=== PATIENT | male | born 1990 | race Caucasian/White ===

== ENCOUNTER 2017-05-02 14:19 | Observation (INO) | payer OTHER ==
[2017-05-02 15:54] LABS: Appearance,Urine Clear (Clear); Bilirubin,Urine Negative (Negative); Blood,Urine Negative (Negative); Color,Urine Yellow; Glucose,Urine (UA) Negative (Negative); Ketones,Urine Negative (Negative); Leukocyte Esterase,Urine Trace (Negative); Mucus,Urine Rare /hpf; Nitrite,Urine Negative (Negative); Protein,Urine Negative (Negative); RBC,Urine 1 /hpf (0-5); Specific Gravity,Urine 1.014 (1.001-1.035); WBC,Urine 6 /hpf (0-5)
[2017-05-02 15:56] LABS: Anisocytosis Slight; Basophils # (A) 0.1 k/uL (0-0.2); Basophils % (A) 1 %; Eosinophils # (A) 0.7 k/uL (0-0.7); Eosinophils % (A) 6 %; HCT 43.8 % (39.0-53.0); HGB 13.6 gm/dL (13.0-17.5); Hypochromasia Slight; Lymphocytes # (A) 1.6 k/uL (1.0-4.8); Lymphocytes % (A) 13 %; MCH 20.7 pg (25.0-35.0); MCV 66.8 fL (80.0-100.0); Mean Platelet Volume 6.5; Microcytosis Marked; Monocytes # (A) 0.8 k/uL (0-1.0); Monocytes % (A) 6 %; Neutrophils # (A) 9.1 k/uL (1.3-7.7); Neutrophils % (A) 73 %; Platelet Count 458 k/uL (150-450); RBC 6.56 m/uL (4.30-5.90); RDW 16.1 % (11.5-15.5); WBC 12.4 k/uL (3.8-10.6)
[2017-05-02 16:03] LABS: ALT 24 U/L (21-72); AST 19 U/L (17-59); Albumin 3.6 g/dL (3.5-5.0); Alkaline Phosphatase 72 U/L (38-126); Anion Gap 12 mmol/L; Blood Urea Nitrogen 13 mg/dL (9-20); Calcium 9.7 mg/dL (8.4-10.2); Carbon Dioxide 29 mmol/L (22-30); Chloride 101 mmol/L (98-107); Glucose 84 mg/dL (74-99); Lipase 124 U/L (23-300); Potassium 4.4 mmol/L (3.5-5.1); Sodium 142 mmol/L (137-145); Total Bilirubin 0.4 mg/dL (0.2-1.3); Total Protein 7.4 g/dL (6.3-8.2)
[2017-05-02] MEDS ORDERED: RX INFO: IV CONTRAST WAS GIVEN 1 EACH MISC MISCELLANE PRN (16:15)
[2017-05-02] MEDS ORDERED: MORPHINE SULFATE/PF 10MG/10ML VL IV STA (16:15)
[2017-05-02] MEDS ORDERED: SODIUM CHLORIDE 0.9% 1,000 ML IV STA (16:15)
[2017-05-02] MEDS ORDERED: ONDANSETRON 4 MG/2 ML VIAL IVP STA (16:15)
--- NOTE | 2017-05-02 17:47 | CT ---
EXAMINATION TYPE: CT abdomen pelvis w con DATE OF EXAM: 05/02/2017 COMPARISON: NONE HISTORY: Stomach pain, vomiting CT DLP: 754.1 mGycm Automated exposure control for dose reduction was used. TECHNIQUE: Helical acquisition of images was performed from the lung bases through the pelvis. CONTRAST: Performed without Oral Contrast and with IV Contrast, patient injected with 100 mL of Isovue 300. FINDINGS: Lung bases are clear. There is no pleural effusion. Heart size is normal. Liver spleen pancreas appear normal. Gallbladder is contracted. There is no adrenal mass. Kidneys show normal size and contour. There is satisfactory contrast opacif ication. There is no hydronephrosis. Ureters are not dilated. Bladder distends smoothly. There is appears to be some fat stranding around the bowel in the pelvis above the urinary bladder th at is not definitely the sigmoid colon. This could be the cecum or even appendix. This area of inflam matory change measures 6 cm in diameter. Exam is limited by lack of oral contrast. Appendix is not se en. IMPRESSION: THERE IS AN INFLAMMATORY APPEARING AREA IN THE MID PELVIS THAT IS PROBABLY THE CECUM. THE POSSIBILITY OF APPENDICITIS OR CECAL INFLAMMATORY PROCESS SHOULD BE CONSIDERED. NO EVIDENCE OF RENAL STONE OR OBSTRUCTION.
--- NOTE | 2017-05-02 18:29 | XR ---
EXAMINATION TYPE: XR chest 2V DATE OF EXAM: 05/02/2017 COMPARISON: NONE HISTORY: Abdominal pain. Short of breath TECHNIQUE: Frontal and lateral views of the chest are obtained. FINDINGS: Heart and mediastinum are normal. Lungs are clear. Diaphragm is normal. Bony thorax appear s normal. IMPRESSION: Normal chest.
[2017-05-02] MEDS ORDERED: NALOXONE 0.4 MG/ML 1 ML VIAL IV PRN (19:47)
[2017-05-02] MEDS ORDERED: PIPERACILLIN-TAZOBACTAM 3.375 GM in DEXTROSE/WATER 1 50ML.BAG IVPB STA (19:47)
[2017-05-02] MEDS ORDERED: ONDANSETRON 4 MG/2 ML VIAL IVP PRN (19:47)
--- NOTE | 2017-05-02 19:47 | ED ---
Abdominal Pain HPI - General Chief Complaint: Abdominal Pain Stated Complaint: Stomach pain,vomiting Time Seen by Provider: 05/02/17 16:11 Source: patient Mode of arrival: ambulatory Limitations: no limitations - History of Present Illness Initial Comments: Patient complains of abdominal pain. He has pain in the right lower quadrant. Nothing makes it better or worse. It has gotten worse for couple days. He denies any chest or back pain. He has nausea but no vomiting. He has no lightheadedness or dizziness. He has no blood in the stool. He was not doing anything when this began. The pain does not radiate anywhere. The pain is sharp and throbbing. - Related Data Home Medications Medication Instructions Recorded Confirmed No Known Home Medications [No 05/02/17 05/02/17 Known Home Medications] Allergies Allergy/AdvReac Type Severity Reaction Status Date / Time No Known Allergies Allergy Verified 05/02/17 16:31 Review of Systems ROS Statement: Those systems with pertinent positive or pertinent negative responses have been documented in the HPI. ROS Other: All systems not noted in ROS Statement are negative. Past Medical History Past Medical History: No Reported History History of Any Multi-Drug Resistant Organisms: None Reported Past Surgical History: No Surgical Hx Reported Past Psychological History: No Psychological Hx Reported Smoking Status: Current every day smoker Past Alcohol Use History: Occasional Past Drug Use History: None Reported General Exam Limitations: no limitations General appearance: alert, in no apparent distress Head exam: Present: atraumatic, normocephalic, normal inspection Eye exam: Present: normal appearance, PERRL, EOMI. Absent: scleral icterus, conjunctival injection, periorbital swelling ENT exam: Present: normal exam, mucous membranes moist Neck exam: Present: normal inspection. Absent: tenderness, meningismus, lymphadenopathy Respiratory exam: Present: normal lung sounds bilaterally. Absent: respiratory distress, wheezes, rales, rhonchi, stridor Cardiovascular Exam: Present: regular rate, normal rhythm, normal heart sounds. Absent: systolic murmur, diastolic murmur, rubs, gallop, clicks GI/Abdominal exam: Present: soft, tenderness, normal bowel sounds. Absent: distended, guarding, rebound, rigid Extremities exam: Present: normal inspection, full ROM, normal capillary refill. Absent: tenderness, pedal edema, joint swelling, calf tenderness Back exam: Present: normal inspection Neurological exam: Present: alert, oriented X3, CN II-XII intact Psychiatric exam: Present: normal affect, normal mood Skin exam: Present: warm, dry, intact, normal color. Absent: rash Course Vital Signs 05/02/17 05/02/17 14:48 18:47 Temperature 98.2 F Pulse Rate 100 77 Respiratory 18 14 Rate Blood Pressure 129/64 127/66 O2 Sat by Pulse 100 98 Oximetry Medical Decision Making - Medical Decision Making Patient complains abdominal pain. He has no elevated white count. CAT scan is concerning for appendicitis. Patient will be admitted to surgery. I ordered a dose of IV antibiotics. - Lab Data Result diagrams: 05/02/17 15:33 05/02/17 15:33 Lab Results 05/02/17 05/02/17 05/02/17 Range/Units 15:33 15:33 15:33 WBC 12.4 H (3.8-10.6) k/uL RBC 6.56 H (4.30-5.90) m/uL Hgb 13.6 (13.0-17.5) gm/dL Hct 43.8 (39.0-53.0) % MCV 66.8 L (80.0-100.0) fL MCH 20.7 L (25.0-35.0) pg MCHC 31.0 (31.0-37.0) g/dL RDW 16.1 H (11.5-15.5) % Plt Count 458 H (150-450) k/uL Neutrophils % 73 % Lymphocytes % 13 % Monocytes % 6 % Eosinophils % 6 % Basophils % 1 % Neutrophils # 9.1 H (1.3-7.7) k/uL Lymphocytes # 1.6 (1.0-4.8) k/uL Monocytes # 0.8 (0-1.0) k/uL Eosinophils # 0.7 (0-0.7) k/uL Basophils # 0.1 (0-0.2) k/uL Hypochromasia Slight Anisocytosis Slight Microcytosis Marked Sodium 142 (137-145) mmol/L Potassium 4.4 (3.5-5.1) mmol/L Chloride 101 (98-107) mmol/L Carbon Dioxide 29 (22-30) mmol/L Anion Gap 12 mmol/L BUN 13 (9-20) mg/dL Creatinine 1.00 (0.66-1.25) mg/dL Est GFR (CKD-EPI)AfAm >90 (>60 ml/min/1.73 sqM) Est GFR (CKD-EPI)NonAf >90 (>60 ml/min/1.73 sqM) Glucose 84 (74-99) mg/dL Calcium 9.7 (8.4-10.2) mg/dL Total Bilirubin 0.4 (0.2-1.3) mg/dL AST 19 (17-59) U/L ALT 24 (21-72) U/L Alkaline Phosphatase 72 (38-126) U/L Total Protein 7.4 (6.3-8.2) g/dL Albumin 3.6 (3.5-5.0) g/dL Amylase (30-110) U/L Lipase 124 (23-300) U/L Urine Color Yellow Urine Appearance Clear (Clear) Urine pH 7.0 (5.0-8.0) Ur Specific Schurz 1.014 (1.001-1.035) Urine Protein Negative (Negative) Urine Glucose (UA) Negative (Negative) Urine Ketones Negative (Negative) Urine Blood Negative (Negative) Urine Nitrite Negative (Negative) Urine Bilirubin Negative (Negative) Urine Urobilinogen 2.0 (<2.0) mg/dL Ur Leukocyte Esterase Trace H (Negative) Urine RBC 1 (0-5) /hpf Urine WBC 6 H (0-5) /hpf Urine Mucus Rare H (None) /hpf 05/02/17 Range/Units 15:33 WBC (3.8-10.6) k/uL RBC (4.30-5.90) m/uL Hgb (13.0-17.5) gm/dL Hct (39.0-53.0) % MCV (80.0-100.0) fL MCH (25.0-35.0) pg MCHC (31.0-37.0) g/dL RDW (11.5-15.5) % Plt Count (150-450) k/uL Neutrophils % % Lymphocytes % % Monocytes % % Eosinophils % % Basophils % % Neutrophils # (1.3-7.7) k/uL Lymphocytes # (1.0-4.8) k/uL Monocytes # (0-1.0) k/uL Eosinophils # (0-0.7) k/uL Basophils # (0-0.2) k/uL Hypochromasia Anisocytosis Microcytosis Sodium (137-145) mmol/L Potassium (3.5-5.1) mmol/L Chloride (98-107) mmol/L Carbon Dioxide (22-30) mmol/L Anion Gap mmol/L BUN (9-20) mg/dL Creatinine (0.66-1.25) mg/dL Est GFR (CKD-EPI)AfAm (>60 ml/min/1.73 sqM) Est GFR (CKD-EPI)NonAf (>60 ml/min/1.73 sqM) Glucose (74-99) mg/dL Calcium (8.4-10.2) mg/dL Total Bilirubin (0.2-1.3) mg/dL AST (17-59) U/L ALT (21-72) U/L Alkaline Phosphatase (38-126) U/L Total Protein (6.3-8.2) g/dL Albumin (3.5-5.0) g/dL Amylase 85 (30-110) U/L Lipase (23-300) U/L Urine Color Urine Appearance (Clear) Urine pH (5.0-8.0) Ur Specific Schurz (1.001-1.035) Urine Protein (Negative) Urine Glucose (UA) (Negative) Urine Ketones (Negative) Urine Blood (Negative) Urine Nitrite (Negative) Urine Bilirubin (Negative) Urine Urobilinogen (<2.0) mg/dL Ur Leukocyte Esterase (Negative) Urine RBC (0-5) /hpf Urine WBC (0-5) /hpf Urine Mucus (None) /hpf Disposition Clinical Impression: Appendicitis Disposition: ADMITTED IP TO THIS [facility] Condition: Fair Referrals: None,Stated [Primary Care Provider] - 1-2 days
[2017-05-02] MEDS: MORPHINE SULFATE/PF 10MG/10ML VL IV PRN ×2 (20:46→23:54)
[2017-05-02] MEDS: FAMOTIDINE 20 MG TAB PO SCH (22:31)
[2017-05-03] MEDS: MORPHINE SULFATE/PF 10MG/10ML VL IV PRN ×5 (04:11→21:11)
[2017-05-03] MEDS: FAMOTIDINE 20 MG TAB PO SCH ×2 (07:44→20:18)
--- NOTE | 2017-05-03 09:42 | P.GSHP ---
History of Present Illness H&P Date: 05/03/17 Chief Complaint: Abdominal pain, vomiting The patient is a 26-year-old man who presented to the emergency room due to 2 days of worsening right-sided abdominal pain and vomiting. He gives a history however of right upper and right lower quadrant pain for approximately 5 months. This will occur sporadically. He also feels like he is "not digesting his food" and that it will stick "on the right side ". Frequently several hours after eating he will vomit. No blood in the vomitus. Possibly some trouble swallowing liquids and food. He thinks it sticks there and then he will throw up. No heartburn. He may been losing weight. He also has been having loose stools on and off for 5 months. He has occasionally noticed blood. He says he thought that this was from a hemorrhoid. He doesn't think there is any family history of ulcerative colitis or Crohn's disease. He will get intermittent chills and night sweats. No fevers. He's had no fever since admission. He feels better today. He is hungry - Review of Systems All systems: negative - Genitourinary (Female) Comment: He thinks he had blood with urination about 1 month ago. Past Medical History Past Medical History: No Reported History History of Any Multi-Drug Resistant Organisms: None Reported Past Surgical History: No Surgical Hx Reported Past Anesthesia/Blood Transfusion Reactions: No Reported Reaction Past Psychological History: No Psychological Hx Reported Smoking Status: Current every day smoker Past Alcohol Use History: Occasional Past Drug Use History: Marijuana Medications and Allergies Home Medications Medication Instructions Recorded Confirmed Type No Known Home Medications [No 05/02/17 05/02/17 History Known Home Medications] Allergies Allergy/AdvReac Type Severity Reaction Status Date / Time No Known Allergies Allergy Verified 05/02/17 16:31 Surgical - Exam Osteopathic Statement: *. No significant issues noted on an osteopathic structural exam other than those noted in the History and Physical/Consult. Vital Signs Temp Pulse Resp BP Pulse Ox 98.2 F 100 18 129/64 100 05/02/17 14:48 05/02/17 14:48 05/02/17 14:48 05/02/17 14:48 05/02/17 14:48 - General well developed, well nourished, no distress - Eyes normal ocular movement - ENT normal pinna, normal nares, normal mucosa - Neck trachea midline, no lymphadectomy - Respiratory normal expansion, normal respiratory effort, clear to auscultation absent: wheezing - Cardiovascular Rhythm: regular Abnormal Heart Sounds: no systolic murmur - Abdomen Abdomen: soft, tender (Mild right upper and right lower tenderness), guarding ( Mild voluntary guarding in the right lower quadrant), no rigid, no rebound, no distended Hernia: no umbilical - Psychiatric oriented to time, oriented to person, oriented to place, speech is normal, memory intact Results - Labs 05/02/17 15:33 05/02/17 15:33 Abnormal Lab Results - Last 24 Hours (Table) 05/02/17 05/02/17 Range/Units 15:33 15:33 WBC 12.4 H (3.8-10.6) k/uL RBC 6.56 H (4.30-5.90) m/uL MCV 66.8 L (80.0-100.0) fL MCH 20.7 L (25.0-35.0) pg RDW 16.1 H (11.5-15.5) % Plt Count 458 H (150-450) k/uL Neutrophils # 9.1 H (1.3-7.7) k/uL Ur Leukocyte Esterase Trace H (Negative) Urine WBC 6 H (0-5) /hpf Urine Mucus Rare H (None) /hpf Diabetes panel 05/02/17 Range/Units 15:33 Sodium 142 (137-145) mmol/L Potassium 4.4 (3.5-5.1) mmol/L Chloride 101 (98-107) mmol/L Carbon Dioxide 29 (22-30) mmol/L BUN 13 (9-20) mg/dL Creatinine 1.00 (0.66-1.25) mg/dL Glucose 84 (74-99) mg/dL Calcium 9.7 (8.4-10.2) mg/dL AST 19 (17-59) U/L ALT 24 (21-72) U/L Alkaline Phosphatase 72 (38-126) U/L Total Protein 7.4 (6.3-8.2) g/dL Albumin 3.6 (3.5-5.0) g/dL Calcium panel 05/02/17 Range/Units 15:33 Calcium 9.7 (8.4-10.2) mg/dL Albumin 3.6 (3.5-5.0) g/dL Pituitary panel 05/02/17 Range/Units 15:33 Sodium 142 (137-145) mmol/L Potassium 4.4 (3.5-5.1) mmol/L Chloride 101 (98-107) mmol/L Carbon Dioxide 29 (22-30) mmol/L BUN 13 (9-20) mg/dL Creatinine 1.00 (0.66-1.25) mg/dL Glucose 84 (74-99) mg/dL Calcium 9.7 (8.4-10.2) mg/dL Adrenal panel 05/02/17 Range/Units 15:33 Sodium 142 (137-145) mmol/L Potassium 4.4 (3.5-5.1) mmol/L Chloride 101 (98-107) mmol/L Carbon Dioxide 29 (22-30) mmol/L BUN 13 (9-20) mg/dL Creatinine 1.00 (0.66-1.25) mg/dL Glucose 84 (74-99) mg/dL Calcium 9.7 (8.4-10.2) mg/dL Total Bilirubin 0.4 (0.2-1.3) mg/dL AST 19 (17-59) U/L ALT 24 (21-72) U/L Alkaline Phosphatase 72 (38-126) U/L Total Protein 7.4 (6.3-8.2) g/dL Albumin 3.6 (3.5-5.0) g/dL - Imaging CT scan - abdomen: report reviewed, image reviewed Assessment and Plan (1) Abdominal pain Current Visit: Yes Status: Acute Code(s): R10.9 - UNSPECIFIED ABDOMINAL PAIN SNOMED Code(s): 01964844 (2) Nausea and vomiting Current Visit: Yes Status: Acute Code(s): R11.2 - NAUSEA WITH VOMITING, UNSPECIFIED SNOMED Code(s): 30694038 (3) Abnormal computed tomography angiography (CTA) of abdomen Current Visit: Yes Status: Acute Code(s): R93.5 - ABN FINDINGS ON DX IMAGING OF ABD REGIONS, INC RETROPERITON SNOMED Code(s): 962869965 (4) Diarrhea Current Visit: Yes Status: Acute Code(s): R19.7 - DIARRHEA, UNSPECIFIED SNOMED Code(s): 02824663 Plan: The computed tomography scan of the abdomen and pelvis show some inflammatory changes but nonvisualization of the appendix. He has been having symptoms for approximately 5 months so concern could also be for no onset of inflammatory bowel disease. Order some additional blood work and recheck him this afternoon. Further recommendations to follow.
[2017-05-03 10:33] LABS: Anisocytosis Slight; HCT 40.4 % (39.0-53.0); HGB 12.6 gm/dL (13.0-17.5); Hypochromasia Moderate; MCH 21.3 pg (25.0-35.0); MCHC 31.1 g/dL (31.0-37.0); MCV 68.5 fL (80.0-100.0); Mean Platelet Volume 6.1; Microcytosis Marked; Platelet Count 375 k/uL (150-450); RDW 16.1 % (11.5-15.5); WBC 9.9 k/uL (3.8-10.6)
[2017-05-03 12:03] LABS: Erythrocyte Sedimentation Rate 16 mm/hr (0-15)
--- NOTE | 2017-05-03 17:58 | P.PN ---
Progress Note - Text Progress Note Date: 05/03/17 The patient is feeling better. Tolerated clear liquid diet. Wants more to eat PE: VSSA Abdomen soft with no real tenderness Lab reviewed A: Abdominal pain, recurrent nausea and vomiting for 5 months, loose stools for 5 months. P: EGD in am. If this is normal, will discharge him and arrange further outpatient workup
[2017-05-04] MEDS: MORPHINE SULFATE/PF 10MG/10ML VL IV PRN (01:16)
[2017-05-04] MEDS ORDERED: PROPOFOL 10 MG/ML 20 ML VIAL IV ONE (08:28)
[2017-05-04] MEDS ORDERED: IV FLUID CONTINUATION 800 ML IV ONE ×2 (08:32)
--- NOTE | 2017-05-04 08:48 | P.PCN ---
Date of Procedure: 05/04/17 Preoperative Diagnosis: abdominal pain, nausea, vomiting Postoperative Diagnosis: same, gastric ulcers Procedure(s) Performed: EGD with biopsy Anesthesia: PEREZ Surgeon: Esther Jimenez Pathology: other (Antrum) Condition: stable Disposition: floor Indications for Procedure: Patient presented with 5 months of abdominal pain, nausea, vomiting. He was admitted because of some inflammation seen on CAT scan. His symptoms were not consistent with appendicitis. His white count was normal. He had no fevers. His pain was more right upper quadrant. Operative Findings: The patient is taken to the endoscopy suite were gastroscope is passed per mouth to the third and fourth portions of the duodenum. The pharynx is unremarkable. The esophagus is without evidence of esophagitis or mass lesion. The upper and lower esophageal sphincters are unremarkable. He has evidence of several subcentimeter ulcers in the antrum was some inflammatory changes. Multiple cold biopsies were obtained. The stomach, pylorus, duodenum or otherwise without evidence of polyp, mass lesion, other mucosal abnormality. Some cold biopsies were also obtained of the esophagus due to its of discomfort with swallowing. This is to rule out eosinophilic esophagitis. He tolerated the procedure without difficulty and is taken recovery room in satisfactory condition. We'll discharge him home on a proton pump inhibitor and follow up in the office in 2 weeks.
--- NOTE | 2017-05-04 08:49 | P.PN ---
Progress Note - Text Progress Note Date: 05/04/17 The patient was able to eat a regular diet last night without difficulty. His EGD showed several gastric ulcers. We'll start him on appropriate medical treatment and discharge him to follow up in the office.
--- NOTE | 2017-05-04 08:53 | P.DS ---
Providers Date of admission: 05/02/17 19:47 Expected date of discharge: 05/04/17 Attending physician: Linda Nicole Primary care physician: Stated None - Discharge Diagnosis(es) (1) Gastric ulcer Current Visit: Yes Status: Acute (2) Abdominal pain Current Visit: Yes Status: Acute (3) Nausea and vomiting Current Visit: Yes Status: Acute (4) Abnormal computed tomography angiography (CTA) of abdomen Current Visit: Yes Status: Acute (5) Diarrhea Current Visit: Yes Status: Acute Hospital Course: The patient presents emergency room with abdominal pain on the right side of his abdomen, nausea, vomiting. A CT showed some possible inflammation of the cecum so he is admitted to rule out appendicitis. He showed no signs of appendicitis with a normal white count and no fever. His pain was more in the upper abdomen and he gave symptoms of nausea and vomiting after eating. Also some diarrhea. I recommended a EGD which was done and showed multiple gastric ulcers. He is discharged home on twice a day proton pump inhibitor. We will check the results of H. pylori. Follow-up in the office in 2 weeks. If he continues to have pain and loose stools then arrange colonoscopy to rule out some inflammatory bowel disease. Patient Condition at Discharge: Fair Plan - Discharge Summary Discharge Rx Participant: Yes New Discharge Prescriptions: New Omeprazole 20 mg PO BID #120 cap Discharge Medication List Omeprazole 20 mg PO BID #120 cap 05/04/17 [Rx] Follow up Appointment(s)/Referral(s): Linda Nicole DO [Doctor of Osteopathic Medicine] - 2 Weeks Patient Instructions/Handouts: Peptic Ulcer (GEN) Discharge Disposition: HOME SELF-CARE
[2017-05-04 10:10] VITALS: BP 107/74; PULSE 67; RESP 18; TEMP 97.6
== END 2017-05-04 10:35 | disposition home or self-care (01) ==
LOC: EC 14:19 → 3SUR 19:47
PROVIDERS: ADMIT Surgery; ATTEND Surgery
DX: K25.9 Gastric ulcer, unspecified as acute or chronic, without hemorrhage or perforation (principal); K29.50 Unspecified chronic gastritis without bleeding; K20.8 Other esophagitis; R19.7 Diarrhea, unspecified; F17.200 Nicotine dependence, unspecified, uncomplicated
CPT/HCPCS: 99285 ×2; 96365 ×2; 96375 ×3; 96361 ×2; 96376 ×3; 96366; 36415; 88305; 80053; 85652; 82150; 83690; 85025; 85027; 86140; 81001; 71046; 74177; 43239; G0378 ×3; J2405; J2543; J2704; Q9967; J2270 ×3

== ENCOUNTER 2018-05-27 23:42 | Emergency (ER) | payer OTHER ==
[2018-05-27 23:48] VITALS: PULSE 74
[2018-05-28] MEDS ORDERED: ONDANSETRON 4 MG/2 ML VIAL IVP STA (00:08)
[2018-05-28] MEDS ORDERED: SODIUM CHLORIDE 0.9% 1,000 ML IV STA (00:08)
[2018-05-28] MEDS ORDERED: HYDROcodone/APAP 5-325MG 1 EACH TAB PO STA (00:08)
[2018-05-28 01:02] LABS: Anisocytosis Slight; Basophils % (A) 0 %; Eosinophils # (A) 0.2 k/uL (0-0.7); Eosinophils % (A) 1 %; HCT 41.4 % (39.0-53.0); Lymphocytes % (A) 15 %; MCH 21.3 pg (25.0-35.0); MCHC 31.3 g/dL (31.0-37.0); MCV 67.9 fL (80.0-100.0); Mean Platelet Volume 6.3; Microcytosis Marked; Monocytes # (A) 0.8 k/uL (0-1.0); Monocytes % (A) 6 %; Neutrophils # (A) 10.2 k/uL (1.3-7.7); Neutrophils % (A) 75 %; Platelet Count 357 k/uL (150-450); RDW 17.2 % (11.5-15.5); WBC 13.6 k/uL (3.8-10.6)
[2018-05-28 01:17] LABS: ALT 28 U/L (21-72); AST 19 U/L (17-59); Albumin 3.8 g/dL (3.5-5.0); Alkaline Phosphatase 68 U/L (38-126); Anion Gap 10 mmol/L; Blood Urea Nitrogen 12 mg/dL (9-20); C Reactive Protein 14.5 mg/L (<10.0); Calcium 9.6 mg/dL (8.4-10.2); Carbon Dioxide 26 mmol/L (22-30); Chloride 101 mmol/L (98-107); Glucose 83 mg/dL (74-99); Lipase 96 U/L (23-300); Potassium 3.8 mmol/L (3.5-5.1); Sodium 137 mmol/L (137-145); Total Bilirubin 0.4 mg/dL (0.2-1.3); Total Protein 7.2 g/dL (6.3-8.2)
[2018-05-28 01:50] LABS: Erythrocyte Sedimentation Rate 10 mm/hr (0-15)
--- NOTE | 2018-05-28 01:58 | CT ---
EXAM: CT Abdomen and Pelvis With Intravenous Contrast CLINICAL HISTORY: abdominal pain TECHNIQUE: Axial computed tomography images of the abdomen and pelvis with intravenous contrast. CTDI is 15.4 mGy and DLP is 726.7 mGy-cm. This CT exam was performed using one or more of the following dose reduction techniques: automated exposure control, adjustment of the mA and/or kV according to patient size, and/or use of iterative reconstruction technique. COMPARISON: No relevant prior studies available. FINDINGS: Lung bases: Unremarkable. No mass. No consolidation. ABDOMEN: Liver: Unremarkable. No mass. Gallbladder and bile ducts: Unremarkable. No calcified stones. No ductal dilation. Pancreas: Unremarkable. No mass. No ductal dilation. Spleen: Unremarkable. No splenomegaly. Adrenals: Unremarkable. No mass. Kidneys and ureters: Unremarkable. No solid mass. No hydronephrosis. Stomach and bowel: Abnormal appearance to the distal ileum and sigmoid colon with inflammatory changes in the mesentery and in the pericolonic fat. Loss of normal margins of the wall suggestive of inflammatory process thickening of the bowel wall. There appears to be matting of bowel. The anatomy is limited due to lack of oral contrast and inflammatory process. The findings are suggestive of a inflammatory process. Clinical correlation is required to Crohn's or other inflammatory bowel process.. The possibility of early obstructive pattern due to inflammatory changes of the distal ileum is not excluded PELVIS: Appendix: The appendix is not identified. Bladder: Unremarkable. No mass. Reproductive: Unremarkable as visualized. ABDOMEN and PELVIS: Intraperitoneal space: Unremarkable. No free air. No significant fluid collection. Bones/joints: No acute fracture. No dislocation. Soft tissues: Unremarkable. Vasculature: Unremarkable. No abdominal aortic aneurysm. Lymph nodes: Extensive mesenteric adenopathy with lymph nodes measuring up to 1.8 cm area of these appear to be enhancing lymph nodes. IMPRESSION: Inflammatory change of the pericolonic fat around the sigmoid colon in the mesentery around the jejunum with loss of the normal architecture of the bowel. The findings are nonspecific. Lack of oral contrast limits evaluation anatomy. The findings appear to represent an inflammatory process such as Crohn's disease. Clinical correlation is required. The appendix is not adequately identified. There is no free air. There is a mesenteric lymph nodes many of which appear to be enhancing measuring up to 1.8 cm in size
--- NOTE | 2018-05-28 02:20 | ED ---
Abdominal Pain HPI - General Chief Complaint: Abdominal Pain Stated Complaint: Abdominal Pain Time Seen by Provider: 05/27/18 23:56 Source: patient, family Mode of arrival: ambulatory Limitations: no limitations - History of Present Illness Initial Comments: The patient is a 27-year-old male who presents to the emergency department with complaint of abdominal pain. The patient does have a history of Crohn's. He states he was just diagnosed several months ago. He does take 10 mg of prednisone daily for his Crohn's. Admits that he is in the process of getting set up for infusions. His last scope was 2-3 months ago. His GI doctor is Dr. العراقي out of [facility]. Today the patient ate some ice cream. He states that one hour after eating he began having abdominal pain and had an episode of vomiting. States he attempted to lay down however his symptoms do not improve. He is admitting to diffuse abdominal cramping located in his left and right lower quadrants. He is denying any hematochezia or melanotic stools. He denies any changes in his urination to include dysuria, hematuria or difficulty voiding. He denies any fevers or chills, no nausea or vomiting. There are no other alleviating, presents stating or modifying factors - Related Data Previous Rx's Medication Instructions Recorded Omeprazole 20 mg PO BID #120 cap 05/04/17 Hydrocodone/Acetaminophen [Athol 1 tab PO Q6HR PRN #12 tab 05/28/18 5-325] Ondansetron Odt [Zofran Odt] 4 mg PO Q8HR PRN #10 tab 05/28/18 Allergies Allergy/AdvReac Type Severity Reaction Status Date / Time cyclobenzaprine AdvReac Unknown Verified 05/27/18 23:49 [From Flexeril] Review of Systems ROS Statement: Those systems with pertinent positive or pertinent negative responses have been documented in the HPI. ROS Other: All systems not noted in ROS Statement are negative. Past Medical History Past Medical History: No Reported History Additional Past Medical History / Comment(s): Crohns History of Any Multi-Drug Resistant Organisms: None Reported Past Surgical History: No Surgical Hx Reported Past Anesthesia/Blood Transfusion Reactions: No Reported Reaction Past Psychological History: No Psychological Hx Reported, Anxiety, Depression Smoking Status: Former smoker Past Alcohol Use History: Occasional Past Drug Use History: Marijuana General Exam Limitations: no limitations General appearance: alert, in no apparent distress Head exam: Present: atraumatic, normocephalic, normal inspection Eye exam: Present: normal appearance, PERRL, EOMI. Absent: scleral icterus, conjunctival injection, periorbital swelling ENT exam: Present: normal exam, mucous membranes moist Neck exam: Present: normal inspection. Absent: tenderness, meningismus, lymphadenopathy Respiratory exam: Present: normal lung sounds bilaterally. Absent: respiratory distress, wheezes, rales, rhonchi, stridor Cardiovascular Exam: Present: regular rate, normal rhythm, normal heart sounds. Absent: systolic murmur, diastolic murmur, rubs, gallop, clicks GI/Abdominal exam: Present: soft, tenderness (The patient has tenderness to palpation in his left and right lower quadrants. No peritoneal signs to include rebound, guarding or rigidity.), normal bowel sounds. Absent: distended, guarding, rebound, rigid Rectal exam: Present: deferred Extremities exam: Present: normal inspection, full ROM, normal capillary refill. Absent: tenderness, pedal edema, joint swelling, calf tenderness Back exam: Present: normal inspection Neurological exam: Present: alert, oriented X3, CN II-XII intact Psychiatric exam: Present: normal affect, normal mood Skin exam: Present: warm, dry, intact, normal color. Absent: rash Course Vital Signs 05/27/18 05/28/18 23:44 02:36 Temperature 98.1 F 97.8 F Pulse Rate 74 74 Respiratory 18 16 Rate Blood Pressure 129/78 125/81 O2 Sat by Pulse 95 97 Oximetry Medical Decision Making - Medical Decision Making The patient was placed into room 27. He is hooked up to continuous pulse ox and cardiac monitoring. We did discuss the diagnosis, differential and treatment options. I did recommend IV access for Zofran administration. The patient is requesting something for pain at this time. He is provided with a Athol 5/325mg. I did discuss the side effect profile of the medication before administering it to the patient. I also recommended laboratory studies and a CT of the patient's abdomen and pelvis. The patient did agree to this. Upon return of the results I did discuss them with the patient. He has a mild leukocytosis at this time. CT is also showing an area of inflammation. The patient states that he feels markely improved at this time. Serial abdominal exams were performed and demonstrated no peritoneal signs. I did recommend admission to the hospital for GI evaluation however the patient refused. He states he would like to follow up with his own GI doctor at this time. The patient will be discharged home. He is given a prescription for Zofran 4 mg ODT tablets. I will also give him a short supply of Athol. He does sign an opioid start talking form. He is to only take the medication for significant pain. He is to not work or drive. He must take a stool softener with the medication. The patient must call his GI physician in the morning. He is to continue taking his prednisone. If the patient has any new or worsening symptoms or is unable to get into his GI doctor, he must return to the emergency department. Patient did agree to this. He was given written and verbal discharge instructions and discharged home in stable condition - Differential Diagnosis Crohn's exacerbation, nausea and vomiting, gastroenteritis - Lab Data Result diagrams: 05/28/18 00:30 05/28/18 00:30 Lab Results 05/28/18 05/28/18 Range/Units 00:30 00:30 WBC 13.6 H (3.8-10.6) k/uL RBC 6.10 H (4.30-5.90) m/uL Hgb 13.0 (13.0-17.5) gm/dL Hct 41.4 (39.0-53.0) % MCV 67.9 L (80.0-100.0) fL MCH 21.3 L (25.0-35.0) pg MCHC 31.3 (31.0-37.0) g/dL RDW 17.2 H (11.5-15.5) % Plt Count 357 (150-450) k/uL Neutrophils % 75 % Lymphocytes % 15 % Monocytes % 6 % Eosinophils % 1 % Basophils % 0 % Neutrophils # 10.2 H (1.3-7.7) k/uL Lymphocytes # 2.0 (1.0-4.8) k/uL Monocytes # 0.8 (0-1.0) k/uL Eosinophils # 0.2 (0-0.7) k/uL Basophils # 0.0 (0-0.2) k/uL Anisocytosis Slight Microcytosis Marked ESR 10 (0-15) mm/hr Sodium 137 (137-145) mmol/L Potassium 3.8 (3.5-5.1) mmol/L Chloride 101 (98-107) mmol/L Carbon Dioxide 26 (22-30) mmol/L Anion Gap 10 mmol/L BUN 12 (9-20) mg/dL Creatinine 0.84 (0.66-1.25) mg/dL Est GFR (CKD-EPI)AfAm >90 (>60 ml/min/1.73 sqM) Est GFR (CKD-EPI)NonAf >90 (>60 ml/min/1.73 sqM) Glucose 83 (74-99) mg/dL Calcium 9.6 (8.4-10.2) mg/dL Total Bilirubin 0.4 (0.2-1.3) mg/dL AST 19 (17-59) U/L ALT 28 (21-72) U/L Alkaline Phosphatase 68 (38-126) U/L C-Reactive Protein 14.5 H (<10.0) mg/L Total Protein 7.2 (6.3-8.2) g/dL Albumin 3.8 (3.5-5.0) g/dL Lipase 96 (23-300) U/L - Radiology Data Radiology results: report reviewed Disposition Clinical Impression: Abdominal pain, Crohns disease Disposition: HOME SELF-CARE Condition: Stable Instructions (If sedation given, give patient instructions): Crohn Disease (ED), Abdominal Pain (ED) Additional Instructions: Please call your GI doctor in the morning. Take the Zofran as needed for nausea. Take your stool softener. [place] the Athol for any resistant pain. Do not work or drive taking the medications. Return to the emergency department for any new or worsening symptoms Prescriptions: Hydrocodone/Acetaminophen [Athol 5-325] 1 tab PO Q6HR PRN #12 tab PRN Reason: Pain Ondansetron Odt [Zofran Odt] 4 mg PO Q8HR PRN #10 tab PRN Reason: Nausea Is patient prescribed a controlled substance at d/c from ED?: Yes When asked, does pt state using other controlled substances?: No If prescribed controlled substance>3 days was MAPS reviewed?: Prescribed <3 Days If opioid is for acute pain is fill amount 7 days or less?: Yes If Rx opioid, was Start Talking consent form obtained?: Yes Referrals: Nonstaff,Physician [Primary Care Provider] - 1-2 days Time of Disposition: 02:19
[2018-05-28 02:36] VITALS: BP 125/81; RESP 16; TEMP 97.8
== END 2018-05-28 02:36 | disposition home or self-care (01) ==
LOC: EC 23:42
DX: K50.90 Crohn's disease, unspecified, without complications (principal); R11.10 Vomiting, unspecified; Z87.891 Personal history of nicotine dependence; Z88.8 Allergy status to other drugs, medicaments and biological substances
CPT/HCPCS: 36415; 80053; 85652; 83690; 85025; 86140; 74177; 99284; 96374; 96361 ×2; J2405; Q9967

== ENCOUNTER 2018-06-03 18:33 | Emergency (ER) | payer OTHER ==
[2018-06-03] MEDS ORDERED: SODIUM CHLORIDE 0.9% 1,000 ML IV STA (19:07)
[2018-06-03] MEDS ORDERED: ONDANSETRON 4 MG/2 ML VIAL IVP STA (19:07)
[2018-06-03] MEDS ORDERED: MORPHINE SULFATE 4 MG/ML SYRINGE IV STA (19:07)
--- NOTE | 2018-06-03 19:12 | ED ---
Abdominal Pain HPI - General Chief Complaint: Abdominal Pain Stated Complaint: abdominal pain Time Seen by Provider: 06/03/18 18:53 Source: patient Mode of arrival: ambulatory Limitations: no limitations - History of Present Illness Initial Comments: 27-year-old male patient with past medical history significant for Crohn's disease presents to the emergency department today for evaluation of lower abdominal pain. Patient states he is having crampy sharp pain to the right and left lower quadrants. Patient was just seen and evaluated here 4 days ago for similar symptoms. He was discharged with Zofran and Haiku however states the medication wasn't helping his pain taking it. Patient does take low-dose prednisone 10 mg per day to control symptoms and is waiting to start infusions for his Crohn's disease. Patient states that he is passing mucousy stool. States he has a small amount of blood with wiping. Patient states he has been nauseated but has not vomited. Denies any fever or chills. States her last colonoscopy was 2-3 months ago. Patient sees a GI specialist from [facility]. Patient denies any recent rash, shortness breath, chest pain, back pain, numbness, tingling, dizziness, weakness, hematuria, dysuria, urinary urgency, urinary frequency, headache, visual changes, or any other complaints. - Related Data Previous Rx's Medication Instructions Recorded Omeprazole 20 mg PO BID #120 cap 05/04/17 Hydrocodone/Acetaminophen [Haiku 1 tab PO Q6HR PRN #12 tab 05/28/18 5-325] Ondansetron Odt [Zofran Odt] 4 mg PO Q8HR PRN #10 tab 05/28/18 Docusate [Colace] 100 mg PO BID #30 capsule 06/03/18 Allergies Allergy/AdvReac Type Severity Reaction Status Date / Time cyclobenzaprine AdvReac Unknown Verified 06/03/18 19:05 [From Flexeril] Review of Systems ROS Statement: Those systems with pertinent positive or pertinent negative responses have been documented in the HPI. ROS Other: All systems not noted in ROS Statement are negative. Past Medical History Past Medical History: No Reported History Additional Past Medical History / Comment(s): Crohns History of Any Multi-Drug Resistant Organisms: None Reported Past Surgical History: No Surgical Hx Reported Past Anesthesia/Blood Transfusion Reactions: No Reported Reaction Past Psychological History: No Psychological Hx Reported, Anxiety, Depression Smoking Status: Former smoker Past Alcohol Use History: Occasional Past Drug Use History: Marijuana General Exam Limitations: no limitations General appearance: alert, in no apparent distress, other (Physical well- developed, well-nourished adult male patient in no acute distress. Vital signs upon presentation are temperature 98.7F, pulse 95, respirations 18, blood pressure 117/78, pulse ox 99% on room air.) Eye exam: Present: normal appearance, PERRL, EOMI. Absent: scleral icterus, conjunctival injection, periorbital swelling ENT exam: Present: normal exam, normal oropharynx, mucous membranes moist Respiratory exam: Present: normal lung sounds bilaterally. Absent: respiratory distress, wheezes, rales, rhonchi, stridor Cardiovascular Exam: Present: regular rate, normal rhythm, normal heart sounds. Absent: systolic murmur, diastolic murmur, rubs, gallop, clicks GI/Abdominal exam: Present: soft, tenderness (Lower abdominal tenderness), normal bowel sounds. Absent: distended, guarding, rebound, rigid Back exam: Present: normal inspection Neurological exam: Present: alert, oriented X3, CN II-XII intact Psychiatric exam: Present: normal affect, normal mood Skin exam: Present: warm, dry, intact, normal color. Absent: rash Course Vital Signs 06/03/18 06/03/18 18:46 22:08 Temperature 98.7 F 98.1 F Pulse Rate 95 62 Respiratory 18 20 Rate Blood Pressure 117/78 111/67 O2 Sat by Pulse 99 100 Oximetry Medical Decision Making - Medical Decision Making 27-year-old male patient presents to the emergency department today for evaluation of lower abdominal pain and mucousy bowel movements. Patient does have history of Crohn's colitis and believes he is having a flare. Patient does admit to stopping his steroid due to side effects. Physical examination did reveal some mild lower right and left quadrant pain. Patient did have computed tomography scan of the abdomen and pelvis 6 days ago which showed inflammation in the sigmoid colon consistent with Crohn's. KUB x-ray of the abdomen was obtained and showed no evidence for acute intra-abdominal abnormalities. Labs reviewed and are unremarkable. Patient was given medication here in the emergency department, upon reevaluation he does report improve symptoms. We will discharge home at this time to follow-up with his physician as he has planned on May 1. He was given dose of steroids here in the emergency department. He does have Haiku at home for pain control. Return parameters were discussed in detail. He verbalizes understanding and agrees this plan. - Lab Data Result diagrams: 06/03/18 19:39 06/03/18 19:39 Lab Results 06/03/18 06/03/18 06/03/18 Range/Units 19:39 19:39 21:27 WBC 10.6 (3.8-10.6) k/uL RBC 6.50 H (4.30-5.90) m/uL Hgb 13.8 (13.0-17.5) gm/dL Hct 44.2 (39.0-53.0) % MCV 68.1 L (80.0-100.0) fL MCH 21.2 L (25.0-35.0) pg MCHC 31.1 (31.0-37.0) g/dL RDW 16.2 H (11.5-15.5) % Plt Count 350 (150-450) k/uL Neutrophils % 78 % Lymphocytes % 13 % Monocytes % 5 % Eosinophils % 2 % Basophils % 1 % Neutrophils # 8.3 H (1.3-7.7) k/uL Lymphocytes # 1.4 (1.0-4.8) k/uL Monocytes # 0.5 (0-1.0) k/uL Eosinophils # 0.2 (0-0.7) k/uL Basophils # 0.1 (0-0.2) k/uL Anisocytosis Slight Microcytosis Marked Sodium 138 (137-145) mmol/L Potassium 3.9 (3.5-5.1) mmol/L Chloride 101 (98-107) mmol/L Carbon Dioxide 28 (22-30) mmol/L Anion Gap 9 mmol/L BUN 12 (9-20) mg/dL Creatinine 1.10 (0.66-1.25) mg/dL Est GFR (CKD-EPI)AfAm >90 (>60 ml/min/1.73 sqM) Est GFR (CKD-EPI)NonAf >90 (>60 ml/min/1.73 sqM) Glucose 82 (74-99) mg/dL Calcium 9.7 (8.4-10.2) mg/dL Total Bilirubin 0.6 (0.2-1.3) mg/dL AST 18 (17-59) U/L ALT 22 (21-72) U/L Alkaline Phosphatase 75 (38-126) U/L Total Protein 7.7 (6.3-8.2) g/dL Albumin 4.1 (3.5-5.0) g/dL Amylase 79 (30-110) U/L Lipase 96 (23-300) U/L Urine Color Yellow Urine Appearance Clear (Clear) Urine pH 6.5 (5.0-8.0) Ur Specific [place] 1.015 (1.001-1.035) Urine Protein Negative (Negative) Urine Glucose (UA) Negative (Negative) Urine Ketones Negative (Negative) Urine Blood Negative (Negative) Urine Nitrite Negative (Negative) Urine Bilirubin Negative (Negative) Urine Urobilinogen <2.0 (<2.0) mg/dL Ur Leukocyte Esterase Negative (Negative) - Radiology Data Radiology results: report reviewed, image reviewed KUB x-ray was obtained. Report was reviewed in its entirety. Impression by Dr. Denise shows overall nonobstructive bowel gas pattern remains present Disposition Clinical Impression: Abdominal pain, Exacerbation of Crohn's disease Disposition: HOME SELF-CARE Condition: Good Instructions (If sedation given, give patient instructions): Crohn Disease (ED), Abdominal Pain (ED) Additional Instructions: Increase fluids. Follow up with your primary care physician for recheck as soon as possible. Return to the emergency department for any new, worsening, or concerning symptoms. Prescriptions: Docusate [Colace] 100 mg PO BID #30 capsule Is patient prescribed a controlled substance at d/c from ED?: No Referrals: Mehran Fair MD [Primary Care Provider] - 1-2 days Time of Disposition: 21:35
[2018-06-03 19:50] LABS: Anisocytosis Slight; Basophils # (A) 0.1 k/uL (0-0.2); Basophils % (A) 1 %; Eosinophils # (A) 0.2 k/uL (0-0.7); Eosinophils % (A) 2 %; HCT 44.2 % (39.0-53.0); HGB 13.8 gm/dL (13.0-17.5); Lymphocytes # (A) 1.4 k/uL (1.0-4.8); Lymphocytes % (A) 13 %; MCH 21.2 pg (25.0-35.0); MCHC 31.1 g/dL (31.0-37.0); MCV 68.1 fL (80.0-100.0); Mean Platelet Volume 5.8; Microcytosis Marked; Monocytes # (A) 0.5 k/uL (0-1.0); Monocytes % (A) 5 %; Neutrophils # (A) 8.3 k/uL (1.3-7.7); Neutrophils % (A) 78 %; Platelet Count 350 k/uL (150-450); RDW 16.2 % (11.5-15.5); WBC 10.6 k/uL (3.8-10.6)
[2018-06-03 19:56] LABS: ALT 22 U/L (21-72); AST 18 U/L (17-59); Albumin 4.1 g/dL (3.5-5.0); Alkaline Phosphatase 75 U/L (38-126); Amylase 79 U/L (30-110); Anion Gap 9 mmol/L; Blood Urea Nitrogen 12 mg/dL (9-20); Calcium 9.7 mg/dL (8.4-10.2); Carbon Dioxide 28 mmol/L (22-30); Chloride 101 mmol/L (98-107); Glucose 82 mg/dL (74-99); Lipase 96 U/L (23-300); Potassium 3.9 mmol/L (3.5-5.1); Sodium 138 mmol/L (137-145); Total Bilirubin 0.6 mg/dL (0.2-1.3); Total Protein 7.7 g/dL (6.3-8.2)
--- NOTE | 2018-06-03 21:02 | XR ---
EXAMINATION TYPE: XR KUB DATE OF EXAM: 06/03/2018 7:58 PM CLINICAL HISTORY: Abdominal pain for a few days. History of Crohn's disease. TECHNIQUE: Two Upright KUB images of the abdomen are obtained. COMPARISON: CT abdomen and pelvis from 6 days ago. FINDINGS: Scattered gas is seen in non-distended small bowel loops. Gas and fecal material is seen in non-distended colon. There is no visceromegaly, pneumoperitoneum, or abnormal calcification apprecia shukri. The lung bases are clear and the osseous structures are intact. IMPRESSION: Overall nonobstructive bowel gas pattern remains present.
[2018-06-03 21:33] LABS: Appearance,Urine Clear (Clear); Bilirubin,Urine Negative (Negative); Blood,Urine Negative (Negative); Color,Urine Yellow; Glucose,Urine (UA) Negative (Negative); Ketones,Urine Negative (Negative); Leukocyte Esterase,Urine Negative (Negative); Nitrite,Urine Negative (Negative); PH, Urine 6.5 (5.0-8.0); Protein,Urine Negative (Negative); Specific Gravity,Urine 1.015 (1.001-1.035); Urobilinogen,Urine <2.0 mg/dL (<2.0)
[2018-06-03] MEDS ORDERED: MORPHINE SULFATE 4 MG/ML SYRINGE IVP STA (21:33)
[2018-06-03] MEDS ORDERED: LORazepam 2 MG/ML INJ IV STA (21:33)
[2018-06-03] MEDS ORDERED: DEXAMETHASONE SOD PHOSPHATE 10 MG/ML 1 ML VIAL IV STA (21:33)
[2018-06-03 22:09] VITALS: BP 111/67; PULSE 62; RESP 20; TEMP 98.1
== END 2018-06-03 22:09 | disposition home or self-care (01) ==
LOC: EC 18:33
DX: K50.90 Crohn's disease, unspecified, without complications (principal); Z87.891 Personal history of nicotine dependence; Z88.8 Allergy status to other drugs, medicaments and biological substances
CPT/HCPCS: 36415; 80053; 82150; 83690; 85025; 81003; 74018; 99284; 96374; 96375 ×3; 96376; 96361; J2060; J2270; J1100; J2405

== ENCOUNTER 2018-07-23 22:05 | Inpatient (IN) | payer OTHER ==
[2018-07-23] MEDS ORDERED: MORPHINE SULFATE 2 MG/ML SYRINGE IVP STA (23:18)
[2018-07-23] MEDS ORDERED: SODIUM CHLORIDE 0.9% 1,000 ML IV STA (23:18)
[2018-07-23] MEDS ORDERED: ONDANSETRON 4 MG/2 ML VIAL IVP STA (23:19)
[2018-07-23 23:33] LABS: Basophils % (A) 0 %; Eosinophils # (A) 0.5 k/uL (0-0.7); Eosinophils % (A) 4 %; HCT 41.2 % (39.0-53.0); HGB 12.6 gm/dL (13.0-17.5); Lymphocytes # (A) 2.8 k/uL (1.0-4.8); Lymphocytes % (A) 24 %; MCH 21.1 pg (25.0-35.0); MCHC 30.6 g/dL (31.0-37.0); MCV 68.9 fL (80.0-100.0); Mean Platelet Volume 7.3; Microcytosis Marked; Monocytes # (A) 0.7 k/uL (0-1.0); Monocytes % (A) 6 %; Neutrophils # (A) 7.4 k/uL (1.3-7.7); Neutrophils % (A) 63 %; Platelet Count 320 k/uL (150-450); RBC 5.99 m/uL (4.30-5.90); RDW 15.9 % (11.5-15.5); WBC 11.7 k/uL (3.8-10.6)
[2018-07-23 23:42] LABS: ALT 9 U/L (21-72); AST 18 U/L (17-59); African American GFR (CKD) >90 (>60 ml/min/1.73 sqM); Albumin 3.6 g/dL (3.5-5.0); Alkaline Phosphatase 71 U/L (38-126); Anion Gap 9 mmol/L; Blood Urea Nitrogen 12 mg/dL (9-20); Carbon Dioxide 23 mmol/L (22-30); Chloride 107 mmol/L (98-107); Glucose 104 mg/dL (74-99); Lipase 199 U/L (23-300); Sodium 139 mmol/L (137-145); Total Bilirubin 0.5 mg/dL (0.2-1.3)
--- NOTE | 2018-07-24 00:19 | CT ---
EXAM: CT Abdomen and Pelvis With Intravenous Contrast CLINICAL HISTORY: ITS.REASON CT Reason: abdominal pain TECHNIQUE: Axial computed tomography images of the abdomen and pelvis with intravenous contrast. This CT exam was performed using one or more of the following dose reduction techniques: automated exposure control, adjustment of the mA and/or kV according to patient size, and/or use of iterative reconstruction technique. COMPARISON: No relevant prior studies available. FINDINGS: An inflammatory process is present in the lower abdomen. There is small and probably large bowel wall thickening. At least one abscess collection appears to be present, measuring approximately 4 cm. Additional collections may also be present but are difficult to differentiate from bowel. Evaluation limited without oral contrast. No ascites. No obstruction. IMPRESSION: Findings of Crohn's disease in the lower abdomen with at least one suspected 4 cm abscess.
--- NOTE | 2018-07-24 00:54 | ED ---
General Adult HPI - General Source: patient, RN notes reviewed, old records reviewed Mode of arrival: ambulatory Limitations: no limitations <Fredis Brown - Last Filed: 07/24/18 04:04> <Jesús Calloway - Last Filed: 07/24/18 12:37> - General Chief complaint: Abdominal Pain Stated complaint: Crohn's Flare Up Time Seen by Provider: 07/23/18 22:25 - History of Present Illness Initial comments: 28-year-old male patient past medical history of Crohn's disease presents to ED after 4 days of generalized abdominal pain. Patient course that he has been receiving infliximab influsions and did have one today. Patient reports he has had nausea without emesis as well as diarrhea which has at times been bloody. Patient denies any other complaints at this time. Denies any chest pain shortness of breath or any other complaints at this time. Systemic: Pt denies fatigue, fever/chills, rash. Pt denies weakness, night sweats, weight loss. Neuro: Pt denies headache, visual disturbances, syncope or pre-syncope. HEENT: Pt denies ocular discharge or irritation, otalgia, rhinorrhea, pharyngitis or notable lymphadenopathy. Cardiopulmonary: Pt denies chest pain, SOB, heart palpitations, dyspnea on exertion. : Pt denies dysuria, burning w/ urination, frequency/urgency. Denies new onset urinary or bowel incontinence. MSK: Pt denies myalgia, loss of strength or function in extremities. Neuro: Pt denies new onset weakness, paresthesias. (Fredis Brown) - Related Data Home Medications Medication Instructions Recorded Confirmed No Known Home Medications 07/23/18 07/23/18 Allergies Allergy/AdvReac Type Severity Reaction Status Date / Time cyclobenzaprine AdvReac Unknown Verified 07/23/18 22:22 [From Flexeril] Review of Systems ROS Other: All systems not noted in ROS Statement are negative. <Fredis Brown - Last Filed: 07/24/18 04:04> ROS Other: All systems not noted in ROS Statement are negative. <Jesús Calloway - Last Filed: 07/24/18 12:37> ROS Statement: Those systems with pertinent positive or pertinent negative responses have been documented in the HPI. Past Medical History Past Medical History: No Reported History Additional Past Medical History / Comment(s): Crohns History of Any Multi-Drug Resistant Organisms: None Reported Past Surgical History: No Surgical Hx Reported Past Anesthesia/Blood Transfusion Reactions: No Reported Reaction Past Psychological History: No Psychological Hx Reported, Anxiety, Depression Smoking Status: Former smoker Past Alcohol Use History: Occasional Past Drug Use History: Marijuana <Fredis Brown - Last Filed: 07/24/18 04:04> - Past Family History Father Family Medical History: No Reported History Additional Family Medical History / Comment(s): Father is healthy Mother Family Medical History: No Reported History Additional Family Medical History / Comment(s): Mother is healthy. <Jesús Calloway - Last Filed: 07/24/18 12:37> General Exam Limitations: no limitations <Fredis Brown - Last Filed: 07/24/18 04:04> - General Exam Comments Initial Comments: Constitutional: NAD, AOX3, Pt has pleasant affect. HEENT: NC/AT, trachea midline, neck supple, no lymphadenopathy. Posterior pharynx non erythematous, without exudates. External ears appear normal, without discharge. Mucous membranes moist. Eyes PERRLA, EOM intact. There is no scleral icterus. No pallor noted. Cardiopulmonary: RRR, no murmurs, rubs or gallops, no JVD noted. Lungs CTAB in anterior and posterior tan. No peripheral edema. Abdominal exam: Abdomen soft and non-distended. Abdomen mildly tender to palpation in all 4 quadrants. No focal area of abdominal tenderness. No guarding or rigidity no ecchymoses. [place] sign negative.. Bowel sounds active in LLQ. No hepatosplenomegaly. No ecchymosis Neuro: CN II-XII grossly intact. No nuchal rigidity. No raccon eyes, no jeffries sign, no hemotympanum. No cervical spinal tenderness. MSK: No posterior calf tenderness bilaterally, homans sign negative bilaterally. Posterior tibialis and radial pulse +2 bilaterally. Sensation intact in upper and lower extremities. Full active ROM in upper and lower extremities, 5/5 stregnth. (Fredis Brown) Course Vital Signs 07/23/18 07/24/18 07/24/18 22:20 02:23 06:48 Temperature 98.3 F 97.2 F L Pulse Rate 66 71 68 Respiratory 16 18 16 Rate Blood Pressure 115/74 110/62 137/87 O2 Sat by Pulse 99 96 97 Oximetry Medical Decision Making - Lab Data Result diagrams: 07/23/18 22:26 07/23/18 22:26 <Fredis Brown - Last Filed: 07/24/18 04:04> - Lab Data Result diagrams: 07/23/18 22:26 07/23/18 22:26 <Jesús Calloway - Last Filed: 07/24/18 12:37> - Medical Decision Making 28-year-old male patient past medical history of Crohn's disease presents to ED after 4 days of generalized abdominal pain. Patient course that he has been receiving infliximab influsions and did have one today. Patient reports he has had nausea without emesis as well as diarrhea which has at times been bloody. Patient denies any other complaints at this time. Denies any chest pain shortn ess of breath or any other complaints at this time. Pt VSS, afebrile. Physical exam displayed: Abdomen soft and non-distended. Abdomen mildly tender to palpation in all 4 quadrants. No focal area of abdominal tenderness. No guarding or rigidity no ecchymoses. [place] sign negative. Pt declined rectal exam. Investigations revealed mild leukocytosis of 11.7. Mild anemia of 12.6. CMP non-impressive. Lactic acid 1.1. CT and pelvis with contrast displayed findings of Crohn disease in the lower abdomen with at least one suspected 4 cm abscess. Blood cultures were obtained this time. Patient started on IV antibiotics, will be admitted to surgery. Case discussed and patient seen with Dr. Pike. (Fredis Brown) I saw this patient in conjunction with the physician assistant store manager. I performed independent history and physical exam. Agree with case management. (Jesús Calloway) - Lab Data Lab Results 07/23/18 07/23/18 07/23/18 Range/Units 22:26 22:26 22:26 WBC 11.7 H (3.8-10.6) k/uL RBC 5.99 H (4.30-5.90) m/uL Hgb 12.6 L (13.0-17.5) gm/dL Hct 41.2 (39.0-53.0) % MCV 68.9 L (80.0-100.0) fL MCH 21.1 L (25.0-35.0) pg MCHC 30.6 L (31.0-37.0) g/dL RDW 15.9 H (11.5-15.5) % Plt Count 320 (150-450) k/uL Neutrophils % 63 % Lymphocytes % 24 % Monocytes % 6 % Eosinophils % 4 % Basophils % 0 % Neutrophils # 7.4 (1.3-7.7) k/uL Lymphocytes # 2.8 (1.0-4.8) k/uL Monocytes # 0.7 (0-1.0) k/uL Eosinophils # 0.5 (0-0.7) k/uL Basophils # 0.0 (0-0.2) k/uL Microcytosis Marked Sodium 139 (137-145) mmol/L Potassium 4.0 (3.5-5.1) mmol/L Chloride 107 (98-107) mmol/L Carbon Dioxide 23 (22-30) mmol/L Anion Gap 9 mmol/L BUN 12 (9-20) mg/dL Creatinine 0.94 (0.66-1.25) mg/dL Est GFR (CKD-EPI)AfAm >90 (>60 ml/min/1.73 sqM) Est GFR (CKD-EPI)NonAf >90 (>60 ml/min/1.73 sqM) Glucose 104 H (74-99) mg/dL Plasma Lactic Acid Nic 1.1 (0.7-2.0) mmol/L Calcium 9.0 (8.4-10.2) mg/dL Total Bilirubin 0.5 (0.2-1.3) mg/dL AST 18 (17-59) U/L ALT 9 L (21-72) U/L Alkaline Phosphatase 71 (38-126) U/L Total Protein 7.0 (6.3-8.2) g/dL Albumin 3.6 (3.5-5.0) g/dL Lipase 199 (23-300) U/L Disposition Is patient prescribed a controlled substance at d/c from ED?: No <Fredis Brown - Last Filed: 07/24/18 04:04> <Jesús Calloway - Last Filed: 07/24/18 12:37> Clinical Impression: Intra-abdominal abscess Disposition: ADMITTED IP TO THIS HOSP Condition: Stable
[2018-07-24] MEDS ORDERED: PIPERACILLIN-TAZOBACTAM 3.375 GM in SODIUM CHLORIDE 0.9% 100 ML IVPB SCH (01:00)
[2018-07-24] MEDS ORDERED: IBUPROFEN 400 MG TAB PO PRN (01:42)
[2018-07-24] MEDS ORDERED: NALOXONE 0.4 MG/ML 1 ML VIAL IV PRN (01:42)
[2018-07-24] MEDS ORDERED: ACETAMINOPHEN TAB 325 MG TAB PO PRN (01:42)
[2018-07-24] MEDS ORDERED: ONDANSETRON 4 MG/2 ML VIAL IVP PRN (01:42)
[2018-07-24] MEDS: MORPHINE SULFATE 4 MG/ML SYRINGE IV PRN ×4 (02:30→20:53)
[2018-07-24] MEDS: SODIUM CHLORIDE 0.9% 1,000 ML IV SCH ×3 (02:33→17:23)
[2018-07-24] MEDS: LEVOFLOXACIN 750MG-D5W PMX 750 MG in DEXTROSE/WATER 1 150ML.BAG IVPB SCH (02:33)
[2018-07-24] MEDS: metroNIDAZOLE-NS PMX 500 MG in SALINE 1 100ML.BAG IVPB SCH ×4 (05:01→20:54)
[2018-07-24 07:55] LABS: Appearance,Urine Clear (Clear); Bilirubin,Urine Negative (Negative); Blood,Urine Negative (Negative); Color,Urine Light Yellow; Glucose,Urine (UA) Negative (Negative); Ketones,Urine Negative (Negative); Leukocyte Esterase,Urine Negative (Negative); Nitrite,Urine Negative (Negative); Protein,Urine Negative (Negative); Specific Gravity,Urine 1.036 (1.001-1.035); Urobilinogen,Urine <2.0 mg/dL (<2.0)
--- NOTE | 2018-07-24 10:14 | P.CONS ---
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 Ra enrique maintained on Inflectra (received 3rd dose yesterday) with completed tapering dose of steroids prior to admission. He is looking to switch GI doctor stay more locval and has a new patient appointment with Dr. Pérez August 06. Admitted with acute abdominal pain with mild blood tinged bowel movements mostly on wiping. CT abdomen and pelvis reported findings of Crohn's disease in the lower abdomen with at least one suspected 4 cm abscess without obstruction. General surgery following. White count 11.7. Hemoglobin 12.6. MCV 68. Platelet 320. Afebrile. Denies fever chills weight loss hematemesis or melena. Pain SN are mostly around the infraumbilical region sharp sometimes crampy. EGD colonoscopy performed 11/05/[address] Lopez at [facility] identified small hiatal hernia gastritis poor colonic prep cecal irregularity and nonbleeding internal hemorrhoids. Duodenal biopsies prominent nodular peptic duodenitis. Mild chronic antral gastritis without H. pylori. Cecal biopsy stromal edema otherwise no significant pathology. Terminal ileum biopsies not obtained secondary to poor prep. Serology reviewed from [facility] November 2017; P-ANCA positive 1:20 titer suggestive of IBD. Saccharomyces cerevisiae IgA elevated 81.1, IgG 42.8. Review of Systems Constitutional: Denies fever, chills, sweats, weight gain, or loss. HEENT: Negative for migraines, blurred vision or loss, earaches, drainage, tinn itus, oral mucosal lesions, dysphagia, or odynophagia. Cardiac: Negative for chest pain, arrhythmias, or palpitation. Respiratory: Negative for shortness of breath, hemoptysis, cough, or sputum production. Gastrointestinal: See HPI for pertinent findings. Genitourinary: Negative for hematuria, urgency, frequency, polyuria, dysuria, or penile discharge. Musculoskeletal: Negative for muscle aches, swelling, arthritis, and arthralgias. Neurologic: Negative for stroke or TIA. Endocrine: Negative for thyroid problems. Skin: Negative for rash or itching. Psychiatric: Negative history for depression and anxiety Past Medical History Past Medical History: No Reported History Additional Past Medical History / Comment(s): Crohns History of Any Multi-Drug Resistant Organisms: None Reported Past Surgical History: No Surgical Hx Reported Past Anesthesia/Blood Transfusion Reactions: No Reported Reaction Past Psychological History: No Psychological Hx Reported, Anxiety, Depression Smoking Status: Former smoker Past Alcohol Use History: Occasional Past Drug Use History: Marijuana Medications and Allergies Home Medications Medication Instructions Recorded Confirmed Type No Known Home Medications 07/23/18 07/23/18 History Allergies Allergy/AdvReac Type Severity Reaction Status Date / Time cyclobenzaprine AdvReac Unknown Verified 07/23/18 22:22 [From Flexeril] Physical Exam Vitals: Vital Signs Temp Pulse Pulse Resp BP BP Pulse Ox 07/24/18 08:28 98.2 F 47 L 12 100/61 99 07/24/18 06:48 97.2 F L 68 16 137/87 97 07/24/18 02:23 71 18 110/62 96 07/23/18 22:20 98.3 F 66 16 115/74 99 Intake and Output 07/23/18 07/24/18 07/24/18 22:59 06:59 14:59 Output Total 700 Balance -700 Output: Urine 700 Other: Weight 82.554 kg General appearance: The patient is alert, oriented, in no acute distress. HET: Head is normocephalic and atraumatic. Pupils are equal and reactive. Oropharynx is clear without lesions. Neck: Supple without lymphadenopathy. Trachea midline. Heart: S1 S2. Regular rate and rhythm. Lungs: No crackles or wheezes are heard. Abdomen: Soft, nontender, nondistended with bowel sounds. No peritoneal signs. No palpable organomegaly or masses. Extremities: Normal skin color and turgor. No cyanosis, rash, ulceration, clubbing, or edema. Radial and pedal pulses are 2/4 bilaterally. Neurological: No focal deficits. Strength and sensation are grossly intact. Results CBC & Chem 7: 07/23/18 22:26 07/23/18 22:26 Labs: Abnormal Lab Results - Last 24 Hours (Table) 07/23/18 07/23/18 07/24/18 Range/Units 22:26 22:26 07:00 WBC 11.7 H (3.8-10.6) k/uL RBC 5.99 H (4.30-5.90) m/uL Hgb 12.6 L (13.0-17.5) gm/dL MCV 68.9 L (80.0-100.0) fL MCH 21.1 L (25.0-35.0) pg MCHC 30.6 L (31.0-37.0) g/dL RDW 15.9 H (11.5-15.5) % Glucose 104 H (74-99) mg/dL ALT 9 L (21-72) U/L Ur Specific [place] 1.036 H (1.001-1.035) CT scan - abdomen: report reviewed (Dr. Pérez) Assessment and Plan (1) Intra-abdominal abscess Narrative/Plan: 28-year-old male with a reported history of Crohn's disease maintained on Inflectra with recent completion of prednisone taper admitted with acute abdominal pain CT imaging reported intra-abdominal abscess. Current Visit: Yes Status: Acute Code(s): K65.1 - PERITONEAL ABSCESS SNOMED Code(s): 45201983 (2) Abdominal pain Current Visit: No Status: Acute Code(s): R10.9 - UNSPECIFIED ABDOMINAL PAIN SNOMED Code(s): 68056085 (3) History of inflammatory bowel disease Current Visit: Yes Status: Acute Code(s): Z87.19 - PERSONAL HISTORY OF OTHER DISEASES OF THE DIGESTIVE SYSTEM SNOMED Code(s): 646933496 Plan: 1. Nothing by mouth. General surgery consult. IV antibiotics. CBC BMP daily. 2. CRP sed rate now and daily. IV solumedrol 20 mg every 8 hours. Gi records requested from Dr. Albrecht's office to be placed onc [place] for review. Thank you for this kind referral and the opportunity to participate in the care of your patient. This consultation was discussed with Dr. Pérez. The impression and plan of care have been directed as dictated.
[2018-07-24] MEDS: methylPREDNISolone SOD SUCCI 40 MG/ML 1 ML VIAL IV SCH (16:26)
--- NOTE | 2018-07-24 17:50 | P.GSHP ---
History of Present Illness H&P Date: 07/24/18 Chief Complaint: Abdominal pain This is a 28-year-old male who was admitted through the emergency room with complaints of abdominal pain. Patient's history of Crohn's disease. Apparently he is seen Dr. Kwan Longo in the past. Patient was found to have a small abscess on CAT scan. The patient states his pain is improved this morning. Past Medical History Past Medical History: No Reported History Additional Past Medical History / Comment(s): Crohns, gastric ulcer, chronic low back pain/bilateral hip pain. History of Any Multi-Drug Resistant Organisms: None Reported Past Surgical History: No Surgical Hx Reported Additional Past Surgical History / Comment(s): EGD, colonoscopy Past Anesthesia/Blood Transfusion Reactions: No Reported Reaction, Motion Sickness Smoking Status: Former smoker - Past Family History Father Family Medical History: No Reported History Additional Family Medical History / Comment(s): Father is healthy Mother Family Medical History: No Reported History Additional Family Medical History / Comment(s): Mother is healthy. Medications and Allergies Home Medications Medication Instructions Recorded Confirmed Type No Known Home Medications 07/23/18 07/23/18 History Allergies Allergy/AdvReac Type Severity Reaction Status Date / Time cyclobenzaprine AdvReac Unknown Verified 07/23/18 22:22 [From Flexeril] Surgical - Exam Vital Signs Temp Pulse Resp BP Pulse Ox 98.3 F 66 16 115/74 99 07/23/18 22:20 07/23/18 22:20 07/23/18 22:20 07/23/18 22:20 07/23/18 22:20 - General well developed, no distress - Eyes PERRL - ENT normal pinna - Neck no masses - Respiratory normal expansion - Cardiovascular Rhythm: regular - Abdomen Mild tenderness, there is no rebound or guarding Abdomen: soft, non tender, no guarding, no rigid, no rebound Results - Labs 07/23/18 22:26 07/23/18 22:26 Abnormal Lab Results - Last 24 Hours (Table) 07/23/18 07/23/18 07/24/18 Range/Units 22:26 22:26 07:00 WBC 11.7 H (3.8-10.6) k/uL RBC 5.99 H (4.30-5.90) m/uL Hgb 12.6 L (13.0-17.5) gm/dL MCV 68.9 L (80.0-100.0) fL MCH 21.1 L (25.0-35.0) pg MCHC 30.6 L (31.0-37.0) g/dL RDW 15.9 H (11.5-15.5) % Glucose 104 H (74-99) mg/dL ALT 9 L (21-72) U/L C-Reactive Protein (<10.0) mg/L Ur Specific [place] 1.036 H (1.001-1.035) 07/24/18 Range/Units 09:48 WBC (3.8-10.6) k/uL RBC (4.30-5.90) m/uL Hgb (13.0-17.5) gm/dL MCV (80.0-100.0) fL MCH (25.0-35.0) pg MCHC (31.0-37.0) g/dL RDW (11.5-15.5) % Glucose (74-99) mg/dL ALT (21-72) U/L C-Reactive Protein 16.5 H (<10.0) mg/L Ur Specific [place] (1.001-1.035) Diabetes panel 07/23/18 Range/Units 22:26 Sodium 139 (137-145) mmol/L Potassium 4.0 (3.5-5.1) mmol/L Chloride 107 (98-107) mmol/L Carbon Dioxide 23 (22-30) mmol/L BUN 12 (9-20) mg/dL Creatinine 0.94 (0.66-1.25) mg/dL Glucose 104 H (74-99) mg/dL Calcium 9.0 (8.4-10.2) mg/dL AST 18 (17-59) U/L ALT 9 L (21-72) U/L Alkaline Phosphatase 71 (38-126) U/L Total Protein 7.0 (6.3-8.2) g/dL Albumin 3.6 (3.5-5.0) g/dL Calcium panel 07/23/18 Range/Units 22:26 Calcium 9.0 (8.4-10.2) mg/dL Albumin 3.6 (3.5-5.0) g/dL Pituitary panel 07/23/18 Range/Units 22:26 Sodium 139 (137-145) mmol/L Potassium 4.0 (3.5-5.1) mmol/L Chloride 107 (98-107) mmol/L Carbon Dioxide 23 (22-30) mmol/L BUN 12 (9-20) mg/dL Creatinine 0.94 (0.66-1.25) mg/dL Glucose 104 H (74-99) mg/dL Calcium 9.0 (8.4-10.2) mg/dL Adrenal panel 07/23/18 Range/Units 22:26 Sodium 139 (137-145) mmol/L Potassium 4.0 (3.5-5.1) mmol/L Chloride 107 (98-107) mmol/L Carbon Dioxide 23 (22-30) mmol/L BUN 12 (9-20) mg/dL Creatinine 0.94 (0.66-1.25) mg/dL Glucose 104 H (74-99) mg/dL Calcium 9.0 (8.4-10.2) mg/dL Total Bilirubin 0.5 (0.2-1.3) mg/dL AST 18 (17-59) U/L ALT 9 L (21-72) U/L Alkaline Phosphatase 71 (38-126) U/L Total Protein 7.0 (6.3-8.2) g/dL Albumin 3.6 (3.5-5.0) g/dL - Imaging CT scan - abdomen: report reviewed (Evidence of Crohn's disease in the lower abdomen with a possible 4 cm abscess there appears to be small bowel and colonic involvement of Crohn's) Assessment and Plan Assessment: Abdominal pain Exacerbation of Crohn's disease Possible intra-abdominal abscess Patient will remain on IV antibiotic. We will consult the GI service.
[2018-07-24] MEDS ORDERED: ALPRAZolam 0.25 MG TAB PO PRN (18:09)
[2018-07-24] MEDS ORDERED: TEMAZEPAM 15 MG CAP PO PRN (18:09)
[2018-07-24] MEDS: PANTOPRAZOLE 40 MG/10 ML VIAL IVP SCH (18:18)
--- NOTE | 2018-07-24 19:43 | CONS ---
CONSULTATION DATE OF SERVICE: 07/24/2018. REASON FOR CONSULT: Advice regarding Crohn's disease and other medical issues requested by Dr. Farnsworth. HISTORY OF PRESENT ILLNESS: This 28-year-old gentleman with a past medical history of Crohn's disease, gastric ulcer, chronic low back pain, DJD, anxiety, depression, not being followed by any primary physician, is seeing a clinical admissions manager in [place]. Was receiving biologicals. The patient was complaining of 4 days of generalized abdominal pain, mainly on the right side and lower part of the abdomen. Patient came to [facility] and abdominal and pelvis CAT scan was done which showed Crohn's disease in the lower abdomen at least one suspected 4 cm abscess also. Surgery and gastroenterology following the patient closely. There is no history of fever, rigors. No history of headache, loss of consciousness, seizures. No chest pain, palpitations, hematochezia or melena at this time. Surgery is planning IV antibiotics and GI evaluation also. The patient is receiving Inflectra. IV steroids has been initiated. PAST MEDICAL HISTORY: Past medical history of Crohn's disease. History of gastric ulcer. Chronic low back pain. Hip pain. MEDICATIONS: Prior to admission include none except the biologicals. ALLERGIES: FLEXERIL. FAMILY HISTORY: No history of heart disease or strokes in the family. 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 Previous history of smoking. Occasional alcohol, THC. REVIEW OF SYSTEMS: ENT: No diminished vision. No diminished hearing. Cardiovascular: No angina or palpitations. Respirations: No cough or hemoptysis. GI as mentioned earlier. no dysuria. Nervous system: No numbness or weakness. Allergy/Immunology: No asthma or hayfever. Musculoskeletal as mentioned earlier. Hematology/Oncology: No history of anemia. ENDOCRINE: No history of diabetes or hypothyroidism. CONSTITUTIONAL: As mentioned earlier. DERMATOLOGY: Negative. RHEUMATOLOGY: Negative. PSYCHIATRIC: As mentioned earlier. PHYSICAL EXAMINATION: Alert and oriented times three. Pulse is 47, blood pressure 100/60, respiration 12, temperature 98.2, pulse ox 98% on room air. HEENT: Conjunctivae normal. Oral mucosa moist. NECK is no jugular venous distention. No carotid bruit. No lymph node enlargement. CARDIOVASCULAR: S1-S2 muffled. No S3, no S4. RESPIRATORY: Breath sounds diminished in the bases. No rhonchi. No crackles. ABDOMEN: Soft. Mild diffuse discomfort on palpation. No guarding. No rigidity. No mass palpable. No ascites. Bowel sounds diminished. No rebound tenderness and rigidity. LEGS: No edema. No swelling. NERVOUS SYSTEM: Higher as mentioned earlier. Moves all 4 limbs. No focal motor or sensory deficits. LYMPHATICS: No lymph nodes palpable in the neck, axillae or groin. SKIN: No ulcer, rashes or bleeding. JOINTS: No active deforming arthropathy. LABORATORY DATA: WBC 11.2, hemoglobin 12.6 and MCV 68.9. ASSESSMENT: 1. Crohn's disease, acute exacerbation, possibly with intraabdominal abscess. 2. History of degenerative joint disease. 3. History of gastric ulcer. 4. History of anxiety, depression. 5. History of smoking. 6. History of THC. RECOMMENDATIONS AND DISCUSSION: This 28-year-old gentleman who presented with multiple complex medical issues, we will monitor the patient closely, continue the current medications, management and symptomatic treatment. The patient is being evaluated by Gastroenterology and as well as surgery. Infectious disease evaluation has been sought. We will closely monitor. DVT prophylaxis. Proton pump inhibitors. We will closely follow with Gastroenterology and Surgery. Further recommendations to follow. Repeat labs also recommended. Thank you Dr. Farnsworth for letting us participate in the care of this patient. MMODL / IJN: [id number] /
[2018-07-24] MEDS: HEPARIN SODIUM,PORCINE 5,000 UNIT/ML 1 ML VIAL SQ SCH (20:53)
[2018-07-25] MEDS: SODIUM CHLORIDE 0.9% 1,000 ML IV SCH ×4 (00:31→21:38)
[2018-07-25] MEDS: methylPREDNISolone SOD SUCCI 40 MG/ML 1 ML VIAL IV SCH ×3 (00:53→17:17)
[2018-07-25] MEDS: LEVOFLOXACIN 750MG-D5W PMX 750 MG in DEXTROSE/WATER 1 150ML.BAG IVPB SCH (00:55)
[2018-07-25] MEDS: metroNIDAZOLE-NS PMX 500 MG in SALINE 1 100ML.BAG IVPB SCH ×4 (04:25→21:38)
[2018-07-25 07:41] LABS: Basophils % (A) 0 %; Eosinophils % (A) 0 %; HCT 42.8 % (39.0-53.0); Hypochromasia Slight; Lymphocytes # (A) 0.9 k/uL (1.0-4.8); Lymphocytes % (A) 9 %; MCH 20.8 pg (25.0-35.0); MCHC 30.4 g/dL (31.0-37.0); MCV 68.3 fL (80.0-100.0); Mean Platelet Volume 6.8; Microcytosis Marked; Monocytes # (A) 0.3 k/uL (0-1.0); Monocytes % (A) 3 %; Neutrophils # (A) 8.7 k/uL (1.3-7.7); Neutrophils % (A) 87 %; Platelet Count 334 k/uL (150-450); RBC 6.27 m/uL (4.30-5.90); RDW 15.2 % (11.5-15.5)
[2018-07-25] MEDS: MORPHINE SULFATE 4 MG/ML SYRINGE IV PRN ×3 (07:48→21:37)
[2018-07-25] MEDS: HEPARIN SODIUM,PORCINE 5,000 UNIT/ML 1 ML VIAL SQ SCH ×2 (07:49→21:37)
[2018-07-25] MEDS: PANTOPRAZOLE 40 MG/10 ML VIAL IVP SCH (07:49)
[2018-07-25 08:00] LABS: African American GFR (CKD) >90 (>60 ml/min/1.73 sqM); Anion Gap 7 mmol/L; Blood Urea Nitrogen 12 mg/dL (9-20); Calcium 9.5 mg/dL (8.4-10.2); Carbon Dioxide 24 mmol/L (22-30); Chloride 106 mmol/L (98-107); Glucose 104 mg/dL (74-99); Sodium 137 mmol/L (137-145)
--- NOTE | 2018-07-25 13:41 | PN ---
PROGRESS NOTE DATE OF SERVICE: 07/25/2018 This 28-year-old gentleman admitted with abdominal pain as well as Crohn disease, acute exacerbation, is on IV steroids also. The patient probably also had an abscess and abscess possibly secondary to Crohn disease. Surgery and Gastroenterology are following the patient closely. The patient is feeling much better. No chest pain. No palpitations. No fever. PHYSICAL EXAMINATION: On exam, alert and oriented x3. Pulse 76, blood pressure 95/50, respiration 17, temperature 98 degrees, pulse ox 99% on room air. HEENT: Conjunctivae normal. NECK: No jugular venous distention. CARDIOVASCULAR: S1, S2 muffled. RESPIRATORY: Breath sounds diminished at the bases. No rhonchi, no crackles. ABDOMEN: Soft, minimal diffuse discomfort. No guarding. No rigidity. No mass palpable. No rebound tenderness. No ascites. Bowel sounds present. LEGS: No edema, no swelling. NERVOUS SYSTEM: No focal deficits. LABS: WBC 10, hemoglobin 13. Sodium 137. C-reactive protein 16.5. ESR is only 6. ASSESSMENT: 1. Crohn disease acute exacerbation with possibly intraabdominal abscess interloop abscess, improving. 2. History of degenerative joint disease. 3. History of gastric ulcer. 4. History of anxiety, depression. 5. History of smoking. 6. History of THC. RECOMMENDATIONS AND DISCUSSION: Recommend to continue current medications. Continue symptomatic treatment. Continue steroids. Continue with infectious disease evaluation. Discussed with Gastroenterology. Recommend conservative line of management at this time. Prognosis guarded, but the patient will require close careful monitoring at this time, which I discussed at length with the patient. Patient understands and agrees. Further recommendations to follow. MMODL / IJN: [id number] / MTDD
--- NOTE | 2018-07-25 15:42 | P.PN ---
Subjective Progress Note Date: 07/25/18 Principal diagnosis: Abdominal pain, abdominal abscess history of Crohn's Feels well. Afebrile. White count 10. Hemoglobin 13. CRP 16.5. Objective - Vital Signs Vital signs: Vital Signs Temp 97.7 F 07/25/18 13:59 Pulse 71 07/25/18 13:59 Resp 14 07/25/18 13:59 BP 129/81 07/25/18 13:59 Pulse Ox 99 07/25/18 13:59 Intake & Output 07/24/18 07/25/18 07/25/18 18:59 06:59 18:59 Intake Total 1650 Output Total 700 Balance -700 1650 Intake: Intake, IV Titration 1630 Amount Levofloxacin 750Mg-D5w 250 Pmx 750 mg In Dextrose/ Water 1 150ml.bag @ 100 mls/hr IVPB Q24H [facility] Rx#: [id number] Sodium Chloride 0.9% 1, 1280 000 ml @ 140 mls/hr IV . Q7H9M [facility] Rx#:[id number] metroNIDAZOLE-NS PMX 500 100 mg In Saline 1 100ml.bag @ 100 mls/hr IVPB Q6H [facility] Rx#:[id number] Oral 20 Output: Urine 700 Other: Voiding Method Toilet # Voids 2 2 1 - Exam General appearance: The patient is alert, oriented, in no acute distress. HET: Head is normocephalic and atraumatic. Pupils are equal and reactive. Johnnie pharynx is clear without lesions. Neck: Supple without lymphadenopathy. Trachea midline. Heart: S1 S2. Regular rate and rhythm. Lungs: No crackles or wheezes are heard. Abdomen: Soft, mild infraumbilical tenderness, nondistended with bowel sounds. No peritoneal signs. No palpable organomegaly or masses. Extremities: Normal skin color and turgor. No cyanosis, rash, ulceration, clubbing, or edema. Radial and pedal pulses are 2/4 bilaterally. Neurological: No focal deficits. Strength and sensation are grossly intact. - Labs CBC & Chem 7: 07/25/18 07:16 07/25/18 07:16 Labs: Abnormal Lab Results - Last 24 Hours (Table) 07/25/18 07/25/18 Range/Units 07:16 07:16 RBC 6.27 H (4.30-5.90) m/uL MCV 68.3 L (80.0-100.0) fL MCH 20.8 L (25.0-35.0) pg MCHC 30.4 L (31.0-37.0) g/dL Neutrophils # 8.7 H (1.3-7.7) k/uL Lymphocytes # 0.9 L (1.0-4.8) k/uL Glucose 104 H (74-99) mg/dL Microbiology - Last 24 Hours (Table) 07/24/18 02:00 Blood Culture - Preliminary Blood No Growth after 24 hours Assessment and Plan (1) Intra-abdominal abscess Narrative/Plan: 28-year-old male with a reported history of Crohn's disease maintained on Inflectra with recent completion of prednisone taper admitted with acute abdominal pain CT imaging reported intra-abdominal abscess. Current Visit: Yes Status: Acute Code(s): K65.1 - PERITONEAL ABSCESS SNOMED Code(s): 89505370 (2) Abdominal pain Current Visit: No Status: Acute Code(s): R10.9 - UNSPECIFIED ABDOMINAL PAIN SNOMED Code(s): 82314765 (3) History of inflammatory bowel disease Current Visit: Yes Status: Acute Code(s): Z87.19 - PERSONAL HISTORY OF OTHER DISEASES OF THE DIGESTIVE SYSTEM SNOMED Code(s): 991134662 Plan: 1. Case was discussed with general surgeon Dr. Farnsworth no plans for surgical drainage of abscesses at this time. Continue with IV antibiotics. ID consult. Continue with IV Solu-Medrol 20 mg every 8 hours. Diet as tolerated. Daily monitoring of CBC electrolytes and CRP. Outside GI records requested. Overall patient is doing well abdomen is benign tolerating diet. 2. We'll continue to follow with you. Patient will follow with Dr. Pérez August 06 for reevaluation. Assessment and plan a care discussed with Dr. Pérez
[2018-07-25] MEDS: PIPERACILLIN-TAZOBACTAM 3.375 GM in SODIUM CHLORIDE 0.9% 100 ML IVPB SCH (17:17)
--- NOTE | 2018-07-25 17:17 | P.PN ---
Progress Note - Text Progress Note Date: 07/25/18 The patient feels well. He denies a significant abdominal pain. On exam is lesser stable. His abdomen soft. Resolving enteritis. Patient also could be discharged home tomorrow.
[2018-07-26] MEDS: methylPREDNISolone SOD SUCCI 40 MG/ML 1 ML VIAL IV SCH ×3 (00:24→17:55)
[2018-07-26] MEDS: PIPERACILLIN-TAZOBACTAM 3.375 GM in SODIUM CHLORIDE 0.9% 100 ML IVPB SCH ×3 (00:24→17:55)
--- NOTE | 2018-07-26 00:50 | P.CONS ---
History of Present Illness - Reason for Consult Consult date: 07/25/18 - Chief Complaint Abdominal pain - History of Present Illness 28-year-old male who has a history of Crohn's disease of the last couple of years is receiving his care outside of [facility]. He had been started on a biological agent and after his third injection developed increasing amounts of abdominal pain diarrhea somewhat bloody at times because he felt so poorly with fever and presented to the emergency center. Computed tomography scan was performed that showed evidence of an intra-abdominal abscess and he's been seen by gastroenterology as well as surgery. He is not thought to be a surgical candidate and infectious disease consultation was requested. Measurements of the for secondary abscess deep in the pelvis the patient fortunately is feeling somewhat better today and that he is now on antibiotic therapy and has been started on steroids for the flare of his Crohn's disease also. The patient is requesting advice with his dietary intake. His fever and chills and improved today abdominal pain persists but is improved also. Review of Systems 28-year-old male HEENT:Denies headache or acute visual change. Denies sinus or mouth discomforts. Denies neck stiffness or pain. Denies significant oral cavity pain. Denies difficulty on swallowing. Lungs: Denies significant shortness of breath, cough, sputum production, or hemoptysis. Cardiovascular: Denies significant shortness of breath, chest pain, chest wall pain, orthopnea, dyspnea on exertion, syncope Gastrointestinal: Poor appetite some nausea and no emesis or loose stools some bloody stools at time, no hematemesis has ongoing abdominal pain Musculoskeletal: denies significant myalgias or arthralgias. No new joint swelling. Denies new back pain. Skin: Denies new rash or lesions. No new ulcers or wounds are related.. Neuro: Denies headache or visual change. Denies any new onset weakness or difficulty with ambulation. Denies falls or seizures. Psychiatric:Denies anxiety or depression. Endocrine: Denies significant fatigue, denies significant weight loss or weight gain. Past Medical History Past Medical History: No Reported History Additional Past Medical History / Comment(s): Crohns History of Any Multi-Drug Resistant Organisms: None Reported Past Surgical History: No Surgical Hx Reported Additional Past Surgical History / Comment(s): EGD, colonoscopy Past Anesthesia/Blood Transfusion Reactions: No Reported Reaction Past Psychological History: No Psychological Hx Reported, Anxiety, Depression Additional Psychological History / Comment(s): Lives with his significant other. Has moved from [place] where he was receiving his prior Crohn's disease care. No experience. No travel history. No animal exposures. No current tobacco, alcohol or recreational drug use Smoking Status: Former smoker Past Alcohol Use History: Occasional Past Drug Use History: Marijuana - Past Family History Father Family Medical History: No Reported History Additional Family Medical History / Comment(s): Father is healthy Mother Family Medical History: No Reported History Additional Family Medical History / Comment(s): Mother is healthy. Medications and Allergies Home Medications and Allergies Comment(s): Current Medications Acetaminophen (Tylenol Tab) 650 mg PO Q6HR PRN PRN Reason: Mild Pain or Fever > 100.5 Alprazolam (Xanax) 0.25 mg PO TID PRN PRN Reason: Anxiety Last Admin: 07/24/18 21:37 Dose: 0.25 mg Documented by: Heparin Sodium (Porcine) (Heparin) 5,000 unit SQ Q12HR [facility] Last Admin: 07/25/18 21:37 Dose: 5,000 unit Documented by: Metronidazole 500 mg/ IV (Solution) 100 mls @ 100 mls/hr IVPB Q6H [facility] Last Admin: 07/25/18 21:38 Dose: 100 mls/hr Documented by: Sodium Chloride (Saline 0.9%) 1,000 mls @ 140 mls/hr IV .Q7H9M [facility] Last Admin: 07/25/18 21:38 Dose: 140 mls/hr Documented by: Piperacillin Sod/Tazobactam (Sod 3.375 gm/ Sodium Chloride) 100 mls @ 25 mls/hr IVPB Q8HR [facility] Last Admin: 07/26/18 00:24 Dose: 25 mls/hr Documented by: Ibuprofen (Motrin) 400 mg PO Q6HR PRN PRN Reason: Mild Pain or Fever > 100.5 Methylprednisolone Sodium Succinate (Solu-Medrol) 20 mg IV Q8HR [facility] Last Admin: 07/26/18 00:24 Dose: 20 mg Documented by: Morphine Sulfate (Morphine Sulfate (Inj)) 4 mg IV Q6HR PRN PRN Reason: Severe Pain Last Admin: 07/25/18 21:37 Dose: 4 mg Documented by: Naloxone HCl (Narcan) 0.2 mg IV Q2M PRN PRN Reason: Opioid Reversal Ondansetron HCl (Zofran) 4 mg IVP Q8HR PRN PRN Reason: Nausea And Vomiting Pantoprazole Sodium (Protonix) 40 mg IVP DAILY [facility] Last Admin: 07/25/18 07:49 Dose: 40 mg Documented by: Temazepam (Restoril) 15 mg PO HS PRN PRN Reason: Insomnia Last Admin: 07/25/18 21:37 Dose: 15 mg Documented by: Home Medications Medication Instructions Recorded Confirmed Type No Known Home Medications 07/23/18 07/23/18 History Allergies Allergy/AdvReac Type Severity Reaction Status Date / Time cyclobenzaprine AdvReac Unknown Verified 07/23/18 22:22 [From Flexeril] Physical Exam Vitals: Vital Signs Temp Pulse Resp BP Pulse Ox 07/25/18 19:36 98.6 F 57 L 15 131/58 99 07/25/18 13:59 97.7 F 71 14 129/81 99 07/25/18 07:00 97.8 F 79 14 108/66 100 07/25/18 01:15 98.0 F 76 17 95/50 99 Intake and Output 07/25/18 07/25/18 07/26/18 14:59 22:59 06:59 Intake Total 930 Balance 930 Intake: Intake, IV Titration 140 Amount Sodium Chloride 0.9% 1, 140 000 ml @ 140 mls/hr IV . Q7H9M [facility] Rx#:[id number] Oral 790 Other: Voiding Method Toilet # Voids 1 28-year-old male in no acute distress but complains of abdominal pain HEENT: Anicteric conjunctiva are pink and moist nasal mucosa grossly intact without significant lesions, there is no thrush. Neck: The neck is supple without significant lymphadenopathy or thyromegaly. Lungs: Good bilateral air entry without significant crackles or wheezing. There is no significant bronchial sounds. There is no egophony or dullness. Heart: Regular rate and rhythm with an audible S1-S2, no S3 no S4. There is no significant murmur click or rub, PMI was nondisplaced. Abdomen: Mildly distended, tenderness especially in the mid deep lower quadrants, abdomen is not rigid, no hepatosplenomegaly or palpable mass Extremities: The upper extremities have excellent pulses they are symmetric, no significant petechiae or telangiectasia. No splinter hemorrhages were noted. The lower extremities are free from significant edema. The peripheral pulses were 2+ and symmetric. Skin: Multiple tattoos none of them are new Neuro: Awake alert oriented to person place and time. There are no acute new gross focal sensory motor deficits. Results CBC & Chem 7: 07/25/18 07:16 07/25/18 07:16 Labs: Abnormal Lab Results - Last 24 Hours (Table) 07/25/18 07/25/18 Range/Units 07:16 07:16 RBC 6.27 H (4.30-5.90) m/uL MCV 68.3 L (80.0-100.0) fL MCH 20.8 L (25.0-35.0) pg MCHC 30.4 L (31.0-37.0) g/dL Neutrophils # 8.7 H (1.3-7.7) k/uL Lymphocytes # 0.9 L (1.0-4.8) k/uL Glucose 104 H (74-99) mg/dL Microbiology - Last 24 Hours (Table) 07/24/18 02:00 Blood Culture - Preliminary Blood No Growth after 24 hours Laboratory Results WBC 10.0 k/uL (3.8-10.6) 07/25/18 07:16 RBC 6.27 m/uL (4.30-5.90) H 07/25/18 07:16 Hgb 13.0 gm/dL (13.0-17.5) 07/25/18 07:16 Hct 42.8 % (39.0-53.0) 07/25/18 07:16 MCV 68.3 fL (80.0-100.0) L 07/25/18 07:16 MCH 20.8 pg (25.0-35.0) L 07/25/18 07:16 MCHC 30.4 g/dL (31.0-37.0) L 07/25/18 07:16 RDW 15.2 % (11.5-15.5) 07/25/18 07:16 Plt Count 334 k/uL (150-450) 07/25/18 07:16 Neutrophils % 87 % 07/25/18 07:16 Lymphocytes % 9 % 07/25/18 07:16 Monocytes % 3 % 07/25/18 07:16 Eosinophils % 0 % 07/25/18 07:16 Basophils % 0 % 07/25/18 07:16 Neutrophils # 8.7 k/uL (1.3-7.7) H 07/25/18 07:16 Lymphocytes # 0.9 k/uL (1.0-4.8) L 07/25/18 07:16 Monocytes # 0.3 k/uL (0-1.0) 07/25/18 07:16 Eosinophils # 0.0 k/uL (0-0.7) 07/25/18 07:16 Basophils # 0.0 k/uL (0-0.2) 07/25/18 07:16 Hypochromasia Slight 07/25/18 07:16 Microcytosis Marked 07/25/18 07:16 ESR 6 mm/hr (0-15) 07/24/18 09:48 Sodium 137 mmol/L (137-145) 07/25/18 07:16 Potassium 5.0 mmol/L (3.5-5.1) 07/25/18 07:16 Chloride 106 mmol/L (98-107) 07/25/18 07:16 Carbon Dioxide 24 mmol/L (22-30) 07/25/18 07:16 Anion Gap 7 mmol/L 07/25/18 07:16 BUN 12 mg/dL (9-20) 07/25/18 07:16 Creatinine 0.97 mg/dL (0.66-1.25) 07/25/18 07:16 Est GFR (CKD-EPI)AfAm >90 (>60 ml/min/1.73 sqM) 07/25/18 07:16 Est GFR (CKD-EPI)NonAf >90 (>60 ml/min/1.73 sqM) 07/25/18 07:16 Glucose 104 mg/dL (74-99) H 07/25/18 07:16 Plasma Lactic Acid Nic 1.1 mmol/L (0.7-2.0) 07/23/18 22:26 Calcium 9.5 mg/dL (8.4-10.2) 07/25/18 07:16 Total Bilirubin 0.5 mg/dL (0.2-1.3) 07/23/18 22:26 AST 18 U/L (17-59) 07/23/18 22:26 ALT 9 U/L (21-72) L 07/23/18 22:26 Alkaline Phosphatase 71 U/L (38-126) 07/23/18 22:26 C-Reactive Protein 16.5 mg/L (<10.0) H 07/24/18 09:48 Total Protein 7.0 g/dL (6.3-8.2) 07/23/18 22:26 Albumin 3.6 g/dL (3.5-5.0) 07/23/18 22:26 Lipase 199 U/L (23-300) 07/23/18 22:26 Urine Color Light Yellow 07/24/18 07:00 Urine Appearance Clear (Clear) 07/24/18 07:00 Urine pH 7.0 (5.0-8.0) 07/24/18 07:00 Ur Specific Crary 1.036 (1.001-1.035) H 07/24/18 07:00 Urine Protein Negative (Negative) 07/24/18 07:00 Urine Glucose (UA) Negative (Negative) 07/24/18 07:00 Urine Ketones Negative (Negative) 07/24/18 07:00 Urine Blood Negative (Negative) 07/24/18 07:00 Urine Nitrite Negative (Negative) 07/24/18 07:00 Urine Bilirubin Negative (Negative) 07/24/18 07:00 Urine Urobilinogen <2.0 mg/dL (<2.0) 07/24/18 07:00 Ur Leukocyte Esterase Negative (Negative) 07/24/18 07:00 Microbiology 07/24/18 02:00 Blood Blood Culture - Preliminary No Growth after [address] scan - abdomen: image reviewed (4 cm abscess deep and pelvis) Assessment and Plan (1) Crohn's disease Current Visit: Yes Status: Acute Code(s): K50.90 - CROHN'S DISEASE, UNSPECIFIED, WITHOUT COMPLICATIONS SNOMED Code(s): 42817650 (2) Intra-abdominal abscess Narrative/Plan: 28-year-old male who has a history of Crohn's disease who was received his third dose of biological agent is on developed rapidly increasing abdominal pain in counseling sought care. Vitamin evidence by computed tomography scan of the 4 cm abscess deep in his pelvis. He's been seen by gastroenterology and general surgery and is not thought to be a surgical candidate at this time. Intravenous antibiotic therapy has been initiated and we'll work with the discharge team for the site of the midline catheter and then likely Invanz in the outpatient sett ing on a daily basis for a couple of weeks until he has settling of the significant abscess. Likely have a follow-up computed tomography scan to ensure the abscess is resolved for antibiotic therapy is discontinued. Follow-up endoscopy will be determined by the gastroenterology team. His fevers improving leukocytosis is improving and is in need of a dietary consult to help with an appropriate arnc-[id number]-cboyhloksb diet that works well with his Crohn's disease. Current Visit: Yes Status: Acute Code(s): K65.1 - PERITONEAL ABSCESS SNOMED Code(s): 40464615 (3) Abdominal pain Current Visit: No Status: Acute Code(s): R10.9 - UNSPECIFIED ABDOMINAL PAIN SNOMED Code(s): 11989503
[2018-07-26] MEDS: metroNIDAZOLE-NS PMX 500 MG in SALINE 1 100ML.BAG IVPB SCH ×3 (04:41→17:54)
[2018-07-26] MEDS: SODIUM CHLORIDE 0.9% 1,000 ML IV SCH (04:42)
[2018-07-26 07:46] LABS: Basophils % (A) 0 %; Eosinophils % (A) 0 %; HCT 41.3 % (39.0-53.0); HGB 12.6 gm/dL (13.0-17.5); Hypochromasia Slight; Lymphocytes # (A) 1.1 k/uL (1.0-4.8); Lymphocytes % (A) 7 %; MCH 20.6 pg (25.0-35.0); MCHC 30.6 g/dL (31.0-37.0); MCV 67.5 fL (80.0-100.0); Mean Platelet Volume 6.9; Microcytosis Marked; Monocytes # (A) 0.4 k/uL (0-1.0); Monocytes % (A) 3 %; Neutrophils # (A) 14.1 k/uL (1.3-7.7); Neutrophils % (A) 90 %; Platelet Count 318 k/uL (150-450); RBC 6.11 m/uL (4.30-5.90); RDW 15.1 % (11.5-15.5); WBC 15.7 k/uL (3.8-10.6)
[2018-07-26] MEDS: PANTOPRAZOLE 40 MG/10 ML VIAL IVP SCH (08:05)
[2018-07-26] MEDS: HEPARIN SODIUM,PORCINE 5,000 UNIT/ML 1 ML VIAL SQ SCH (08:05)
[2018-07-26] MEDS: MORPHINE SULFATE 4 MG/ML SYRINGE IV PRN (09:58)
[2018-07-26 11:37] VITALS: BMI 25.4
--- NOTE | 2018-07-26 12:38 | P.PN ---
Progress Note - Text Progress Note Date: 07/26/18 The patient feels well. He has almost no pain. He is tolerating regular diet. On exam his vital signs are stable. His abdomen soft. Resolving Crohn's exacerbation. Patient will be discharged home today. He'll follow-up with Dr. Beltrán for IV antibiotics. He will see the gastroenterology service for follow-up.
--- NOTE | 2018-07-26 12:40 | P.DS ---
Providers Date of admission: 07/24/18 04:02 Expected date of discharge: 07/26/18 Attending physician: José Antonio Farnsworth Consults: 07/24/18 01:42 Consult Physician Stat Consulting Provider: Kenn Pérez Consult Reason/Comments: chrons disease, intra abdominal abscess Do you want consulting provider notified?: Yes 07/24/18 13:13 Consult Physician Routine Consulting Provider: Agustín Gomes Consult Reason/Comments: Medical management Do you want consulting provider notified?: Yes 07/24/18 16:49 Consult Physician Routine Consulting Provider: Willaim Beltrán Consult Reason/Comments: intra abdominal abcess Do you want consulting provider notified?: Yes Primary care physician: Stated None Hospital Course: This a 28-year-old male with history of Crohn's disease. Patient admitted hospital for treatment of exacerbation of Crohn's with possible abscess. Patient did well. Please see hospital chart for details. Patient Condition at Discharge: Stable Plan - Discharge Summary Discharge Rx Participant: Yes New Discharge Prescriptions: New Ertapenem [INVanz] 1 gm IVPB Q24H #14 bag Ibuprofen [Motrin] 200 mg PO Q6HR PRN tab PRN Reason: Mild Pain Or Fever > 100.5 Pantoprazole Sodium [Protonix] 40 mg PO DAILY #30 tablet. Acetaminophen Tab [Tylenol] 650 mg PO Q6HR PRN tab PRN Reason: Mild Pain Or Fever > 100.5 ALPRAZolam [Xanax] 0.25 mg PO TID PRN #10 tab PRN Reason: Anxiety Discharge Medication List ALPRAZolam [Xanax] 0.25 mg PO TID PRN #10 tab 07/26/18 [Rx] Acetaminophen Tab [Tylenol] 650 mg PO Q6HR PRN tab 07/26/18 [Rx] Ertapenem [INVanz] 1 gm IVPB Q24H #14 bag 07/26/18 [Rx] Ibuprofen [Motrin] 200 mg PO Q6HR PRN tab 07/26/18 [Rx] Pantoprazole Sodium [Protonix] 40 mg PO DAILY #30 tablet. 07/26/18 [Rx] Follow up Appointment(s)/Referral(s): William Reyez MD [STAFF PHYSICIAN] - 1 Week [facility],Infusion [NON-STAFF] - José Antonio Farnsworth MD [STAFF PHYSICIAN] - 1 Week Ambulatory/Diagnostic Orders: Complete Blood Count w/diff [LAB.AMB] Location: None Selected Activity/Diet/Wound Care/Special Instructions: 1. Diet soft low residue 2. Activity limited until follow up appointment 3. Follow up with gi, surgery, and ID as advised 4. Steriods per GI 5. Patient to have Outpatient IV antibiotics at [facility] (Dr. Beltrán' office). First appointment: (awaiting to hear from [facility]) Discharge Disposition: HOME SELF-CARE
[2018-07-26] MEDS ORDERED: ERTAPENEM 1 GM in SODIUM CHLORIDE 0.9% 50 ML IVPB STA (13:49)
--- NOTE | 2018-07-26 14:29 | PN ---
PROGRESS NOTE DATE OF SERVICE: 07/26/2018 This 28-year-old gentleman admitted with Crohn's disease and abscess is being closely monitored. Dr. Farnsworth saw the patient and Infectious Disease also saw the patient. The patient is on IV antibiotics, Invanz and a Midline was inserted. No chest pain. No palpitations. No fever. Surgery is planning discharge. PHYSICAL EXAMINATION: On exam, alert and oriented x3. Pulse 63, blood pressure 134/79, respiration 18, temperature 98.4, pulse ox 98% on room air. HEENT: Conjunctivae normal. NECK: No jugular venous distention. CARDIOVASCULAR: S1, S2, muffled. RESPIRATORY: Breath sounds diminished at the bases. Scattered rhonchi and crackles. ABDOMEN: Soft, nontender. No mass palpable. LEGS: No edema. No swelling. NERVOUS SYSTEM: No focal deficits. LABS: WBC 15.7, hemoglobin 12.6. ASSESSMENT: 1. Crohn's disease acute exacerbation with possible intraabdominal abscess with interloop abscess, improving. 2. History of degenerative joint disease. 3. History of gastric ulcer. 4. History of anxiety, depression. 5. History of smoking. 6. History of THC. RECOMMENDATIONS AND DISCUSSION: Recommend to continue the current medications, continue the symptomatic treatment. Continue with IV steroids, IV antibiotics and follow closely with Dr. Reyez as primary physician and follow with S\surgery and Infectious Disease. MMODL / IJN: [id number] /
[2018-07-26 14:46] VITALS: BP 145/82; PULSE 78; RESP 15; TEMP 98.8
[2018-07-26] MEDS ORDERED: metroNIDAZOLE 500 MG TAB PO SCH (21:00)
--- NOTE | 2018-07-26 22:53 | P.PN ---
Subjective Progress Note Date: 07/26/18 28-year-old male who has a history of Crohn's disease of the last couple of years is receiving his care outside of [facility]. He had been started on a biological agent and after his third injection developed increasing amounts of abdominal pain diarrhea somewhat bloody at times because he felt so poorly with fever and presented to the emergency center. Computed tomography scan was performed that showed evidence of an intra-abdominal abscess and he's been seen by gastroenterology as well as surgery. He is not thought to be a surgical candidate and infectious disease consultation was requested. Measurements of the for secondary abscess deep in the pelvis the patient fortunately is feeling somewhat better today and that he is now on antibiotic therapy and has been started on steroids for the flare of his Crohn's disease also. The patient is requesting advice with his dietary intake. His fever and chills and improved today abdominal pain persists but is improved also. 07/26/2018 the patient is feeling better. Patient's pain is cooperative improved. No fever. Tolerating antibiotic therapy well. Has been seen by surgery and plans for is discharged to home arrangements for outpatient IVABX therapy needed. Objective - Vital Signs Vital signs: Vital Signs Temp 98.8 F 07/26/18 14:45 Pulse 78 07/26/18 14:45 Resp 15 07/26/18 14:45 BP 145/82 07/26/18 14:45 Pulse Ox 97 07/26/18 14:45 Intake & Output 07/26/18 07/26/18 07/27/18 06:59 18:59 06:59 Intake Total 1900 480 Balance 1900 480 Weight 82.554 kg Intake: Intake, IV Titration 820 Amount Piperacillin-Tazobactam 3 100 .375 gm In Sodium Chloride 0.9% 100 ml @ 25 mls/hr IVPB Q8HR CONNIE Rx# :[id number] Sodium Chloride 0.9% 1, 620 000 ml @ 140 mls/hr IV . Q7H9M CONNIE Rx#:[id number] metroNIDAZOLE-NS PMX 500 100 mg In Saline 1 100ml.bag @ 100 mls/hr IVPB Q6H CONNIE Rx#:[id number] Oral 1080 480 Other: Voiding Method Toilet # Voids 3 - Exam 28-year-old male in no acute distress but complains of abdominal pain HEENT: Anicteric conjunctiva are pink and moist nasal mucosa grossly intact without significant lesions, there is no thrush. Neck: The neck is supple without significant lymphadenopathy or thyromegaly. Lungs: Good bilateral air entry without significant crackles or wheezing. There is no significant bronchial sounds. There is no egophony or dullness. Heart: Regular rate and rhythm with an audible S1-S2, no S3 no S4. There is no significant murmur click or rub, PMI was nondisplaced. Abdomen: Mildly distended, tenderness especially in the mid deep lower q uadrants, abdomen is not rigid, no hepatosplenomegaly or palpable mass Extremities: The upper extremities have excellent pulses they are symmetric, no significant petechiae or telangiectasia. No splinter hemorrhages were noted. The lower extremities are free from significant edema. The peripheral pulses were 2+ and symmetric. Skin: Multiple tattoos none of them are new Neuro: Awake alert oriented to person place and time. There are no acute new gross focal sensory motor deficits. - Labs CBC & Chem 7: 07/26/18 06:46 07/25/18 07:16 Labs: Abnormal Lab Results - Last 24 Hours (Table) 07/26/18 Range/Units 06:46 WBC 15.7 H (3.8-10.6) k/uL RBC 6.11 H (4.30-5.90) m/uL Hgb 12.6 L (13.0-17.5) gm/dL MCV 67.5 L (80.0-100.0) fL MCH 20.6 L (25.0-35.0) pg MCHC 30.6 L (31.0-37.0) g/dL Neutrophils # 14.1 H (1.3-7.7) k/uL Microbiology - Last 24 Hours (Table) 07/24/18 02:00 Blood Culture - Preliminary Blood No Growth after 48 hours Laboratory Results WBC 15.7 k/uL (3.8-10.6) H 07/26/18 06:46 RBC 6.11 m/uL (4.30-5.90) H 07/26/18 06:46 Hgb 12.6 gm/dL (13.0-17.5) L 07/26/18 06:46 Hct 41.3 % (39.0-53.0) 07/26/18 06:46 MCV 67.5 fL (80.0-100.0) L 07/26/18 06:46 MCH 20.6 pg (25.0-35.0) L 07/26/18 06:46 MCHC 30.6 g/dL (31.0-37.0) L 07/26/18 06:46 RDW 15.1 % (11.5-15.5) 07/26/18 06:46 Plt Count 318 k/uL (150-450) 07/26/18 06:46 Neutrophils % 90 % 07/26/18 06:46 Lymphocytes % 7 % 07/26/18 06:46 Monocytes % 3 % 07/26/18 06:46 Eosinophils % 0 % 07/26/18 06:46 Basophils % 0 % 07/26/18 06:46 Neutrophils # 14.1 k/uL (1.3-7.7) H 07/26/18 06:46 Lymphocytes # 1.1 k/uL (1.0-4.8) 07/26/18 06:46 Monocytes # 0.4 k/uL (0-1.0) 07/26/18 06:46 Eosinophils # 0.0 k/uL (0-0.7) 07/26/18 06:46 Basophils # 0.0 k/uL (0-0.2) 07/26/18 06:46 Hypochromasia Slight 07/26/18 06:46 Microcytosis Marked 07/26/18 06:46 ESR 6 mm/hr (0-15) 07/24/18 09:48 Sodium 137 mmol/L (137-145) 07/25/18 07:16 Potassium 5.0 mmol/L (3.5-5.1) 07/25/18 07:16 Chloride 106 mmol/L (98-107) 07/25/18 07:16 Carbon Dioxide 24 mmol/L (22-30) 07/25/18 07:16 Anion Gap 7 mmol/L 07/25/18 07:16 BUN 12 mg/dL (9-20) 07/25/18 07:16 Creatinine 0.97 mg/dL (0.66-1.25) 07/25/18 07:16 Est GFR (CKD-EPI)AfAm >90 (>60 ml/min/1.73 sqM) 07/25/18 07:16 Est GFR (CKD-EPI)NonAf >90 (>60 ml/min/1.73 sqM) 07/25/18 07:16 Glucose 104 mg/dL (74-99) H 07/25/18 07:16 Plasma Lactic Acid Nic 1.1 mmol/L (0.7-2.0) 07/23/18 22:26 Calcium 9.5 mg/dL (8.4-10.2) 07/25/18 07:16 Total Bilirubin 0.5 mg/dL (0.2-1.3) 07/23/18 22:26 AST 18 U/L (17-59) 07/23/18 22:26 ALT 9 U/L (21-72) L 07/23/18 22:26 Alkaline Phosphatase 71 U/L (38-126) 07/23/18 22:26 C-Reactive Protein 16.5 mg/L (<10.0) H 07/24/18 09:48 Total Protein 7.0 g/dL (6.3-8.2) 07/23/18 22:26 Albumin 3.6 g/dL (3.5-5.0) 07/23/18 22:26 Lipase 199 U/L (23-300) 07/23/18 22:26 Urine Color Light Yellow 07/24/18 07:00 Urine Appearance Clear (Clear) 07/24/18 07:00 Urine pH 7.0 (5.0-8.0) 07/24/18 07:00 Ur Specific [place] 1.036 (1.001-1.035) H 07/24/18 07:00 Urine Protein Negative (Negative) 07/24/18 07:00 Urine Glucose (UA) Negative (Negative) 07/24/18 07:00 Urine Ketones Negative (Negative) 07/24/18 07:00 Urine Blood Negative (Negative) 07/24/18 07:00 Urine Nitrite Negative (Negative) 07/24/18 07:00 Urine Bilirubin Negative (Negative) 07/24/18 07:00 Urine Urobilinogen <2.0 mg/dL (<2.0) 07/24/18 07:00 Ur Leukocyte Esterase Negative (Negative) 07/24/18 07:00 Microbiology 07/24/18 02:00 Blood Blood Culture - Preliminary No Growth after 48 hours Assessment and Plan (1) Crohn's disease Status: Acute Code(s): K50.90 - CROHN'S DISEASE, UNSPECIFIED, WITHOUT COMPLICATIONS SNOMED Code(s): 36306078 (2) Intra-abdominal abscess Narrative/Plan: 28-year-old male who has a history of Crohn's disease who was received his third dose of biological agent is on developed rapidly increasing abdominal pain in co unseling sought care. Vitamin evidence by computed tomography scan of the 4 cm abscess deep in his pelvis. He's been seen by gastroenterology and general surgery and is not thought to be a surgical candidate at this time. Intravenous antibiotic therapy has been initiated and we'll work with the discharge team for the site of the midline catheter and then likely Invanz in the outpatient setting on a daily basis for a couple of weeks until he has settling of the significant abscess. Likely have a follow-up computed tomography scan to ensure the abscess is resolved for antibiotic therapy is discontinued. Follow-up endoscopy will be determined by the gastroenterology team. His fevers improving leukocytosis is improving and is in need of a dietary consult to help with an appropriate [id number] diet that works well with his Crohn's disease. 07/26/2018 patient has improved and is being ready for discharge to home, IV access, first dose Invanz and orders for Invanz at office placed. Pain control per primary follow in office in 2 weeks Status: Acute Code(s): K65.1 - PERITONEAL ABSCESS SNOMED Code(s): 17662970 (3) Abdominal pain Status: Acute Code(s): R10.9 - UNSPECIFIED ABDOMINAL PAIN SNOMED Code(s): 28629759
[2018-07-27] MEDS ORDERED: PANTOPRAZOLE 40 MG TABLET PO SCH (07:30)
== END 2018-07-26 18:15 | disposition home or self-care (01) | DRG 385 ==
LOC: EC 22:05 → 4SSUR 07-24 04:02
PROVIDERS: ADMIT Surgery; ATTEND Surgery
DX: K50.914 Crohn's disease, unspecified, with abscess (principal); K65.1 Peritoneal abscess; D64.9 Anemia, unspecified; F32.9 Major depressive disorder, single episode, unspecified; F41.9 Anxiety disorder, unspecified; G89.29 Other chronic pain; K29.70 Gastritis, unspecified, without bleeding; K29.80 Duodenitis without bleeding; M19.90 Unspecified osteoarthritis, unspecified site; Z79.52 Long term (current) use of systemic steroids; Z87.11 Personal history of peptic ulcer disease; Z87.891 Personal history of nicotine dependence
CPT/HCPCS: 36410; 36415; 74177; 76937; 80048; 80053; 81003; 83605; 83690; 85025; 85652; 86140; 87040; 96361; 96365; 96366; 96367; 96375; 96376; 99285

== ENCOUNTER → 2018-08-13 | Outpatient (CLI) | payer OTHER ==
[2018-08-13 13:15] LABS: Anisocytosis Slight; Basophils # (A) 0.1 k/uL (0-0.2); Basophils % (A) 0 %; Eosinophils # (A) 0.2 k/uL (0-0.7); Eosinophils % (A) 2 %; HCT 45.6 % (39.0-53.0); HGB 13.5 gm/dL (13.0-17.5); Hypochromasia Marked; Lymphocytes # (A) 1.6 k/uL (1.0-4.8); Lymphocytes % (A) 12 %; MCH 20.9 pg (25.0-35.0); MCHC 29.5 g/dL (31.0-37.0); MCV 70.7 fL (80.0-100.0); Mean Platelet Volume 7.1; Microcytosis Moderate; Monocytes # (A) 0.4 k/uL (0-1.0); Monocytes % (A) 3 %; Neutrophils # (A) 10.4 k/uL (1.3-7.7); Neutrophils % (A) 81 %; Platelet Count 288 k/uL (150-450); RBC 6.46 m/uL (4.30-5.90); RDW 16.6 % (11.5-15.5); WBC 12.7 k/uL (3.8-10.6)
[2018-08-13 20:04] LABS: African American GFR (CKD) 117.4 (60.0-200.0); Anion Gap 9.8 mmol/L (4.00-12.00); Carbon Dioxide 26.2 mmol/L (21.6-31.8); Potassium 3.9 mmol/L (3.5-5.5)
== END | disposition home or self-care (01) ==
LOC: LABWHC1 12:07
PROVIDERS: ATTEND Hospitalist
DX: K50.90 Crohn's disease, unspecified, without complications (principal)
CPT/HCPCS: 36415; 80048; 85025

== ENCOUNTER 2018-08-29 17:58 | Inpatient (IN) | payer OTHER ==
[2018-08-29] MEDS ORDERED: MORPHINE SULFATE 4 MG/ML SYRINGE IVP STA (18:25)
[2018-08-29] MEDS ORDERED: ONDANSETRON 4 MG/2 ML VIAL IVP STA (18:25)
--- NOTE | 2018-08-29 18:35 | ED ---
Abdominal Pain HPI - General Chief Complaint: Abdominal Pain Stated Complaint: abd pain Time Seen by Provider: 08/29/18 18:08 Source: patient Mode of arrival: ambulatory Limitations: no limitations - History of Present Illness Initial Comments: 28-year-old male patient with past medical history significant for Crohn's disease with recent admission from 07/24/18-07/26/18 for abdominal pain with possible intra-abdominal abscess. Patient reports that he was on IV antibiotics for approximately 2 weeks. States these were discontinued 2 weeks ago. Patient states over the last 4 days he has had increasing abdominal pain to the lower abdomen. Patient states the pain is intermittent and sharp in nature. Patient denies any known exacerbating or relieving factors. States it is not affected by eating or drinking. He denies any fever or chills. Denies any nausea or vomiting. Denies any diarrhea, hematochezia, or melena. Patient denies any recent rash, shortness breath, chest pain, back pain, numbness, tingling, dizziness, weakness, hematuria, dysuria, urinary urgency, urinary frequency, headache, visual changes, or any other complaints. - Related Data Previous Rx's Medication Instructions Recorded ALPRAZolam [Xanax] 0.25 mg PO TID PRN #10 tab 07/26/18 Acetaminophen Tab [Tylenol] 650 mg PO Q6HR PRN tab 07/26/18 Ibuprofen [Motrin] 200 mg PO Q6HR PRN tab 07/26/18 Pantoprazole Sodium [Protonix] 40 mg PO DAILY #30 tablet. 07/26/18 Allergies Allergy/AdvReac Type Severity Reaction Status Date / Time cyclobenzaprine AdvReac Unknown Verified 08/29/18 21:14 [From Flexeril] Review of Systems ROS Statement: Those systems with pertinent positive or pertinent negative responses have been documented in the HPI. ROS Other: All systems not noted in ROS Statement are negative. Past Medical History Past Medical History: No Reported History Additional Past Medical History / Comment(s): Crohns History of Any Multi-Drug Resistant Organisms: None Reported Past Surgical History: No Surgical Hx Reported Additional Past Surgical History / Comment(s): EGD, colonoscopy Past Anesthesia/Blood Transfusion Reactions: No Reported Reaction Past Psychological History: No Psychological Hx Reported, Anxiety, Depression Smoking Status: Current every day smoker Past Alcohol Use History: Occasional Past Drug Use History: Marijuana - Past Family History Father Family Medical History: No Reported History Additional Family Medical History / Comment(s): Father is healthy Mother Family Medical History: No Reported History Additional Family Medical History / Comment(s): Mother is healthy. General Exam Limitations: no limitations General appearance: alert, in no apparent distress, other (Physical well- developed, well-nourished adult male patient in no acute distress. Patient is resting comfortably in bed eating a sticker spar. Vital signs upon presentation are temperature 97.5F, pulse 80, respirations 16, blood pressure 115/75, pulse ox 97% on room air.) Eye exam: Present: normal appearance, PERRL, EOMI. Absent: scleral icterus, conjunctival injection, periorbital swelling ENT exam: Present: normal exam, normal oropharynx, mucous membranes moist Respiratory exam: Present: normal lung sounds bilaterally. Absent: respiratory distress, wheezes, rales, rhonchi, stridor Cardiovascular Exam: Present: regular rate, normal rhythm, normal heart sounds. Absent: systolic murmur, diastolic murmur, rubs, gallop, clicks GI/Abdominal exam: Present: soft, tenderness (Periumbilical tenderness), normal bowel sounds. Absent: distended, guarding, rebound, rigid Neurological exam: Present: alert, oriented X3, CN II-XII intact Psychiatric exam: Present: normal affect, normal mood Skin exam: Present: warm, dry, intact, normal color. Absent: rash Course Vital Signs 08/29/18 08/29/18 08/29/18 18:04 19:20 20:53 Temperature 97.5 F L 98 F 97.8 F Pulse Rate 80 74 76 Respiratory 16 16 16 Rate Blood Pressure 115/75 124/76 146/78 O2 Sat by Pulse 97 96 Oximetry Medical Decision Making - Medical Decision Making 28-year-old male patient presented to the emergency department today for evaluation of increased abdominal pain over the last 4 days. Patient does have history of Crohn's and was recently treated for an intra-abdominal abscess with IV antibiotics. Physical examination did reveal generalized abdominal tenderness but especially over the right side of the abdomen and periumbilically. Labs reviewed and did revealed elevated white blood cell count of 14.3. CT abdomen and pelvis was obtained and showed increased inflammation on the paracolic gutter as well as a possible abscess not significantly changed from previous CT. I did discuss findings and results with the patient. We'll admit to the hospital for further evaluation. We'll start Rocephin and Flagyl. We'll consult surgery and GI. - Lab Data Result diagrams: 08/29/18 18:35 08/29/18 18:35 Lab Results 08/29/18 08/29/18 08/29/18 Range/Units 18:35 18:35 18:35 WBC 14.3 H (3.8-10.6) k/uL RBC 6.05 H (4.30-5.90) m/uL Hgb 12.8 L (13.0-17.5) gm/dL Hct 42.6 (39.0-53.0) % MCV 70.5 L (80.0-100.0) fL MCH 21.2 L (25.0-35.0) pg MCHC 30.1 L (31.0-37.0) g/dL RDW 17.7 H (11.5-15.5) % Plt Count 284 (150-450) k/uL Neutrophils % 75 % Lymphocytes % 14 % Monocytes % 6 % Eosinophils % 3 % Basophils % 0 % Neutrophils # 10.8 H (1.3-7.7) k/uL Lymphocytes # 2.0 (1.0-4.8) k/uL Monocytes # 0.8 (0-1.0) k/uL Eosinophils # 0.4 (0-0.7) k/uL Basophils # 0.1 (0-0.2) k/uL Hypochromasia Slight Anisocytosis Slight Microcytosis Marked Sodium 139 (137-145) mmol/L Potassium 3.7 (3.5-5.1) mmol/L Chloride 104 (98-107) mmol/L Carbon Dioxide 27 (22-30) mmol/L Anion Gap 8 mmol/L BUN 11 (9-20) mg/dL Creatinine 0.86 (0.66-1.25) mg/dL Est GFR (CKD-EPI)AfAm >90 (>60 ml/min/1.73 sqM) Est GFR (CKD-EPI)NonAf >90 (>60 ml/min/1.73 sqM) Glucose 114 H (74-99) mg/dL Plasma Lactic Acid Nic (0.7-2.0) mmol/L Calcium 9.0 (8.4-10.2) mg/dL Total Bilirubin 0.4 (0.2-1.3) mg/dL AST 20 (17-59) U/L ALT 28 (21-72) U/L Alkaline Phosphatase 64 (38-126) U/L Total Protein 6.7 (6.3-8.2) g/dL Albumin 3.7 (3.5-5.0) g/dL Amylase 86 (30-110) U/L Lipase 105 (23-300) U/L Urine Color Yellow Urine Appearance Clear (Clear) Urine pH 6.0 (5.0-8.0) Ur Specific [place] 1.016 (1.001-1.035) Urine Protein Negative (Negative) Urine Glucose (UA) Negative (Negative) Urine Ketones Negative (Negative) Urine Blood Negative (Negative) Urine Nitrite Negative (Negative) Urine Bilirubin Negative (Negative) Urine Urobilinogen <2.0 (<2.0) mg/dL Ur Leukocyte Esterase Negative (Negative) 08/29/18 Range/Units 18:35 WBC (3.8-10.6) k/uL RBC (4.30-5.90) m/uL Hgb (13.0-17.5) gm/dL Hct (39.0-53.0) % MCV (80.0-100.0) fL MCH (25.0-35.0) pg MCHC (31.0-37.0) g/dL RDW (11.5-15.5) % Plt Count (150-450) k/uL Neutrophils % % Lymphocytes % % Monocytes % % Eosinophils % % Basophils % % Neutrophils # (1.3-7.7) k/uL Lymphocytes # (1.0-4.8) k/uL Monocytes # (0-1.0) k/uL Eosinophils # (0-0.7) k/uL Basophils # (0-0.2) k/uL Hypochromasia Anisocytosis Microcytosis Sodium (137-145) mmol/L Potassium (3.5-5.1) mmol/L Chloride (98-107) mmol/L Carbon Dioxide (22-30) mmol/L Anion Gap mmol/L BUN (9-20) mg/dL Creatinine (0.66-1.25) mg/dL Est GFR (CKD-EPI)AfAm (>60 ml/min/1.73 sqM) Est GFR (CKD-EPI)NonAf (>60 ml/min/1.73 sqM) Glucose (74-99) mg/dL Plasma Lactic Acid Nic 1.4 (0.7-2.0) mmol/L Calcium (8.4-10.2) mg/dL Total Bilirubin (0.2-1.3) mg/dL AST (17-59) U/L ALT (21-72) U/L Alkaline Phosphatase (38-126) U/L Total Protein (6.3-8.2) g/dL Albumin (3.5-5.0) g/dL Amylase (30-110) U/L Lipase (23-300) U/L Urine Color Urine Appearance (Clear) Urine pH (5.0-8.0) Ur Specific [place] (1.001-1.035) Urine Protein (Negative) Urine Glucose (UA) (Negative) Urine Ketones (Negative) Urine Blood (Negative) Urine Nitrite (Negative) Urine Bilirubin (Negative) Urine Urobilinogen (<2.0) mg/dL Ur Leukocyte Esterase (Negative) - Radiology Data Radiology results: report reviewed, image reviewed CT abdomen and pelvis with contrast was obtained. Report was reviewed in its entirety. Impression by Dr. Blank shows complex area in the upper pelvis on the right side of midline could be an abscess and not significantly different than recent computed tomography scan of 07/23/2018. This could be confirmed with computed tomography scan with oral contrast and delayed imaging. There is new mild inflammatory changes in the right paracolic gutter without stranding on the loops of distal ileum bowel loops in the right lateral abdomen compared to old exam. Disposition Clinical Impression: Exacerbation of Crohn's disease, Intra-abdominal abscess Disposition: ADMITTED IP TO THIS [facility] Condition: Serious Decision to Admit Reason: Admit from EC Decision Date: 08/29/18 Decision Time: 20:37
[2018-08-29 18:55] LABS: Appearance,Urine Clear (Clear); Bilirubin,Urine Negative (Negative); Blood,Urine Negative (Negative); Color,Urine Yellow; Glucose,Urine (UA) Negative (Negative); Ketones,Urine Negative (Negative); Leukocyte Esterase,Urine Negative (Negative); Nitrite,Urine Negative (Negative); Protein,Urine Negative (Negative); Specific Gravity,Urine 1.016 (1.001-1.035); Urobilinogen,Urine <2.0 mg/dL (<2.0)
[2018-08-29 18:56] LABS: Anisocytosis Slight; Basophils # (A) 0.1 k/uL (0-0.2); Basophils % (A) 0 %; Eosinophils # (A) 0.4 k/uL (0-0.7); Eosinophils % (A) 3 %; HCT 42.6 % (39.0-53.0); HGB 12.8 gm/dL (13.0-17.5); Hypochromasia Slight; Lymphocytes % (A) 14 %; MCH 21.2 pg (25.0-35.0); MCHC 30.1 g/dL (31.0-37.0); MCV 70.5 fL (80.0-100.0); Mean Platelet Volume 6.5; Microcytosis Marked; Monocytes # (A) 0.8 k/uL (0-1.0); Monocytes % (A) 6 %; Neutrophils # (A) 10.8 k/uL (1.3-7.7); Neutrophils % (A) 75 %; Platelet Count 284 k/uL (150-450); RBC 6.05 m/uL (4.30-5.90); RDW 17.7 % (11.5-15.5); WBC 14.3 k/uL (3.8-10.6)
[2018-08-29 19:04] LABS: ALT 28 U/L (21-72); AST 20 U/L (17-59); African American GFR (CKD) >90 (>60 ml/min/1.73 sqM); Albumin 3.7 g/dL (3.5-5.0); Alkaline Phosphatase 64 U/L (38-126); Amylase 86 U/L (30-110); Anion Gap 8 mmol/L; Blood Urea Nitrogen 11 mg/dL (9-20); Carbon Dioxide 27 mmol/L (22-30); Chloride 104 mmol/L (98-107); Glucose 114 mg/dL (74-99); Potassium 3.7 mmol/L (3.5-5.1); Sodium 139 mmol/L (137-145); Total Bilirubin 0.4 mg/dL (0.2-1.3); Total Protein 6.7 g/dL (6.3-8.2)
--- NOTE | 2018-08-29 19:26 | CT ---
EXAMINATION TYPE: CT abdomen pelvis w con DATE OF EXAM: 08/29/2018 COMPARISON: 07/23/2018 HISTORY: Abdominal pain. History of Crohn's. CT DLP: 872.4 mGycm Automated exposure control for dose reduction was used. TECHNIQUE: Helical acquisition of images was performed from the lung bases through the pelvis. CONTRAST: Performed without Oral Contrast and with IV Contrast, patient injected with 100ml mL of Isovue 300. FINDINGS: Lung bases are clear. There is no pleural effusion. Heart size is normal. There is no pericardial eff usion. Liver appears normal. Gallbladder appears normal. Bile ducts are not dilated. Stomach appears normal. Spleen appears normal. There is no evidence of pancreatic mass. There is no adrenal mass. Kidneys show satisfactory contrast opacification. There is no hydronephrosi s. There is no retroperitoneal adenopathy. There is no inguinal hernia. There is no free fluid in the pelvis. There is a collection of fecal material in the upper pelvis on the right side that appears to be monik te from the cecum and could be an abscess. This measures 4 cm with some surrounding mild fat strandin g. There is no evidence of a bowel obstruction. There is mild fat stranding and wall thickening of lo ops of distal ileum in the right mid abdomen that is consistent with inflammatory bowel disease. The lumbar spine is intact. Bony pelvis is intact.. There is mild subcutaneous edema over the lower l umbar spine. IMPRESSION: COMPLEX AREA IN THE UPPER PELVIS ON THE RIGHT SIDE OF MIDLINE COULD BE AN ABSCESS AND NOT SIGNIFICANT LY DIFFERENT THAN RECENT CT SCAN OF 07/23/2018. THIS COULD BE CONFIRMED WITH CT SCAN WITH ORAL CONTRAS T AND DELAYED IMAGING. There is new mild inflammatory changes in the right paracolic gutter with fat stranding around loops of distal ileum bowel loops in the right lateral abdomen compared to old exam.
[2018-08-29] MEDS ORDERED: ONDANSETRON 4 MG/2 ML VIAL IVP PRN (20:35)
[2018-08-29] MEDS ORDERED: NALOXONE 0.4 MG/ML 1 ML VIAL IV PRN (20:35)
[2018-08-29] MEDS ORDERED: metroNIDAZOLE-NS PMX 500 MG in SALINE 1 100ML.BAG IVPB STA (22:13)
[2018-08-29] MEDS: MORPHINE SULFATE 4 MG/ML SYRINGE IV PRN (23:33)
[2018-08-29] MEDS: SODIUM CHLORIDE 0.9% 1,000 ML IV SCH (23:33)
[2018-08-30] MEDS: metroNIDAZOLE-NS PMX 500 MG in SALINE 1 100ML.BAG IVPB SCH ×2 (04:45→13:24)
[2018-08-30] MEDS: MORPHINE SULFATE 4 MG/ML SYRINGE IV PRN ×2 (04:46→09:29)
[2018-08-30 07:55] LABS: Anisocytosis Slight; Basophils # (A) 0.1 k/uL (0-0.2); Basophils % (A) 0 %; Eosinophils # (A) 0.4 k/uL (0-0.7); Eosinophils % (A) 2 %; HCT 44.1 % (39.0-53.0); HGB 13.2 gm/dL (13.0-17.5); Hypochromasia Moderate; Lymphocytes # (A) 1.8 k/uL (1.0-4.8); Lymphocytes % (A) 11 %; MCH 21.2 pg (25.0-35.0); MCV 70.6 fL (80.0-100.0); Mean Platelet Volume 6.6; Microcytosis Marked; Monocytes % (A) 6 %; Neutrophils # (A) 12.5 k/uL (1.3-7.7); Neutrophils % (A) 79 %; Platelet Count 272 k/uL (150-450); RBC 6.24 m/uL (4.30-5.90); RDW 17.3 % (11.5-15.5); WBC 15.9 k/uL (3.8-10.6)
[2018-08-30 08:08] VITALS: BP 128/86; PULSE 65; RESP 14; TEMP 98.4
[2018-08-30] MEDS ORDERED: ACETAMINOPHEN TAB 325 MG TAB PO PRN (11:45)
[2018-08-30] MEDS ORDERED: ALPRAZolam 0.25 MG TAB PO PRN (11:45)
[2018-08-30] MEDS: SODIUM CHLORIDE 0.9% 1,000 ML IV SCH (13:27)
--- NOTE | 2018-08-30 21:09 | HP ---
HISTORY AND PHYSICAL CHIEF COMPLAINT: Abdominal pain. HISTORY OF PRESENT ILLNESS: This is another admission, apparently, for this 28-year-old male. He has a history of Crohn's disease. Apparently he was in this hospital about a month ago under someone else's care. He was told that he had an abscess in the abdomen. He is not compliant. He was on IV antibiotics and did not follow up with his treatment. He is back in for abdominal pain. He denies chills, fever, vomiting, diarrhea, melena, etc. Past medical history, family history, personal and social histories are difficult to elicit. Apparently, he has been on steroids and antibiotics. He is ALLERGIC TO FLEXERIL. He has had no surgery. He smokes a pack of cigarettes a day. PHYSICAL EXAMINATION: Blood pressure is 142/88 with a pulse of 79, respirations of 33 and he is afebrile. In general, he appeared to be well developed, well nourished, and somewhat uncomfortable. Skin color was normal. Skin is warm, dry. Lymph nodes not enlarged. Head, ears, eyes, nose, mouth, and throat were normal. Neck veins not distended. Thyroid enlarged. Chest is clear. Cardiac exam demonstrates normal sinus rhythm and no murmurs. No murmurs or extra sounds. The abdomen is slightly distended and firm and presents a doughy consistency throughout. There is no definite visceromegaly or masses. He has generalized mild tenderness. Bowel sounds are heard. Extremities normal. Neurologically is intact. IMPRESSION: 1. Crohn's disease. 2. Intraabdominal abscess ? PLAN: 1. Bed rest. 2. IV fluids. 3. Refer to Gastroenterology, Infectious Disease and General Surgery. MMODL / IJN: [id number] /
--- NOTE | 2018-08-31 00:06 | DS ---
DISCHARGE SUMMARY DAY OF ADMISSION: August 29, 2018. CHIEF COMPLAINT: Abdominal pain, Crohn's disease and intraabdominal abscess. HISTORY OF PRESENT ILLNESS AND PHYSICAL EXAM: Details of this man's history and physical can be found in the initial workup. LABORATORY STUDIES: While he was in the hospital, he had laboratory studies, details of which can be found in the laboratory section of his chart. COURSE IN HOSPITAL: After admission, he was placed on bedrest and started on intravenous fluids and started on analgesics and was referred to surgery, gastroenterology and Infectious Disease. Later in the day, he signed out AGAINST MEDICAL ADVICE. FINAL DIAGNOSES: 1. Crohn's disease. 2. Intraabdominal abscess. OPERATION: None. CONSULTATIONS: Gastroenterology, Infectious Disease and General surgery. He is improved. MMLITTLEL / JUDIEN: [id number] /
[2018-08-31] MEDS ORDERED: PANTOPRAZOLE 40 MG TABLET PO SCH (07:30)
== END 2018-08-30 13:48 | disposition left against medical advice (07) | DRG 387 ==
LOC: EC 17:58 → 4SSUR 21:47
PROVIDERS: ADMIT Family Medicine; ATTEND Family Medicine
DX: K50.914 Crohn's disease, unspecified, with abscess (principal); F17.210 Nicotine dependence, cigarettes, uncomplicated; Z79.899 Other long term (current) drug therapy; Z88.8 Allergy status to other drugs, medicaments and biological substances; Z91.19 Patient's noncompliance with other medical treatment and regimen
CPT/HCPCS: 36415; 74177; 80053; 81003; 82150; 83605; 83690; 85025; 87040; 96365; 96375; 96376; 99285

== ENCOUNTER 2018-08-30 14:33 | Inpatient (IN) | payer OTHER ==
[2018-08-30] MEDS ORDERED: SODIUM CHLORIDE 0.9% 1,000 ML IV STA (15:03)
[2018-08-30 15:45] LABS: Anisocytosis Slight; Basophils % (A) 0 %; Eosinophils # (A) 0.3 k/uL (0-0.7); Eosinophils % (A) 2 %; HCT 45.1 % (39.0-53.0); HGB 13.8 gm/dL (13.0-17.5); Hypochromasia Slight; Lymphocytes # (A) 1.4 k/uL (1.0-4.8); Lymphocytes % (A) 9 %; MCH 21.3 pg (25.0-35.0); MCHC 30.5 g/dL (31.0-37.0); MCV 69.9 fL (80.0-100.0); Mean Platelet Volume 6.6; Microcytosis Marked; Monocytes # (A) 0.9 k/uL (0-1.0); Monocytes % (A) 6 %; Neutrophils % (A) 80 %; Platelet Count 260 k/uL (150-450); RBC 6.45 m/uL (4.30-5.90); RDW 17.5 % (11.5-15.5)
[2018-08-30 15:46] LABS: ALT 22 U/L (21-72); AST 17 U/L (17-59); African American GFR (CKD) >90 (>60 ml/min/1.73 sqM); Albumin 3.9 g/dL (3.5-5.0); Alkaline Phosphatase 76 U/L (38-126); Amylase 85 U/L (30-110); Anion Gap 7 mmol/L; Blood Urea Nitrogen 9 mg/dL (9-20); Calcium 9.3 mg/dL (8.4-10.2); Carbon Dioxide 26 mmol/L (22-30); Chloride 105 mmol/L (98-107); Glucose 83 mg/dL (74-99); Sodium 138 mmol/L (137-145); Total Bilirubin 0.7 mg/dL (0.2-1.3); Total Protein 7.1 g/dL (6.3-8.2)
[2018-08-30 15:49] LABS: Appearance,Urine Clear (Clear); Bilirubin,Urine Negative (Negative); Blood,Urine Negative (Negative); Color,Urine Yellow; Glucose,Urine (UA) Negative (Negative); Ketones,Urine Negative (Negative); Leukocyte Esterase,Urine Negative (Negative); Nitrite,Urine Negative (Negative); PH, Urine 7.5 (5.0-8.0); Protein,Urine Negative (Negative); Specific Gravity,Urine 1.016 (1.001-1.035); Urobilinogen,Urine <2.0 mg/dL (<2.0)
[2018-08-30] MEDS ORDERED: MORPHINE SULFATE 4 MG/ML SYRINGE IVP STA (16:07)
--- NOTE | 2018-08-30 16:18 | ED ---
General Adult HPI - General Source: patient, RN notes reviewed Mode of arrival: ambulatory Limitations: no limitations <Junior Goldstein - Last Filed: 08/30/18 16:19> <Kobe Arredondo - Last Filed: 08/30/18 16:59> - General Chief complaint: Abdominal Pain Stated complaint: Left 4th floor AMA/Return Visit/Crohns Time Seen by Provider: 08/30/18 15:02 - History of Present Illness Initial comments: 28-year-old male presents to the emergency department for a chief complaint of abdominal pain. Patient was admitted yesterday and left the floor AGAINST MEDICAL ADVICE today due to an apparent emergency at home. Patient states she has Crohn's and started to have some right lower quadrant pain about 3 days ago. States that about a month ago he had an abscess intra-abdominally and was treated with IV antibiotics for 2 weeks. States that his symptoms improved. However he missed a doctor's appointment and then a few days ago started to experience pain again. Denies fevers or chills. Denies nausea vomiting. Jose Cruz segovia has no other complaints at this time including shortness of breath, chest pain, nausea or vomiting, headache, or visual changes. (Junior Goldstein) - Related Data Previous Rx's Medication Instructions Recorded ALPRAZolam [Xanax] 0.25 mg PO TID PRN #10 tab 07/26/18 Acetaminophen Tab [Tylenol] 650 mg PO Q6HR PRN tab 07/26/18 Ibuprofen [Motrin] 200 mg PO Q6HR PRN tab 07/26/18 Pantoprazole Sodium [Protonix] 40 mg PO DAILY #30 tablet. 07/26/18 Allergies Allergy/AdvReac Type Severity Reaction Status Date / Time cyclobenzaprine AdvReac Unknown Verified 08/30/18 14:56 [From Flexeril] Review of Systems ROS Other: All systems not noted in ROS Statement are negative. <Junior Goldstein - Last Filed: 08/30/18 16:19> ROS Other: All systems not noted in ROS Statement are negative. <Kobe Arredondo - Last Filed: 08/30/18 16:59> ROS Statement: Those systems with pertinent positive or pertinent negative responses have been documented in the HPI. Past Medical History Past Medical History: No Reported History Additional Past Medical History / Comment(s): Crohns History of Any Multi-Drug Resistant Organisms: None Reported Past Surgical History: No Surgical Hx Reported Additional Past Surgical History / Comment(s): EGD, colonoscopy Past Anesthesia/Blood Transfusion Reactions: No Reported Reaction Past Psychological History: Anxiety, Depression Smoking Status: Current every day smoker Past Alcohol Use History: None Reported Past Drug Use History: Marijuana - Past Family History Father Family Medical History: No Reported History Additional Family Medical History / Comment(s): Father is healthy Mother Family Medical History: No Reported History Additional Family Medical History / Comment(s): Mother is healthy. <Junior Goldstein - Last Filed: 08/30/18 16:19> General Exam Limitations: no limitations General appearance: alert, in no apparent distress Head exam: Present: atraumatic, normocephalic, normal inspection Eye exam: Present: normal appearance, PERRL, EOMI. Absent: scleral icterus, conjunctival injection, periorbital swelling ENT exam: Present: normal exam, mucous membranes moist Neck exam: Present: normal inspection, full ROM. Absent: tenderness, meningismus, lymphadenopathy Respiratory exam: Present: normal lung sounds bilaterally. Absent: respiratory distress, wheezes, rales, rhonchi, stridor Cardiovascular Exam: Present: regular rate, normal rhythm, normal heart sounds. Absent: systolic murmur, diastolic murmur, rubs, gallop, clicks GI/Abdominal exam: Present: soft, tenderness (Tenderness noted to the right lower quadrant, no other abdominal tenderness), normal bowel sounds. Absent: distended, guarding, rebound, rigid Neurological exam: Present: alert, oriented X3, CN II-XII intact Psychiatric exam: Present: normal affect, normal mood <Junior Goldstein - Last Filed: 08/30/18 16:19> Course <Kobe Arredondo - Last Filed: 08/30/18 16:59> Vital Signs 08/30/18 14:57 Temperature 98.1 F Pulse Rate 79 Respiratory 18 Rate Blood Pressure 119/76 O2 Sat by Pulse 93 L Oximetry - Reevaluation(s) Reevaluation #1: 08/30/18 16:59 Page supervision: I personally did evaluate this case patient did leave AMA this morning and now is back he's last abdominal pain. He had been admitted for exacerbation of Crohn's disease. Case will be stopped discussed with Dr. Clemente (Kobe Arredondo) Medical Decision Making - Lab Data Result diagrams: 08/30/18 15:20 08/30/18 15:20 <Junior Goldstein - Last Filed: 08/30/18 16:19> - Lab Data Result diagrams: 08/30/18 15:20 08/30/18 15:20 <Kobe Arredondo - Last Filed: 08/30/18 16:59> - Medical Decision Making 28-year-old male with a past medical history of Crohn's disease presents for abdominal pain. Patient was admitted yesterday for intra-abdominal abscess the left AMA. His pain has been ongoing for about 3 days. Patient did have an intra-abdominal abscess about a month ago and was treated with IV antibiotics. On exam patient does have right lower quadrant tenderness. Vitals are stable. CBC does show occlusive tases of 15.0. CMP unremarkable. Urine is negative. CT obtained yesterday with contrast shows a complex area and the upper pelvis on the right side of midline that could be an abscess and is not significantly different than recent computed tomography scan of 07/23/2018. There are also Mild inflammatory changes in the right paracolic gutter with fat stranding around loops of distal ileum bowel loops in the right lateral abdomen compared to old exam. This is consistent with clinical presentation of right lower quadrant pain and leukocytosis. Patient was started on Rocephin and Flagyl yesterday and these were continued today. Dr. Fink was his surgeon previously so will be consulted. (Junior Goldstein) - Lab Data Lab Results 08/30/18 08/30/18 08/30/18 Range/Units 15:20 15:20 15:20 WBC 15.0 H (3.8-10.6) k/uL RBC 6.45 H (4.30-5.90) m/uL Hgb 13.8 (13.0-17.5) gm/dL Hct 45.1 (39.0-53.0) % MCV 69.9 L (80.0-100.0) fL MCH 21.3 L (25.0-35.0) pg MCHC 30.5 L (31.0-37.0) g/dL RDW 17.5 H (11.5-15.5) % Plt Count 260 (150-450) k/uL Neutrophils % 80 % Lymphocytes % 9 % Monocytes % 6 % Eosinophils % 2 % Basophils % 0 % Neutrophils # 12.0 H (1.3-7.7) k/uL Lymphocytes # 1.4 (1.0-4.8) k/uL Monocytes # 0.9 (0-1.0) k/uL Eosinophils # 0.3 (0-0.7) k/uL Basophils # 0.0 (0-0.2) k/uL Hypochromasia Slight Anisocytosis Slight Microcytosis Marked Sodium 138 (137-145) mmol/L Potassium 4.0 (3.5-5.1) mmol/L Chloride 105 (98-107) mmol/L Carbon Dioxide 26 (22-30) mmol/L Anion Gap 7 mmol/L BUN 9 (9-20) mg/dL Creatinine 0.84 (0.66-1.25) mg/dL Est GFR (CKD-EPI)AfAm >90 (>60 ml/min/1.73 sqM) Est GFR (CKD-EPI)NonAf >90 (>60 ml/min/1.73 sqM) Glucose 83 (74-99) mg/dL Plasma Lactic Acid Nic 0.9 (0.7-2.0) mmol/L Calcium 9.3 (8.4-10.2) mg/dL Total Bilirubin 0.7 (0.2-1.3) mg/dL AST 17 (17-59) U/L ALT 22 (21-72) U/L Alkaline Phosphatase 76 (38-126) U/L Total Protein 7.1 (6.3-8.2) g/dL Albumin 3.9 (3.5-5.0) g/dL Amylase 85 (30-110) U/L Lipase 39 (23-300) U/L Urine Color Urine Appearance (Clear) Urine pH (5.0-8.0) Ur Specific [place] (1.001-1.035) Urine Protein (Negative) Urine Glucose (UA) (Negative) Urine Ketones (Negative) Urine Blood (Negative) Urine Nitrite (Negative) Urine Bilirubin (Negative) Urine Urobilinogen (<2.0) mg/dL Ur Leukocyte Esterase (Negative) 08/30/18 Range/Units 15:28 WBC (3.8-10.6) k/uL RBC (4.30-5.90) m/uL Hgb (13.0-17.5) gm/dL Hct (39.0-53.0) % MCV (80.0-100.0) fL MCH (25.0-35.0) pg MCHC (31.0-37.0) g/dL RDW (11.5-15.5) % Plt Count (150-450) k/uL Neutrophils % % Lymphocytes % % Monocytes % % Eosinophils % % Basophils % % Neutrophils # (1.3-7.7) k/uL Lymphocytes # (1.0-4.8) k/uL Monocytes # (0-1.0) k/uL Eosinophils # (0-0.7) k/uL Basophils # (0-0.2) k/uL Hypochromasia Anisocytosis Microcytosis Sodium (137-145) mmol/L Potassium (3.5-5.1) mmol/L Chloride (98-107) mmol/L Carbon Dioxide (22-30) mmol/L Anion Gap mmol/L BUN (9-20) mg/dL Creatinine (0.66-1.25) mg/dL Est GFR (CKD-EPI)AfAm (>60 ml/min/1.73 sqM) Est GFR (CKD-EPI)NonAf (>60 ml/min/1.73 sqM) Glucose (74-99) mg/dL Plasma Lactic Acid Nic (0.7-2.0) mmol/L Calcium (8.4-10.2) mg/dL Total Bilirubin (0.2-1.3) mg/dL AST (17-59) U/L ALT (21-72) U/L Alkaline Phosphatase (38-126) U/L Total Protein (6.3-8.2) g/dL Albumin (3.5-5.0) g/dL Amylase (30-110) U/L Lipase (23-300) U/L Urine Color Yellow Urine Appearance Clear (Clear) Urine pH 7.5 (5.0-8.0) Ur Specific [place] 1.016 (1.001-1.035) Urine Protein Negative (Negative) Urine Glucose (UA) Negative (Negative) Urine Ketones Negative (Negative) Urine Blood Negative (Negative) Urine Nitrite Negative (Negative) Urine Bilirubin Negative (Negative) Urine Urobilinogen <2.0 (<2.0) mg/dL Ur Leukocyte Esterase Negative (Negative) Disposition Is patient prescribed a controlled substance at d/c from ED?: No Time of Disposition: 16:20 <Junior Goldstein - Last Filed: 08/30/18 16:19> <Kobe Arredondo - Last Filed: 08/30/18 16:59> Clinical Impression: Crohn disease, Intra-abdominal abscess Disposition: ADMITTED IP TO THIS HOSP Referrals: Mehran Fair MD [Primary Care Provider] - 1-2 days
[2018-08-30] MEDS ORDERED: MORPHINE SULFATE 4 MG/ML SYRINGE IV PRN (17:02)
[2018-08-30] MEDS ORDERED: NALOXONE 0.4 MG/ML 1 ML VIAL IV PRN (17:02)
[2018-08-30] MEDS: SODIUM CHLORIDE 0.9% 1,000 ML IV SCH (17:56)
[2018-08-30] MEDS: metroNIDAZOLE-NS PMX 500 MG in SALINE 1 100ML.BAG IVPB SCH ×2 (17:57→21:23)
[2018-08-30 18:25] LABS: Cocaine Screen,Urine Detected (NotDetected); Opiate Screen,Urine Detected (NotDetected); Phencyclidine Screen,Urine Not Detected (NotDetected); Urn Cannabinoid Scrn Detected (NotDetected)
[2018-08-30 18:26] LABS: Amphetamine Screen,Urine Not Detected (NotDetected); Barbiturate Screen,Urine Not Detected (NotDetected); Benzodiazepines Screen,Urine Not Detected (NotDetected); Methadone Screen, Urine Not Detected (NotDetected); Oxycodone Screen, Urine Not Detected (NotDetected); Tricyclic Antidepressant,Urine Not Detected (NotDetected)
[2018-08-30 19:16] VITALS: BMI 25.9
[2018-08-30] MEDS ORDERED: ACETAMINOPHEN TAB 325 MG TAB PO PRN (19:45)
[2018-08-30] MEDS ORDERED: ONDANSETRON 4 MG/2 ML VIAL IVP PRN (19:46)
[2018-08-30] MEDS ORDERED: HYDROcodone/APAP 5-325MG 1 EACH TAB PO PRN (19:46)
--- NOTE | 2018-08-30 21:39 | HP ---
HISTORY AND PHYSICAL CHIEF COMPLAINT: Abdominal pain. HISTORY OF PRESENT ILLNESS: This gentleman was in the hospital and signed out earlier today. He came back in the emergency room with increased abdominal pain and vomiting. He has Crohn's disease and possible intraabdominal abscess. REVIEW OF SYSTEMS: Past medical history, family history and social histories are all the same and unchanged. PHYSICAL EXAM: Temperature is 98.1, blood pressure 119/76, pulse 79, respirations are 18. GENERAL: He appeared to be well developed, well nourished, and uncomfortable. Head, ears, eyes, nose, mouth, and throat were normal. Chest is clear. Cardiac exam is normal. The abdomen is slightly distended and he has generalized tenderness and firmness. Bowel sounds are heard. Extremities normal. Neurological is intact. IMPRESSION: 1. Crohn's disease. 2. Possible intraabdominal abscess. PLAN: 1. Bed rest. 2. IV fluids. 3. Surgery consult. DEANGELO / CHERI: [id number] /
--- NOTE | 2018-08-30 22:25 | P.CONS ---
History of Present Illness - Reason for Consult Consult date: 08/30/18 Crohn's disease Requesting physician: Mark Clemente - Chief Complaint Abdominal pain - History of Present Illness 28-year-old male with a medical history significant for Crohn's disease diagnosed in 01/2018 as well as previous treatment of intra-abdominal abscess wh o presented to the hospital with complaints of abdominal pain. The patient had been evaluated and found to have an intra-abdominal abscess for which she was treated with IV antibiotics. He has been off treatment for approximately 2 weeks. He presented back to the hospital reporting abdominal pain in the lower abdomen which was increasing in severity. CT scan was performed with findings of a complex abscess. Laboratory evaluation on presentation was significant for a WBC 15.9, hemoglobin 13.2, platelet count 272,000, total bilirubin 0.4, alkaline phosphatase 66, AST 20 and ALT 28. The patient had previously been following up with a acid treater in [place] and had received 3 infusions of inflectra, however is not on any current treatment for his Crohn's disease. Aside from abscess no prior history of fistula arising or stricturing Crohn's disease. He is denying any nausea or vomiting at this time. No fevers reported currently. Review of Systems REVIEW OF SYSTEMS: CONSTITUTIONAL: Denies any fevers, chills, weight change or fatigue. CARDIOVASCULAR: Denies any chest pain, palpitations high or low blood pressures RESPIRATORY: Denies any shortness of breath, hemoptysis or cough. GENITOURINARY: No dysuria or hematuria. MUSCULOSKELETAL: No weakness reported. SKIN: Denies any new rashes or lesions, jaundice or pallor. PSYCHIATRIC: Denies any depression or anxiety. NEUROLOGY: Denies headache, denies any new focal deficits. EARS/NOSE/THROAT: No recent hearing change, congestion, nasal discharge or sore throat. EYES: No pain in eyes, discharge or change in vision. GASTROINTESTINAL: As per HPI. Past Medical History Past Medical History: No Reported History Additional Past Medical History / Comment(s): Crohns History of Any Multi-Drug Resistant Organisms: None Reported Past Surgical History: No Surgical Hx Reported Additional Past Surgical History / Comment(s): EGD, colonoscopy Past Anesthesia/Blood Transfusion Reactions: No Reported Reaction Past Psychological History: Anxiety, Depression Additional Psychological History / Comment(s): Lives with his significant other. Has moved from [place] where he was receiving his prior Crohn's disease care. No experience. No travel history. No animal exposures. No current tobacco, alcohol or recreational drug use Smoking Status: Current every day smoker Past Alcohol Use History: None Reported Additional Past Alcohol Use History / Comment(s): Pt started smoking in 2008 and quit in 2019. Past Drug Use History: Marijuana Additional Drug Use History / Comment(s): Pt smokes 2 joints a day. - Past Family History Father Family Medical History: No Reported History Additional Family Medical History / Comment(s): Father is healthy Mother Family Medical History: No Reported History Additional Family Medical History / Comment(s): Mother is healthy. Medications and Allergies Home Medications Medication Instructions Recorded Confirmed Type ALPRAZolam [Xanax] 0.25 mg PO TID PRN #10 tab 07/26/18 08/30/18 Rx Acetaminophen Tab [Tylenol] 650 mg PO Q6HR PRN tab 07/26/18 08/30/18 Rx Ibuprofen [Motrin] 200 mg PO Q6HR PRN tab 07/26/18 08/30/18 Rx Pantoprazole Sodium [Protonix] 40 mg PO DAILY #30 tablet. 07/26/18 08/30/18 Rx Allergies Allergy/AdvReac Type Severity Reaction Status Date / Time cyclobenzaprine AdvReac Unknown Verified 08/30/18 14:56 [From Flexeril] Physical Exam Vitals: Vital Signs Temp Pulse Resp BP Pulse Ox 08/30/18 17:59 64 18 128/86 100 08/30/18 14:57 98.1 F 79 18 119/76 93 L Intake and Output 08/30/18 08/30/18 08/30/18 06:59 14:59 22:59 Other: Weight 84.368 kg On physical examination, patient appears comfortable in no apparent distress. HEAD: Normocephalic, atraumatic. EYES: No scleral icterus. No conjunctival injection. MOUTH: No lesions, tongue midline. NECK: Trachea midline, no gross abnormalities. CHEST: Clear to auscultation with no wheezing or rhonchi appreciated. HEART: Regular rate and rhythm. ABDOMEN: Soft, due to palpation. Bowel sounds are positive. No organomegaly. No guarding or rigidity. EXTREMITIES: No pedal edema. SKIN: No rashes, no jaundice. NEUROLOGIC: Alert and oriented x3. No focal deficits. Results CBC & Chem 7: 08/30/18 15:20 08/30/18 15:20 Labs: Abnormal Lab Results - Last 24 Hours (Table) 08/30/18 08/30/18 Range/Units 15:20 15:28 WBC 15.0 H (3.8-10.6) k/uL RBC 6.45 H (4.30-5.90) m/uL MCV 69.9 L (80.0-100.0) fL MCH 21.3 L (25.0-35.0) pg MCHC 30.5 L (31.0-37.0) g/dL RDW 17.5 H (11.5-15.5) % Neutrophils # 12.0 H (1.3-7.7) k/uL Urine Opiates Screen Detected H (NotDetected) Urine Cocaine Screen Detected H (NotDetected) U Marijuana (THC) Screen Detected H (NotDetected) CT scan - abdomen: report reviewed (Computed tomography scan with findings of a complex cyst in the right pelvic area.) Assessment and Plan (1) Intra-abdominal abscess Narrative/Plan: Intra-abdominal abscess for which she previously was treated with IV antibiotics, finding is stable in size on CT imaging when compared to previous study. Current Visit: Yes Status: Acute Code(s): K65.1 - PERITONEAL ABSCESS SNOMED Code(s): 59247511 (2) Crohn's disease Narrative/Plan: 28-year-old male diagnosed with Crohn's disease and [place] in 01/2018 for which she received biologic therapy with biopsies and lower Remicade for 3 doses, but is currently not on active treatment. No prior history of fistula arising or stricturing disease, patient however was found to have intra-abdominal abscess in July for which she received treatment with IV antibiotics. Computed tomography scan showed persistence of abscess on current admission. Current Visit: Yes Status: Acute Code(s): K50.90 - CROHN'S DISEASE, UNSPECIFIED, WITHOUT COMPLICATIONS SNOMED Code(s): 29762443 Plan: Supportive care Continue broad-spectrum antibiotic therapy, infectious disease service is following Patient will need to be restarted on biologic therapy, however in the setting of infection biologic/immunosuppression should be held Surgical service consult. Continue to monitor CBC, CMP CT imaging and labs reviewed Thank you for allowing us to participate in the care of this patient we will continue to follow
[2018-08-30] MEDS: PIPERACILLIN-TAZOBACTAM 3.375 GM in SODIUM CHLORIDE 0.9% 100 ML IVPB SCH (23:40)
--- NOTE | 2018-08-31 00:12 | P.CONS ---
History of Present Illness - Reason for Consult Consult date: 08/30/18 Abdominal abscess Requesting physician: Mark Clemente - Chief Complaint Abdominal pain x few days - History of Present Illness Patient is a 28-year-old -[place] male with past medical history significant for Crohn's disease recent admission to this facility in July 2018 with the patient was diagnosed with abdominal abscess that has been treated with 2 week course of IV Invanz in the outpatient setting by Dr. Beltrán, patient's A1c was getting the bed he was feeling better however over the last few days the patient having a more abdominal pain. Pain is mostly in the mid right abdominal area, patient describing to be sharp with intensity of almost 10 out of 10 but family present to the Hospital patient did have associated nausea but no vomiting denies having any diarrhea or hematochezia. Did have some chills and denies high-grade fever with these symptoms the patient was evaluated in the ER yesterday she did have CT of abdominal pelvis with evidence of 4 cm abscess in the right side of the pelvis patient was admitted to hospital and was treated with IV Rocephin and Flagyl subsequently the patient left AMA after fevers presenting back to the ER with same symptoms of abdominal pain patient was evaluated by the ER physician he did have elevated white count of 15,000. Dressing was positive for opiates and THC he was restarted on Rocephin and Flagyl , infectious disease was consulted for further recommendation regarding antibiotic therapy Review of Systems Positive points has been mentioned in HPI rest of the systems are negative Past Medical History Past Medical History: No Reported History Additional Past Medical History / Comment(s): Crohns History of Any Multi-Drug Resistant Organisms: None Reported Past Surgical History: No Surgical Hx Reported Additional Past Surgical History / Comment(s): EGD, colonoscopy Past Anesthesia/Blood Transfusion Reactions: No Reported Reaction Past Psychological History: Anxiety, Depression Additional Psychological History / Comment(s): Lives with his significant other. Has moved from [place] where he was receiving his prior Crohn's disease care. No experience. No travel history. No animal exposures. No current tobacco, alcohol or recreational drug use Smoking Status: Current every day smoker Past Alcohol Use History: None Reported Additional Past Alcohol Use History / Comment(s): Pt started smoking in 2008 and quit in 2019. Past Drug Use History: Marijuana Additional Drug Use History / Comment(s): Pt smokes 2 joints a day. - Past Family History Father Family Medical History: No Reported History Additional Family Medical History / Comment(s): Father is healthy Mother Family Medical History: No Reported History Additional Family Medical History / Comment(s): Mother is healthy. Medications and Allergies Home Medications Medication Instructions Recorded Confirmed Type ALPRAZolam [Xanax] 0.25 mg PO TID PRN #10 tab 07/26/18 08/30/18 Rx Acetaminophen Tab [Tylenol] 650 mg PO Q6HR PRN tab 07/26/18 08/30/18 Rx Ibuprofen [Motrin] 200 mg PO Q6HR PRN tab 07/26/18 08/30/18 Rx Pantoprazole Sodium [Protonix] 40 mg PO DAILY #30 tablet. 07/26/18 08/30/18 Rx Allergies Allergy/AdvReac Type Severity Reaction Status Date / Time cyclobenzaprine AdvReac Unknown Verified 08/30/18 14:56 [From Flexeril] Physical Exam Vitals: Vital Signs Temp Pulse Resp BP Pulse Ox 08/30/18 17:59 64 18 128/86 100 08/30/18 14:57 98.1 F 79 18 119/76 93 L Intake and Output 08/30/18 08/30/18 08/30/18 06:59 14:59 22:59 Other: Weight 84.368 kg GENERAL DESCRIPTION: Middle-aged male lying in bed, no distress. No tachypnea or accessory muscle of respiration use. HEENT: Shows Pallor , no scleral icterus. Oral mucous membrane is dry. No pharyngeal erythema or thrush NECK: Trachea central, no thyromegaly. LUNGS: Unlabored breathing. Clear to auscultation anteriorly. No wheeze or crackle. HEART: S1, S2, regular rate and rhythm. No loud murmur ABDOMEN: Soft, mild right-sided tenderness , no guarding or rigidity, no organomegaly EXTREMITIES: No edema of feet. SKIN: No rash, no masses palpable. NEUROLOGICAL: The patient is awake, alert, oriented x3, mood and affect normal. Results CBC & Chem 7: 08/30/18 15:20 08/30/18 15:20 Labs: Abnormal Lab Results - Last 24 Hours (Table) 08/30/18 08/30/18 Range/Units 15:20 15:28 WBC 15.0 H (3.8-10.6) k/uL RBC 6.45 H (4.30-5.90) m/uL MCV 69.9 L (80.0-100.0) fL MCH 21.3 L (25.0-35.0) pg MCHC 30.5 L (31.0-37.0) g/dL RDW 17.5 H (11.5-15.5) % Neutrophils # 12.0 H (1.3-7.7) k/uL Urine Opiates Screen Detected H (NotDetected) Urine Cocaine Screen Detected H (NotDetected) U Marijuana (THC) Screen Detected H (NotDetected) Assessment and Plan Assessment: 1-patient with right lower abdominal abscess from this patient who did have a history of Crohn's disease and was also recently treated with a two-week course of IV Invanz now with recurrence and worsening of abdominal pain after completion of his antibiotic therapy, will need to cover for resistant gram- negative both aerobes and anaerobes Plan: 1-patient will need either CT-guided or surgical drainage of this fluid collection with the fluid should be sent for Gram stain and culture 2-discontinue the Rocephin and Flagyl 3-start the patient on Zosyn 3.375 mg every 8 hours we will follow on clinical condition and culture to further adjust medication if needed Thank you for this consultation will follow this patient along with you Time with Patient: Greater than 30
[2018-08-31] MEDS: SODIUM CHLORIDE 0.9% 1,000 ML IV SCH ×2 (00:39→10:02)
[2018-08-31] MEDS ORDERED: PANTOPRAZOLE 40 MG TABLET PO SCH (07:30)
[2018-08-31] MEDS: PIPERACILLIN-TAZOBACTAM 3.375 GM in SODIUM CHLORIDE 0.9% 100 ML IVPB SCH (07:33)
[2018-08-31] MEDS ORDERED: MORPHINE SULFATE 4 MG/ML SYRINGE IV PRN (09:45)
[2018-08-31 13:28] VITALS: BP 126/77; PULSE 57; RESP 16; TEMP 98
--- NOTE | 2018-08-31 13:55 | PN ---
PROGRESS NOTE CHIEF COMPLAINT: Crohn's disease and intraabdominal abscess with pain. HISTORY OF PRESENT ILLNESS: This gentleman continues to complain of excessive pain. He is not febrile. He is not vomiting. PHYSICAL EXAMINATION: Abdomen is slightly distended and he has generalized mild tenderness. There are no definite masses. Bowel sounds are heard. IMPRESSION: Crohn's disease with abscess. PLAN: 1. Continue with intravenous fluids. 2. Increase his analgesia program because of his complaints. 3. Consult Interventional Radiology. MMODL / IJN: [id number] /
== END 2018-08-31 14:56 | disposition left against medical advice (07) | DRG 387 ==
LOC: EC 14:33 → 4MS4W 16:58
PROVIDERS: ADMIT Family Medicine; ATTEND Family Medicine
DX: K50.914 Crohn's disease, unspecified, with abscess (principal); Z79.899 Other long term (current) drug therapy; F32.9 Major depressive disorder, single episode, unspecified; F41.9 Anxiety disorder, unspecified; Z88.8 Allergy status to other drugs, medicaments and biological substances; Z79.2 Long term (current) use of antibiotics; F17.210 Nicotine dependence, cigarettes, uncomplicated
CPT/HCPCS: 36415; 80053; 80306; 81003; 82150; 83605; 83690; 85025; 96361; 96365; 96367; 96375; 99285

== ENCOUNTER 2018-09-02 01:18 | Inpatient (IN) | payer OTHER ==
[2018-09-02 02:19] LABS: Anisocytosis Slight; Basophils % (A) 0 %; Eosinophils # (A) 0.4 k/uL (0-0.7); Eosinophils % (A) 3 %; HCT 42.3 % (39.0-53.0); HGB 13.3 gm/dL (13.0-17.5); Hypochromasia Slight; Lymphocytes % (A) 16 %; MCH 21.6 pg (25.0-35.0); MCHC 31.5 g/dL (31.0-37.0); MCV 68.6 fL (80.0-100.0); Mean Platelet Volume 6.9; Microcytosis Marked; Monocytes # (A) 0.9 k/uL (0-1.0); Monocytes % (A) 7 %; Neutrophils # (A) 8.9 k/uL (1.3-7.7); Neutrophils % (A) 71 %; Platelet Count 311 k/uL (150-450); RBC 6.17 m/uL (4.30-5.90); RDW 17.7 % (11.5-15.5); WBC 12.6 k/uL (3.8-10.6)
[2018-09-02] MEDS ORDERED: MORPHINE SULFATE 4 MG/ML SYRINGE IV STA (02:23)
[2018-09-02 02:33] LABS: ALT 18 U/L (21-72); AST 18 U/L (17-59); African American GFR (CKD) >90 (>60 ml/min/1.73 sqM); Albumin 3.8 g/dL (3.5-5.0); Alkaline Phosphatase 64 U/L (38-126); Anion Gap 9 mmol/L; Blood Urea Nitrogen 16 mg/dL (9-20); Calcium 9.5 mg/dL (8.4-10.2); Carbon Dioxide 25 mmol/L (22-30); Chloride 103 mmol/L (98-107); Glucose 93 mg/dL (74-99); Non-African American GFR(CKD) >90 (>60 ml/min/1.73 sqM); Sodium 137 mmol/L (137-145); Total Bilirubin 0.5 mg/dL (0.2-1.3)
[2018-09-02] MEDS ORDERED: ONDANSETRON 4 MG/2 ML VIAL IVP STA (02:33)
[2018-09-02] MEDS: PIPERACILLIN-TAZOBACTAM 3.375 GM in SODIUM CHLORIDE 0.9% 100 ML IVPB SCH ×3 (02:35→18:36)
[2018-09-02] MEDS ORDERED: NALOXONE 0.4 MG/ML 1 ML VIAL IV PRN (02:54)
[2018-09-02] MEDS ORDERED: ONDANSETRON 4 MG/2 ML VIAL IVP PRN (02:54)
--- NOTE | 2018-09-02 02:54 | ED ---
General Adult HPI - General Chief complaint: Abdominal Pain Stated complaint: Abscess Time Seen by Provider: 09/02/18 01:41 Source: patient, RN notes reviewed, old records reviewed Mode of arrival: ambulatory Limitations: no limitations - History of Present Illness Initial comments: 28-year-old male patient past history significant for Crohn's disease and intra- abdominal abscess presents to ED for admission. Patient was admitted to hospital for IV antibiotics for intra-abdominal abscess, left AGAINST MEDICAL ADVICE due to family emergency. This was on Sunday. Patient has returned today, states that same symptoms as prior. Patient right lower quadrant. States that symptoms have not changed worsen anyway. Denies any other complaints. Systemic: Pt denies fatigue, fever/chills, rash. Pt denies weakness, night sweats, weight loss. Neuro: Pt denies headache, visual disturbances, syncope or pre-syncope. HEENT: Pt denies ocular discharge or irritation, otalgia, rhinorrhea, pharyngitis or notable lymphadenopathy. Cardiopulmonary: Pt denies chest pain, SOB, heart palpitations, dyspnea on exertion. Abdominal/GI: Pt denies n/v/d. : Pt denies dysuria, burning w/ urination, frequency/urgency. Denies new onset urinary or bowel incontinence. MSK: Pt denies myalgia, loss of strength or function in extremities. Neuro: Pt denies new onset weakness, paresthesias. - Related Data Previous Rx's Medication Instructions Recorded ALPRAZolam [Xanax] 0.25 mg PO TID PRN #10 tab 07/26/18 Acetaminophen Tab [Tylenol] 650 mg PO Q6HR PRN tab 07/26/18 Ibuprofen [Motrin] 200 mg PO Q6HR PRN tab 07/26/18 Pantoprazole Sodium [Protonix] 40 mg PO DAILY #30 tablet. 07/26/18 Allergies Allergy/AdvReac Type Severity Reaction Status Date / Time cyclobenzaprine AdvReac Unknown Verified 09/02/18 01:32 [From Flexeril] Review of Systems ROS Statement: Those systems with pertinent positive or pertinent negative responses have been documented in the HPI. ROS Other: All systems not noted in ROS Statement are negative. Past Medical History Past Medical History: No Reported History Additional Past Medical History / Comment(s): Crohns, abccess on intestine 08/2018 History of Any Multi-Drug Resistant Organisms: None Reported Past Surgical History: No Surgical Hx Reported Additional Past Surgical History / Comment(s): EGD, colonoscopy, Past Anesthesia/Blood Transfusion Reactions: No Reported Reaction Past Psychological History: Anxiety, Depression Smoking Status: Current every day smoker Past Alcohol Use History: None Reported Past Drug Use History: Marijuana - Past Family History Father Family Medical History: No Reported History Additional Family Medical History / Comment(s): Father is healthy Mother Family Medical History: No Reported History Additional Family Medical History / Comment(s): Mother is healthy. General Exam - General Exam Comments Initial Comments: Constitutional: NAD, AOX3, Pt has pleasant affect. HEENT: NC/AT, trachea midline, neck supple, no lymphadenopathy. Posterior pharynx non erythematous, without exudates. External ears appear normal, without discharge. Mucous membranes moist. Eyes PERRLA, EOM intact. There is no scleral icterus. No pallor noted. Cardiopulmonary: RRR, no murmurs, rubs or gallops, no JVD noted. Lungs CTAB in anterior and posterior tan. No peripheral edema. Abdominal exam: Abdomen soft and non-distended. Abdomen mild tenderness to palpation in right lower quadrant. No guarding or rigidity.. Bowel sounds active in LLQ. No hepatosplenomegaly. No ecchymosis Neuro: CN II-XII grossly intact. No nuchal rigidity. No raccon eyes, no jeffries sign, no hemotympanum. No cervical spinal tenderness. MSK: No posterior calf tenderness bilaterally, homans sign negative bilaterally. Posterior tibialis and radial pulse +2 bilaterally. Sensation intact in upper and lower extremities. Full active ROM in upper and lower extremities, 5/5 str egnth. Limitations: no limitations Course Vital Signs 09/02/18 01:29 Temperature 98.8 F Pulse Rate 70 Respiratory 18 Rate Blood Pressure 117/73 O2 Sat by Pulse 97 Oximetry Medical Decision Making - Medical Decision Making 28-year-old male patient past history significant for Crohn's disease and intra- abdominal abscess presents to ED for admission. Patient was admitted to hospital for IV antibiotics for intra-abdominal abscess, left AGAINST MEDICAL ADVICE due to family emergency. This was on Sunday. Patient has returned today, states that same symptoms as prior. Patient right lower quadrant. States that symptoms have not changed worsen anyway. Denies any other complaints. Patient vital signs stable, afebrile. Physical exam displayed right lower quadrant mildly tender to palpation. Laboratory investigations revealed mild cytosis. Lactic acid within normal limits. Blood culture pending. Patient was started on Zosyn. Will be admitted for further evaluation. Case discussed with Dr. Fox. - Lab Data Result diagrams: 09/02/18 02:10 09/02/18 02:10 Lab Results 09/02/18 09/02/18 09/02/18 Range/Units 02:10 02:10 02:10 WBC 12.6 H (3.8-10.6) k/uL RBC 6.17 H (4.30-5.90) m/uL Hgb 13.3 (13.0-17.5) gm/dL Hct 42.3 (39.0-53.0) % MCV 68.6 L (80.0-100.0) fL MCH 21.6 L (25.0-35.0) pg MCHC 31.5 (31.0-37.0) g/dL RDW 17.7 H (11.5-15.5) % Plt Count 311 (150-450) k/uL Neutrophils % 71 % Lymphocytes % 16 % Monocytes % 7 % Eosinophils % 3 % Basophils % 0 % Neutrophils # 8.9 H (1.3-7.7) k/uL Lymphocytes # 2.0 (1.0-4.8) k/uL Monocytes # 0.9 (0-1.0) k/uL Eosinophils # 0.4 (0-0.7) k/uL Basophils # 0.0 (0-0.2) k/uL Hypochromasia Slight Anisocytosis Slight Microcytosis Marked Sodium 137 (137-145) mmol/L Potassium 4.0 (3.5-5.1) mmol/L Chloride 103 (98-107) mmol/L Carbon Dioxide 25 (22-30) mmol/L Anion Gap 9 mmol/L BUN 16 (9-20) mg/dL Creatinine 0.96 (0.66-1.25) mg/dL Est GFR (CKD-EPI)AfAm >90 (>60 ml/min/1.73 sqM) Est GFR (CKD-EPI)NonAf >90 (>60 ml/min/1.73 sqM) Glucose 93 (74-99) mg/dL Plasma Lactic Acid Nic 0.8 (0.7-2.0) mmol/L Calcium 9.5 (8.4-10.2) mg/dL Total Bilirubin 0.5 (0.2-1.3) mg/dL AST 18 (17-59) U/L ALT 18 L (21-72) U/L Alkaline Phosphatase 64 (38-126) U/L Total Protein 7.0 (6.3-8.2) g/dL Albumin 3.8 (3.5-5.0) g/dL Disposition Clinical Impression: Intra-abdominal abscess Disposition: ADMITTED IP TO THIS HOSP Condition: Serious Is patient prescribed a controlled substance at d/c from ED?: No Referrals: Mehran Fair MD [Primary Care Provider] - 1-2 days
[2018-09-02] MEDS: SODIUM CHLORIDE 0.9% 1,000 ML IV SCH ×3 (04:06→22:28)
[2018-09-02] MEDS: MORPHINE SULFATE 4 MG/ML SYRINGE IV PRN ×3 (07:35→22:26)
--- NOTE | 2018-09-02 20:09 | HP ---
HISTORY AND PHYSICAL CHIEF COMPLAINT: Abdominal pain. HISTORY OF PRESENT ILLNESS: This 28-year-old signed out twice in the last several days for abdominal pain. He has Crohn's disease and a possible intraabdominal abscess. Every time he is admitted and studies and treatment are ordered, he signs out. REVIEW OF SYSTEMS: Review of systems is unchanged except for his complaints of vague abdominal pain. He has not had a fever. Past medical history, family history, and personal and social histories are all unchanged. PHYSICAL EXAMINATION: Blood pressure is 138/90 with a pulse of 83, respirations of 35, and he is afebrile. In general he appeared to be slender and somewhat uncomfortable. Skin was warm and dry. Lymph nodes were not enlarged. Head, ears, eyes, nose, mouth and throat were normal. Neck veins were not distended. Thyroid was not enlarged. Chest was clear. Cardiac exam was normal. Abdomen was soft, nontender. There were no definite masses. IMPRESSION: 1. Crohn's disease. 2. Possible intraabdominal abscess. PLAN: 1. Bed rest. 2. IV fluids. 3. To be re-evaluated by Gastroenterology and General Surgery. MMODL / IJN: [id number] /
[2018-09-03] MEDS: PIPERACILLIN-TAZOBACTAM 3.375 GM in SODIUM CHLORIDE 0.9% 100 ML IVPB SCH ×3 (02:10→18:47)
[2018-09-03] MEDS: MORPHINE SULFATE 4 MG/ML SYRINGE IV PRN ×3 (05:14→18:46)
--- NOTE | 2018-09-03 08:46 | P.CONS ---
History of Present Illness - Reason for Consult Consult date: 09/03/18 History of Crohn's Requesting physician: Mark Clemente - Chief Complaint Abdominal pain - History of Present Illness 28-year-old male with a history of Crohn's disease diagnosed January 2018 previously maintained on Inflectra as well as recent hospitalization July 2018 secondary to abdominal pain and intra-abdominal abscess treated with IV antibiotics/INVANZ 2 weeks presented to the hospital with complaints of abdominal pain. Patient left AGAINST MEDICAL ADVICE secondary to personal issue readmitted with abdominal pain. CT abdomen and pelvis 08/29/2018 reported findings of a complex intra-abdominal abscess in the upper pelvis on the right side of midline not significantly different than recent CT 07/23/2018 with small bowel wall thickening. Denies hematemesis hematochezia or melena. No diarrhea or constipation. Pain is centered to the right lower quadrant. White count 12.6 previously 15.9. Hemoglobin 13.3. Platelets 311. Afebrile. Review of Systems Constitutional: Denies fever, chills, sweats, weight gain, or loss. HEENT: Negative for migraines, blurred vision or loss, earaches, drainage, tinnitus, oral mucosal lesions, dysphagia, or odynophagia. Cardiac: Negative for chest pain, arrhythmias, or palpitation. Respiratory: Negative for shortness of breath, hemoptysis, cough, or sputum production. Gastrointestinal: See HPI for pertinent findings. Genitourinary: Negative for hematuria, urgency, frequency, polyuria, dysuria, or penile discharge. Musculoskeletal: Negative for muscle aches, swelling, arthritis, and arthralgias. Neurologic: Negative for stroke or TIA. Endocrine: Negative for thyroid problems. Skin: Negative for rash or itching. Psychiatric: Negative history for depression and anxiety Past Medical History Past Medical History: No Reported History Additional Past Medical History / Comment(s): Crohns, abscess on intestine diagnosed 08/2018 History of Any Multi-Drug Resistant Organisms: None Reported Past Surgical History: No Surgical Hx Reported Additional Past Surgical History / Comment(s): EGD, colonoscopy Past Anesthesia/Blood Transfusion Reactions: No Reported Reaction Past Psychological History: Anxiety, Depression Additional Psychological History / Comment(s): Lives with his significant other. Has moved from [place] where he was receiving his prior Crohn's disease care. No experience. No travel history. No animal exposures. Currently smokes a pack of cigarettes a week, No alcohol Smoking Status: Current every day smoker Past Alcohol Use History: None Reported Additional Past Alcohol Use History / Comment(s): Pt started smoking in 2008 and quit in 2019, then recently started smoking again Past Drug Use History: Marijuana Additional Drug Use History / Comment(s): Pt smokes 2 joints a day. - Past Family History Father Family Medical History: No Reported History Additional Family Medical History / Comment(s): Father is healthy Mother Family Medical History: No Reported History Additional Family Medical History / Comment(s): Mother is healthy. Medications and Allergies Home Medications Medication Instructions Recorded Confirmed Type Multivitamins, Thera [Multivitamin 1 tab PO DAILY 09/02/18 09/02/18 History (formulary)] Allergies Allergy/AdvReac Type Severity Reaction Status Date / Time cyclobenzaprine AdvReac Unknown Verified 09/02/18 07:14 [From Flexeril] Physical Exam Vitals: Vital Signs Temp Pulse Pulse Resp BP BP Pulse Ox 09/03/18 05:00 98.2 F 68 16 110/67 97 09/02/18 20:44 98.3 F 63 16 136/77 99 09/02/18 16:00 69 16 09/02/18 13:16 98.3 F 82 16 126/78 99 Intake and Output 09/02/18 09/03/18 09/03/18 22:59 06:59 14:59 Intake Total 420 580 Balance 420 580 Intake: Intake, IV Titration 420 580 Amount Piperacillin-Tazobactam 3 100 .375 gm In Sodium Chloride 0.9% 100 ml @ 200 mls/hr IVPB Q8H CONNIE Rx#:[id number] Sodium Chloride 0.9% 1, 420 480 000 ml @ 120 mls/hr IV . Q8H20M CONNIE Rx#:[id number] Other: Voiding Method Toilet General appearance: The patient is alert, oriented, in no acute distress. HET: Head is normocephalic and atraumatic. Pupils are equal and reactive. Oropharynx is clear without lesions. Neck: Supple without lymphadenopathy. Trachea midline. Heart: S1 S2. Regular rate and rhythm. Lungs: No crackles or wheezes are heard. Abdomen: Soft, nontender, nondistended with bowel sounds. No peritoneal signs. No palpable organomegaly or masses. Extremities: Normal skin color and turgor. No cyanosis, rash, ulceration, clubbing, or edema. Radial and pedal pulses are 2/4 bilaterally. Neurological: No focal deficits. Strength and sensation are grossly intact. Results CBC & Chem 7: 09/03/18 08:05 09/03/18 08:25 Labs: Microbiology - Last 24 Hours (Table) 09/02/18 02:40 Blood Culture - Preliminary Blood No Growth after [address] scan - abdomen: report reviewed (08/29/[address] Morgan) Assessment and Plan (1) Abdominal pain Narrative/Plan: 28-year-old male diagnosed with Crohn's disease January 2018 presently not on active treatment however previously maintained on biologic therapy Inflectra with recent hospitalization July 2018 for abdominal pain secondary to intra- abdominal abscess treated with IV antibiotics nonsurgical presents with acute abdominal pain exacerbation of crohns disease. CT abdomen and pelvis 08/29/2018 consistent with complex intra-abdominal abscess not previously change from CT imaging July 2018 with small bowel wall thickening. Current Visit: No Status: Acute Code(s): R10.9 - UNSPECIFIED ABDOMINAL PAIN SNOMED Code(s): 46464739 (2) Intra-abdominal abscess Current Visit: Yes Status: Acute Code(s): K65.1 - PERITONEAL ABSCESS SNOMED Code(s): 07373579 (3) Crohn's disease Current Visit: No Status: Acute Code(s): K50.90 - CROHN'S DISEASE, UNSPECIFIED, WITHOUT COMPLICATIONS SNOMED Code(s): 79950956 Plan: 1. General surgical consult. Interventional radiology consult evaluate for possible percutaneous drainage and send cultures. ESR CRP now and every 48 hours. Nothing by mouth except medications until seen by general surgery. IV broad spectrum antibiotics. Solumedrol 20 mg every 8 hours. 2. Patient will need to be restarted on biologic therapy however in the setting of infection biologic immunosuppression should be held. 3. Infectious disease consult. Thank you for this kind referral and the opportunity to participate in the care of your patient. This consultation was discussed with Dr. Morgan. The impression and plan of care have been directed as dictated.
[2018-09-03 09:05] LABS: ALT 18 U/L (21-72); AST 18 U/L (17-59); African American GFR (CKD) >90 (>60 ml/min/1.73 sqM); Albumin 3.7 g/dL (3.5-5.0); Alkaline Phosphatase 72 U/L (38-126); Anion Gap 7 mmol/L; Blood Urea Nitrogen 11 mg/dL (9-20); Calcium 9.5 mg/dL (8.4-10.2); Carbon Dioxide 28 mmol/L (22-30); Chloride 103 mmol/L (98-107); Glucose 68 mg/dL (74-99); Non-African American GFR(CKD) 83 (>60 ml/min/1.73 sqM); Potassium 4.5 mmol/L (3.5-5.1); Sodium 138 mmol/L (137-145); Total Protein 7.1 g/dL (6.3-8.2)
[2018-09-03 09:14] LABS: Anisocytosis Slight; Basophils # (A) 0.1 k/uL (0-0.2); Basophils % (A) 1 %; Eosinophils # (A) 0.4 k/uL (0-0.7); Eosinophils % (A) 5 %; HCT 44.7 % (39.0-53.0); HGB 13.4 gm/dL (13.0-17.5); Hypochromasia Slight; Lymphocytes # (A) 1.7 k/uL (1.0-4.8); Lymphocytes % (A) 22 %; MCH 20.7 pg (25.0-35.0); MCV 68.8 fL (80.0-100.0); Mean Platelet Volume 6.2; Microcytosis Marked; Monocytes # (A) 0.5 k/uL (0-1.0); Monocytes % (A) 7 %; Neutrophils # (A) 4.6 k/uL (1.3-7.7); Neutrophils % (A) 61 %; Platelet Count 302 k/uL (150-450); RDW 16.5 % (11.5-15.5); WBC 7.6 k/uL (3.8-10.6)
[2018-09-03] MEDS: methylPREDNISolone SOD SUCCI 40 MG/ML 1 ML VIAL IV SCH ×2 (13:40→18:00)
[2018-09-03] MEDS: SODIUM CHLORIDE 0.9% 1,000 ML IV SCH ×3 (13:40→21:05)
--- NOTE | 2018-09-03 14:58 | P.GSCN ---
History of Present Illness Consult date: 09/03/18 Reason for Consult: Intra-abdominal abscess Requesting physician: Mark Clemente History of present illness: CHIEF COMPLAINT: Intra-abdominal abscess HISTORY OF PRESENT ILLNESS: 28-year-old male who was recently hospitalized at the end of July 2018 secondary to Crohn's disease and intra-abdominal abscess. Patient was discharged home on IV antibiotics. Patient states he completed his course of IV antibiotics and was doing well but reports increased pain over the past week. The patient originally presented back to the emergency room on 08/29/2017. He left AGAINST MEDICAL ADVICE the following day after getting a equal opportunity counselor would not let the patient leave the hospital with his IV to meet someone outside and refused to have her escort the patient downstairs. He reported back to the emergency room a few hours later with complaints of abdominal pain. Toxicology screen was performed at that time which was positive for opioids, cocaine, and marijuana. Patient once again left AGAINST MEDICAL ADVICE on 08/31/2018. He presented back to the emergency room for the third time within a 1 week period for complaints of abdominal pain. Patient examined at the bedside with Dr. Carrera. Patient appears comfortable. Denies nausea or vomiting. Tolerating diet. He states he would like to receive medical treatment and will not leave AMA this time. He reports feeling depressed regarding his overall health conditions. PAST MEDICAL HISTORY: See list. PAST SURGICAL HISTORY: See list. MEDICATIONS: See list. ALLERGIES: See list. SOCIAL HISTORY: Recent toxicology screen positive for cocaine and marijuana. REVIEW OF SYSTEMS: CONSTITUTIONAL: Denies fever or chills. HEENT: Denies blurred vision, vision changes, or eye pain. Denies hemoptysis ENDOCRINE: Denies heat or cold intolerance. CARDIOVASCULAR: Denies chest pain or pressure. RESPIRATORY: No shortness of breath. GASTROINTESTINAL: See HPI for pertinent findings. NEURO: Denies history of seizures. PSYCH: Reports depression and feeling overwhelmed with health conditions. HEMATOLOGIC: Denies bleeding disorders. LYMPHATIC: The patient denies any lumps and bumps around the neck. GENITOURINARY: Denies any blood in urine or increased urinary frequency. MUSCULOSKELETAL: Denies myalgias. Denies joint swelling. Denies decreased range of motion beyond patients baseline. SKIN: Denies pruitis. Denies rash. PHYSICAL EXAM: VITAL SIGNS: Currently stable. GENERAL: Well-developed in no acute distress. HEENT: No sclera icterus. Extraocular movements grossly intact. Moist buccal mucosa. Head is atraumatic, normocephalic. Hears conversational speech. No nasal drainage. NECK: Supple without lymphadenopathy. CHEST: Non-labored respirations and equal bilateral excursions. CARDIOVASCULAR: Regular rate with regular rhythm. Palpable 2+ radial pulses. ABDOMEN: Soft. Nondistended. Tenderness upon palpation of right lower quadrant. Positive bowel sounds. MUSCULOSKELETAL: No clubbing, cyanosis or edema. NEUROLOGIC: No focal or lateralizing signs. Cranial nerves II through XII grossly intact. PSYCH: Appropriate affect. Alert and oriented to person, place and time. SKIN: Well perfused. Good skin turgor. LABORATORY DATA: Laboratory data upon admission reveals white count 12.6. Hemoglobin 13.3. Potassium 4.0. Lactic acid 0.8. AST 18. ALT 18. C-reactive protein 19.3. ESR 8. IMAGING: Computed tomography scan abdomen and pelvis performed on 08/29/2018 reveals complex area in the upper pelvis on the right side of midline could be an abscess and not significantly different than recent CAT scan of 07/23/2018. There is no inflammatory changes in the right pericolic gutter with patch draining around loops of distal ileum bowel loops in the right lateral abdomen compared to exam. ASSESSMENT: 1. Abdominal pain 2. Acute exacerbation of Crohn's disease 3. Medical noncompliance PLAN: 1. Interventional radiology was consulted for possible drainage. IR RN contacted provider and states Dr. Candelaria did not feel there was an abscess to be drained according to his review of the films. 2. No surgical intervention recommended at this time 3. Diet per GI services 4. Further management of Crohns disease per GI. 5. Management of depression per medical team. May benefit from psychiatric consultation. Nurse practitioner note has been reviewed by physician. Signing provider agrees with the documented findings, assessment, and plan of care. Past Medical History Past Medical History: No Reported History Additional Past Medical History / Comment(s): Crohns, abscess on intestine diagnosed 08/2018 History of Any Multi-Drug Resistant Organisms: None Reported Past Surgical History: No Surgical Hx Reported Additional Past Surgical History / Comment(s): EGD, colonoscopy Past Anesthesia/Blood Transfusion Reactions: No Reported Reaction Past Psychological History: Anxiety, Depression Additional Psychological History / Comment(s): Lives with his significant other. Has moved from [place] where he was receiving his prior Crohn's disease care. No experience. No travel history. No animal exposures. Currently smokes a pack of cigarettes a week, No alcohol Smoking Status: Current every day smoker Past Alcohol Use History: None Reported Additional Past Alcohol Use History / Comment(s): Pt started smoking in 2008 and quit in 2019, then recently started smoking again Past Drug Use History: Marijuana Additional Drug Use History / Comment(s): Pt smokes 2 joints a day. - Past Family History Father Family Medical History: No Reported History Additional Family Medical History / Comment(s): Father is healthy Mother Family Medical History: No Reported History Additional Family Medical History / Comment(s): Mother is healthy. Medications and Allergies Home Medications Medication Instructions Recorded Confirmed Type Multivitamins, Thera [Multivitamin 1 tab PO DAILY 09/02/18 09/02/18 History (formulary)] Allergies Allergy/AdvReac Type Severity Reaction Status Date / Time cyclobenzaprine AdvReac Unknown Verified 09/02/18 07:14 [From Flexeril] Surgical - Exam Vital Signs Temp Pulse Resp BP Pulse Ox 98.8 F 70 18 117/73 97 09/02/18 01:29 09/02/18 01:29 09/02/18 01:29 09/02/18 01:29 09/02/18 01:29 Results - Labs 09/03/18 08:05 09/03/18 08:25 Abnormal Lab Results - Last 24 Hours (Table) 09/03/18 09/03/18 09/03/18 Range/Units 08:05 08:25 09:50 RBC 6.50 H (4.30-5.90) m/uL MCV 68.8 L (80.0-100.0) fL MCH 20.7 L (25.0-35.0) pg MCHC 30.0 L (31.0-37.0) g/dL RDW 16.5 H (11.5-15.5) % Glucose 68 L (74-99) mg/dL ALT 18 L (21-72) U/L C-Reactive Protein 19.3 H (<10.0) mg/L Microbiology - Last 24 Hours (Table) 09/02/18 02:40 Blood Culture - Preliminary Blood No Growth after 24 hours Diabetes panel 09/03/18 Range/Units 08:25 Sodium 138 (137-145) mmol/L Potassium 4.5 (3.5-5.1) mmol/L Chloride 103 (98-107) mmol/L Carbon Dioxide 28 (22-30) mmol/L BUN 11 (9-20) mg/dL Creatinine 1.18 (0.66-1.25) mg/dL Glucose 68 L (74-99) mg/dL Calcium 9.5 (8.4-10.2) mg/dL AST 18 (17-59) U/L ALT 18 L (21-72) U/L Alkaline Phosphatase 72 (38-126) U/L Total Protein 7.1 (6.3-8.2) g/dL Albumin 3.7 (3.5-5.0) g/dL Calcium panel 09/03/18 Range/Units 08:25 Calcium 9.5 (8.4-10.2) mg/dL Albumin 3.7 (3.5-5.0) g/dL Pituitary panel 09/03/18 Range/Units 08:25 Sodium 138 (137-145) mmol/L Potassium 4.5 (3.5-5.1) mmol/L Chloride 103 (98-107) mmol/L Carbon Dioxide 28 (22-30) mmol/L BUN 11 (9-20) mg/dL Creatinine 1.18 (0.66-1.25) mg/dL Glucose 68 L (74-99) mg/dL Calcium 9.5 (8.4-10.2) mg/dL Adrenal panel 09/03/18 Range/Units 08:25 Sodium 138 (137-145) mmol/L Potassium 4.5 (3.5-5.1) mmol/L Chloride 103 (98-107) mmol/L Carbon Dioxide 28 (22-30) mmol/L BUN 11 (9-20) mg/dL Creatinine 1.18 (0.66-1.25) mg/dL Glucose 68 L (74-99) mg/dL Calcium 9.5 (8.4-10.2) mg/dL Total Bilirubin 1.0 (0.2-1.3) mg/dL AST 18 (17-59) U/L ALT 18 L (21-72) U/L Alkaline Phosphatase 72 (38-126) U/L Total Protein 7.1 (6.3-8.2) g/dL Albumin 3.7 (3.5-5.0) g/dL Assessment and Plan (1) Abdominal pain Current Visit: No Status: Acute Code(s): R10.9 - UNSPECIFIED ABDOMINAL PAIN SNOMED Code(s): 95990024 (2) Crohn's disease Current Visit: No Status: Acute Code(s): K50.90 - CROHN'S DISEASE, UNSPECIFIED, WITHOUT COMPLICATIONS SNOMED Code(s): 92853937
--- NOTE | 2018-09-03 22:29 | PN ---
PROGRESS NOTE CHIEF COMPLAINT: Crohn's disease and intraabdominal abscess. HISTORY OF PRESENT ILLNESS: This gentleman is still having quite a bit of discomfort, or so he claims. He has been referred to Surgery, Gastroenterology and Interventional Radiology. PHYSICAL EXAMINATION: He is afebrile. Chest is clear. Cardiac exam is normal. Abdomen is soft, nontender. IMPRESSION: 1. Crohn's disease. 2. Intraabdominal abscess. PLAN: Refer to Interventional Radiology. MMODL / IJN: [id number] /
[2018-09-04] MEDS: methylPREDNISolone SOD SUCCI 40 MG/ML 1 ML VIAL IV SCH ×2 (00:14→09:47)
[2018-09-04] MEDS: PIPERACILLIN-TAZOBACTAM 3.375 GM in SODIUM CHLORIDE 0.9% 100 ML IVPB SCH ×2 (02:47→09:46)
[2018-09-04] MEDS: SODIUM CHLORIDE 0.9% 1,000 ML IV SCH ×2 (05:53→14:04)
[2018-09-04] MEDS: MORPHINE SULFATE 4 MG/ML SYRINGE IV PRN ×2 (06:03→13:20)
[2018-09-04] MEDS ORDERED: PANTOPRAZOLE 40 MG/10 ML VIAL IVP SCH (09:00)
--- NOTE | 2018-09-04 11:16 | P.PN ---
Subjective Progress Note Date: 09/04/18 CHIEF COMPLAINT: Intra-abdominal abscess HISTORY OF PRESENT ILLNESS: Patient examined at the bedside. He denies abdominal pain. Tolerating diet. Denies nausea or vomiting. He is hoping to be discharged home today. PHYSICAL EXAM: VITAL SIGNS: Currently stable. GENERAL: Well-developed in no acute distress. HEENT: No sclera icterus. Extraocular movements grossly intact. Moist buccal mucosa. Head is atraumatic, normocephalic. Hears conversational speech. No nasal drainage. NECK: Supple without lymphadenopathy. CHEST: Non-labored respirations and equal bilateral excursions. CARDIOVASCULAR: Regular rate with regular rhythm. Palpable 2+ radial pulses. ABDOMEN: Soft. Nondistended. Nontender. Positive bowel sounds. MUSCULOSKELETAL: No clubbing, cyanosis or edema. NEUROLOGIC: No focal or lateralizing signs. Cranial nerves II through XII grossly intact. PSYCH: Appropriate affect. Alert and oriented to person, place and time. SKIN: Well perfused. Good skin turgor. ASSESSMENT: 1. Abdominal pain 2. Acute exacerbation of Crohn's disease 3. Medical noncompliance PLAN: Continue current diet. No surgical intervention recommended. Management of Crohns per GI service. Discharge planning per internal medicine. Stable from surgical standpoint. We will sign off. please reconsult if needed Nurse practitioner note has been reviewed by physician. Signing provider agrees with the documented findings, assessment, and plan of care. Objective - Vital Signs Vital signs: Vital Signs Temp 98 F 09/04/18 05:00 Pulse 84 09/04/18 05:00 Resp 18 09/04/18 05:00 BP 114/68 09/04/18 05:00 Pulse Ox 97 09/04/18 05:00 Intake & Output 09/03/18 09/04/18 09/04/18 18:59 06:59 18:59 Intake Total 175 Output Total 1 Balance 174 Intake: Intake, IV Titration 175 Amount Piperacillin-Tazobactam 3 175 .375 gm In Sodium Chloride 0.9% 100 ml @ 25 mls/hr IVPB [facility] Rx#: [id number] Output: Urine 1 Other: Voiding Method Toilet # Voids 1 1 - Labs CBC & Chem 7: 09/03/18 08:05 09/03/18 08:25 Labs: Microbiology - Last 24 Hours (Table) 09/02/18 02:40 Blood Culture - Preliminary Blood No Growth after 48 hours Assessment and Plan (1) Abdominal pain Current Visit: No Status: Acute Code(s): R10.9 - UNSPECIFIED ABDOMINAL PAIN SNOMED Code(s): 86523195 (2) Crohn's disease Current Visit: No Status: Acute Code(s): K50.90 - CROHN'S DISEASE, UNSPECIFIED, WITHOUT COMPLICATIONS SNOMED Code(s): 04763172
--- NOTE | 2018-09-04 11:37 | P.PN ---
Subjective Progress Note Date: 09/04/18 Principal diagnosis: Abdominal pain exacerbation of Crohn's disease Feels well. Minimal abdominal pain. Tolerating diet. Passing flatus. CRP 19.3. ESR 8. Objective - Vital Signs Vital signs: Vital Signs Temp 98 F 09/04/18 05:00 Pulse 84 09/04/18 05:00 Resp 18 09/04/18 05:00 BP 114/68 09/04/18 05:00 Pulse Ox 97 09/04/18 05:00 Intake & Output 09/03/18 09/04/18 09/04/18 18:59 06:59 18:59 Intake Total 175 Output Total 1 Balance 174 Intake: Intake, IV Titration 175 Amount Piperacillin-Tazobactam 3 175 .375 gm In Sodium Chloride 0.9% 100 ml @ 25 mls/hr IVPB Q8H [facility] Rx#: [id number] Output: Urine 1 Other: Voiding Method Toilet # Voids 1 1 - Exam General appearance: The patient is alert, oriented, in no acute distress. HET: Head is normocephalic and atraumatic. Pupils are equal and reactive. Oropharynx is clear without lesions. Neck: Supple without lymphadenopathy. Trachea midline. Heart: S1 S2. Regular rate and rhythm. Lungs: No crackles or wheezes are heard. Abdomen: Soft, mild tenderness to the right mid quadrant/right lower quadrant, nondistended with bowel sounds. No peritoneal signs. No palpable organomegaly or masses. Extremities: Normal skin color and turgor. No cyanosis, rash, ulceration, clubbing, or edema. Radial and pedal pulses are 2/4 bilaterally. Neurological: No focal deficits. Strength and sensation are grossly intact. - Labs CBC & Chem 7: 09/03/18 08:05 09/03/18 08:25 Labs: Microbiology - Last 24 Hours (Table) 09/02/18 02:40 Blood Culture - Preliminary Blood No Growth after 48 hours Assessment and Plan (1) Abdominal pain Narrative/Plan: 28-year-old male diagnosed with Crohn's disease January 2018 presently not on active treatment however previously maintained on biologic therapy Inflectra with recent hospitalization July 2018 for abdominal pain secondary to intra- abdominal abscess treated with IV antibiotics nonsurgical presents with acute abdominal pain exacerbation of crohns disease with persistent intra-abdominal fluid abscess. CT abdomen and pelvis 08/29/2018 consistent with complex intra- abdominal abscess not previously change from CT imaging July 2018 with small bowel wall thickening. Current Visit: No Status: Acute Code(s): R10.9 - UNSPECIFIED ABDOMINAL PAIN SNOMED Code(s): 24626015 (2) Intra-abdominal abscess Current Visit: Yes Status: Acute Code(s): K65.1 - PERITONEAL ABSCESS SNOMED Code(s): 85693674 (3) Crohn's disease Current Visit: No Status: Acute Code(s): K50.90 - CROHN'S DISEASE, UNSP ECIFIED, WITHOUT COMPLICATIONS SNOMED Code(s): 19315673 Plan: 1. General surgical consult recommendations appreciated. Percutaneous drainage of this abscess was not amenable per IR evaluation. ESR CRP reviewed. Nothing by mouth except medications until seen by general surgery. IV broad spectrum antibiotics. Solumedrol 20 mg every 8 hours will be discontinued we'll start prednisone 40 mg tomorrow. 2. Patient will need to be restarted on biologic therapy however in the setting of infection biologic immunosuppression should be held. 3. Infectious disease consulted and recommended prior to discharge for antibiotic guidance. 4. Agreeable for discharge after seen by ID. Prednisone 40 mg daily with 5 mg taper every 7 days provided. Return to office in 3-[address] Lopez for reevaluation. Assessment and plan a care discussed with Dr. Morgan
[2018-09-04 12:53] VITALS: BP 123/80; PULSE 72; RESP 16; TEMP 97.8
--- NOTE | 2018-09-04 17:25 | P.CONS ---
History of Present Illness - Reason for Consult Consult date: 09/04/18 - Chief Complaint abdominal pain - History of Present Illness 28-year-old male who has a history of Crohn's disease of the last couple of years [facility] He had been started on a biological agent and after his third injection developed increasing amounts of abdominal pain diarrhea somewhat bloody at times because he felt so poorly with fever and presented to the emergency center. Computed tomography scan was performed that showed evidence of an intra-abdominal abscess and he's been seen by gastroenterology as well as surgery.The patient was seen in hospital and treated with a course of intravenous antibiotic therapy for an intra-abdominal abscess that could not be drained percutaneously or surgically. The patient completed his course of IV antibiotic therapy here and there was no stiff he can follow-up that occurred in the outpatient setting. He relates that his abdominal pain then increased he presented to the emergency center. He was brought in the hospital but then left AMA. He then presented back again to the hospital and left AMA again. He is now admitted and relates that with current interventions is feeling somewhat better, the nurses relate that he's been receiving some morphine for his pain control also. Consult placed for the beth ent to be discharged home on antibiotic therapy. This time he feels considerably better. No fevers chills or rigors or sweats. Abdominal pain is improved. He is eating and drinking well no nausea or emesis. Stools are without evidence of any significant blood. Review of Systems 28-year-old male HEENT:Denies headache or acute visual change. Denies sinus or mouth di scomforts. Denies neck stiffness or pain. Denies significant oral cavity pain. Denies difficulty on swallowing. Lungs: Denies significant shortness of breath, cough, sputum production, or hemoptysis. Cardiovascular: Denies significant shortness of breath, chest pain, chest wall pain, orthopnea, dyspnea on exertion, syncope Gastrointestinal: Poor appetite some nausea and no emesis or loose stools some bloody stools at time, no hematemesis has ongoing abdominal pain Musculoskeletal: denies significant myalgias or arthralgias. No new joint swelling. Denies new back pain. Skin: Denies new rash or lesions. No new ulcers or wounds are related.. Neuro: Denies headache or visual change. Denies any new onset weakness or difficulty with ambulation. Denies falls or seizures. Psychiatric:Denies anxiety or depression. Endocrine: Denies significant fatigue, denies significant weight loss or weight gain. Past Medical History Past Medical History: No Reported History Additional Past Medical History / Comment(s): Crohns, abscess on intestine diagnosed 08/2018 History of Any Multi-Drug Resistant Organisms: None Reported Past Surgical History: No Surgical Hx Reported Additional Past Surgical History / Comment(s): EGD, colonoscopy Past Anesthesia/Blood Transfusion Reactions: No Reported Reaction Past Psychological History: Anxiety, Depression Additional Psychological History / Comment(s): Lives with his significant other. Has moved from [place] where he was receiving his prior Crohn's disease care. No experience. No travel history. No animal exposures. Currently smokes a pack of cigarettes a week,. relates to some minimal alcohol use. At presentation there was evidence of opiates cocaine and marijuana in his system. Smoking Status: Current every day smoker Past Alcohol Use History: None Reported Additional Past Alcohol Use History / Comment(s): Pt started smoking in 2008 and quit in 2018, then recently started smoking again Past Drug Use History: Marijuana Additional Drug Use History / Comment(s): Pt smokes 2 joints a day. - Past Family History Father Family Medical History: No Reported History Additional Family Medical History / Comment(s): Father is healthy Mother Family Medical History: No Reported History Additional Family Medical History / Comment(s): Mother is healthy. Medications and Allergies Home Medications and Allergies Comment(s): Current Medications Piperacillin Sod/Tazobactam (Sod 3.375 gm/ Sodium Chloride) 100 mls @ 25 mls/hr IVPB Q8H [facility] Last Admin: 09/04/18 09:46 Dose: 25 mls/hr Documented by: Sodium Chloride (Saline 0.9%) 1,000 mls @ 120 mls/hr IV .Q8H20M [facility] Last Admin: 09/04/18 14:04 Dose: 120 mls/hr Documented by: Methylprednisolone Sodium Succinate (Solu-Medrol) 20 mg IV Q8HR [facility] Last Admin: 09/04/18 09:47 Dose: 20 mg Documented by: Morphine Sulfate (Morphine Sulfate (Inj)) 4 mg IV Q6HR PRN PRN Reason: Severe Pain Last Admin: 09/04/18 13:20 Dose: 4 mg Documented by: Naloxone HCl (Narcan) 0.2 mg IV Q2M PRN PRN Reason: Opioid Reversal Ondansetron HCl (Zofran) 4 mg IVP Q8HR PRN PRN Reason: Nausea And Vomiting Pantoprazole Sodium (Protonix) 40 mg PO AC-BRKFST [facility] Home Medications Medication Instructions Recorded Confirmed Type Cefuroxime Axetil [Ceftin] 500 mg PO BID #28 tab 09/04/18 Rx metroNIDAZOLE [Flagyl] 500 mg PO TID #42 tab 09/04/18 Rx predniSONE 0 mg PO DIRECTED #123 tab 09/04/18 Rx Allergies Allergy/AdvReac Type Severity Reaction Status Date / Time cyclobenzaprine AdvReac Unknown Verified 09/02/18 07:14 [From Flexeril] Physical Exam Vitals: Vital Signs Temp Pulse Resp BP Pulse Ox 09/04/18 12:52 97.8 F 72 16 123/80 95 09/04/18 05:00 98 F 84 18 114/68 97 09/03/18 21:00 98.1 F 73 18 127/71 96 Intake and Output 09/04/18 09/04/18 09/04/18 06:59 14:59 22:59 Intake Total 75 200 Output Total 1 Balance 74 200 Intake: Intake, IV Titration 75 200 Amount Piperacillin-Tazobactam 3 75 200 .375 gm In Sodium Chloride 0.9% 100 ml @ 25 mls/hr IVPB Q8H [facility] Rx#: [id number] Output: Urine 1 Other: Voiding Method Toilet 28-year-old male in no acute distress but complains of abdominal pain HEENT: Anicteric conjunctiva are pink and moist nasal mucosa grossly intact without significant lesions, there is no thrush. Neck: The neck is supple without significant lymphadenopathy or thyromegaly. Lungs: Good bilateral air entry without significant crackles or wheezing. There is no significant bronchial sounds. There is no egophony or dullness. Heart: Regular rate and rhythm with an audible S1-S2, no S3 no S4. There is no significant murmur click or rub, PMI was nondisplaced. Abdomen: non distended, there is no significant abdominal tenderness at this time, abdomen is not rigid, no hepatosplenomegaly or palpable mass Extremities: The upper extremities have excellent pulses they are symmetric, no significant petechiae or telangiectasia. No splinter hemorrhages were noted. The lower extremities are free from significant edema. The peripheral pulses were 2+ and symmetric. Skin: Multiple tattoos none of them are new Neuro: Awake alert oriented to person place and time. There are no acute new gross focal sensory motor deficits. Results CBC & Chem 7: 09/03/18 08:05 09/03/18 08:25 Labs: Microbiology - Last 24 Hours (Table) 09/02/18 02:40 Blood Culture - Preliminary Blood No Growth after 48 hours Laboratory Results WBC 7.6 k/uL (3.8-10.6) 09/03/18 08:05 RBC 6.50 m/uL (4.30-5.90) H 09/03/18 08:05 Hgb 13.4 gm/dL (13.0-17.5) 09/03/18 08:05 Hct 44.7 % (39.0-53.0) 09/03/18 08:05 MCV 68.8 fL (80.0-100.0) L 09/03/18 08:05 MCH 20.7 pg (25.0-35.0) L 09/03/18 08:05 MCHC 30.0 g/dL (31.0-37.0) L 09/03/18 08:05 RDW 16.5 % (11.5-15.5) H 09/03/18 08:05 Plt Count 302 k/uL (150-450) 09/03/18 08:05 Neutrophils % 61 % 09/03/18 08:05 Lymphocytes % 22 % 09/03/18 08:05 Monocytes % 7 % 09/03/18 08:05 Eosinophils % 5 % 09/03/18 08:05 Basophils % 1 % 09/03/18 08:05 Neutrophils # 4.6 k/uL (1.3-7.7) 09/03/18 08:05 Lymphocytes # 1.7 k/uL (1.0-4.8) 09/03/18 08:05 Monocytes # 0.5 k/uL (0-1.0) 09/03/18 08:05 Eosinophils # 0.4 k/uL (0-0.7) 09/03/18 08:05 Basophils # 0.1 k/uL (0-0.2) 09/03/18 08:05 Hypochromasia Slight 09/03/18 08:05 Anisocytosis Slight 09/03/18 08:05 Microcytosis Marked 09/03/18 08:05 ESR 8 mm/hr (0-15) 09/03/18 09:50 Sodium 138 mmol/L (137-145) 09/03/18 08:25 Potassium 4.5 mmol/L (3.5-5.1) 09/03/18 08:25 Chloride 103 mmol/L (98-107) 09/03/18 08:25 Carbon Dioxide 28 mmol/L (22-30) 09/03/18 08:25 Anion Gap 7 mmol/L 09/03/18 08:25 BUN 11 mg/dL (9-20) 09/03/18 08:25 Creatinine 1.18 mg/dL (0.66-1.25) 09/03/18 08:25 Est GFR (CKD-EPI)AfAm >90 (>60 ml/min/1.73 sqM) 09/03/18 08:25 Est GFR (CKD-EPI)NonAf 83 (>60 ml/min/1.73 sqM) 09/03/18 08:25 Glucose 68 mg/dL (74-99) L 09/03/18 08:25 Plasma Lactic Acid Nic 0.8 mmol/L (0.7-2.0) 09/02/18 02:10 Calcium 9.5 mg/dL (8.4-10.2) 09/03/18 08:25 Total Bilirubin 1.0 mg/dL (0.2-1.3) 09/03/18 08:25 AST 18 U/L (17-59) 09/03/18 08:25 ALT 18 U/L (21-72) L 09/03/18 08:25 Alkaline Phosphatase 72 U/L (38-126) 09/03/18 08:25 C-Reactive Protein 19.3 mg/L (<10.0) H 09/03/18 09:50 Total Protein 7.1 g/dL (6.3-8.2) 09/03/18 08:25 Albumin 3.7 g/dL (3.5-5.0) 09/03/18 08:25 Microbiology 09/02/18 02:40 Blood Blood Culture - Preliminary No Growth after [address] scan - abdomen: image reviewed (Little change of the area of phlegmon format ion deep in the pelvis) Assessment and Plan (1) Intra-abdominal abscess Narrative/Plan: 28-year-old male presents to Hospital and multiple events with great psychosocial difficulties is not been admitted for a few days and has allowed treatment with fluids, antibiotic therapy, and steroid therapy. With this he is considerably improved and has done well with narcotic pain medication with morphine. Consult has been requested regarding antibiotics for discharge today. The patient been treated with an outpatient course of into his antibiotic therapy and is not allowed complete resolution of his current abnormality. Isn't seen by gastroenterology and general surgery. There are no plans for any urgent surgical interventions or endoscopic interventions. Interventional radiology has been consulted and they do not believe the site is amenable or drainable at this time. Fortunately patient is doing considerably better. His leukocytosis is improving is likely multifactorial including the improvements with antibiotic therapy. He is also received steroid therapy which may be helping underlying Crohn's disease. He has been released to home in antibiotic therapy was requested. Given all the recent difficulties cefuroxime and Flagyl have been sent to his pharmacy in hopes that he will obtain these and take the full course. 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 Steroid therapy as directed as per gastroenterology. He may follow-up in the office if directed by gastroenterology. Current Visit: Yes Status: Acute Code(s): K65.1 - PERITONEAL ABSCESS SNOMED Code(s): 64307446 (2) Crohn's disease Current Visit: No Status: Acute Code(s): K50.90 - CROHN'S DISEASE, UNSPECIFIED, WITHOUT COMPLICATIONS SNOMED Code(s): 24207444 (3) Abdominal pain Current Visit: No Status: Acute Code(s): R10.9 - UNSPECIFIED ABDOMINAL PAIN SNOMED Code(s): 72843221 (4) Leukocytosis Current Visit: Yes Status: Acute Code(s): D72.829 - ELEVATED WHITE BLOOD CELL COUNT, UNSPECIFIED SNOMED Code(s): 022274330
--- NOTE | 2018-09-04 18:30 | DS ---
DISCHARGE SUMMARY CHIEF COMPLAINT: Abdominal pain. HISTORY OF PRESENT ILLNESS AND PHYSICAL EXAMINATION: Details of this man's history and physical can be found in the initial workup. LABORATORY STUDIES: While he was in the hospital he had laboratory studies, details of which can be found in the laboratory section of his chart. COURSE IN THE HOSPITAL: After admission he was placed on bedrest, started on intravenous fluids, and he was seen by Surgery and Interventional Radiology. It had been reported that he had an intraabdominal abscess, but it was Radiology's feeling that this was not the case. Therefore they elected to not do anything further. It was felt that the patient could be discharged. He will go home on his usual activity, diet and medication. He will come into the office in several days. FINAL DIAGNOSES: 1. Possible intraabdominal abscess. 2. Crohn's disease. OPERATIONS: None. CONSULTATIONS: 1. Gastroenterology. 2. Surgery. 3. Interventional Radiology. He is improved. MMODL / IJN: [id number] /
[2018-09-05] MEDS ORDERED: PANTOPRAZOLE 40 MG TABLET PO SCH (07:30)
== END 2018-09-04 17:25 | disposition home or self-care (01) | DRG 385 ==
LOC: EC 01:18 → 4MS4W 03:59 → 3NMEDONC 12:54
PROVIDERS: ADMIT Family Medicine; ATTEND Family Medicine
DX: K50.114 Crohn's disease of large intestine with abscess (principal); K65.1 Peritoneal abscess; Z91.19 Patient's noncompliance with other medical treatment and regimen; F17.200 Nicotine dependence, unspecified, uncomplicated; Z88.8 Allergy status to other drugs, medicaments and biological substances; Z79.2 Long term (current) use of antibiotics
CPT/HCPCS: 36415; 80053; 83605; 85025; 85652; 86140; 87040; 96365; 96366; 96375; 96376; 99285

== ENCOUNTER → 2018-10-05 | Outpatient (CLI) | payer OTHER ==
[2018-10-05 14:22] LABS: African American GFR (CKD) >90 (>60 ml/min/1.73 sqM); Anion Gap 6 mmol/L; Blood Urea Nitrogen 18 mg/dL (9-20); C Reactive Protein <5.0 mg/L (<10.0); Calcium 9.2 mg/dL (8.4-10.2); Carbon Dioxide 30 mmol/L (22-30); Chloride 103 mmol/L (98-107); Glucose 115 mg/dL (74-99); Potassium 4.4 mmol/L (3.5-5.1); Sodium 139 mmol/L (137-145)
[2018-10-05 14:23] LABS: Anisocytosis Slight; Basophils % (A) 0 %; Eosinophils # (A) 0.1 k/uL (0-0.7); Eosinophils % (A) 1 %; HCT 45.2 % (39.0-53.0); HGB 13.9 gm/dL (13.0-17.5); Hypochromasia Moderate; Lymphocytes # (A) 1.3 k/uL (1.0-4.8); Lymphocytes % (A) 9 %; MCH 21.7 pg (25.0-35.0); MCHC 30.7 g/dL (31.0-37.0); MCV 70.8 fL (80.0-100.0); Mean Platelet Volume 6.6; Microcytosis Marked; Monocytes # (A) 0.7 k/uL (0-1.0); Monocytes % (A) 5 %; Neutrophils # (A) 11.8 k/uL (1.3-7.7); Neutrophils % (A) 84 %; Platelet Count 261 k/uL (150-450); RBC 6.38 m/uL (4.30-5.90); RDW 17.9 % (11.5-15.5); WBC 14.1 k/uL (3.8-10.6)
[2018-10-05 15:00] LABS: Erythrocyte Sedimentation Rate 2 mm/hr (0-15)
--- NOTE | 2018-10-06 01:20 | CT ---
INDICATION: Crohn's disease TECHNIQUE: CT acquisition is performed through the abdomen and pelvis following the administration of 100 mL Isovue-300. Early and delayed postcontrast images are obtained. Sagittal and coronal reformatted images are provided. DOSE INFORMATION: DLP 800 mGy-cm. This CT exam was performed using one or more of the following dose reduction techniques: automated exposure control, adjustment of the mA and/or kV according to patient size, and/or use of iterative reconstruction technique. COMPARISON: CT abdomen and pelvis with contrast, 10/05/18 FINDINGS: There are inflammatory changes of the terminal ileum with wall thickening and perienteric fat stranding consistent with terminal ileitis. Thickened, tethered small bowel loops in the right lower quadrant are compatible with fibrostenosing Crohn's disease. There is a 3 cm stool- containing collection in the right lower quadrant intimate with the terminal ileum (series 8, image 36) which has decreased in size from prior exam and may represent a developing sinus tract or fistula. There is no evidence of bowel perforation. There is dilatation of upstream ileum measuring up to 3.7 cm with small bowel feces sign, compatible with degree of small bowel obstruction. Remainder of the bowel appears within normal limits. The appendix is not identified. The liver, gallbladder, spleen, pancreas, adrenal glands, and kidneys are unremarkable. Aorta and IVC are normal. There is no adenopathy. Urinary bladder and prostate are normal. There are no acute osseous findings. IMPRESSION: 1. Redemonstrated fibrostenosing Crohn's disease in the right lower quadrant involving the distal ileum, with probably a component of acute terminal ileitis. A stool-filled collection intimate with the terminal ileum, as seen on prior exam, is most suggestive of a developing sinus tract or fistula. This has decreased in size in the interval. There is no evidence of bowel perforation. 2. Dilated loops of small bowel upstream from the terminal ileum suggests early or partial small bowel obstruction.
== END | disposition home or self-care (01) ==
LOC: RADCTMAIN 11:50
PROVIDERS: ATTEND Nurse Practitioner
DX: K50.00 Crohn's disease of small intestine without complications (principal); K59.8 Other specified functional intestinal disorders
CPT/HCPCS: 80048; 85652; 85025; 86140; 74177; 36415; Q9967

== ENCOUNTER 2018-10-06 00:36 | Inpatient (IN) | payer OTHER ==
[2018-10-06] MEDS ORDERED: SODIUM CHLORIDE 0.9% 1,000 ML IV STA (00:59)
[2018-10-06] MEDS ORDERED: MORPHINE SULFATE 4 MG/ML SYRINGE IV STA (00:59)
[2018-10-06 01:30] LABS: Anisocytosis Slight; Basophils # (A) 0.1 k/uL (0-0.2); Basophils % (A) 0 %; Eosinophils # (A) 0.2 k/uL (0-0.7); Eosinophils % (A) 1 %; HCT 42.4 % (39.0-53.0); HGB 13.2 gm/dL (13.0-17.5); Lymphocytes # (A) 2.4 k/uL (1.0-4.8); Lymphocytes % (A) 14 %; MCH 21.3 pg (25.0-35.0); MCHC 31.2 g/dL (31.0-37.0); MCV 68.4 fL (80.0-100.0); Mean Platelet Volume 6.4; Microcytosis Marked; Monocytes # (A) 1.3 k/uL (0-1.0); Monocytes % (A) 7 %; Neutrophils # (A) 13.4 k/uL (1.3-7.7); Neutrophils % (A) 76 %; Platelet Count 247 k/uL (150-450); RDW 17.7 % (11.5-15.5); WBC 17.6 k/uL (3.8-10.6)
[2018-10-06 01:36] LABS: ALT 28 U/L (21-72); AST 21 U/L (17-59); African American GFR (CKD) >90 (>60 ml/min/1.73 sqM); Albumin 3.6 g/dL (3.5-5.0); Alkaline Phosphatase 56 U/L (38-126); Anion Gap 6 mmol/L; Blood Urea Nitrogen 15 mg/dL (9-20); Carbon Dioxide 26 mmol/L (22-30); Chloride 103 mmol/L (98-107); Glucose 85 mg/dL (74-99); Potassium 3.5 mmol/L (3.5-5.1); Sodium 135 mmol/L (137-145); Total Bilirubin 0.5 mg/dL (0.2-1.3); Total Protein 6.7 g/dL (6.3-8.2)
[2018-10-06] MEDS ORDERED: NALOXONE 0.4 MG/ML 1 ML VIAL IV PRN (02:05)
--- NOTE | 2018-10-06 02:05 | ED ---
General Adult HPI - General Source: patient, family, RN notes reviewed, old records reviewed Mode of arrival: wheelchair Limitations: no limitations <Fredis Brown - Last Filed: 10/06/18 02:10> <Kate Duong - Last Filed: 10/07/18 21:20> - General Chief complaint: Abdominal Pain Stated complaint: Abd Pain Time Seen by Provider: 10/06/18 00:52 - History of Present Illness Initial comments: 28-year-old male patient with past medical history of Crohn's disease, intra- abdominal abscess presents ED chief complaint of abdominal pain the last 2 days, this pain is in his suprapubic, right lower quadrant region. Patient also reports that he is having decreased stools, still passing flatus. Patient reports nausea without emesis. She has following up with Dr. Morgan gastroenterologists. Patient has been taking moxifloxacin and Flagyl for the intra-abdominal abscess. Patient did have a CT of abdomen and pelvis conducted today by gastroenterology. Patient denies a chest pain shortness of breath. Patient denies any other complaints at this time. Systemic: Pt denies fatigue, fever/chills, rash. Pt denies weakness, night sweats, weight loss. Neuro: Pt denies headache, visual disturbances, syncope or pre-syncope. HEENT: Pt denies ocular discharge or irritation, otalgia, rhinorrhea, pharyngitis or notable lymphadenopathy. Cardiopulmonary: Pt denies chest pain, SOB, heart palpitations, dyspnea on exertion. Abdominal/GI: Pt denies emesis, diarrhea. : Pt denies dysuria, burning w/ urination, frequency/urgency. Denies new onset urinary or bowel incontinence. MSK: Pt denies myalgia, loss of strength or function in extremities. Neuro: Pt denies new onset weakness, paresthesias. (Fredis Brown) - Related Data Home Medications Medication Instructions Recorded Confirmed predniSONE See Taper PO DIRECTED 10/06/18 10/06/18 Allergies Allergy/AdvReac Type Severity Reaction Status Date / Time cyclobenzaprine AdvReac Unknown Verified 10/06/18 07:53 [From Flexeril] Review of Systems ROS Other: All systems not noted in ROS Statement are negative. <Fredis Brown - Last Filed: 10/06/18 02:10> ROS Other: All systems not noted in ROS Statement are negative. <Kate Duong - Last Filed: 10/07/18 21:20> ROS Statement: Those systems with pertinent positive or pertinent negative responses have been documented in the HPI. Past Medical History Past Medical History: No Reported History Additional Past Medical History / Comment(s): Crohns, abscess on intestine diagnosed 08/2018 History of Any Multi-Drug Resistant Organisms: None Reported Past Surgical History: No Surgical Hx Reported Additional Past Surgical History / Comment(s): EGD, colonoscopy Past Anesthesia/Blood Transfusion Reactions: No Reported Reaction Past Psychological History: Anxiety, Depression Smoking Status: Current every day smoker Past Alcohol Use History: None Reported Past Drug Use History: Marijuana - Past Family History Father Family Medical History: No Reported History Additional Family Medical History / Comment(s): Father is healthy Mother Family Medical History: No Reported History Additional Family Medical History / Comment(s): Mother is healthy. <Fredis Brown - Last Filed: 10/06/18 02:10> General Exam Limitations: no limitations <Fredis Brown - Last Filed: 10/06/18 02:10> - General Exam Comments Initial Comments: Constitutional: NAD, AOX3, Pt has pleasant affect. HEENT: NC/AT, trachea midline, neck supple, no lymphadenopathy. Posterior pharynx non erythematous, without exudates. External ears appear normal, without discharge. Mucous membranes moist. Eyes PERRLA, EOM intact. There is no scleral icterus. No pallor noted. Cardiopulmonary: RRR, no murmurs, rubs or gallops, no JVD noted. Lungs CTAB in anterior and posterior tan. No peripheral edema. Abdominal exam: Abdomen soft and mildly distended. Abdomen nontender to palpation in all quadrants. Bowel sounds active in LLQ. No hepatosplenomegaly. No ecchymosis Neuro: CN II-XII grossly intact. No nuchal rigidity. No raccon eyes, no jeffries sign, no hemotympanum. No cervical spinal tenderness. MSK: No posterior calf tenderness bilaterally, homans sign negative bilaterally. Posterior tibialis and radial pulse +2 bilaterally. Sensation intact in upper and lower extremities. Full active ROM in upper and lower extremities, 5/5 stregnth. (Fredis Brown) Course Vital Signs 10/06/18 10/06/18 00:41 02:51 Temperature 97.9 F 97.7 F Pulse Rate 71 66 Respiratory 20 18 Rate Blood Pressure 141/84 117/57 O2 Sat by Pulse 98 98 Oximetry Medical Decision Making - Lab Data Result diagrams: 10/06/18 01:15 10/06/18 01:15 <Fredis Brown - Last Filed: 10/06/18 02:10> - Lab Data Result diagrams: 10/07/18 09:45 10/07/18 09:45 <Kate Duong - Last Filed: 10/07/18 21:20> - Medical Decision Making 28-year-old male patient with past medical history of Crohn's disease, intra- abdominal abscess presents ED chief complaint of abdominal pain the last 2 days, this pain is in his suprapubic, right lower quadrant region. Patient also reports that he is having decreased stools, still passing flatus. Patient reports nausea without emesis. She has following up with Dr. Morgan gastroenterologists. Patient has been taking moxifloxacin and Flagyl for the intra-abdominal abscess. Patient did have a CT of abdomen and pelvis conducted today by gastroenterology. Patient denies a chest pain shortness of breath. Patient denies any other complaints at this time. Pt VSS, afebrile. Physical exam displayeD: Abdomen soft and mildly distended. Abdomen nontender to palpation in all quadrants. Laboratory investigations a leukocytosis of 17.6. CMP non-impressive. Outpatient CT abdomen and pelvis from 1 PM today it displayed redemonstrated fibrosed denies an Crohn's disease in the right lower quadrant involving the distal ileum. Probable acute terminal ileitis. Stool collection suggestive of developing sinus tract or fistula, has decreased in size. No bowel perforation. Dilated loops of small bowel suggestive of early or partial obstruction. Patient will be admitted, will be continued on fluoroquinolone and Flagyl therapy. No active vomiting, no NG tube will be placed. Case discussed and pt seen by Dr. Duong. (Fredis Brown) The patient was seen and evaluated, history was obtained from the patient. I evaluated the patient's labs and imaging agree with plan for admission to the hospital for IV fluid resuscitation, nothing by mouth status, supportive care fo r early small bowel traction and evaluation by GI. (Kate Duong) - Lab Data Lab Results 10/06/18 10/06/18 10/06/18 Range/Units 01:15 01:15 01:15 WBC 17.6 H (3.8-10.6) k/uL RBC 6.20 H (4.30-5.90) m/uL Hgb 13.2 (13.0-17.5) gm/dL Hct 42.4 (39.0-53.0) % MCV 68.4 L (80.0-100.0) fL MCH 21.3 L (25.0-35.0) pg MCHC 31.2 (31.0-37.0) g/dL RDW 17.7 H (11.5-15.5) % Plt Count 247 (150-450) k/uL Neutrophils % 76 % Lymphocytes % 14 % Monocytes % 7 % Eosinophils % 1 % Basophils % 0 % Neutrophils # 13.4 H (1.3-7.7) k/uL Lymphocytes # 2.4 (1.0-4.8) k/uL Monocytes # 1.3 H (0-1.0) k/uL Eosinophils # 0.2 (0-0.7) k/uL Basophils # 0.1 (0-0.2) k/uL Anisocytosis Slight Microcytosis Marked Sodium 135 L (137-145) mmol/L Potassium 3.5 (3.5-5.1) mmol/L Chloride 103 (98-107) mmol/L Carbon Dioxide 26 (22-30) mmol/L Anion Gap 6 mmol/L BUN 15 (9-20) mg/dL Creatinine 0.90 (0.66-1.25) mg/dL Est GFR (CKD-EPI)AfAm >90 (>60 ml/min/1.73 sqM) Est GFR (CKD-EPI)NonAf >90 (>60 ml/min/1.73 sqM) Glucose 85 (74-99) mg/dL Plasma Lactic Acid Nic 0.9 (0.7-2.0) mmol/L Calcium 9.0 (8.4-10.2) mg/dL Total Bilirubin 0.5 (0.2-1.3) mg/dL AST 21 (17-59) U/L ALT 28 (21-72) U/L Alkaline Phosphatase 56 (38-126) U/L Total Protein 6.7 (6.3-8.2) g/dL Albumin 3.6 (3.5-5.0) g/dL Lipase 45 (23-300) U/L Disposition Is patient prescribed a controlled substance at d/c from ED?: No <Fredis Brown - Last Filed: 10/06/18 02:10> <Kate Duong - Last Filed: 10/07/18 21:20> Clinical Impression: Abdominal pain, Small bowel obstruction Disposition: ADMITTED IP TO THIS HOSP Condition: Serious
[2018-10-06] MEDS ORDERED: LEVOFLOXACIN 750MG-D5W PMX 750 MG in DEXTROSE/WATER 1 150ML.BAG IVPB STA (02:09)
[2018-10-06] MEDS ORDERED: metroNIDAZOLE-NS PMX 500 MG in SALINE 1 100ML.BAG IVPB STA (02:09)
[2018-10-06] MEDS: SODIUM CHLORIDE 0.9% 1,000 ML IV SCH ×4 (02:46→23:55)
[2018-10-06 03:22] VITALS: BMI 28.1
--- NOTE | 2018-10-06 06:58 | P.HPIM ---
<Wily Herrera M - Last Filed: 10/06/18 06:47> History of Present Illness H&P Date: 10/06/18 Chief Complaint: abd pain 28 year old male with history of crohns disease patient presented with 2 day history of worsening abd pain, lower abd and right lower quadrant rated as 6 out of 10 in severity sharp pain sometimes colicky comes and goes gets better with stretching of his belly. No other aggravating factors. Patient is known to have Crohn's disease for the past 9 months. He was admitted couple months ago diagnosed with an abscess and has been on antibiotics since then he reports being compliant with antibiotics and he's been on tapering dose of steroid. Patient denies any associated vomiting fevers or chills denies any chest pain or trouble breathing. Patient reports some nausea, and reports diarrhea over the past few days last bowel movement was yesterday patient still passing gases. He feels slightly bloated denies any GI bleeding labs showed leukocytosis, and spherocytosis without anemia Patient had a CAT scan for follow-up yesterday which has redemonstrated fibro-stenosing Crohn's disease in the right lower quadrant involving the distal ileum with component of acute terminal ileitis and suggestion of developing sinus tract or fistula, all in all reports suggested that's decreasing in size and no evidence of perforation There were dilated loops of bowel suggestive of partial small bowel obstruction Review of Systems Pertinent positives as noted in HPI. All other systems were reviewed and are negative Past Medical History Past Medical History: No Reported History Additional Past Medical History / Comment(s): Crohns, abscess on intestine diagnosed 08/2018 History of Any Multi-Drug Resistant Organisms: None Reported Past Surgical History: No Surgical Hx Reported Additional Past Surgical History / Comment(s): EGD, colonoscopy Past Anesthesia/Blood Transfusion Reactions: No Reported Reaction Past Psychological History: Anxiety, Depression Additional Psychological History / Comment(s): Lives with his significant other. Has moved from [place] where he was receiving his prior Crohn's disease care. No experience. No travel history. No animal exposures. Currently smokes a pack of cigarettes a week,. relates to some minimal alcohol use. At presentation there was evidence of opiates cocaine and marijuana in his system. Smoking Status: Current every day smoker Past Alcohol Use History: None Reported Additional Past Alcohol Use History / Comment(s): Pt started smoking in 2009 and quit in 2019, then recently started smoking again Past Drug Use History: Marijuana Additional Drug Use History / Comment(s): Pt smokes 2 joints a day. - Past Family History Father Family Medical History: No Reported History Additional Family Medical History / Comment(s): Father is healthy Mother Family Medical History: No Reported History Additional Family Medical History / Comment(s): Mother is healthy. Medications and Allergies Home Medications Medication Instructions Recorded Confirmed Type predniSONE See Taper PO DIRECTED 10/06/18 10/06/18 History Allergies Allergy/AdvReac Type Severity Reaction Status Date / Time cyclobenzaprine AdvReac Unknown Verified 10/06/18 07:53 [From Flexeril] Physical Exam Vitals: Vital Signs Temp Pulse Pulse Resp BP BP Pulse Ox 10/06/18 03:03 98.1 F 68 18 124/76 97 10/06/18 02:51 97.7 F 66 18 117/57 98 10/06/18 00:41 97.9 F 71 20 141/84 98 Intake and Output 10/05/18 10/05/18 10/06/18 14:59 22:59 06:59 Other: # Voids 1 Weight 91.626 kg Constitutional: No acute distress, conversant, pleasant Eyes: Anicteric sclerae, moist conjunctiva, no lid-lag Pupils equal round reactive to light ENMT: NC/AT Oropharynx clear, no erythema, or exudates Neck: Supple, FROM, no masses, or JVD No carotid bruits No thyromegaly Lungs: Clear to auscultation Clear to percussion Normal respiratory effort, no accessory muscle use Cardiovascular: Heart regular in rate and rhythm, No murmurs, gallops, or rubs No peripheral edema Abdominal: mildly distended over the lower parts of the abdomen, tenderness to palpation over the right lower quadrant and suprapubic region with rebound tenderness and voluntary guarding no rigidity Abdomen moving with respiration Normoactive bowel sounds No hepatomegaly, No splenomegaly No palpable mass No abdominal wall hernia noted Skin: Normal temperature, tone, texture, turgor No induration No subcutaneous nodules No rash, lesions No ulcers Extremities: No digital cyanosis No clubbing Pedal pulses intact and symmetrical Radial pulses intact and symmetrical No calf tenderness Psychiatric: Alert and oriented to person, place and time Appropriate affect fair judgment Neuro Muscles Strength 5/5 in all 4 extremities Sensation to light touch grossly present throughout Cranial nerves II-XII grossly intact No focal sensory deficits Lymphatics: no palpable cervical or supraclavicular , or inguinal lymph nodes Results CBC & Chem 7: 10/06/18 01:15 10/06/18 01:15 Labs: Abnormal Lab Results - Last 24 Hours (Table) 10/06/18 10/06/18 Range/Units 01:15 01:15 WBC 17.6 H (3.8-10.6) k/uL RBC 6.20 H (4.30-5.90) m/uL MCV 68.4 L (80.0-100.0) fL MCH 21.3 L (25.0-35.0) pg RDW 17.7 H (11.5-15.5) % Neutrophils # 13.4 H (1.3-7.7) k/uL Monocytes # 1.3 H (0-1.0) k/uL Sodium 135 L (137-145) mmol/L Thrombosis Risk Factor Assmnt - Choose All That Apply Any of the Below Risk Factors Present?: No Other Risk Factors: No Other congenital or acquired thrombophilia - If yes, enter type in comment: No Thrombosis Risk Factor Assessment Level: Very Low Risk Assessment and Plan Assessment: 28-year-old male with history of Crohn's disease admitted as an inpatient with anticipated length of stay more than 2 midnight for acute terminal ileitis from Crohn's disease with worsening abdominal pain and abdominal distention, to rule out small bowel obstruction patient has been on 2 antibiotics and tapering doses of steroids from home reports to be compliant with medications abs showed leukocytosis, and spherocytosis without anemia Patient had a CAT scan for follow-up yesterday which has redemonstrated fibro- stenosing Crohn's disease in the right lower quadrant involving the distal ileum with component of acute terminal ileitis and suggestion of developing sinus tract or fistula, all in all reports suggested that's decreasing in size and no evidence of perforation There were dilated loops of bowel suggestive of partial small bowel obstruction Plan: Crohn's disease with acute terminal ileitis rule out abscess formation rule out small bowel obstruction leukocytosis IV fluid hydration Pain control Continue with IV antibiotics Continue with prednisone 20 which she is currently taking GI consult microcytosis without anemia Continue to monitor hemoglobin Consider outpatient workup RDW is elevated this could be an underlying iron deficiency DVT prophylaxis heparin subcu 3 times a day Preformed a thorough record review from recent hospitalization where he was diagnosed with abdominal abscess related to Crohn's disease CODE STATUS:full code Discussed with: Patient, ER, RN Anticipated length of stay more than [address]: home A total of 60 minutes was spent on the care of this complex patient more than 50% of the time was spent in counseling and care coordination. <Chavez Shaffer R - Last Filed: 10/06/18 08:16> Physical Exam Vitals: Vital Signs Temp Pulse Pulse Resp BP BP Pulse Ox 10/06/18 06:41 97.7 F 62 18 119/73 98 10/06/18 03:03 98.1 F 68 18 124/76 97 10/06/18 02:51 97.7 F 66 18 117/57 98 10/06/18 00:41 97.9 F 71 20 141/84 98 Intake and Output 10/05/18 10/06/18 10/06/18 22:59 06:59 14:59 Other: # Voids 1 Weight 91.626 kg Results CBC & Chem 7: 10/06/18 01:15 10/06/18 01:15 Labs: Abnormal Lab Results - Last 24 Hours (Table) 10/06/18 10/06/18 Range/Units 01:15 01:15 WBC 17.6 H (3.8-10.6) k/uL RBC 6.20 H (4.30-5.90) m/uL MCV 68.4 L (80.0-100.0) fL MCH 21.3 L (25.0-35.0) pg RDW 17.7 H (11.5-15.5) % Neutrophils # 13.4 H (1.3-7.7) k/uL Monocytes # 1.3 H (0-1.0) k/uL Sodium 135 L (137-145) mmol/L Assessment and Plan Plan: No significant changes since admission note. We will consult general surgery patient has seen Dr. Carrera previously
[2018-10-06] MEDS: HEPARIN SODIUM,PORCINE 5,000 UNIT/ML 1 ML VIAL SQ SCH ×3 (08:00→23:55)
[2018-10-06] MEDS: MORPHINE SULFATE 4 MG/ML SYRINGE IV PRN ×3 (08:00→20:58)
[2018-10-06] MEDS ORDERED: predniSONE 20 MG TAB PO SCH (09:00)
[2018-10-06] MEDS: methylPREDNISolone SOD SUCCI 40 MG/ML 1 ML VIAL IV SCH ×3 (09:38→23:54)
--- NOTE | 2018-10-06 10:44 | P.GSCN ---
History of Present Illness Consult date: 10/06/18 Reason for Consult: Crohn's disease History of present illness: This patient is familiar to our service. The 2 prior times I went to see this patient during previous hospitalizations he had left AGAINST MEDICAL ADVICE however. He comes in the hospital yesterday with complaints of abdominal pain began 2 days ago. Last bowel movement 1-2 days ago. Pain mid to lower abdomen. Had outpatient labs and CAT scan performed. Is nauseated. No vomiting. Feels bloated. History of Crohn's that has been managed at [facility]. 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 He has seen Dr. Bennett. White blood cell count elevated at 17. CAT scan reviewed. CAT scan shows degree of small bowel obstruction with terminal ileitis and possible developing small bowel fistula. Overall findings similar to previous studies however. Apparently he was taking prednisone at home on a tapering dose. Review of Systems The patient denies any acute changes in vision or hearing, no dysphagia or odynophagia, no chest pain or shortness of breath, no dysuria or hematuria, no headache, no runny nose, no rectal bleeding or melena, no unexplained weight loss Past Medical History Past Medical History: No Reported History Additional Past Medical History / Comment(s): Crohns, abscess on intestine diagnosed 08/2018 History of Any Multi-Drug Resistant Organisms: None Reported Past Surgical History: No Surgical Hx Reported Additional Past Surgical History / Comment(s): EGD, colonoscopy Past Anesthesia/Blood Transfusion Reactions: No Reported Reaction Past Psychological History: Anxiety, Depression Additional Psychological History / Comment(s): Lives with his significant other. Has moved from [place] where he was receiving his prior Crohn's disease care. No experience. No travel history. No animal exposures. Currently smokes a pack of cigarettes a week,. relates to some minimal alcohol use. At presentation there was evidence of opiates cocaine and marijuana in his system. Smoking Status: Current every day smoker Past Alcohol Use History: None Reported Additional Past Alcohol Use History / Comment(s): Pt started smoking in 2008 and quit in 2018, then recently started smoking again Past Drug Use History: Marijuana Additional Drug Use History / Comment(s): Pt smokes 2 joints a day. - Past Family History Father Family Medical History: No Reported History Additional Family Medical History / Comment(s): Father is healthy Mother Family Medical History: No Reported History Additional Family Medical History / Comment(s): Mother is healthy. Medications and Allergies Home Medications Medication Instructions Recorded Confirmed Type predniSONE See Taper PO DIRECTED 10/06/18 10/06/18 History Allergies Allergy/AdvReac Type Severity Reaction Status Date / Time cyclobenzaprine AdvReac Unknown Verified 10/06/18 07:53 [From Flexeril] Surgical - Exam Vital Signs Temp Pulse Resp BP Pulse Ox 97.9 F 71 20 141/84 98 10/06/18 00:41 10/06/18 00:41 10/06/18 00:41 10/06/18 00:41 10/06/18 00:41 Physical exam: General: Well-developed, well-nourished HEENT: Normocephalic, sclerae nonicteric Abdomen: Mildly distended, mild mid to lower abdominal tenderness, no rebound or guarding Extremities: No edema Neuro: Alert and oriented Results - Labs 10/06/18 01:15 10/06/18 01:15 Abnormal Lab Results - Last 24 Hours (Table) 10/06/18 10/06/18 Range/Units 01:15 01:15 WBC 17.6 H (3.8-10.6) k/uL RBC 6.20 H (4.30-5.90) m/uL MCV 68.4 L (80.0-100.0) fL MCH 21.3 L (25.0-35.0) pg RDW 17.7 H (11.5-15.5) % Neutrophils # 13.4 H (1.3-7.7) k/uL Monocytes # 1.3 H (0-1.0) k/uL Sodium 135 L (137-145) mmol/L Diabetes panel 10/06/18 Range/Units 01:15 Sodium 135 L (137-145) mmol/L Potassium 3.5 (3.5-5.1) mmol/L Chloride 103 (98-107) mmol/L Carbon Dioxide 26 (22-30) mmol/L BUN 15 (9-20) mg/dL Creatinine 0.90 (0.66-1.25) mg/dL Glucose 85 (74-99) mg/dL Calcium 9.0 (8.4-10.2) mg/dL AST 21 (17-59) U/L ALT 28 (21-72) U/L Alkaline Phosphatase 56 (38-126) U/L Total Protein 6.7 (6.3-8.2) g/dL Albumin 3.6 (3.5-5.0) g/dL Calcium panel 10/06/18 Range/Units 01:15 Calcium 9.0 (8.4-10.2) mg/dL Albumin 3.6 (3.5-5.0) g/dL Pituitary panel 10/06/18 Range/Units 01:15 Sodium 135 L (137-145) mmol/L Potassium 3.5 (3.5-5.1) mmol/L Chloride 103 (98-107) mmol/L Carbon Dioxide 26 (22-30) mmol/L BUN 15 (9-20) mg/dL Creatinine 0.90 (0.66-1.25) mg/dL Glucose 85 (74-99) mg/dL Calcium 9.0 (8.4-10.2) mg/dL Adrenal panel 10/06/18 Range/Units 01:15 Sodium 135 L (137-145) mmol/L Potassium 3.5 (3.5-5.1) mmol/L Chloride 103 (98-107) mmol/L Carbon Dioxide 26 (22-30) mmol/L BUN 15 (9-20) mg/dL Creatinine 0.90 (0.66-1.25) mg/dL Glucose 85 (74-99) mg/dL Calcium 9.0 (8.4-10.2) mg/dL Total Bilirubin 0.5 (0.2-1.3) mg/dL AST 21 (17-59) U/L ALT 28 (21-72) U/L Alkaline Phosphatase 56 (38-126) U/L Total Protein 6.7 (6.3-8.2) g/dL Albumin 3.6 (3.5-5.0) g/dL Assessment and Plan (1) Abdominal pain Narrative/Plan: Keep nothing by mouth for now. Continue crones directed medical therapy. Await GI evaluation. We'll follow. No surgical intervention planned at this time. Current Visit: Yes Status: Acute Code(s): R10.9 - UNSPECIFIED ABDOMINAL PAIN SNOMED Code(s): 49120981
--- NOTE | 2018-10-06 12:35 | CONS ---
CONSULTATION REQUESTING PHYSICIAN: Dr. Pascal. REASON FOR CONSULTATION: Abdominal pain. He has history of Crohn's disease. HISTORY OF PRESENT ILLNESS: The patient is a 28-year-old male was diagnosed with Crohn's disease 9 months ago and was diagnosed with Crohn's ileitis 9 months ago by GI in [place]. The patient was started on Inflectra in July of this year. He received induction dose (3 doses) in the month of July/August. According to the patient, he was doing well, but he was admitted to the hospital in mid September complaining of severe right lower quadrant abdominal pain and was subsequently diagnosed with active Crohn's ileitis with abscess formation in the right pelvic area measuring 4 cm in size. He was seen by surgery and the abscess was not amenable for CT-guided drainage. He was treated with broad- spectrum antibiotics and he was discharged home on Flagyl and Levaquin about 2 weeks ago. He was seen by our PA initial in the office 2 days ago and he was complaining of persistent right lower quadrant abdominal pain and hence a repeat CT scan of the abdomen was performed on outpatient basis yesterday. The CT scan once again revealed terminal ileitis with possible early small bowel obstruction and some improvement in the size of the pelvic abscess. However, he continued to have worsening lower abdominal discomfort associated with nausea and abdominal bloating and hence came to the emergency room last night and subsequently admitted to the hospital for further evaluation. This morning, he still has some pain in the right lower quadrant area. He reports no emesis. He did not have any bowel movements for the last 2 days, but prior to that, he was having 1 or 2 loose bowel movements daily. He denies any blood or mucus in the stool. No recent weight loss. No fever, chills, or night sweats. PAST MEDICAL HISTORY: Crohn disease diagnosed 9 months ago complicated with an abscess that was diagnosed in August of 2018. PAST SURGICAL HISTORY: EGD and colonoscopy 9 months ago in [place]. MEDICATIONS: At home include prednisone 10 mg daily. SOCIAL HISTORY: Chronic smoker. FAMILY HISTORY: Father and mother both healthy. REVIEW OF SYSTEMS: CARDIOPULMONARY: No chest pain, shortness of breath. GENITOURINARY: No dysuria or hematuria. MUSCULOSKELETAL: Unremarkable. SKIN: Unremarkable. ENDOCRINE: Unremarkable. PSYCHIATRIC: Unremarkable. NEUROLOGY: Unremarkable. ENT/VISION: Unremarkable. CONSTITUTIONAL: No recent weight loss. No fever, chills, night sweats. PHYSICAL EXAMINATION: He appears comfortable. No apparent distress. Vital signs are stable. Blood pressure is 117/57, pulse is 66, temperature 97.7. HEENT: Examination unremarkable. Conjunctivae pink. Sclerae anicteric. Oral cavity no lesions. NECK: No JVD or lymph node enlargement. CHEST: Clear to auscultation. HEART: Regular rate and rhythm. ABDOMEN: Soft. Tenderness in the right lower quadrant area. Mild tenderness in the suprapubic and left lower quadrant area. No rigidity. No rebound. Bowel sounds are positive. EXTREMITIES: No pedal edema. SKIN: No rashes. NEURO: He is alert and oriented x3. No focal deficits. LABS: At the time of admission to the hospital: WBC 17.6, hemoglobin 13.2, platelets are normal. Basic metabolic panel is within normal limits. CT of the abdomen and pelvis done yesterday morning showed inflammatory changes of the terminal ileum with wall thickening and harleen fat stranding consistent with terminal ileitis. Also the thickened T 3rd small bowel loops in the right lower quadrant area compatible with fibrous stenosing Crohn disease is a 3 cm abscess in the right lower quadrant area, which is decreased in size from the previous scan done 3 weeks ago. Also dilation of the distal ileum suggestive of early small-bowel obstruction. IMPRESSION: Crohn's ileitis complicated with pelvic abscess measuring 3 cm in size which is slightly improved from the prior CT scan 3 weeks ago. The patient was last hospitalized September 20 for the same reason, was treated with IV antibiotics and discharged home on Levaquin and Flagyl as well as tapering doses of prednisone. For the last 2 days started having more discomfort in the lower abdominal area and re-admitted to the hospital with early partial small bowel obstruction and pelvic abscess. The patient was started on Inflectra in July of this year and finished induction dose (3 doses) towards the end of August, but currently has been on hold because of ongoing pelvic abscess. RECOMMENDATIONS: I had a discussion with the patient regarding management of Crohn's disease in this clinical setting of active Crohn's ileitis complicated with pelvic abscess. At this time we will continue with broad-spectrum antibiotics with IV Flagyl and Levaquin. We will start him on IV Solu-Medrol 20 mg q.8 hours. We will review the CT scan findings with the radiologist, but it appears that the abscess is gradually improving in size at the present time. We will discuss with Surgery regarding continued conservative approach rather than surgical intervention at the present time, but if he continues with conservative approach, he needs to be started back on Inflectra following discharge from the hospital. The plan was extensively discussed with the patient. He is agreeable to it. I will follow him closely. Thank you for this consultation. DEANGELO / CHERI: [id number] /
[2018-10-06] MEDS: metroNIDAZOLE-NS PMX 500 MG in SALINE 1 100ML.BAG IVPB SCH ×2 (14:18→19:44)
[2018-10-06 19:56] LABS: Appearance,Urine Clear (Clear); Bilirubin,Urine Negative (Negative); Blood,Urine Negative (Negative); Color,Urine Light Yellow; Glucose,Urine (UA) Negative (Negative); Ketones,Urine 1+ (Negative); Leukocyte Esterase,Urine Negative (Negative); Nitrite,Urine Negative (Negative); PH, Urine 7.5 (5.0-8.0); Protein,Urine Negative (Negative); Specific Gravity,Urine 1.011 (1.001-1.035); Urobilinogen,Urine <2.0 mg/dL (<2.0)
[2018-10-07] MEDS: LEVOFLOXACIN 750MG-D5W PMX 750 MG in DEXTROSE/WATER 1 150ML.BAG IVPB SCH (02:00)
[2018-10-07] MEDS: MORPHINE SULFATE 4 MG/ML SYRINGE IV PRN ×4 (03:25→22:05)
[2018-10-07] MEDS: metroNIDAZOLE-NS PMX 500 MG in SALINE 1 100ML.BAG IVPB SCH ×3 (03:27→19:40)
[2018-10-07] MEDS: methylPREDNISolone SOD SUCCI 40 MG/ML 1 ML VIAL IV SCH ×2 (09:18→16:09)
[2018-10-07] MEDS: HEPARIN SODIUM,PORCINE 5,000 UNIT/ML 1 ML VIAL SQ SCH ×2 (09:19→16:08)
--- NOTE | 2018-10-07 09:27 | XR ---
EXAMINATION TYPE: XR abdomen 2V DATE OF EXAM: 10/07/2018 6:54 AM CLINICAL HISTORY: Abdominal pain, positive bowel obstruction. TECHNIQUE: Single upright image of the abdomen is obtained. COMPARISON: X-ray dated 06/03/[address] dated 08/29/2018. FINDINGS: Oral contrast extends into the colon. No dilated large bowel. Mildly dilated solitary loop of small bowel in the left mid abdomen measures approximately 3.5 cm in caliber. No pneumoperitoneum. Lung bases are well aerated. Osseous structures appear intact. IMPRESSION: Oral contrast extends into the nondilated colon complete small bowel obstruction. Solitar y prominent loops of small bowel in the left mid abdomen likely represents focal mild ileus. No pneum operitoneum.
[2018-10-07 10:16] LABS: African American GFR (CKD) >90 (>60 ml/min/1.73 sqM); Anion Gap 8 mmol/L; Blood Urea Nitrogen 14 mg/dL (9-20); C Reactive Protein 21.3 mg/L (<10.0); Calcium 9.5 mg/dL (8.4-10.2); Carbon Dioxide 25 mmol/L (22-30); Chloride 104 mmol/L (98-107); Glucose 98 mg/dL (74-99); Potassium 4.4 mmol/L (3.5-5.1); Sodium 137 mmol/L (137-145)
[2018-10-07 10:18] LABS: Anisocytosis Slight; Basophils % (A) 0 %; Eosinophils % (A) 0 %; HCT 44.6 % (39.0-53.0); Hypochromasia Slight; Lymphocytes # (A) 1.3 k/uL (1.0-4.8); Lymphocytes % (A) 7 %; MCH 21.8 pg (25.0-35.0); MCHC 31.5 g/dL (31.0-37.0); MCV 69.1 fL (80.0-100.0); Mean Platelet Volume 6.4; Microcytosis Marked; Monocytes # (A) 0.7 k/uL (0-1.0); Monocytes % (A) 4 %; Neutrophils % (A) 88 %; Platelet Count 258 k/uL (150-450); RBC 6.45 m/uL (4.30-5.90); RDW 17.5 % (11.5-15.5); WBC 19.2 k/uL (3.8-10.6)
--- NOTE | 2018-10-07 12:06 | P.PN ---
Subjective Progress Note Date: 10/07/18 Principal diagnosis: Abdominal pain Patient says he feels somewhat better today. He is passing flatus. No bowel movement. No nausea or vomiting. Less bloated. Would like to try liquids. Flat plate showed passage of contrast into colon. Objective - Vital Signs Vital signs: Vital Signs Temp 98.2 F 10/07/18 07:00 Pulse 79 10/07/18 07:00 Resp 16 10/07/18 07:00 BP 130/80 10/07/18 07:00 Pulse Ox 98 10/07/18 07:00 Intake & Output 10/06/18 10/07/18 10/07/18 18:59 06:59 18:59 Intake Total 710 Balance 710 Intake: Intake, IV Titration 700 Amount Sodium Chloride 0.9% 1, 600 000 ml @ 120 mls/hr IV . Q8H20M CONNIE Rx#:[id number] metroNIDAZOLE-NS PMX 500 100 mg In Saline 1 100ml.bag @ 100 mls/hr IVPB Q8H CONNIE Rx#:[id number] Oral 10 Other: Voiding Method Toilet Toilet # Voids 2 - Exam Abdomen: Soft, minimal distention, mild diffuse tenderness increased left lower quadrant - Labs CBC & Chem 7: 10/07/18 09:45 10/07/18 09:45 Labs: Abnormal Lab Results - Last 24 Hours (Table) 10/06/18 10/07/18 10/07/18 Range/Units 17:40 09:45 09:45 WBC 19.2 H (3.8-10.6) k/uL RBC 6.45 H (4.30-5.90) m/uL MCV 69.1 L (80.0-100.0) fL MCH 21.8 L (25.0-35.0) pg RDW 17.5 H (11.5-15.5) % Neutrophils # 17.0 H (1.3-7.7) k/uL C-Reactive Protein 21.3 H (<10.0) mg/L Urine Ketones 1+ H (Negative) Assessment and Plan (1) Abdominal pain Narrative/Plan: Will start sips of clear liquids at this time. Repeat labs tomorrow. Ambulate. Continue crones directed medications. Current Visit: Yes Status: Acute Code(s): R10.9 - UNSPECIFIED ABDOMINAL PAIN SNOMED Code(s): 88330333
--- NOTE | 2018-10-07 12:38 | CONS ---
CONSULTATION Patient is a 28-year-old pleasant white male admitted to the hospital with lower abdominal pain for the last 3-4 days duration. He has history of Crohn's disease diagnosed early part of this year on Inflectra on outpatient basis. Last dose was in August. Recent hospitalization 3 weeks ago with exacerbation of Crohn's and pelvic abscess measuring 4 cm in size, treated with antibiotics for 2 weeks and discharged home. Now readmitted to the hospital 3 weeks later with recurrent symptoms and repeat CT scan showed a 3 cm fluid collection in the right pelvic area through to the terminal ileum with evidence of terminal ileal thickening, all consistent with exacerbation of Crohn's ileitis with pelvic abscess. He was started on IV steroids and on antibiotics and this morning he is feeling much better. Still continues to have some abdominal pain. No nausea, vomiting. No bowel movements. Abdominal x-rays today showed mildly dilated small bowel loop in the left mid abdomen, but the contrast has passed into the colon. PHYSICAL EXAMINATION: Appears comfortable no apparent distress. VITAL SIGNS: Stable. Blood pressure 118/71, pulse is 70, temperature 97.8. HEENT: Examination unremarkable. Conjunctivae pink, sclerae anicteric. Oral cavity no lesions. NECK: No JVD or lymph node enlargement. CHEST: Clear to auscultation. HEART: Regular rate and rhythm. ABDOMEN: Soft. Mild tenderness in the right lower quadrant area. EXTREMITIES: No pedal edema. SKIN: No rashes. NEUROLOGIC: Alert and oriented x3. No focal deficits. LABS: WBC 19.2, hemoglobin 14, platelets are normal. Basic metabolic panel is within normal limits. CRP is 21.3. IMPRESSION: Exacerbation of Crohn's ileitis complicated with a small pelvic abscess and on the recent imaging studies 2 days ago the pelvic abscess appears to have slightly decreased in size. CT abdomen also showed evidence of partial small bowel obstruction, but abdominal x-ray from today showed passage of the contrast into the colon. He does have worsening leukocytosis which could be explained on the basis of the IV steroid therapy. Overall, the clinical picture seems to be gradually improving. RECOMMENDATIONS: 1. Continue IV steroids. 2. Continue with broad-spectrum antibiotics. 3. Clear liquid diet if it okay with surgery. 4. Repeat labs in the morning and will follow him closely during his hospital stay. Thank you for this consultation. MMODL / IJN: [id number] /
--- NOTE | 2018-10-07 16:32 | P.PN ---
Subjective Progress Note Date: 10/07/18 Patient seen and examined follow-up reports that his abdominal pain is much less severe and almost totally resolved, doing well on ice chips and clear liquids reports passing gas but no bowel movement. Continue conservative management at this time, no acute events overnight, x-rays indicating passage of contrast into the colon, the patient continued on systemic steroids and empiric IV antibiotics with Levaquin and Flagyl. Patient is afebrile but white count is up to 19.2 from 17.6. Objective - Vital Signs Vital signs: Vital Signs Temp 98 F 10/07/18 14:07 Pulse 64 10/07/18 14:07 Resp 16 10/07/18 14:07 BP 82/55 10/07/18 14:07 Pulse Ox 93 L 10/07/18 14:07 Intake & Output 10/06/18 10/07/18 10/07/18 18:59 06:59 18:59 Intake Total 710 Balance 710 Intake: Intake, IV Titration 700 Amount Sodium Chloride 0.9% 1, 600 000 ml @ 120 mls/hr IV . Q8H20M CONNIE Rx#:[id number] metroNIDAZOLE-NS PMX 500 100 mg In Saline 1 100ml.bag @ 100 mls/hr IVPB Q8H CONNIE Rx#:[id number] Oral 10 Other: Voiding Method Toilet Toilet # Voids 2 2 - Exam Constitutional: No acute distress, conversant, pleasant Eyes: Anicteric sclerae, moist conjunctiva, no lid-lag, PERRLA ENMT: NC/AT,Oropharynx clear, no erythema, exudates Neck:Supple, FROM, no masses, or JVD, No carotid bruits; No thyromegaly Lungs: Clear to auscultation, Clear to percussion, Normal respiratory effort, no accessory muscle use Cardiovascular: Heart regular in rate and rhythm, No murmurs, gallops, or rubs no peripheral edema Abdominal: Soft tender to deep palpation left lower quadrant, non distended, no guarding, no rebound or rigidity, Normoactive bowel sounds No hepatomegaly, nonacute abdomen Skin: Normal temperature, tone, texture, turgor, No induration No subcutaneous nodules, No rash, lesions, No ulcers Extremities:No digital cyanosis No clubbing, Pedal pulses intact and symmetrical Radial pulses intact and symmetrical Normal gait and station, No calf tenderness Psychiatric: Alert and oriented to person, place and time, Appropriate affect Intact judgement Neuro: Muscles Strength 5/5 in all 4 extremities, Sensation to light touch grossly present throughout, Cranial nerves II-XII grossly intact. No focal sensory deficits - Labs CBC & Chem 7: 10/07/18 09:45 10/07/18 09:45 Labs: Abnormal Lab Results - Last 24 Hours (Table) 10/06/18 10/07/18 10/07/18 Range/Units 17:40 09:45 09:45 WBC 19.2 H (3.8-10.6) k/uL RBC 6.45 H (4.30-5.90) m/uL MCV 69.1 L (80.0-100.0) fL MCH 21.8 L (25.0-35.0) pg RDW 17.5 H (11.5-15.5) % Neutrophils # 17.0 H (1.3-7.7) k/uL C-Reactive Protein 21.3 H (<10.0) mg/L Urine Ketones 1+ H (Negative) Assessment and Plan (1) Exacerbation of Crohn's disease with abscess Narrative/Plan: * Continue with treatment protocol with systemic steroids (Solu-Medrol )and current antibiotic regimen Levaquin and Flagyl * Appreciate recommendations from GI and general surgery * Apparently more likely ileus rather than true SBO Current Visit: Yes Status: Acute Code(s): K50.914 - CROHN'S DISEASE, UNSPECIFIED, WITH ABSCESS SNOMED Code(s): 30894604 (2) Leukocytosis Narrative/Plan: * Likely secondary to steroids superimposed on underlying infection * Patient continues to be afebrile continue to monitor Current Visit: Yes Status: Acute Code(s): D72.829 - ELEVATED WHITE BLOOD CELL COUNT, UNSPECIFIED SNOMED Code(s): 249506237 (3) Abdominal pain Narrative/Plan: * Secondary to Crohn's flare as above * Continue current management protocol Current Visit: Yes Status: Acute Code(s): R10.9 - UNSPECIFIED ABDOMINAL PAIN SNOMED Code(s): 75978500 Plan: Appreciate consultants recommendations Patient currently on clear liquid diet continue current management
[2018-10-07] MEDS: SODIUM CHLORIDE 0.9% 1,000 ML IV SCH ×2 (19:45→22:05)
[2018-10-08] MEDS: LEVOFLOXACIN 750MG-D5W PMX 750 MG in DEXTROSE/WATER 1 150ML.BAG IVPB SCH (01:08)
[2018-10-08] MEDS: HEPARIN SODIUM,PORCINE 5,000 UNIT/ML 1 ML VIAL SQ SCH ×4 (01:08→23:18)
[2018-10-08] MEDS: methylPREDNISolone SOD SUCCI 40 MG/ML 1 ML VIAL IV SCH ×3 (01:08→17:26)
[2018-10-08] MEDS: metroNIDAZOLE-NS PMX 500 MG in SALINE 1 100ML.BAG IVPB SCH ×3 (02:44→17:25)
[2018-10-08] MEDS: SODIUM CHLORIDE 0.9% 1,000 ML IV SCH ×3 (05:42→23:20)
[2018-10-08] MEDS: MORPHINE SULFATE 4 MG/ML SYRINGE IV PRN ×4 (06:21→23:17)
[2018-10-08 06:30] LABS: Anisocytosis Slight; Basophils % (A) 0 %; Eosinophils # (A) 0.1 k/uL (0-0.7); Eosinophils % (A) 0 %; HCT 45.7 % (39.0-53.0); HGB 13.9 gm/dL (13.0-17.5); Hypochromasia Slight; Lymphocytes # (A) 0.9 k/uL (1.0-4.8); Lymphocytes % (A) 5 %; MCH 21.1 pg (25.0-35.0); MCHC 30.3 g/dL (31.0-37.0); MCV 69.5 fL (80.0-100.0); Mean Platelet Volume 6.5; Microcytosis Marked; Monocytes # (A) 0.6 k/uL (0-1.0); Monocytes % (A) 3 %; Neutrophils # (A) 16.2 k/uL (1.3-7.7); Neutrophils % (A) 91 %; Platelet Count 275 k/uL (150-450); RBC 6.58 m/uL (4.30-5.90); RDW 17.9 % (11.5-15.5); WBC 17.8 k/uL (3.8-10.6)
[2018-10-08 06:41] LABS: African American GFR (CKD) >90 (>60 ml/min/1.73 sqM); Anion Gap 9 mmol/L; Blood Urea Nitrogen 16 mg/dL (9-20); Calcium 9.6 mg/dL (8.4-10.2); Carbon Dioxide 24 mmol/L (22-30); Chloride 103 mmol/L (98-107); Glucose 102 mg/dL (74-99); Potassium 4.5 mmol/L (3.5-5.1); Sodium 136 mmol/L (137-145)
--- NOTE | 2018-10-08 12:45 | P.PN ---
<Traci Delong - Last Filed: 10/08/18 12:32> Subjective Progress Note Date: 10/08/18 CHIEF COMPLAINT: Crohn's disease HISTORY OF PRESENT ILLNESS: Patient seen and examined at the bedside this morning. He denies abdominal pain. Denies nausea or vomiting. Reports passing flatus. Denies BM. Patient states he has not been eating clear liquid diet because he does not like it. He has been eating outside food. He reports eating a peach last night. WBC 17.8, down from 19.2. He remains on IV steroids. PHYSICAL EXAM: VITAL SIGNS: Reviewed. GENERAL: Well-developed in no acute distress. HEENT: No sclera icterus. Extraocular movements grossly intact. Moist buccal mucosa. Head is atraumatic, normocephalic. Hears conversational speech. No nasal drainage. NECK: Supple without lymphadenopathy. CHEST: Non-labored respirations and equal bilateral excursions. CARDIOVASCULAR: Regular rate with regular rhythm. Palpable 2+ radial pulses. ABDOMEN: Soft. Nondistended. Nontender. Positive bowel sounds. MUSCULOSKELETAL: No clubbing, cyanosis or edema. NEUROLOGIC: No focal or lateralizing signs. Cranial nerves II through XII grossly intact. PSYCH: Appropriate affect. Alert and oriented to person, place and time. SKIN: Well perfused. Good skin turgor. ASSESSMENT: 1. Abdominal pain 2. Acute exacerbation of Crohn's disease. CT reveals Crohns ileitis with pelvic abscess. CT reveals evidence of partial SBO, however abdominal xray reveals passage of contrast into colon 3. Leukocytosis, receiving IV steroids, improving 4. History of medical noncompliance with previous leaving AMA x 2 PLAN: 1. Patient does not like clear liquid tray from hospital. He has been eating food brought in from outside. He is agreeable to trying full liquid diet from hospital 2. Continue IV antibiotics 3. Continue to monitor WBC 4. IV steroids per GI service Nurse practitioner note has been reviewed by physician. Signing provider agrees with the documented findings, assessment, and plan of care. Objective - Vital Signs Vital signs: Vital Signs Temp 97.8 F 10/08/18 07:00 Pulse 58 L 10/08/18 07:00 Resp 16 10/08/18 08:00 BP 128/71 10/08/18 07:00 Pulse Ox 98 10/08/18 07:00 Intake & Output 10/07/18 10/08/18 10/08/18 18:59 06:59 18:59 Other: Voiding Method Toilet Toilet # Voids 2 - Labs CBC & Chem 7: 10/08/18 06:10 10/08/18 06:10 Labs: Abnormal Lab Results - Last 24 Hours (Table) 10/08/18 10/08/18 Range/Units 06:10 06:10 WBC 17.8 H (3.8-10.6) k/uL RBC 6.58 H (4.30-5.90) m/uL MCV 69.5 L (80.0-100.0) fL MCH 21.1 L (25.0-35.0) pg MCHC 30.3 L (31.0-37.0) g/dL RDW 17.9 H (11.5-15.5) % Neutrophils # 16.2 H (1.3-7.7) k/uL Lymphocytes # 0.9 L (1.0-4.8) k/uL Sodium 136 L (137-145) mmol/L Glucose 102 H (74-99) mg/dL <Jessa Carrera N - Last Filed: 10/08/18 14:38> Subjective Patient seen and evaluated. He is tolerating a liquid diet. His abdominal pain is moderately improved. Patient described area of disease at the ileocecal valve. Images also reviewed. Recommend control of Crohn's disease per GI. Patient described evolution of Crohn's disease may require surgery in the future however as he is clinically responding, continue to monitor. Objective - Vital Signs Vital signs: Vital Signs Temp 97.8 F 10/08/18 07:00 Pulse 58 L 10/08/18 07:00 Resp 16 10/08/18 08:00 BP 128/71 10/08/18 07:00 Pulse Ox 98 10/08/18 07:00 Intake & Output 10/07/18 10/08/18 10/08/18 18:59 06:59 18:59 Other: Voiding Method Toilet Toilet # Voids 2 - Labs CBC & Chem 7: 10/08/18 06:10 10/08/18 06:10 Labs: Abnormal Lab Results - Last 24 Hours (Table) 10/08/18 10/08/18 Range/Units 06:10 06:10 WBC 17.8 H (3.8-10.6) k/uL RBC 6.58 H (4.30-5.90) m/uL MCV 69.5 L (80.0-100.0) fL MCH 21.1 L (25.0-35.0) pg MCHC 30.3 L (31.0-37.0) g/dL RDW 17.9 H (11.5-15.5) % Neutrophils # 16.2 H (1.3-7.7) k/uL Lymphocytes # 0.9 L (1.0-4.8) k/uL Sodium 136 L (137-145) mmol/L Glucose 102 H (74-99) mg/dL
--- NOTE | 2018-10-08 12:59 | P.PN ---
Subjective Progress Note Date: 10/08/18 Patient seen and examined follow-up reports that his abdominal pain is much less severe and almost totally resolved, doing well on ice chips and clear liquids reports passing gas but no bowel movement. Continue conservative management at this time, no acute events overnight, x-rays indicating passage of contrast into the colon, the patient continued on systemic steroids and empiric IV antibiotics with Levaquin and Flagyl. Patient is afebrile but white count is down to 17.6 Objective - Vital Signs Vital signs: Vital Signs Temp 97.8 F 10/08/18 07:00 Pulse 58 L 10/08/18 07:00 Resp 16 10/08/18 08:00 BP 128/71 10/08/18 07:00 Pulse Ox 98 10/08/18 07:00 Intake & Output 10/07/18 10/08/18 10/08/18 18:59 06:59 18:59 Other: Voiding Method Toilet Toilet # Voids 2 - Exam Constitutional: No acute distress, conversant, pleasant Eyes: Anicteric sclerae, moist conjunctiva, no lid-lag, PERRLA ENMT: NC/AT,Oropharynx clear, no erythema, exudates Neck:Supple, FROM, no masses, or JVD, No carotid bruits; No thyromegaly Lungs: Clear to auscultation, Clear to percussion, Normal respiratory effort, no accessory muscle use Cardiovascular: Heart regular in rate and rhythm, No murmurs, gallops, or rubs no peripheral edema Abdominal: Soft tender to deep palpation left lower quadrant, non distended, no guarding, no rebound or rigidity, Normoactive bowel sounds No hepatomegaly, nonacute abdomen Skin: Normal temperature, tone, texture, turgor, No induration No subcutaneous nodules, No rash, lesions, No ulcers Extremities:No digital cyanosis No clubbing, Pedal pulses intact and symmetrical Radial pulses intact and symmetrical Normal gait and station, No calf tenderness Psychiatric: Alert and oriented to person, place and time, Appropriate affect Intact judgement Neuro: Muscles Strength 5/5 in all 4 extremities, Sensation to light touch gr ossly present throughout, Cranial nerves II-XII grossly intact. No focal sensory deficits - Labs CBC & Chem 7: 10/08/18 06:10 10/08/18 06:10 Labs: Abnormal Lab Results - Last 24 Hours (Table) 10/08/18 10/08/18 Range/Units 06:10 06:10 WBC 17.8 H (3.8-10.6) k/uL RBC 6.58 H (4.30-5.90) m/uL MCV 69.5 L (80.0-100.0) fL MCH 21.1 L (25.0-35.0) pg MCHC 30.3 L (31.0-37.0) g/dL RDW 17.9 H (11.5-15.5) % Neutrophils # 16.2 H (1.3-7.7) k/uL Lymphocytes # 0.9 L (1.0-4.8) k/uL Sodium 136 L (137-145) mmol/L Glucose 102 H (74-99) mg/dL Assessment and Plan (1) Exacerbation of Crohn's disease with abscess Narrative/Plan: * Continue with treatment protocol with systemic steroids (Solu-Medrol )and current antibiotic regimen Levaquin and Flagyl * Appreciate recommendations from GI and general surgery * Apparently more likely ileus rather than true SBO Current Visit: Yes Status: Acute Code(s): K50.914 - CROHN'S DISEASE, UNSPECIFIED, WITH ABSCESS SNOMED Code(s): 41629402 (2) Leukocytosis Narrative/Plan: * Likely secondary to steroids superimposed on underlying infection * Patient continues to be afebrile continue to monitor Current Visit: Yes Status: Acute Code(s): D72.829 - ELEVATED WHITE BLOOD CELL COUNT, UNSPECIFIED SNOMED Code(s): 809793418 (3) Abdominal pain Narrative/Plan: * Secondary to Crohn's flare as above * Continue current management protocol Current Visit: Yes Status: Acute Code(s): R10.9 - UNSPECIFIED ABDOMINAL PAIN SNOMED Code(s): 48290861 Plan: Appreciate consultants recommendations Patient currently on clear liquid diet continue current management
--- NOTE | 2018-10-08 21:06 | PN ---
PROGRESS NOTE DATE OF SERVICE: 10/08/2018 The patient is a 28-year-old male admitted to the hospital with exacerbation of Crohn's disease with the pelvic abscess. He had been started on IV steroids and broad-spectrum antibiotics. The symptoms are gradually improving. Overall, he feels much better. Abdominal pain has resolved. He had one bowel movement today. On a soft diet, tolerating well. No nausea, vomiting. PHYSICAL EXAMINATION: Appears comfortable. No apparent distress. VITAL SIGNS: Stable. Blood pressure is 112/69, pulse is 54, temperature 97.8. HEENT examination unremarkable. Sclerae anicteric. Oral cavity no lesions. NECK: No jugular venous distention or lymph node enlargement. CHEST: Clear to auscultation. HEART: Regular rate and rhythm. ABDOMEN: Soft. Bowel sounds are positive. No organomegaly. EXTREMITIES: No pedal edema. SKIN: No rashes. NEUROLOGIC: Alert and oriented x3. No focal deficits. LABS: From today, WBC 17.8, hemoglobin 13.9, platelets are normal. Basic metabolic panel is within normal limits. CRP is 21.3. IMPRESSION: Exacerbation of Crohn's ileitis complicated with a pelvic abscess that appears to be gradually improving. Repeat CT scan during this hospitalization showed some decrease in size of the pelvic abscess noted from prior hospitalization 3 weeks ago. He is presently on broad-spectrum antibiotics and doing well, IV steroids for the last 2 days with Solu-Medrol 20 q.8 hours. RECOMMENDATION: 1. Agree to advance diet as tolerated. 2. We will discontinue IV Solu-Medrol and start him on oral prednisone 40 mg daily tomorrow with outpatient taper by 5 mg every week. 3. We will discuss with the patient regarding starting him back on on an outpatient basis. 4. The patient is doing well. He can be discharged home tomorrow with outpatient followup in a week. Thank you for this consultation. MMODL / IJN: [id number] /
[2018-10-09] MEDS: LEVOFLOXACIN 750MG-D5W PMX 750 MG in DEXTROSE/WATER 1 150ML.BAG IVPB SCH (01:33)
[2018-10-09] MEDS: SODIUM CHLORIDE 0.9% 1,000 ML IV SCH (01:35)
[2018-10-09] MEDS: metroNIDAZOLE-NS PMX 500 MG in SALINE 1 100ML.BAG IVPB SCH ×2 (04:24→10:24)
[2018-10-09 08:17] VITALS: BP 128/83; PULSE 59; RESP 16; TEMP 98.2
[2018-10-09] MEDS: HEPARIN SODIUM,PORCINE 5,000 UNIT/ML 1 ML VIAL SQ SCH (08:41)
[2018-10-09] MEDS: MORPHINE SULFATE 4 MG/ML SYRINGE IV PRN (08:41)
[2018-10-09] MEDS ORDERED: predniSONE 20 MG TAB PO SCH (09:00)
--- NOTE | 2018-10-09 10:18 | P.DS ---
Providers Date of admission: 10/06/18 02:19 Expected date of discharge: 10/09/18 Attending physician: Wily Herrera MD Consults: 10/06/18 02:05 Consult Physician Stat Consulting Provider: Griselda Morgan Consult Reason/Comments: small bowel obstruction, chrons disease - devleoping fistula Do you want consulting provider notified?: Yes, Notify in am 10/06/18 09:49 Consult Physician Routine Consulting Provider: Jessa Crarera Consult Reason/Comments: SBO, history of crohns. Patient seen Dr Carrera previously. Do you want consulting provider notified?: Yes Primary care physician: Stated None Hospital Course: Discharge Diagnosis: Acute Crohn's flair with terminal ileitis, known abscess that is improving Hyponatremia Tobacco abuse Hospital Course: Patient is a 28-year-old -Cyp[place] male past medical history of Crohn's disease diagnosed in August 2018, tobacco abuse, and marijuana use who reported to the emergency department with right lower quadrant pain. Earlier that day he underwent an outpatient CT as a follow-up from GI. 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 In the ER he underwent an extensive exam. His white blood cell count was elevated at 17.6. His initial vital signs were within normal limits. He is admitted for acute Crohn's. He was started on Levaquin, Flagyl, and Solu- Medrol. GI and general surgery were consulted. He was continued on current treatment regimen. His diet was slowly advanced. He was having solid bowel movements. Pain was controlled. He was determined stable for discharge. He like to establish with a [facility] physician in the area as well as Dr. Morgan. Prior to this he had been seeking GI care in [place] with Dr. Eitan Loza. A complete a seven-day course of Levaquin and Flagyl. He'll continue his full liquid diet 1-2 days and then advance to bland diet. He is given a prescription for 24 tablets of Rolla to help with the acute pain. We discussed that I would not recommend using pain medications on a long-term basis but these could be used during acute flares. He would like to establish with Dr. Cuevas for his PCP. Patient seen and examined at bedside. Pain is improved, Had formed BM with mucus yesterday no blood, no nausea, no vomiting. Wants a PCP in town with [place]. Vital signs reviewed and stable. General: non toxic, no distress, appears at stated age Derm: warm, dry Head: atraumatic, normocephalic, symmetric Eyes: EOMI, no lid lag, anicteric sclera Mouth: no lip lesion, mucus membranes moist Cardiovascular: S1S2 reg, no murmur, positive posterior tibial pulse bilateral, Lungs: CTA bilateral, no rhonchi, no rales , no accessory muscle use Abdominal: soft, nontender to palpation, no guarding, no appreciable organomegaly Ext: no gross muscle atrophy, no edema, no contractures Neuro: CN II-XI grossly intact, no focal neuro deficits Psych: Alert, oriented, appropriate affect A total of 35 minutes of time were spent preparing this complex discharge summary . Pertinent Studies: Abdominal x-ray-oral contrast extends into the nondilated colon, solitary prominent loops of small bowel in the left mid abdomen likely represent mild focal ileus. Patient Condition at Discharge: Stable Plan - Discharge Summary Discharge Rx Participant: Yes New Discharge Prescriptions: New metroNIDAZOLE [Flagyl] 500 mg PO TID #21 tab Levofloxacin [Levaquin] 500 mg PO DAILY #7 tab HYDROcodone/APAP 7.5-325MG [Rolla 7.5-325] 1 tab PO Q6HR PRN 7 Days #24 tab PRN Reason: Pain predniSONE 0 mg PO DIRECTED #40 tab Discontinued predniSONE See Taper PO DIRECTED Discharge Medication List HYDROcodone/APAP 7.5-325MG [Rolla 7.5-325] 1 tab PO Q6HR PRN 7 Days #24 tab 10/09/18 [Rx] Levofloxacin [Levaquin] 500 mg PO DAILY #7 tab 10/09/18 [Rx] metroNIDAZOLE [Flagyl] 500 mg PO TID #21 tab 10/09/18 [Rx] predniSONE 0 mg PO DIRECTED #40 tab 10/09/18 [Rx] Follow up Appointment(s)/Referral(s): Dagmar Cuevas MD [STAFF PHYSICIAN] - 1 Week Jessa Carrera MD [STAFF PHYSICIAN] - 1 Week Griselda Morgan MD [STAFF PHYSICIAN] - 1 Week None,Stated [Primary Care Provider] - 1-2 days Patient Instructions/Handouts: Crohn Disease (DC), Diverticulitis Diet (DC), Full Liquid Diet (DC) Activity/Diet/Wound Care/Special Instructions: Full liquid diet for another 1-3 days, then advance to bland diet Activity as tolerated
--- NOTE | 2018-10-09 12:22 | P.PN ---
Subjective Progress Note Date: 10/09/18 CHIEF COMPLAINT: Crohn's disease HISTORY OF PRESENT ILLNESS: Patient seen and examined at the bedside this morning. He denies abdominal pain. Denies nausea or vomiting. Reports passing flatus and having a BM. Patient tolerating diet. He is anxious to be discharged home today. PHYSICAL EXAM: VITAL SIGNS: Reviewed. GENERAL: Well-developed in no acute distress. HEENT: No sclera icterus. Extraocular movements grossly intact. Moist buccal mucosa. Head is atraumatic, normocephalic. Hears conversational speech. No nasal drainage. NECK: Supple without lymphadenopathy. CHEST: Non-labored respirations and equal bilateral excursions. CARDIOVASCULAR: Regular rate with regular rhythm. Palpable 2+ radial pulses. ABDOMEN: Soft. Nondistended. Nontender. Positive bowel sounds. MUSCULOSKELETAL: No clubbing, cyanosis or edema. NEUROLOGIC: No focal or lateralizing signs. Cranial nerves II through XII grossly intact. PSYCH: Appropriate affect. Alert and oriented to person, place and time. SKIN: Well perfused. Good skin turgor. ASSESSMENT: 1. Abdominal pain 2. Acute exacerbation of Crohn's disease. CT reveals Crohns ileitis with pelvic abscess. CT reveals evidence of partial SBO, however abdominal xray reveals passage of contrast into colon 3. Leukocytosis, receiving IV steroids, improving 4. History of medical noncompliance with previous leaving AMA x 2 PLAN: 1. Recommend continuing full liquid diet upon discharge for a few days then may gradually advance diet as tolerated 2. GI following. Steroids have been transitioned to oral 3. Stable for discharge from a surgical standpoint. Patient has been discharged per internal medicine at the time of my examination. He is to continue prednisone and antibiotics at discharge Nurse practitioner note has been reviewed by physician. Signing provider agrees with the documented findings, assessment, and plan of care. Objective - Vital Signs Vital signs: Vital Signs Temp 98.2 F 10/09/18 07:00 Pulse 59 L 10/09/18 07:00 Resp 16 10/09/18 07:00 BP 128/83 10/09/18 07:00 Pulse Ox 100 10/09/18 07:00 Intake & Output 10/08/18 10/09/18 10/09/18 18:59 06:59 18:59 Other: Voiding Method Toilet Toilet Toilet # Voids 2 3 - Labs CBC & Chem 7: 10/08/18 06:10 10/08/18 06:10 Assessment and Plan (1) Abdominal pain Current Visit: Yes Status: Acute Code(s): R10.9 - UNSPECIFIED ABDOMINAL PAIN SNOMED Code(s): 52717658 (2) Exacerbation of Crohn's disease with abscess Current Visit: Yes Status: Acute Code(s): K50.914 - CROHN'S DISEASE, UNSPECIFIED, WITH ABSCESS SNOMED Code(s): 30757565 (3) Leukocytosis Current Visit: Yes Status: Acute Code(s): D72.829 - ELEVATED WHITE BLOOD CELL COUNT, UNSPECIFIED SNOMED Code(s): 361120137 (4) Crohn's disease Current Visit: No Status: Acute Code(s): K50.90 - CROHN'S DISEASE, UNSPECIFIED, WITHOUT COMPLICATIONS SNOMED Code(s): 94749206 (5) Intra-abdominal abscess Current Visit: No Status: Acute Code(s): K65.1 - PERITONEAL ABSCESS SNOMED Code(s): 04747622
== END 2018-10-09 12:50 | disposition home or self-care (01) | DRG 385 ==
LOC: EC 00:36 → 4SSUR 02:19
PROVIDERS: ADMIT Internal Medicine; ATTEND Internal Medicine
DX: K50.012 Crohn's disease of small intestine with intestinal obstruction (principal); K65.1 Peritoneal abscess; K56.690 Other partial intestinal obstruction; E87.1 Hypo-osmolality and hyponatremia; K50.014 Crohn's disease of small intestine with abscess; K50.013 Crohn's disease of small intestine with fistula; D72.829 Elevated white blood cell count, unspecified; T38.0X5A Adverse effect of glucocorticoids and synthetic analogues, initial encounter; F17.210 Nicotine dependence, cigarettes, uncomplicated; Z79.52 Long term (current) use of systemic steroids; Z86.59 Personal history of other mental and behavioral disorders; Z88.8 Allergy status to other drugs, medicaments and biological substances; Z91.19 Patient's noncompliance with other medical treatment and regimen
CPT/HCPCS: 36415; 74019; 80048; 80053; 81003; 83605; 83690; 85025; 86140; 96361; 96365; 96375; 99285

== ENCOUNTER 2018-11-09 10:54 | Observation (INO) | payer OTHER ==
[2018-11-09] MEDS ORDERED: ONDANSETRON 4 MG/2 ML VIAL IVP STA (11:20)
[2018-11-09] MEDS ORDERED: SODIUM CHLORIDE 0.9% 1,000 ML IV STA (11:20)
[2018-11-09] MEDS ORDERED: MORPHINE SULFATE 4 MG/ML SYRINGE IV STA (11:20)
[2018-11-09 11:49] LABS: Appearance,Urine Clear (Clear); Bilirubin,Urine Negative (Negative); Blood,Urine Negative (Negative); Color,Urine Yellow; Glucose,Urine (UA) Negative (Negative); Ketones,Urine Negative (Negative); Leukocyte Esterase,Urine Negative (Negative); Nitrite,Urine Negative (Negative); Protein,Urine Negative (Negative); Specific Gravity,Urine 1.014 (1.001-1.035); Urobilinogen,Urine <2.0 mg/dL (<2.0)
--- NOTE | 2018-11-09 11:53 | ED ---
Abdominal Pain HPI - General Source: patient Mode of arrival: wheelchair Limitations: no limitations <Dagmar Campos - Last Filed: 11/09/18 14:54> <Frances Zeng - Last Filed: 11/12/18 22:51> - General Chief Complaint: Abdominal Pain Stated Complaint: Crohn's flare up Time Seen by Provider: 11/09/18 11:03 - History of Present Illness Initial Comments: Patient is a 28-year-old male with past medical history of Crohn's disease, intra-abdominal abscess, presenting to the emergency Department complains of lower abdominal pain that started last night. Patient is seeing Dr. Morgan for GI. Patient states his pain started shortly after he was eating chili for dinner. Patient states pain has been mostly lower abdominal, right sided, currently 6/10 on a pain scale. Admits to diarrhea intermittently for the past few weeks. No recent antibiotic use. Patient admits to intermittent nausea. No vomiting, fever, chills. Patient denies chest pain, sinus breath. Patient has no other complaints at this time. Upon arrival to ER, vital signs are stable. (Dagmar Campos) - Related Data Home Medications Medication Instructions Recorded Confirmed predniSONE 10 mg PO HS 11/09/18 11/09/18 Previous Rx's Medication Instructions Recorded predniSONE See Taper PO DIRECTED #30 tab 11/10/18 traMADol HCl [Ultram] 50 mg PO Q4HR PRN #18 tab 11/10/18 Allergies Allergy/AdvReac Type Severity Reaction Status Date / Time cyclobenzaprine AdvReac Unknown Verified 11/09/18 14:02 [From Flexeril] Review of Systems ROS Other: All systems not noted in ROS Statement are negative. <Dagmar Campos - Last Filed: 11/09/18 14:54> ROS Other: All systems not noted in ROS Statement are negative. <Frances Zeng - Last Filed: 11/12/18 22:51> ROS Statement: Those systems with pertinent positive or pertinent negative responses have been documented in the HPI. Past Medical History Past Medical History: No Reported History Additional Past Medical History / Comment(s): Crohns, abscess on intestine diagnosed 08/2018 History of Any Multi-Drug Resistant Organisms: None Reported Past Surgical History: No Surgical Hx Reported Additional Past Surgical History / Comment(s): EGD, colonoscopy Past Anesthesia/Blood Transfusion Reactions: No Reported Reaction Past Psychological History: Anxiety, Depression Smoking Status: Current every day smoker Past Alcohol Use History: None Reported Past Drug Use History: Marijuana - Past Family History Father Family Medical History: No Reported History Additional Family Medical History / Comment(s): Father is healthy Mother Family Medical History: No Reported History Additional Family Medical History / Comment(s): Mother is healthy. <Dagmar Campos - Last Filed: 11/09/18 14:54> General Exam Limitations: no limitations <Dagmar Campos - Last Filed: 11/09/18 14:54> - General Exam Comments Initial Comments: GENERAL: Well-appearing, well-nourished and in no acute distress, although appears uncomfortable. HEAD: Atraumatic, normocephalic. EYES: Pupils equal round and reactive to light, extraocular movements intact, sclera anicteric, conjunctiva are normal. ENT: TMs normal, nares patent, oropharynx clear without exudates. Moist mucous membranes. NECK: Normal range of motion, supple without lymphadenopathy or JVD. LUNGS: Breath sounds clear to auscultation bilaterally and equal. No wheezes rales or rhonchi. HEART: Regular rate and rhythm without murmurs, rubs or gallops. ABDOMEN: Tender to palpation of the suprapubic area as well as right lower quadrant. Patient is mildly distended, hard in the lower abdominal region. Normoactive bowel sounds. No guarding, no rebound. No masses appreciated. : Deferred EXTREMITIES: Normal range of motion, no pitting or edema. No clubbing or cyanosis. NEUROLOGICAL: Cranial nerves II through XII grossly intact. Normal speech, normal gait. PSYCH: Normal mood, normal affect. SKIN: Warm, Dry, normal turgor, no rashes or lesions noted. (Dagmar Campos) Course Vital Signs 11/09/18 11/09/18 11/09/18 10:56 14:27 15:06 Temperature 98.2 F Pulse Rate 65 66 66 Respiratory 18 17 17 Rate Blood Pressure 114/73 119/83 119/83 O2 Sat by Pulse 100 100 100 Oximetry Medical Decision Making - Lab Data Result diagrams: 11/09/18 11:20 11/09/18 11:20 <Dagmar Campos - Last Filed: 11/09/18 14:54> - Lab Data Result diagrams: 11/10/18 06:16 11/10/18 11:27 <Frances Zeng - Last Filed: 11/12/18 22:51> - Medical Decision Making Patient is a 28-year-old male presenting with lower abdominal pain times one day. Patient has history of Crohn's and intra-abdominal abscess. Patient currently sees Dr. Morgan for GI. Patient is currently taking steroids. No anti biotic at this time. Patient has been having diarrhea intermittently for weeks now. Patient denies any fever, chills, chest pain, shortness of breath, vomiting. Intermittent nausea. Upon arrival to ER, vital signs stable. On exam patient has tenderness of suprapubic area and right lower quadrant. Patient is mildly distended. CBC shows white count 17.4, neutrophils 15.1, coags are normal. CMP and UA are normal. Lactic acid is 1.3. Patient is refusing a computed tomography scan at this time. He states he does not want the additional radiation. Patient did agree to a KUB which shows no acute abnormalities. Patient is not comfortable going home stating he thinks the pain will return. Case was discussed with Dr. Zeng. Patient will be admitted for antibiotics, fluids, and pain control. Was accepted by Dr. Longo. she does agree with this plan. (Dagmar Campos) I was available for consultation in the emergency department. The history and physical exam were done by the midlevel provider. I was consulted for this patients care. I reviewed the case with the midlevel provider and based on their presentation of the patient, I agree with the assessment, medical decision making and plan of care as documented. I agreed to hospital admission. I called and discussed the case with Dr. Longo who accepted admission. Chart was dictated using Outline dictation software. Attempts were made to correct any dictation errors however some typographical errors may persist. (Frances Zeng) - Lab Data Lab Results 11/09/18 11/09/18 11/09/18 Range/Units 11:20 11:20 11:20 WBC 17.4 H (3.8-10.6) k/uL RBC 6.58 H (4.30-5.90) m/uL Hgb 14.7 (13.0-17.5) gm/dL Hct 47.0 (39.0-53.0) % MCV 71.4 L (80.0-100.0) fL MCH 22.4 L (25.0-35.0) pg MCHC 31.3 (31.0-37.0) g/dL RDW 15.6 H (11.5-15.5) % Plt Count 233 (150-450) k/uL Neutrophils % 87 % Lymphocytes % 6 % Monocytes % 4 % Eosinophils % 1 % Basophils % 0 % Neutrophils # 15.1 H (1.3-7.7) k/uL Lymphocytes # 1.1 (1.0-4.8) k/uL Monocytes # 0.7 (0-1.0) k/uL Eosinophils # 0.2 (0-0.7) k/uL Basophils # 0.1 (0-0.2) k/uL Hypochromasia Slight Microcytosis Moderate PT (9.0-12.0) sec INR (<1.2) APTT (22.0-30.0) sec Sodium 137 (137-145) mmol/L Potassium 4.7 (3.5-5.1) mmol/L Chloride 103 (98-107) mmol/L Carbon Dioxide 25 (22-30) mmol/L Anion Gap 9 mmol/L BUN 13 (9-20) mg/dL Creatinine 0.95 (0.66-1.25) mg/dL Est GFR (CKD-EPI)AfAm >90 (>60 ml/min/1.73 sqM) Est GFR (CKD-EPI)NonAf >90 (>60 ml/min/1.73 sqM) Glucose 91 (74-99) mg/dL Plasma Lactic Acid Nic 1.3 (0.7-2.0) mmol/L Calcium 9.4 (8.4-10.2) mg/dL Total Bilirubin 0.8 (0.2-1.3) mg/dL AST 29 (17-59) U/L ALT 43 (21-72) U/L Alkaline Phosphatase 52 (38-126) U/L C-Reactive Protein (<10.0) mg/L Total Protein 7.4 (6.3-8.2) g/dL Albumin 3.9 (3.5-5.0) g/dL Amylase 83 (30-110) U/L Lipase 39 (23-300) U/L Urine Color Urine Appearance (Clear) Urine pH (5.0-8.0) Ur Specific [place] (1.001-1.035) Urine Protein (Negative) Urine Glucose (UA) (Negative) Urine Ketones (Negative) Urine Blood (Negative) Urine Nitrite (Negative) Urine Bilirubin (Negative) Urine Urobilinogen (<2.0) mg/dL Ur Leukocyte Esterase (Negative) 11/09/18 11/09/18 11/09/18 Range/Units 11:20 11:20 11:20 WBC (3.8-10.6) k/uL RBC (4.30-5.90) m/uL Hgb (13.0-17.5) gm/dL Hct (39.0-53.0) % MCV (80.0-100.0) fL MCH (25.0-35.0) pg MCHC (31.0-37.0) g/dL RDW (11.5-15.5) % Plt Count (150-450) k/uL Neutrophils % % Lymphocytes % % Monocytes % % Eosinophils % % Basophils % % Neutrophils # (1.3-7.7) k/uL Lymphocytes # (1.0-4.8) k/uL Monocytes # (0-1.0) k/uL Eosinophils # (0-0.7) k/uL Basophils # (0-0.2) k/uL Hypochromasia Microcytosis PT 10.2 (9.0-12.0) sec INR 0.9 (<1.2) APTT 28.4 (22.0-30.0) sec Sodium (137-145) mmol/L Potassium (3.5-5.1) mmol/L Chloride (98-107) mmol/L Carbon Dioxide (22-30) mmol/L Anion Gap mmol/L BUN (9-20) mg/dL Creatinine (0.66-1.25) mg/dL Est GFR (CKD-EPI)AfAm (>60 ml/min/1.73 sqM) Est GFR (CKD-EPI)NonAf (>60 ml/min/1.73 sqM) Glucose (74-99) mg/dL Plasma Lactic Acid Nic (0.7-2.0) mmol/L Calcium (8.4-10.2) mg/dL Total Bilirubin (0.2-1.3) mg/dL AST (17-59) U/L ALT (21-72) U/L Alkaline Phosphatase (38-126) U/L C-Reactive Protein 13.7 H (<10.0) mg/L Total Protein (6.3-8.2) g/dL Albumin (3.5-5.0) g/dL Amylase (30-110) U/L Lipase (23-300) U/L Urine Color Yellow Urine Appearance Clear (Clear) Urine pH 8.0 (5.0-8.0) Ur Specific [place] 1.014 (1.001-1.035) Urine Protein Negative (Negative) Urine Glucose (UA) Negative (Negative) Urine Ketones Negative (Negative) Urine Blood Negative (Negative) Urine Nitrite Negative (Negative) Urine Bilirubin Negative (Negative) Urine Urobilinogen <2.0 (<2.0) mg/dL Ur Leukocyte Esterase Negative (Negative) Disposition Is patient prescribed a controlled substance at d/c from ED?: No Decision Date: 11/09/18 Decision Time: 14:51 <Dagmar Campos - Last Filed: 11/09/18 14:54> <Frances Zeng - Last Filed: 11/12/18 22:51> Clinical Impression: Exacerbation of Crohn's disease, Leukocytosis, Abdominal pain Disposition: ADMITTED IP TO THIS [facility] Condition: Stable
[2018-11-09 11:55] LABS: INR 0.9 (<1.2); Partial Thromboplastin Time 28.4 sec (22.0-30.0); Prothrombin Time 10.2 sec (9.0-12.0)
[2018-11-09 11:56] LABS: Basophils # (A) 0.1 k/uL (0-0.2); Basophils % (A) 0 %; Eosinophils # (A) 0.2 k/uL (0-0.7); Eosinophils % (A) 1 %; HGB 14.7 gm/dL (13.0-17.5); Hypochromasia Slight; Lymphocytes # (A) 1.1 k/uL (1.0-4.8); Lymphocytes % (A) 6 %; MCH 22.4 pg (25.0-35.0); MCHC 31.3 g/dL (31.0-37.0); MCV 71.4 fL (80.0-100.0); Microcytosis Moderate; Monocytes # (A) 0.7 k/uL (0-1.0); Monocytes % (A) 4 %; Neutrophils # (A) 15.1 k/uL (1.3-7.7); Neutrophils % (A) 87 %; Platelet Count 233 k/uL (150-450); RBC 6.58 m/uL (4.30-5.90); RDW 15.6 % (11.5-15.5); WBC 17.4 k/uL (3.8-10.6)
[2018-11-09 12:02] LABS: ALT 43 U/L (21-72); AST 29 U/L (17-59); African American GFR (CKD) >90 (>60 ml/min/1.73 sqM); Albumin 3.9 g/dL (3.5-5.0); Alkaline Phosphatase 52 U/L (38-126); Amylase 83 U/L (30-110); Anion Gap 9 mmol/L; Blood Urea Nitrogen 13 mg/dL (9-20); Calcium 9.4 mg/dL (8.4-10.2); Carbon Dioxide 25 mmol/L (22-30); Chloride 103 mmol/L (98-107); Glucose 91 mg/dL (74-99); Potassium 4.7 mmol/L (3.5-5.1); Sodium 137 mmol/L (137-145); Total Bilirubin 0.8 mg/dL (0.2-1.3); Total Protein 7.4 g/dL (6.3-8.2)
--- NOTE | 2018-11-09 13:08 | XR ---
EXAMINATION TYPE: XR KUB , 2 VIEWS DATE OF EXAM ORDERED: 11/09/2018 HISTORY: pain, hx Crohn's. COMPARISON: Previous study dated 06/03/2018. FINDINGS: The lung bases are clear. Within the abdomen, the abdominal gas pattern is normal. There is no evidence of obstruction or free air. No unusual calcifications are seen. IMPRESSION: NO ACUTE INTRA-ABDOMINAL ABNORMALITY.
[2018-11-09] MEDS ORDERED: ACETAMINOPHEN TAB 325 MG TAB PO PRN (14:47)
[2018-11-09] MEDS ORDERED: ONDANSETRON 4 MG/2 ML VIAL IVP PRN (14:47)
[2018-11-09] MEDS ORDERED: NALOXONE 0.4 MG/ML 1 ML VIAL IV PRN (14:47)
[2018-11-09] MEDS ORDERED: traMADol 50 MG TAB PO PRN (14:47)
[2018-11-09] MEDS ORDERED: metroNIDAZOLE-NS PMX 500 MG in SALINE 1 100ML.BAG IVPB STA (14:52)
[2018-11-09] MEDS ORDERED: LEVOFLOXACIN 750MG-D5W PMX 750 MG in DEXTROSE/WATER 1 150ML.BAG IVPB STA (14:54)
[2018-11-09] MEDS: SODIUM CHLORIDE 0.9% 1,000 ML IV SCH (14:59)
[2018-11-09] MEDS: MORPHINE SULFATE 4 MG/ML SYRINGE IV PRN ×3 (16:17→23:06)
--- NOTE | 2018-11-09 18:09 | P.HPIM ---
History of Present Illness H&P Date: 11/09/18 Chief Complaint: Abdominal pain 28-year-old male with PMH of Crohn's disease presents the ED for abdominal pain. Patient reports abdominal pain that started after eating a bowl of chili last night. His pain is characterized as sharp and stabbing and crampy in nature. Pain is 5 out of 10 in severity. Pain is located in the bilateral lower quadrants. Pain does not have any radiating features. There are no alleviating or aggravating factors. Patient denies any headache, lower extremity edema, fever or chills, cough, chest pain, shortness of breath, palpitations, changes in urination or bowel habits. No changes in appetite or weight. He does report some nausea but denies any vomiting. Patient was admitted and discharged on 10/09/2018 for Crohn's flare. Earlier that week on 10/06/2018, he underwent computed tomography scan which showed fibrous stenosing Crohn's disease in the right lower quadrant involving the distal ileum with probably a component of acute terminal ileitis, stool-filled collection intimate with the terminal ileum most suggestive of developing sinus tract or fistula. He did have a CT of the abdomen and pelvis in August 2018 that showed a possible abscess. Interventional radiology was consulted at that time and stated that patient likely did not have an intra-abdominal abscess. He was discharged to complete a seven-day course of Flagyl and levofloxacin at that time. In the ED, vital signs are stable. CBC showed leukocytosis of 17.4. CBC showed microcytosis with MCV 71.4. Coagulation panel was negative. CMP was negative. CRP was elevated at 13.7. Urinalysis was negative. Patient is admitted for Crohn's flare and for gastroenterology evaluation. Review of Systems Pertinent positives and negatives as discussed in HPI, a complete review of systems was performed and all other systems are negative. Past Medical History Past Medical History: No Reported History Additional Past Medical History / Comment(s): Crohns, abscess on intestine diagnosed 08/2018 History of Any Multi-Drug Resistant Organisms: None Reported Past Surgical History: No Surgical Hx Reported Additional Past Surgical History / Comment(s): EGD, colonoscopy Past Anesthesia/Blood Transfusion Reactions: No Reported Reaction Past Psychological History: Anxiety, Depression Additional Psychological History / Comment(s): Lives with his significant other. Has moved from [place] where he was receiving his prior Crohn's disease care Smoking Status: Former smoker Past Alcohol Use History: None Reported Additional Past Alcohol Use History / Comment(s): Pt started smoking in 2008 and quit in 2019, pt denies any smoking currently. Past Drug Use History: Marijuana Additional Drug Use History / Comment(s): Pt smokes 2 joints a day. - Past Family History Father Family Medical History: No Reported History Additional Family Medical History / Comment(s): Father is healthy Mother Family Medical History: No Reported History Additional Family Medical History / Comment(s): Mother is healthy. Medications and Allergies Home Medications Medication Instructions Recorded Confirmed Type predniSONE 10 mg PO HS 11/09/18 11/09/18 History Allergies Allergy/AdvReac Type Severity Reaction Status Date / Time cyclobenzaprine AdvReac Unknown Verified 11/09/18 14:02 [From Flexeril] Physical Exam Vitals: Vital Signs Temp Pulse Pulse Resp BP BP Pulse Ox 11/09/18 16:00 16 11/09/18 15:53 98.1 F 57 L 16 118/77 96 11/09/18 15:35 67 16 119/83 98 11/09/18 15:06 66 17 119/83 100 11/09/18 14:27 66 17 119/83 100 11/09/18 10:56 98.2 F 65 18 114/73 100 Intake and Output 11/09/18 11/09/18 11/09/18 06:59 14:59 22:59 Other: Voiding Method Toilet Weight 92.986 kg General: [non toxic], [no distress], [appears at stated age] Derm: [warm], [dry] Head: [atraumatic], [normocephalic], [symmetric] Eyes: [EOMI], [no lid lag], [anicteric sclera] Mouth: [no lip lesion], [mucus membranes moist] Cardiovascular: [S1S2 reg], [no murmur], [positive posterior tibial pulse bilateral], Lungs: [CTA bilateral], [no rhonchi, no rales] , [no accessory muscle use] Abdominal: [soft], [ nontender to palpation], [no guarding], [no appreciable organomegaly] Ext: [no gross muscle atrophy], [no edema], [no contractures] Neuro: [ CN II-XI grossly intact], [no focal neuro deficits] Psych: [Alert], [oriented], [appropriate affect] Results CBC & Chem 7: 11/09/18 11:20 11/09/18 11:20 Labs: Abnormal Lab Results - Last 24 Hours (Table) 11/09/18 11/09/18 Range/Units 11:20 11:20 WBC 17.4 H (3.8-10.6) k/uL RBC 6.58 H (4.30-5.90) m/uL MCV 71.4 L (80.0-100.0) fL MCH 22.4 L (25.0-35.0) pg RDW 15.6 H (11.5-15.5) % Neutrophils # 15.1 H (1.3-7.7) k/uL C-Reactive Protein 13.7 H (<10.0) mg/L Thrombosis Risk Factor Assmnt - Choose All That Apply Any of the Below Risk Factors Present?: Yes Each Factor Represents 1 point: Obesity (BMI >25) Other congenital or acquired thrombophilia - If yes, enter type in comment: No Thrombosis Risk Factor Assessment Total Risk Factor Score: 1 Thrombosis Risk Factor Assessment Level: Low Risk Assessment and Plan Assessment: Assessment and Plan Abdominal pain likely Crohn's flare Leukocytosis likely due to chronic steroid use Microcytosis without anemia KUB unremarkable. Patient refusing CT at this time. Plans: Start levofloxacin and Flagyl IV. Pain control with morphine as needed. Zofran as needed for nausea or vomiting. Continue normal saline at 60 mL per hour. Clear liquid diet and advance. Start Solu-Medrol 20 mg IV 3 times a day. Will follow GI recommendations. Leukocytosis of 17.4. Likely related to chronic steroid use. Patient afebrile. Plans: Continue to monitor. Repeat CBC in the morning. Microcytosis with MCV 71.4. Possible thalassemia? Plans: Continue to monitor. Repeat CBC in the morning. DVT prophylaxis: [SCD] Discussed with: [Patient] Anticipated discharge: [1-2 days] Anticipated discharge place: [Home] A total of [30] minutes was spent on the care of this complex patient more than 50% of the time was spent in counseling and care coordination. Patient names his mercedescindy Patrice decision-maker indicates that he can't make decisions for himself. Patient reiterates wanting to remain full code at this time.
[2018-11-09] MEDS: methylPREDNISolone SOD SUCCI 40 MG/ML 1 ML VIAL IV SCH (20:22)
[2018-11-09] MEDS: metroNIDAZOLE-NS PMX 500 MG in SALINE 1 100ML.BAG IVPB SCH (22:59)
[2018-11-09 23:09] VITALS: RESP 18
[2018-11-10] MEDS: SODIUM CHLORIDE 0.9% 1,000 ML IV SCH (05:43)
[2018-11-10] MEDS: MORPHINE SULFATE 4 MG/ML SYRINGE IV PRN ×2 (05:44→11:07)
[2018-11-10 06:59] LABS: ALT 34 U/L (21-72); AST 23 U/L (17-59); African American GFR (CKD) >90 (>60 ml/min/1.73 sqM); Albumin 3.8 g/dL (3.5-5.0); Alkaline Phosphatase 61 U/L (38-126); Anion Gap 6 mmol/L; Blood Urea Nitrogen 13 mg/dL (9-20); Calcium 9.7 mg/dL (8.4-10.2); Carbon Dioxide 28 mmol/L (22-30); Chloride 103 mmol/L (98-107); Glucose 112 mg/dL (74-99); Potassium 5.2 mmol/L (3.5-5.1); Sodium 137 mmol/L (137-145); Total Bilirubin 0.9 mg/dL (0.2-1.3); Total Protein 7.1 g/dL (6.3-8.2)
[2018-11-10 07:00] LABS: Basophils % (A) 0 %; Eosinophils % (A) 0 %; HCT 46.5 % (39.0-53.0); HGB 14.4 gm/dL (13.0-17.5); Hypochromasia Slight; Lymphocytes # (A) 0.9 k/uL (1.0-4.8); Lymphocytes % (A) 7 %; MCH 22.3 pg (25.0-35.0); Mean Platelet Volume 5.7; Microcytosis Moderate; Monocytes # (A) 0.4 k/uL (0-1.0); Monocytes % (A) 3 %; Neutrophils # (A) 10.6 k/uL (1.3-7.7); Neutrophils % (A) 89 %; Platelet Count 235 k/uL (150-450); RBC 6.45 m/uL (4.30-5.90); RDW 15.4 % (11.5-15.5); WBC 11.9 k/uL (3.8-10.6)
[2018-11-10] MEDS: methylPREDNISolone SOD SUCCI 40 MG/ML 1 ML VIAL IV SCH (07:23)
[2018-11-10] MEDS: metroNIDAZOLE-NS PMX 500 MG in SALINE 1 100ML.BAG IVPB SCH (07:23)
[2018-11-10 08:13] VITALS: BP 117/66; PULSE 59; TEMP 97.9
--- NOTE | 2018-11-10 11:20 | P.DS ---
Providers Date of admission: 11/09/18 14:48 Expected date of discharge: 11/10/18 Attending physician: Satnam Perdomo MD Consults: 11/09/18 18:04 Consult Physician Stat Consulting Provider: Griselda Morgan Consult Reason/Comments: Crohns flare Do you want consulting provider notified?: Yes Primary care physician: Physician Nonsta Hospital Course: 28-year-old male with PMH of Crohn's disease presents the ED for abdominal pain. Patient reports abdominal pain that started after eating a bowl of chili last night. His pain is characterized as sharp and stabbing and crampy in nature. Pain is 5 out of 10 in severity. Pain is located in the bilateral lower quadrants. Pain does not have any radiating features. There are no alleviating or aggravating factors. Patient denies any headache, lower extremity edema, fever or chills, cough, chest pain, shortness of breath, palpitations, changes in urination or bowel habits. No changes in appetite or weight. He does report some nausea but denies any vomiting. Patient was admitted and discharged on 10/09/2018 for Crohn's flare. Earlier that week on 10/06/2018, he underwent computed tomography scan which showed fi brous stenosing Crohn's disease in the right lower quadrant involving the distal ileum with probably a component of acute terminal ileitis, stool-filled collection intimate with the terminal ileum most suggestive of developing sinus tract or fistula. He did have a CT of the abdomen and pelvis in August 2018 that showed a possible abscess. Interventional radiology was consulted at that time and stated that patient likely did not have an intra-abdominal abscess. He was discharged to complete a seven-day course of Flagyl and levofloxacin at that time. In the ED, vital signs are stable. CBC showed leukocytosis of 17.4. CBC showed microcytosis with MCV 71.4. Coagulation panel was negative. CMP was negative. CRP was elevated at 13.7. Urinalysis was negative. Patient is admitted for Crohn's flare and for gastroenterology evaluation. Patient had refused computed tomography scan due to multiple CTs done in the past and his thought that this was just a simple Crohn's flare. He was ini tially started on levofloxacin and Flagyl IV. His pain was controlled with morphine as needed. He was given Zofran as needed for nausea or vomiting. Patient was also started on Solu-Medrol 20 mg IV 3 times a day for Crohn's flare and GI was consulted. Patient was noted to have a leukocytosis of 17.4 which trended down to 11.9 on discharge. Patient was also afebrile throughout his hospitalization. He had a CRP that was slightly elevated at 13.7. Patient was seen and examined. No acute events overnight. Patient reports well-controlled all pain. No nausea or vomiting. No fever or chills. Patient denies any chest pain, shortness of breath or palpitations. General: [non toxic], [no distress], [appears at stated age] Derm: [warm], [dry] Head: [atraumatic], [normocephalic], [symmetric] Eyes: [EOMI], [no lid lag], [anicteric sclera] Mouth: [no lip lesion], [mucus membranes moist] Cardiovascular: [S1S2 reg], [no murmur], [positive DP pulse bilateral], Lungs: [CTA bilateral], [no rhonchi, no rales] , [no accessory muscle use] Abdominal: [soft], [ nontender to palpation], [no guarding], [no appreciable organomegaly] Ext: [no gross muscle atrophy], [no edema], [no contractures] Neuro: [no focal neuro deficits] Psych: [Alert], [oriented], [appropriate affect] Assessment and Plan Hyperkalemia Abdominal pain likely Crohn's flare Leukocytosis likely due to chronic steroid use Microcytosis without anemia Potassium 5.3. Unknown significance. Plans: Repeat. KUB unremarkable. Patient refusing CT at this time. Plans: Leukocytosis trending down, patient afebrile, refusing CT, low likelihood for infection, will discontinue IV antibiotics. Pain control with morphine as needed. Zofran as needed for nausea or vomiting. Continue normal saline at 60 mL per hour. Clear liquid diet and advance. Discontinue Solu-Medrol and start prednisone taper. Will follow GI recommendations. Leukocytosis of 17.4 11.9-. Likely related to chronic steroid use. Patient afebrile. Plans: Continue to monitor. Repeat CBC in the morning. Microcytosis with MCV 71.4. 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 Plans: Follow-up with PCP. [Patient admitted for Crohn's flare. Low likelihood for infection. Has appointment with Dr. Louis on 11/14/2018. Will DC home with prednisone taper to follow-up with GI in clinic.] Pertinent Studies: RODNEY Patient Condition at Discharge: Stable Plan - Discharge Summary Discharge Rx Participant: No New Discharge Prescriptions: New predniSONE See Taper PO DIRECTED #30 tab traMADol HCl [Ultram] 50 mg PO Q4HR PRN #18 tab PRN Reason: Moderate Pain Continue predniSONE 10 mg PO HS Discharge Medication List predniSONE 10 mg PO HS 11/09/18 [History] predniSONE See Taper PO DIRECTED #30 tab 11/10/18 [Rx] traMADol HCl [Ultram] 50 mg PO Q4HR PRN #18 tab 11/10/18 [Rx] Follow up Appointment(s)/Referral(s): Nonstaff,Physician [Primary Care Provider] - 1-2 days Griselda Morgan MD [STAFF PHYSICIAN] - 1 Week Activity/Diet/Wound Care/Special Instructions: Diet: Crohn's Follow-up PCP within 3 days of discharge. Follow-up with GI on 11/14/2018. Take all medications as advised. Discharge Disposition: HOME SELF-CARE
--- NOTE | 2018-11-10 15:30 | P.CONS ---
History of Present Illness - Reason for Consult Consult date: 11/10/18 Abdominal pain, Crohn's disease Requesting physician: Satnam Perdomo - Chief Complaint Abdominal pain - History of Present Illness 28-year-old male with a past medical history significant for Crohn's disease who presented to the hospital with complaints of abdominal pain. The patient has had multiple hospitalizations over the past few months, last seen at the [facility] of October when computed tomography scan of the abdomen showed fibrosis stenosing Crohn's disease involving the distal ileum with a suspected component of acute terminal ileitis as well as stool proximal to the ileum suggestive of possible sinus tract or fistula. The patient was diagnosed with Crohn's disease approximately one year ago and initially started on treatment with biologic therapy which was stopped before the patient's established care and Adams on, he currently has been started back on treatment with inflectra and received 3 doses. Previously noted abscess on computed tomography scan appears to be improving at the beginning of October on imaging studies. He has been seen by the surgical service and establish care with them. In addition he is followed up with the gastroenterology service for continued management. On presentation to the emergency department on current hospitalization he complained of constant sharp and cramping pain in the right lower quadrant of his abdomen which she associated with eating earlier in the day. He denied any nausea vomiting at that time. Laboratory patient on presentation was significant for a leukocytosis of 17.4 which subsequently trended to 11.9, hemoglobin 14, platelet count 235,000, CRP 13.7, amylase 83, lipase 39. The patient is seen this morning reporting that pain is improved and that he has tolerated his diet. Review of Systems REVIEW OF SYSTEMS: CONSTITUTIONAL: Denies any fevers, chills, weight change or fatigue. CARDIOVASCULAR: Denies any chest pain, palpitations high or low blood pressures RESPIRATORY: Denies any shortness of breath, hemoptysis or cough. GENITOURINARY: No dysuria or hematuria. MUSCULOSKELETAL: No weakness reported. SKIN: Denies any new rashes or lesions, jaundice or pallor. PSYCHIATRIC: Denies any depression or anxiety. NEUROLOGY: Denies headache, denies any new focal deficits. EARS/NOSE/THROAT: No recent hearing change, congestion, nasal discharge or sore throat. EYES: No pain in eyes, discharge or change in vision. GASTROINTESTINAL: As per HPI. Past Medical History Past Medical History: No Reported History Additional Past Medical History / Comment(s): Crohns, abscess on intestine diagnosed 08/2018 History of Any Multi-Drug Resistant Organisms: None Reported Past Surgical History: No Surgical Hx Reported Additional Past Surgical History / Comment(s): EGD, colonoscopy Past Anesthesia/Blood Transfusion Reactions: No Reported Reaction Past Psychological History: Anxiety, Depression Additional Psychological History / Comment(s): Lives with his significant other. Has moved from [place] where he was receiving his prior Crohn's disease care Smoking Status: Former smoker Past Alcohol Use History: None Reported Additional Past Alcohol Use History / Comment(s): Pt started smoking in 2008 and quit in 2018, pt denies any smoking currently. Past Drug Use History: Marijuana Additional Drug Use History / Comment(s): Pt smokes 2 joints a day. - Past Family History Father Family Medical History: No Reported History Additional Family Medical History / Comment(s): Father is healthy Mother Family Medical History: No Reported History Additional Family Medical History / Comment(s): Mother is healthy. Medications and Allergies Home Medications Medication Instructions Recorded Confirmed Type predniSONE 10 mg PO HS 11/09/18 11/09/18 History predniSONE See Taper PO DIRECTED #30 tab 11/10/18 Rx traMADol HCl [Ultram] 50 mg PO Q4HR PRN #18 tab 11/10/18 Rx Allergies Allergy/AdvReac Type Severity Reaction Status Date / Time cyclobenzaprine AdvReac Unknown Verified 11/09/18 14:02 [From Flexeril] Physical Exam Vitals: Vital Signs Temp Pulse Pulse Resp BP BP Pulse Ox 11/10/18 08:00 97.9 F 59 L 18 117/66 99 11/09/18 23:08 98.2 F 61 18 118/77 97 11/09/18 16:00 16 11/09/18 15:53 98.1 F 57 L 16 118/77 96 11/09/18 15:35 67 16 119/83 98 11/09/18 15:06 66 17 119/83 100 11/09/18 14:27 66 17 119/83 100 11/09/18 10:56 98.2 F 65 18 114/73 100 Intake and Output 11/09/18 11/10/18 11/10/18 22:59 06:59 14:59 Other: Voiding Method Toilet Toilet Toilet # Voids 2 On physical examination, patient appears comfortable in no apparent distress. HEAD: Normocephalic, atraumatic. EYES: No scleral icterus. No conjunctival injection. MOUTH: No lesions, tongue midline. NECK: Trachea midline, no gross abnormalities. CHEST: Clear to auscultation with no wheezing or rhonchi appreciated. HEART: Regular rate and rhythm. ABDOMEN: Soft, obese. Bowel sounds are positive. No organomegaly. No guarding or rigidity. EXTREMITIES: No pedal edema. SKIN: No rashes, no jaundice. NEUROLOGIC: Alert and oriented x3. No focal deficits. Results CBC & Chem 7: 11/10/18 06:16 11/10/18 11:27 Labs: Abnormal Lab Results - Last 24 Hours (Table) 11/09/18 11/09/18 11/10/18 Range/Units 11:20 11:20 06:16 WBC 17.4 H 11.9 H (3.8-10.6) k/uL RBC 6.58 H 6.45 H (4.30-5.90) m/uL MCV 71.4 L 72.0 L (80.0-100.0) fL MCH 22.4 L 22.3 L (25.0-35.0) pg RDW 15.6 H (11.5-15.5) % Neutrophils # 15.1 H 10.6 H (1.3-7.7) k/uL Lymphocytes # 0.9 L (1.0-4.8) k/uL Potassium (3.5-5.1) mmol/L Glucose (74-99) mg/dL C-Reactive Protein 13.7 H (<10.0) mg/L 11/10/18 Range/Units 06:16 WBC (3.8-10.6) k/uL RBC (4.30-5.90) m/uL MCV (80.0-100.0) fL MCH (25.0-35.0) pg RDW (11.5-15.5) % Neutrophils # (1.3-7.7) k/uL Lymphocytes # (1.0-4.8) k/uL Potassium 5.2 H (3.5-5.1) mmol/L Glucose 112 H (74-99) mg/dL C-Reactive Protein (<10.0) mg/L Assessment and Plan (1) Exacerbation of Crohn's disease Narrative/Plan: 28-year-old male with a one-year history of Crohn's ileitis requiring courses of steroid therapy, for which she has been started on treatment with biologic therapy for which she is currently received 3 doses. The patient's has a known history of fibrosing ileitis with no prior surgeries in the past, but concern for abscess based on previous imaging which has been improving on subsequent CT scans. She presented on this occasion with abdominal pain which she associated with eating. No change in bowel habits or blood per rectum. Currently he is reporting improved symptoms. Status: Acute Code(s): K50.90 - CROHN'S DISEASE, UNSPECIFIED, WITHOUT COMPLICATIONS SNOMED Code(s): 10296585 Plan: Supportive care Okay for low residual diet Continue biologic therapy Follow-up with gastroenterology clinic as previously scheduled on November 14 Steroid taper provided Thank you for allowing us to participate in the care of the patient we will continue to follow
[2018-11-10] MEDS ORDERED: LEVOFLOXACIN 750MG-D5W PMX 750 MG in DEXTROSE/WATER 1 150ML.BAG IVPB SCH (18:00)
== END 2018-11-10 12:19 | disposition home or self-care (01) ==
LOC: EC 10:54 → 1SOBS 14:48
PROVIDERS: ADMIT Family Medicine; ATTEND Family Medicine
DX: K50.00 Crohn's disease of small intestine without complications (principal); E87.5 Hyperkalemia; R71.8 Other abnormality of red blood cells; F41.9 Anxiety disorder, unspecified; F32.9 Major depressive disorder, single episode, unspecified; Z79.52 Long term (current) use of systemic steroids; Z88.8 Allergy status to other drugs, medicaments and biological substances; Z87.19 Personal history of other diseases of the digestive system; Z87.891 Personal history of nicotine dependence; E66.9 Obesity, unspecified; Z68.28 Body mass index [BMI] 28.0-28.9, adult; R10.32 Left lower quadrant pain; R10.31 Right lower quadrant pain; D72.829 Elevated white blood cell count, unspecified
CPT/HCPCS: 96365; 96366 ×2; 96367; 96375 ×2; 96376 ×2; 96361; 99285; 36415; 80053 ×2; 82150; 83605; 83690; 84132; 85025 ×2; 85610; 85730; 86140; 81003; 87040; 74018; G0378 ×2; J2270 ×2; J2920 ×2; J2405; J1956

== ENCOUNTER → 2018-12-04 | Outpatient (CLI) | payer OTHER ==
[2018-12-04 14:20] LABS: Basophils # (A) 0.1 k/uL (0-0.2); Basophils % (A) 1 %; Eosinophils # (A) 0.1 k/uL (0-0.7); Eosinophils % (A) 1 %; HCT 45.1 % (39.0-53.0); Lymphocytes % (A) 8 %; MCH 21.9 pg (25.0-35.0); MCV 70.7 fL (80.0-100.0); Microcytosis Moderate; Monocytes # (A) 0.7 k/uL (0-1.0); Monocytes % (A) 5 %; Neutrophils # (A) 10.5 k/uL (1.3-7.7); Neutrophils % (A) 84 %; Platelet Count 252 k/uL (150-450); RBC 6.38 m/uL (4.30-5.90); RDW 15.5 % (11.5-15.5); WBC 12.4 k/uL (3.8-10.6)
[2018-12-04 21:12] LABS: Erythrocyte Sedimentation Rate 6 mm/hr (0-15)
== END | disposition home or self-care (01) ==
LOC: LABWHC1 13:45
PROVIDERS: ATTEND Nurse Practitioner
DX: K50.80 Crohn's disease of both small and large intestine without complications (principal)
CPT/HCPCS: 36415; 85025; 85652; 86140

== ENCOUNTER 2018-12-08 02:53 | Inpatient (IN) | payer OTHER ==
[2018-12-08] MEDS ORDERED: MORPHINE SULFATE 4 MG/ML SYRINGE IV STA ×2 (03:09→04:26)
[2018-12-08] MEDS ORDERED: SODIUM CHLORIDE 0.9% 1,000 ML IV STA (03:09)
[2018-12-08] MEDS ORDERED: ONDANSETRON 4 MG/2 ML VIAL IVP STA (03:09)
[2018-12-08 03:32] LABS: Basophils # (A) 0.1 k/uL (0-0.2); Basophils % (A) 1 %; Eosinophils # (A) 0.1 k/uL (0-0.7); Eosinophils % (A) 1 %; HCT 43.5 % (39.0-53.0); HGB 13.9 gm/dL (13.0-17.5); Hypochromasia Slight; Lymphocytes # (A) 2.5 k/uL (1.0-4.8); Lymphocytes % (A) 17 %; MCH 22.6 pg (25.0-35.0); MCHC 31.9 g/dL (31.0-37.0); MCV 70.8 fL (80.0-100.0); Mean Platelet Volume 5.9; Microcytosis Moderate; Monocytes # (A) 0.7 k/uL (0-1.0); Monocytes % (A) 5 %; Neutrophils % (A) 75 %; Platelet Count 259 k/uL (150-450); RBC 6.15 m/uL (4.30-5.90); WBC 14.7 k/uL (3.8-10.6)
--- NOTE | 2018-12-08 03:32 | XR ---
EXAMINATION TYPE: XR KUB DATE OF EXAM: 12/08/2018 COMPARISON: 11/09/2018 HISTORY: Abdominal pain TECHNIQUE: 2 views upright were obtained FINDINGS: There is no sign of intestinal obstruction or pneumoperitoneum. Fecal pattern is normal. Th ere is no sign of a mass. There are no pathologic calcifications over the kidneys. Lung bases are demarcus ar. Bony structures appear intact. IMPRESSION: Nonacute abdomen. No change.
[2018-12-08 03:37] LABS: ALT 23 U/L (21-72); AST 17 U/L (17-59); African American GFR (CKD) >90 (>60 ml/min/1.73 sqM); Albumin 3.6 g/dL (3.5-5.0); Alkaline Phosphatase 58 U/L (38-126); Amylase 198 U/L (30-110); Anion Gap 7 mmol/L; Blood Urea Nitrogen 15 mg/dL (9-20); Calcium 9.3 mg/dL (8.4-10.2); Carbon Dioxide 26 mmol/L (22-30); Chloride 103 mmol/L (98-107); Glucose 130 mg/dL (74-99); Potassium 3.7 mmol/L (3.5-5.1); Sodium 136 mmol/L (137-145); Total Bilirubin 0.4 mg/dL (0.2-1.3); Total Protein 6.9 g/dL (6.3-8.2)
--- NOTE | 2018-12-08 07:02 | ED ---
Abdominal Pain HPI - General Source: patient Mode of arrival: ambulatory Limitations: no limitations - History of Present Illness MD Complaint: abdominal pain -: days(s) Location: diffuse Severity: moderate Quality: cramping Consistency: constant Improves With: nothing Worsens With: nothing Associated Symptoms: nausea <Jesús Calloway - Last Filed: 12/08/18 06:58> <Eron Cardenas - Last Filed: 12/08/18 07:41> - General Chief Complaint: Abdominal Pain Stated Complaint: Crohn's Flare up Time Seen by Provider: 12/08/18 03:27 - History of Present Illness Initial Comments: Patient is 28-year-old man with history of Crohn's disease. He states that over the past day he has had increasing lower abdominal pain. He states it is cramping, somewhat intermittent. He states that he decreased his steroid taper faster than what had been recommended and thought that this may be contributing to his symptoms. Patient denies fever or chills. No vomiting. No blood or mucus in the stools. No change in urination. No testicular pain or scrotal swelling. (Jesús Calloway) - Related Data Home Medications Medication Instructions Recorded Confirmed predniSONE 10 mg PO HS 11/09/18 11/09/18 Previous Rx's Medication Instructions Recorded predniSONE See Taper PO DIRECTED #30 tab 11/10/18 traMADol HCl [Ultram] 50 mg PO Q4HR PRN #18 tab 11/10/18 Allergies Allergy/AdvReac Type Severity Reaction Status Date / Time cyclobenzaprine AdvReac Unknown Verified 11/09/18 14:02 [From Flexeril] Review of Systems ROS Other: All systems not noted in ROS Statement are negative. Constitutional: Denies: fever, chills, weakness Respiratory: Denies: cough, dyspnea Cardiovascular: Denies: chest pain, palpitations, edema Gastrointestinal: Reports: abdominal pain. Denies: nausea, vomiting, diarrhea, constipation, melena, hematochezia Genitourinary: Denies: dysuria, hematuria, testicular pain, testicular mass Musculoskeletal: Denies: back pain Skin: Denies: rash Neurological: Denies: headache, weakness, numbness <Jesús Calloway - Last Filed: 12/08/18 06:58> ROS Other: All systems not noted in ROS Statement are negative. <Eron Cardenas - Last Filed: 12/08/18 07:41> ROS Statement: Those systems with pertinent positive or pertinent negative responses have been documented in the HPI. Past Medical History Past Medical History: No Reported History Additional Past Medical History / Comment(s): Crohns, abscess on intestine diagnosed 08/2018 History of Any Multi-Drug Resistant Organisms: None Reported Past Surgical History: No Surgical Hx Reported Additional Past Surgical History / Comment(s): EGD, colonoscopy Past Anesthesia/Blood Transfusion Reactions: No Reported Reaction Past Psychological History: Anxiety, Depression Smoking Status: Former smoker Past Alcohol Use History: None Reported Past Drug Use History: Marijuana - Past Family History Father Family Medical History: No Reported History Additional Family Medical History / Comment(s): Father is healthy Mother Family Medical History: No Reported History Additional Family Medical History / Comment(s): Mother is healthy. <Jesús Calloway - Last Filed: 12/08/18 06:58> General Exam Limitations: no limitations General appearance: alert, in no apparent distress Head exam: Present: atraumatic, normocephalic Eye exam: Present: normal appearance. Absent: scleral icterus, conjunctival injection ENT exam: Present: normal oropharynx Neck exam: Present: normal inspection Respiratory exam: Present: normal lung sounds bilaterally. Absent: respiratory distress, wheezes, rales, rhonchi, stridor Cardiovascular Exam: Present: regular rate, normal rhythm, normal heart sounds. Absent: systolic murmur, diastolic murmur, rubs, gallop GI/Abdominal exam: Present: soft. Absent: distended, tenderness, guarding, rebound, rigid, mass Extremities exam: Present: normal inspection, normal capillary refill. Absent: pedal edema, calf tenderness Back exam: Present: normal inspection. Absent: CVA tenderness (R), CVA tenderness (L) Neurological exam: Present: alert Skin exam: Present: warm, dry, intact, normal color. Absent: rash <Jesús Calloway - Last Filed: 12/08/18 06:58> Course Vital Signs 12/08/18 03:03 Temperature 98.4 F Pulse Rate 74 Respiratory 16 Rate Blood Pressure 165/103 O2 Sat by Pulse 97 Oximetry Medical Decision Making - Lab Data Result diagrams: 12/08/18 03:17 12/08/18 03:17 <Jesús Calloway - Last Filed: 12/08/18 06:58> - Lab Data Result diagrams: 12/08/18 03:17 12/08/18 03:17 <Eron Cardenas - Last Filed: 12/08/18 07:41> - Medical Decision Making Ultrasound shows no acute abnormality. Patient still expansion pain in his upper abdomen and his lipase was elevated 3 times normal value so the patient will be admitted if pain continues. I spoke with Dr. Negron and he agreed to admit the patient admitted the patient I wrote admitting orders. (Eron Cardenas) - Lab Data Lab Results 12/08/18 12/08/18 12/08/18 Range/Units 03:17 03:17 03:17 WBC 14.7 H (3.8-10.6) k/uL RBC 6.15 H (4.30-5.90) m/uL Hgb 13.9 (13.0-17.5) gm/dL Hct 43.5 (39.0-53.0) % MCV 70.8 L (80.0-100.0) fL MCH 22.6 L (25.0-35.0) pg MCHC 31.9 (31.0-37.0) g/dL RDW 15.0 (11.5-15.5) % Plt Count 259 (150-450) k/uL Neutrophils % 75 % Lymphocytes % 17 % Monocytes % 5 % Eosinophils % 1 % Basophils % 1 % Neutrophils # 11.0 H (1.3-7.7) k/uL Lymphocytes # 2.5 (1.0-4.8) k/uL Monocytes # 0.7 (0-1.0) k/uL Eosinophils # 0.1 (0-0.7) k/uL Basophils # 0.1 (0-0.2) k/uL Hypochromasia Slight Microcytosis Moderate Sodium 136 L (137-145) mmol/L Potassium 3.7 (3.5-5.1) mmol/L Chloride 103 (98-107) mmol/L Carbon Dioxide 26 (22-30) mmol/L Anion Gap 7 mmol/L BUN 15 (9-20) mg/dL Creatinine 0.90 (0.66-1.25) mg/dL Est GFR (CKD-EPI)AfAm >90 (>60 ml/min/1.73 sqM) Est GFR (CKD-EPI)NonAf >90 (>60 ml/min/1.73 sqM) Glucose 130 H (74-99) mg/dL Calcium 9.3 (8.4-10.2) mg/dL Total Bilirubin 0.4 (0.2-1.3) mg/dL AST 17 (17-59) U/L ALT 23 (21-72) U/L Alkaline Phosphatase 58 (38-126) U/L C-Reactive Protein 8.6 (<10.0) mg/L Total Protein 6.9 (6.3-8.2) g/dL Albumin 3.6 (3.5-5.0) g/dL Amylase 198 H (30-110) U/L Lipase 947 H (23-300) U/L Disposition <Jesús Calloway - Last Filed: 12/08/18 06:58> Time of Disposition: 07:41 <Eron Cardenas - Last Filed: 12/08/18 07:41> Clinical Impression: Pancreatitis Disposition: ADMITTED IP TO THIS HOSP Referrals: Nonstaff,Physician [Primary Care Provider] - 1-2 days
--- NOTE | 2018-12-08 07:27 | US ---
EXAMINATION TYPE: US abdomen limited DATE OF EXAM: 12/08/2018 COMPARISON: CT CLINICAL HISTORY: attention RUQ. EXAM MEASUREMENTS: Liver Length: 11.9 cm Gallbladder Wall: 0.3 cm CBD: 0.3 cm Right Kidney: 11.9 x 5.8 x 4.9 cm Pancreas: visualized portions wnl Liver: wnl Gallbladder: No stones seen Evidence for sonographic Henderson's sign: No CBD: wnl Right Kidney: No hydronephrosis or masses seen The pancreas is unremarkable. The liver is normal in size without evidence of biliary dilatation. The gallbladder is unremarkable. The gallbladder wall measures 3 mm. The distal common hepatic duct m easures 3 mm. There is no sonographic Henderson's sign. The right kidney is unremarkable. IMPRESSION: NORMAL RIGHT UPPER QUADRANT ULTRASOUND.
[2018-12-08] MEDS ORDERED: HYDROmorphone 0.5 MG/0.5 ML SYRINGE IVP STA (07:37)
[2018-12-08] MEDS ORDERED: SODIUM CHLORIDE 0.9% 1,000 ML IV ONE (07:41)
[2018-12-08 08:07] LABS: Appearance,Urine Clear (Clear); Bilirubin,Urine Negative (Negative); Blood,Urine Negative (Negative); Color,Urine Light Yellow; Glucose,Urine (UA) Negative (Negative); Ketones,Urine Negative (Negative); Leukocyte Esterase,Urine Negative (Negative); Nitrite,Urine Negative (Negative); Protein,Urine Negative (Negative); Urobilinogen,Urine <2.0 mg/dL (<2.0)
[2018-12-08] MEDS: HYDROmorphone 0.5 MG/0.5 ML SYRINGE IVP PRN ×4 (10:47→22:37)
--- NOTE | 2018-12-08 14:16 | HP ---
HISTORY AND PHYSICAL CHIEF COMPLAINT: Abdominal pain. HISTORY OF PRESENT ILLNESS: This is the first admission for this 28-year-old male who has Crohn's disease who doctors elsewhere. He came to the emergency room because of progressive upper abdominal pain and he thought it was related to his Crohn's disease. In the emergency room, his amylase was 198 and lipase is 147. He has had no hematemesis, melena, hematochezia, jaundice, etc. He does not drink alcohol. REVIEW OF SYSTEMS: He has had no fever, chills, chest pain, shortness of breath, dysuria, frequency, urgency, renal failure, etc. Past medical history, family history, personal and social histories reveal he has not had any surgery. He is on prednisone. ALLERGIES: He is ALLERGIC TO FLEXERIL. He does not smoke. He is likely taking a monoclonal antibody injection once a week for his Crohn's, but we are not clear as to what the medication is. PHYSICAL EXAMINATION: Blood pressure is 165/103 with a pulse 74, respirations of 16 and he is afebrile. In general, he appeared to be well-developed, well-nourished, in no acute distress. Skin color is normal. Skin is warm, dry. Lymph nodes not enlarged. Head, ears, eyes, nose, mouth, and throat are normal. He is not dehydrated. Chest is clear. Cardiac exam is normal. The abdomen seems soft and nontender without visceromegaly or masses bowel sounds present. Extremities normal. IMPRESSION: 1. Pancreatitis. 2. Crohn's disease. PLAN: 1. Bed rest. 2. IV fluids. 3. Monitor pancreatic enzyme levels. 4. Gastroenterology consult because of his history of Crohn's. MMODL / IJN: [id number] /
--- NOTE | 2018-12-08 21:55 | P.CONS ---
History of Present Illness - Reason for Consult Consult date: 12/08/18 Crohn's disease Requesting physician: Mark Clemente - Chief Complaint Abdominal pain - History of Present Illness 28-year-old male with a past medical history significant for Crohn's disease who presented to the hospital with complaints of abdominal pain. The patient reports pain above the bellybutton described as cramping in the epigastric region and right upper quadrant. He reports that the pain is different in sensation than prior episodes and describes it as sharp in nature. He denies any sick contacts, new medications, antibiotics therapy or other exposures prior to developing the symptoms. He is been hospitalized numerous times in the past for exacerbations of his Crohn's disease and has been found to have inflammation and fibrosing stenosis of the distal ileum seen on repeated imaging studies. He was diagnosed approximately 1 year ago and had been on biologic therapy which stopped due to issues with establishing care/insurance. He has been started back on biologic therapy and is due for a dose of Inflectra on Sunday of this upcoming week. The patient has also been tapering steroid therapy but states that when he gets down to 10 mg daily use generally started to feel weak and we'll therefore take extra doses of the steroid therapy. He denies any change in bowel habits, blood per rectum. Currently he is reporting 3-4 bowel moveme nts a week described as formed and normal in color and consistency. On presentation to the hospital he had a KUB x-ray which was normal and ultrasound of the abdomen which was also normal. Creatinine 0.9, CRP 8.6, amylase 198, lipase 947, WBC 14.7, hemoglobin 13.9, hematocrit 259, total bilirubin 0.4, alkaline phosphatase 58, AST 17 and ALT 23. Review of Systems REVIEW OF SYSTEMS: CONSTITUTIONAL: Denies any fevers, chills, weight change or fatigue. CARDIOVASCULAR: Denies any chest pain, palpitations high or low blood pressures RESPIRATORY: Denies any shortness of breath, hemoptysis or cough. GENITOURINARY: No dysuria or hematuria. MUSCULOSKELETAL: No weakness reported. SKIN: Denies any new rashes or lesions, jaundice or pallor. PSYCHIATRIC: Denies any depression or anxiety. NEUROLOGY: Denies headache, denies any new focal deficits. EARS/NOSE/THROAT: No recent hearing change, congestion, nasal discharge or sore throat. EYES: No pain in eyes, discharge or change in vision. GASTROINTESTINAL: As per HPI. Past Medical History Past Medical History: No Reported History Additional Past Medical History / Comment(s): Crohns, abscess on intestine diagnosed 08/2018 History of Any Multi-Drug Resistant Organisms: None Reported Past Surgical History: No Surgical Hx Reported Additional Past Surgical History / Comment(s): EGD, colonoscopy Past Anesthesia/Blood Transfusion Reactions: No Reported Reaction Past Psychological History: Anxiety, Depression Additional Psychological History / Comment(s): Lives with his fiance, has moved from [place] where he was received his prior Crohn's diagnosis Smoking Status: Former smoker Past Alcohol Use History: None Reported Additional Past Alcohol Use History / Comment(s): Pt started smoking in 2008 and quit in 2018, pt denies any smoking currently. Past Drug Use History: Marijuana Additional Drug Use History / Comment(s): Pt smokes 2 joints a day. - Past Family History Father Family Medical History: No Reported History Additional Family Medical History / Comment(s): Father is healthy Mother Family Medical History: No Reported History Additional Family Medical History / Comment(s): Mother is healthy. Medications and Allergies Home Medications Medication Instructions Recorded Confirmed Type predniSONE See Taper PO DIRECTED #30 tab 11/10/18 12/08/18 Rx Allergies Allergy/AdvReac Type Severity Reaction Status Date / Time cyclobenzaprine AdvReac muscle Verified 12/08/18 08:15 [From Flexeril] spasms Physical Exam Vitals: Vital Signs Temp Pulse Pulse Resp BP BP Pulse Ox 12/08/18 09:40 98.2 F 60 18 129/65 99 12/08/18 08:01 86 16 126/91 99 12/08/18 03:03 98.4 F 74 16 165/103 97 Intake and Output 12/07/18 12/08/18 12/08/18 23:59 06:59 14:59 Other: Weight On physical examination, patient appears comfortable in no apparent distress. HEAD: Normocephalic, atraumatic. EYES: No scleral icterus. No conjunctival injection. MOUTH: No lesions, tongue midline. NECK: Trachea midline, no gross abnormalities. CHEST: Clear to auscultation with no wheezing or rhonchi appreciated. HEART: Regular rate and rhythm. ABDOMEN: Soft, mildly tender to palpation. Bowel sounds are positive. No organomegaly. No guarding or rigidity. EXTREMITIES: No pedal edema. SKIN: No rashes, no jaundice. NEUROLOGIC: Alert and oriented x3. No focal deficits. Results CBC & Chem 7: 12/08/18 03:17 12/08/18 03:17 Labs: Abnormal Lab Results - Last 24 Hours (Table) 12/08/18 12/08/18 Range/Units 03:17 03:17 WBC 14.7 H (3.8-10.6) k/uL RBC 6.15 H (4.30-5.90) m/uL MCV 70.8 L (80.0-100.0) fL MCH 22.6 L (25.0-35.0) pg Neutrophils # 11.0 H (1.3-7.7) k/uL Sodium 136 L (137-145) mmol/L Glucose 130 H (74-99) mg/dL Amylase 198 H (30-110) U/L Lipase 947 H (23-300) U/L Abdominal x-ray: report reviewed US - abdomen: report reviewed (Normal ultrasound of the abdomen) Assessment and Plan (1) Abdominal pain Narrative/Plan: 28-year-old male with Crohn's disease presenting with abdominal pain which she describes as different than her prior exacerbations of his Crohn's disease in quality and intensity with findings of elevated lipase at 947 (3 times greater than upper limit of normal). Suspicion is for possible pancreatitis given description of pain and elevation in lipase. No prior episodes of pancreatitis reported. Patient does not drink alcohol. Liver enzymes normal. No biliary abnormalities seen on ultrasound of the abdomen. Patient has not been on any new medications and has been tapering off steroids. Current Visit: No Status: Acute Code(s): R10.9 - UNSPECIFIED ABDOMINAL PAIN SNOMED Code(s): 13169934 (2) Crohn's disease Narrative/Plan: 28-year-old male with fibrosing Crohn's disease of the small bowel currently on biologic therapy. At diagnosis was approximately 1 year ago the patient has required steroid therapy. No history of fistula arising disease or perianal disease. Currently he is tapering off steroid therapy. Current Visit: No Status: Acute Code(s): K50.90 - CROHN'S DISEASE, UNSPECIFIED, WITHOUT COMPLICATIONS SNOMED Code(s): 52656392 Plan: Supportive care Diet as tolerated Continue pain control and IV fluid hydration IgG4, JAZMYN and triglyceride levels ordered Continue outpatient follow-up with the gastroenterology service with plans for biologic therapy this week Thank you for allowing us to participate in the care of the patient we will continue to follow
[2018-12-09] MEDS: HYDROmorphone 0.5 MG/0.5 ML SYRINGE IVP PRN ×6 (03:53→21:09)
[2018-12-09 08:11] LABS: ALT 25 U/L (21-72); AST 20 U/L (17-59); African American GFR (CKD) >90 (>60 ml/min/1.73 sqM); Albumin 3.9 g/dL (3.5-5.0); Alkaline Phosphatase 63 U/L (38-126); Anion Gap 9 mmol/L; Blood Urea Nitrogen 13 mg/dL (9-20); Calcium 9.5 mg/dL (8.4-10.2); Carbon Dioxide 25 mmol/L (22-30); Chloride 101 mmol/L (98-107); Glucose 118 mg/dL (74-99); Sodium 135 mmol/L (137-145); Total Protein 7.4 g/dL (6.3-8.2)
[2018-12-09] MEDS: ONDANSETRON 4 MG/2 ML VIAL IVP PRN ×3 (09:29→20:21)
[2018-12-09 12:46] LABS: IgG Subclass 3 43.4 mg/dL (11.0-85.0); IgG Subclass 4 21.1 mg/dL (3.0-175.0)
[2018-12-09] MEDS: HYDROcodone/APAP 5-325MG 1 EACH TAB PO PRN ×2 (14:42→20:20)
[2018-12-09] MEDS: busPIRone HCl 5 MG TAB PO SCH ×2 (14:43→21:09)
[2018-12-09] MEDS ORDERED: DICYCLOMINE 20 MG TAB PO SCH (16:45)
[2018-12-09] MEDS ORDERED: KETOROLAC 30 MG/ML 1 ML VIAL IVP PRN (16:46)
--- NOTE | 2018-12-09 19:39 | PN ---
PROGRESS NOTE CHIEF COMPLAINT: Pancreatitis. HISTORY OF PRESENT ILLNESS: This gentleman is doing a little bit better and epigastric pain is improving. He is not having any significant crampy issues, dilatation, or diarrhea with his Crohn's. PHYSICAL EXAMINATION: Chest is clear and cardiac exam is normal. The abdomen is flat, soft, nontender. IMPRESSION: 1. Pancreatitis. 2. Crohn disease. PLAN: Continue with close monitoring of his pancreatic enzymes and increase activity. MMODL / IJN: [id number] /
[2018-12-09] MEDS: DICYCLOMINE 20 MG TAB PO PRN (20:20)
--- NOTE | 2018-12-09 23:43 | P.PN ---
Subjective Progress Note Date: 12/09/18 Principal diagnosis: Abdominal pain, Crohn's disease, pancreatitis Patient is seen lying in bed reporting he did tolerate liquids. Still having some abdominal pain and cramping. No nausea vomiting reported. Objective - Vital Signs Vital signs: Vital Signs Temp 98.4 F 12/09/18 20:02 Pulse 82 12/09/18 20:02 Resp 17 12/09/18 20:02 BP 115/78 12/09/18 20:02 Pulse Ox 97 12/09/18 20:02 Intake & Output 12/09/18 12/09/18 12/10/18 06:59 18:59 06:59 Intake Total 592 Balance 592 Intake: Oral 592 Other: Voiding Method Toilet Toilet Toilet # Voids 1 1 - Exam On physical examination, patient appears comfortable in no apparent distress. HEAD: Normocephalic, atraumatic. EYES: No scleral icterus. No conjunctival injection. MOUTH: No lesions, tongue midline. NECK: Trachea midline, no gross abnormalities. CHEST: Clear to auscultation with no wheezing or rhonchi appreciated. HEART: Regular rate and rhythm. ABDOMEN: Soft, mildly tender to palpation. Bowel sounds are positive. No organomegaly. No guarding or rigidity. EXTREMITIES: No pedal edema. SKIN: No rashes, no jaundice. NEUROLOGIC: Alert and oriented x3. No focal deficits. - Labs CBC & Chem 7: 12/08/18 03:17 12/09/18 07:44 Labs: Abnormal Lab Results - Last 24 Hours (Table) 12/09/18 Range/Units 07:44 Sodium 135 L (137-145) mmol/L Glucose 118 H (74-99) mg/dL Assessment and Plan (1) Abdominal pain Narrative/Plan: 28-year-old male with Crohn's disease presenting with abdominal pain which she describes as different than her prior exacerbations of his Crohn's disease in quality and intensity with findings of elevated lipase at 947 (3 times greater than upper limit of normal). Suspicion is for possible pancreatitis given description of pain and elevation in lipase. No prior episodes of pancreatitis reported. Patient does not drink alcohol. Liver enzymes normal. No biliary abnormalities seen on ultrasound of the abdomen. Patient has not been on any new medications and has been tapering off steroids. Current Visit: No Status: Acute Code(s): R10.9 - UNSPECIFIED ABDOMINAL PAIN SNOMED Code(s): 24880487 (2) Crohn's disease Narrative/Plan: 28-year-old male with fibrosing Crohn's disease of the small bowel currently on biologic therapy. At diagnosis was approximately 1 year ago the patient has required steroid therapy. No history of fistula arising disease or perianal disease. Currently he is tapering off steroid therapy. Current Visit: No Status: Acute Code(s): K50.90 - CROHN'S DISEASE, UNSPECIFIED, WITHOUT COMPLICATIONS SNOMED Code(s): 53433587 Plan: Supportive care Diet as tolerated Continue pain control and IV fluid hydration IgG4, JAZMYN and triglyceride levels within normal limits Dicyclomine added for cramping Toradol added for breakthrough pain Continue outpatient follow-up with the gastroenterology service with plans for biologic therapy this week Thank you for allowing us to participate in the care of the patient we will continue to follow
[2018-12-10] MEDS: HYDROcodone/APAP 5-325MG 1 EACH TAB PO PRN ×3 (00:54→12:05)
[2018-12-10 01:50] VITALS: RESP 19
[2018-12-10] MEDS: HYDROmorphone 0.5 MG/0.5 ML SYRINGE IVP PRN ×2 (02:12→07:43)
[2018-12-10] MEDS: busPIRone HCl 5 MG TAB PO SCH (07:43)
[2018-12-10 07:48] LABS: Amylase 66 U/L (30-110)
[2018-12-10 08:03] VITALS: BP 123/86; PULSE 83; TEMP 98.7
[2018-12-10] MEDS: DICYCLOMINE 20 MG TAB PO PRN (09:08)
--- NOTE | 2018-12-11 06:01 | DS ---
DISCHARGE SUMMARY CHIEF COMPLAINT: Abdominal pain. HISTORY OF PRESENT ILLNESS AND PHYSICAL EXAM: Details of this man's history and physical can be found in the initial workup. LABORATORY STUDIES: While he was in the hospital he had laboratory studies, the details of which can be found in the laboratory section of his chart. COURSE IN THE HOSPITAL: After admission, he was placed on bedrest, started on intravenous fluids and his pancreatic enzymes were monitored. They came down to normal abruptly. He continued to complain of some vague intermittent abdominal pain. It was thought that this might be related to his Crohn disease. However, it was also believed that he was stable enough to go home and he will go home on his usual diet and activity. When he left the hospital, he was requesting Xanax and opiates for pain. These were refused and he was told to come into the office for followup. FINAL DIAGNOSES: 1. Pancreatitis. 2. Crohn disease. OPERATIONS: None. CONSULTATIONS: None. He is improved. MMGWEN / JUDIEN: [id number] /
== END 2018-12-10 13:47 | disposition home or self-care (01) | DRG 439 ==
LOC: EC 02:53 → 4SSUR 07:42
PROVIDERS: ADMIT Family Medicine; ATTEND Family Medicine
DX: K85.90 Acute pancreatitis without necrosis or infection, unspecified (principal); K50.00 Crohn's disease of small intestine without complications; Z87.891 Personal history of nicotine dependence; Z88.6 Allergy status to analgesic agent
CPT/HCPCS: 36415; 74018; 76705; 80053; 81003; 82150; 82787; 83690; 84478; 85025; 86038; 86140; 96361; 96374; 96375; 96376; 99285

== ENCOUNTER 2018-12-11 00:11 | Emergency (ER) | payer OTHER ==
[2018-12-11 00:21] VITALS: TEMP 98.9
[2018-12-11] MEDS ORDERED: DICYCLOMINE 10 MG/ML 2 ML AMP IM STA (01:18)
[2018-12-11 01:27] LABS: Basophils # (A) 0.1 k/uL (0-0.2); Basophils % (A) 1 %; Eosinophils # (A) 0.2 k/uL (0-0.7); Eosinophils % (A) 1 %; HCT 45.2 % (39.0-53.0); HGB 14.4 gm/dL (13.0-17.5); Lymphocytes # (A) 1.1 k/uL (1.0-4.8); Lymphocytes % (A) 7 %; MCH 22.1 pg (25.0-35.0); MCV 69.2 fL (80.0-100.0); Mean Platelet Volume 5.4; Microcytosis Moderate; Monocytes # (A) 0.9 k/uL (0-1.0); Monocytes % (A) 6 %; Neutrophils # (A) 13.3 k/uL (1.3-7.7); Neutrophils % (A) 84 %; Platelet Count 254 k/uL (150-450); RBC 6.54 m/uL (4.30-5.90); RDW 14.5 % (11.5-15.5); WBC 15.9 k/uL (3.8-10.6)
[2018-12-11 01:34] LABS: ALT 23 U/L (21-72); AST 18 U/L (17-59); African American GFR (CKD) >90 (>60 ml/min/1.73 sqM); Albumin 3.8 g/dL (3.5-5.0); Alkaline Phosphatase 70 U/L (38-126); Amylase 78 U/L (30-110); Anion Gap 8 mmol/L; Blood Urea Nitrogen 14 mg/dL (9-20); Calcium 9.6 mg/dL (8.4-10.2); Carbon Dioxide 25 mmol/L (22-30); Chloride 101 mmol/L (98-107); Glucose 104 mg/dL (74-99); Potassium 4.3 mmol/L (3.5-5.1); Sodium 134 mmol/L (137-145); Total Bilirubin 0.7 mg/dL (0.2-1.3); Total Protein 7.1 g/dL (6.3-8.2)
--- NOTE | 2018-12-11 01:39 | XR ---
EXAMINATION TYPE: XR KUB DATE OF EXAM: 12/11/2018 COMPARISON: NONE HISTORY: Abdominal pain TECHNIQUE: 2 views upright FINDINGS: Bowel gas pattern is normal. There is no sign of intestinal obstruction or pneumoperitoneum . Fecal pattern is normal. There are no pathologic calcifications over the kidneys. IMPRESSION: Nonacute abdomen.
[2018-12-11] MEDS ORDERED: ONDANSETRON 4 MG/2 ML VIAL IVP STA (01:47)
[2018-12-11 02:09] VITALS: RESP 18
[2018-12-11 02:20] LABS: Appearance,Urine Clear (Clear); Bilirubin,Urine Negative (Negative); Blood,Urine Negative (Negative); Color,Urine Light Yellow; Glucose,Urine (UA) Negative (Negative); Ketones,Urine Negative (Negative); Leukocyte Esterase,Urine Negative (Negative); Nitrite,Urine Negative (Negative); PH, Urine 6.5 (5.0-8.0); Protein,Urine Negative (Negative); Specific Gravity,Urine 1.005 (1.001-1.035); Urobilinogen,Urine <2.0 mg/dL (<2.0)
[2018-12-11] MEDS ORDERED: MORPHINE SULFATE 4 MG/ML SYRINGE IV STA (02:37)
[2018-12-11] MEDS ORDERED: MAGNESIUM CITRATE 296 ML BOTTLE PO ONE (03:16)
--- NOTE | 2018-12-11 03:16 | ED ---
Abdominal Pain HPI - General Chief Complaint: Abdominal Pain Stated Complaint: abdominal pain-revisit Time Seen by Provider: 12/11/18 00:43 Source: patient Mode of arrival: wheelchair Limitations: no limitations - History of Present Illness Initial Comments: This patient is 28-year-old man with history of Crohn's disease. He presents to have reevaluation of diffuse, migrating, cramping abdominal pain. The patient had been admitted in the hospital, going home earlier in the day after an admission for pancreatitis. The patient has not had fever or chills. He is not currently having nausea, vomiting. He is not having any change in stools, in fact he has not had a bowel movement over the past day. He states that the symptoms may be consistent with constipation, but he had wanted to make sure the pancreatitis was not worsening. There is no mucus with the bowel movements or any blood. There is no testicular pain or scrotal swelling. MD Complaint: abdominal pain -: days(s) Location: diffuse Radiation: none Severity: moderate Quality: cramping Consistency: colicky Improves With: nothing Worsens With: nothing Associated Symptoms: nausea - Related Data Previous Rx's Medication Instructions Recorded predniSONE See Taper PO DIRECTED #30 tab 11/10/18 Allergies Allergy/AdvReac Type Severity Reaction Status Date / Time cyclobenzaprine AdvReac muscle Verified 12/11/18 00:21 [From Flexeril] spasms Review of Systems ROS Statement: Those systems with pertinent positive or pertinent negative responses have been documented in the HPI. ROS Other: All systems not noted in ROS Statement are negative. Constitutional: Denies: fever, chills Respiratory: Denies: cough, dyspnea Cardiovascular: Denies: chest pain, palpitations, edema Gastrointestinal: Reports: abdominal pain, constipation. Denies: nausea, vomiting, diarrhea, melena, hematochezia Genitourinary: Denies: dysuria, hematuria, testicular pain, testicular mass Musculoskeletal: Denies: back pain Skin: Denies: rash Neurological: Denies: headache, weakness, numbness Past Medical History Past Medical History: No Reported History Additional Past Medical History / Comment(s): Crohns, abscess on intestine guerrero gnosed 08/2018, pancreatitis History of Any Multi-Drug Resistant Organisms: None Reported Past Surgical History: No Surgical Hx Reported Additional Past Surgical History / Comment(s): EGD, colonoscopy Past Anesthesia/Blood Transfusion Reactions: No Reported Reaction Past Psychological History: Anxiety, Depression Smoking Status: Former smoker Past Alcohol Use History: None Reported Past Drug Use History: Marijuana - Past Family History Father Family Medical History: No Reported History Additional Family Medical History / Comment(s): Father is healthy Mother Family Medical History: No Reported History Additional Family Medical History / Comment(s): Mother is healthy. General Exam Limitations: no limitations General appearance: alert, in no apparent distress Head exam: Present: atraumatic, normocephalic Eye exam: Present: normal appearance. Absent: scleral icterus, conjunctival injection ENT exam: Present: normal oropharynx Neck exam: Present: normal inspection Respiratory exam: Present: normal lung sounds bilaterally. Absent: respiratory distress, wheezes, rales, rhonchi, stridor Cardiovascular Exam: Present: regular rate, normal rhythm, normal heart sounds. Absent: systolic murmur, diastolic murmur, rubs, gallop GI/Abdominal exam: Present: soft, normal bowel sounds. Absent: distended, tenderness, guarding, rebound, mass, pulsatile mass, hernia Extremities exam: Present: normal inspection, normal capillary refill. Absent: pedal edema, calf tenderness Back exam: Present: normal inspection. Absent: CVA tenderness (R), CVA tenderness (L) Skin exam: Present: warm, dry, intact, normal color. Absent: rash Course Vital Signs 12/11/18 12/11/18 12/11/18 00:17 02:08 03:29 Temperature 98.9 F Pulse Rate 101 H 81 74 Respiratory 20 18 18 Rate Blood Pressure 149/86 111/71 125/80 O2 Sat by Pulse 99 98 95 Oximetry Medical Decision Making - Medical Decision Making Patient is 28-year-old man with history of Crohn's disease. He is having recurrent abdominal pain, and states she has not had a bowel movement in 5 days. The patient has had relief of symptoms here with medication. Reviewing the patient's results with him shows that patient's leukocyte count is mildly elevated. He had been given steroids however and this level may be consistent with that. We discussed having a computed tomography scan to rule out any intra-abdominal emergency. His abdomen exam does not suggest acute abdominal emergency. The patient has had a number CT scans and would like to limit his radiation exposure. He states that Dr. Morgan is attempting to get him in for MRI of the abdomen. In light of this, patient would like to hold off of having computed tomography scan, and would like to try taking magnesium citrate for the lack of bowel movement and will return should pain recur, or new symptoms develop. - Lab Data Result diagrams: 12/11/18 01:15 12/11/18 01:15 Lab Results 12/11/18 12/11/18 12/11/18 Range/Units 01:15 01:15 02:05 WBC 15.9 H (3.8-10.6) k/uL RBC 6.54 H (4.30-5.90) m/uL Hgb 14.4 (13.0-17.5) gm/dL Hct 45.2 (39.0-53.0) % MCV 69.2 L (80.0-100.0) fL MCH 22.1 L (25.0-35.0) pg MCHC 32.0 (31.0-37.0) g/dL RDW 14.5 (11.5-15.5) % Plt Count 254 (150-450) k/uL Neutrophils % 84 % Lymphocytes % 7 % Monocytes % 6 % Eosinophils % 1 % Basophils % 1 % Neutrophils # 13.3 H (1.3-7.7) k/uL Lymphocytes # 1.1 (1.0-4.8) k/uL Monocytes # 0.9 (0-1.0) k/uL Eosinophils # 0.2 (0-0.7) k/uL Basophils # 0.1 (0-0.2) k/uL Microcytosis Moderate Sodium 134 L (137-145) mmol/L Potassium 4.3 (3.5-5.1) mmol/L Chloride 101 (98-107) mmol/L Carbon Dioxide 25 (22-30) mmol/L Anion Gap 8 mmol/L BUN 14 (9-20) mg/dL Creatinine 1.06 (0.66-1.25) mg/dL Est GFR (CKD-EPI)AfAm >90 (>60 ml/min/1.73 sqM) Est GFR (CKD-EPI)NonAf >90 (>60 ml/min/1.73 sqM) Glucose 104 H (74-99) mg/dL Calcium 9.6 (8.4-10.2) mg/dL Total Bilirubin 0.7 (0.2-1.3) mg/dL AST 18 (17-59) U/L ALT 23 (21-72) U/L Alkaline Phosphatase 70 (38-126) U/L Total Protein 7.1 (6.3-8.2) g/dL Albumin 3.8 (3.5-5.0) g/dL Amylase 78 (30-110) U/L Lipase 79 (23-300) U/L Urine Color Light Yellow Urine Appearance Clear (Clear) Urine pH 6.5 (5.0-8.0) Ur Specific [place] 1.005 (1.001-1.035) Urine Protein Negative (Negative) Urine Glucose (UA) Negative (Negative) Urine Ketones Negative (Negative) Urine Blood Negative (Negative) Urine Nitrite Negative (Negative) Urine Bilirubin Negative (Negative) Urine Urobilinogen <2.0 (<2.0) mg/dL Ur Leukocyte Esterase Negative (Negative) Disposition Clinical Impression: Abdominal pain Disposition: HOME SELF-CARE Condition: Fair Instructions (If sedation given, give patient instructions): Abdominal Pain (ED) Is patient prescribed a controlled substance at d/c from ED?: No Referrals: None,Stated [Primary Care Provider] - 1-2 days Griselda Morgan MD [STAFF PHYSICIAN] - 1-2 days
[2018-12-11 03:31] VITALS: BP 125/80; PULSE 74
== END 2018-12-11 03:31 | disposition home or self-care (01) ==
LOC: EC 00:11
DX: R10.84 Generalized abdominal pain (principal); D72.829 Elevated white blood cell count, unspecified; R11.0 Nausea; Z87.891 Personal history of nicotine dependence; Z88.8 Allergy status to other drugs, medicaments and biological substances; Z87.19 Personal history of other diseases of the digestive system
CPT/HCPCS: 36415; 80053; 82150; 83690; 85025; 81003; 74018; 99284; 96374; 96375; 96372; J2270; J0500; J2405

== ENCOUNTER 2018-12-18 00:23 | Emergency (ER) | payer OTHER ==
[2018-12-18] MEDS ORDERED: DICYCLOMINE 10 MG/ML 2 ML AMP IM STA (00:52)
[2018-12-18] MEDS ORDERED: ONDANSETRON 4 MG/2 ML VIAL IVP STA (00:52)
[2018-12-18] MEDS ORDERED: HYDROmorphone 1 MG/ML 1 ML SYRINGE IVP STA ×2 (00:52→02:16)
[2018-12-18] MEDS ORDERED: SODIUM CHLORIDE 0.9% 1,000 ML IV STA (00:52)
--- NOTE | 2018-12-18 01:02 | ED ---
Abdominal Pain HPI - General Chief Complaint: Abdominal Pain Stated Complaint: abd pain Time Seen by Provider: 12/18/18 00:37 Source: patient Mode of arrival: ambulatory Limitations: no limitations - History of Present Illness Initial Comments: 28-year-old male patient past medical history significant for Crohn's disease presents to the emergency department today for evaluation of abdominal pain. Patient states for the last 2-3 days he has been experiencing cramping abdominal pain. States he's had nausea and vomiting. States he has had one loose bowel movement per day. Denies any hematochezia or melena. Denies fever or chills. Patient states was discharged from the hospital one week ago after being admitted for pancreatitis. Patient states that while he had pancreatitis he was unable to take his Inflectra for crohns and has been unable to get his dose. Patient denies any recent rash, shortness breath, chest pain, back pain, numbness, tingling, dizziness, weakness, hematuria, dysuria, urinary urgency, urinary frequency, headache, visual changes, or any other complaints. - Related Data Previous Rx's Medication Instructions Recorded Dicyclomine [Bentyl] 20 mg PO QID #12 tablet 12/18/18 Allergies Allergy/AdvReac Type Severity Reaction Status Date / Time cyclobenzaprine AdvReac muscle Verified 12/11/18 00:21 [From Flexeril] spasms Review of Systems ROS Statement: Those systems with pertinent positive or pertinent negative responses have been documented in the HPI. ROS Other: All systems not noted in ROS Statement are negative. Past Medical History Past Medical History: No Reported History Additional Past Medical History / Comment(s): Crohns, abscess on intestine diagnosed 08/2018, pancreatitis History of Any Multi-Drug Resistant Organisms: None Reported Past Surgical History: No Surgical Hx Reported Additional Past Surgical History / Comment(s): EGD, colonoscopy Past Anesthesia/Blood Transfusion Reactions: No Reported Reaction Past Psychological History: Anxiety, Depression Smoking Status: Former smoker Past Alcohol Use History: None Reported Past Drug Use History: Marijuana - Past Family History Father Family Medical History: No Reported History Additional Family Medical History / Comment(s): Father is healthy Mother Family Medical History: No Reported History Additional Family Medical History / Comment(s): Mother is healthy. General Exam Limitations: no limitations General appearance: alert, in no apparent distress, other (This is a well- developed, well-nourished adult male patient in no acute distress. Vital signs upon presentation are temperature 97.6F, pulse 77, respirations 20, pulse ox 96% on room air.) Eye exam: Present: normal appearance, PERRL, EOMI. Absent: scleral icterus, conjunctival injection, periorbital swelling ENT exam: Present: normal exam, normal oropharynx, mucous membranes moist Respiratory exam: Present: normal lung sounds bilaterally. Absent: respiratory distress, wheezes, rales, rhonchi, stridor Cardiovascular Exam: Present: regular rate, normal rhythm, normal heart sounds. Absent: systolic murmur, diastolic murmur, rubs, gallop, clicks GI/Abdominal exam: Present: soft, normal bowel sounds. Absent: distended, tenderness, guarding, rebound, rigid Neurological exam: Present: alert, oriented X3, CN II-XII intact Psychiatric exam: Present: normal affect, normal mood Skin exam: Present: warm, dry, intact, normal color. Absent: rash Course Vital Signs 12/18/18 12/18/18 12/18/18 00:33 01:32 02:36 Temperature 97.6 F 98.5 F 98.5 F Pulse Rate 77 80 65 Respiratory 20 18 18 Rate Blood Pressure 133/85 109/50 O2 Sat by Pulse 96 100 94 L Oximetry Medical Decision Making - Medical Decision Making 28-year-old male patient presents the emergency department today for evaluation of abdominal pain and cramping. Physical examination reveals a soft nontender abdomen. Labs reviewed and were unremarkable. Patient did get IV pain medication on the emergency department, upon reevaluation he is feeling better. Patient does have history of Crohn's disease, he is instructed to restart his Inflectra infusion as soon as possible. 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 Return parameters were discussed in detail. He verbalizes understanding and agrees with this plan. - Lab Data Result diagrams: 12/18/18 01:02 12/18/18 01:02 Lab Results 12/18/18 12/18/18 12/18/18 Range/Units 01:02 01:02 01:02 WBC 10.5 (3.8-10.6) k/uL RBC 6.17 H (4.30-5.90) m/uL Hgb 13.8 (13.0-17.5) gm/dL Hct 43.6 (39.0-53.0) % MCV 70.5 L (80.0-100.0) fL MCH 22.4 L (25.0-35.0) pg MCHC 31.8 (31.0-37.0) g/dL RDW 14.0 (11.5-15.5) % Plt Count 327 (150-450) k/uL Neutrophils % 66 % Lymphocytes % 20 % Monocytes % 6 % Eosinophils % 4 % Basophils % 2 % Neutrophils # 6.9 (1.3-7.7) k/uL Lymphocytes # 2.1 (1.0-4.8) k/uL Monocytes # 0.7 (0-1.0) k/uL Eosinophils # 0.4 (0-0.7) k/uL Basophils # 0.2 (0-0.2) k/uL Hypochromasia Slight Microcytosis Moderate Sodium 139 (137-145) mmol/L Potassium 4.0 (3.5-5.1) mmol/L Chloride 105 (98-107) mmol/L Carbon Dioxide 26 (22-30) mmol/L Anion Gap 8 mmol/L BUN 12 (9-20) mg/dL Creatinine 1.05 (0.66-1.25) mg/dL Est GFR (CKD-EPI)AfAm >90 (>60 ml/min/1.73 sqM) Est GFR (CKD-EPI)NonAf >90 (>60 ml/min/1.73 sqM) Glucose 91 (74-99) mg/dL Plasma Lactic Acid Nic 0.7 (0.7-2.0) mmol/L Calcium 9.1 (8.4-10.2) mg/dL Total Bilirubin 0.4 (0.2-1.3) mg/dL AST 20 (17-59) U/L ALT 18 L (21-72) U/L Alkaline Phosphatase 57 (38-126) U/L Total Protein 6.8 (6.3-8.2) g/dL Albumin 3.6 (3.5-5.0) g/dL Amylase 96 (30-110) U/L Lipase 157 (23-300) U/L - Radiology Data Radiology results: report reviewed, image reviewed KUB x-ray was obtained. Report was reviewed in its entirety. Impression by Dr. Blank shows nonacute abdomen. No change. Disposition Clinical Impression: Abdominal pain, Crohn's disease Disposition: HOME SELF-CARE Condition: Good Instructions (If sedation given, give patient instructions): Crohn Disease (ED), Abdominal Pain (ED) Additional Instructions: Take medications as directed. Follow up with your GI specialist and your primary care physician in 1-2 days. Get your Inflectra infusion as soon as possible. Return to the emergency department for any new, worsening, or concerning sym ptoms. Prescriptions: Dicyclomine [Bentyl] 20 mg PO QID #12 tablet Is patient prescribed a controlled substance at d/c from ED?: No Referrals: Mark Clemente MD [Primary Care Provider] - 1-2 days Griselda Morgan MD [STAFF PHYSICIAN] - 1-2 days Time of Disposition: 02:56
[2018-12-18 01:13] LABS: Basophils # (A) 0.2 k/uL (0-0.2); Basophils % (A) 2 %; Eosinophils # (A) 0.4 k/uL (0-0.7); Eosinophils % (A) 4 %; HCT 43.6 % (39.0-53.0); HGB 13.8 gm/dL (13.0-17.5); Hypochromasia Slight; Lymphocytes # (A) 2.1 k/uL (1.0-4.8); Lymphocytes % (A) 20 %; MCH 22.4 pg (25.0-35.0); MCHC 31.8 g/dL (31.0-37.0); MCV 70.5 fL (80.0-100.0); Mean Platelet Volume 5.3; Microcytosis Moderate; Monocytes # (A) 0.7 k/uL (0-1.0); Monocytes % (A) 6 %; Neutrophils # (A) 6.9 k/uL (1.3-7.7); Neutrophils % (A) 66 %; Platelet Count 327 k/uL (150-450); RBC 6.17 m/uL (4.30-5.90); WBC 10.5 k/uL (3.8-10.6)
[2018-12-18 01:33] LABS: ALT 18 U/L (21-72); AST 20 U/L (17-59); African American GFR (CKD) >90 (>60 ml/min/1.73 sqM); Albumin 3.6 g/dL (3.5-5.0); Alkaline Phosphatase 57 U/L (38-126); Amylase 96 U/L (30-110); Anion Gap 8 mmol/L; Blood Urea Nitrogen 12 mg/dL (9-20); Calcium 9.1 mg/dL (8.4-10.2); Carbon Dioxide 26 mmol/L (22-30); Chloride 105 mmol/L (98-107); Glucose 91 mg/dL (74-99); Sodium 139 mmol/L (137-145); Total Bilirubin 0.4 mg/dL (0.2-1.3); Total Protein 6.8 g/dL (6.3-8.2)
[2018-12-18 01:35] VITALS: RESP 18; TEMP 98.5
[2018-12-18 02:38] VITALS: BP 109/50; PULSE 65
--- NOTE | 2018-12-18 02:41 | XR ---
EXAMINATION TYPE: XR KUB DATE OF EXAM: 12/18/2018 COMPARISON: 12/11/2018 HISTORY: Abdominal pain TECHNIQUE: 2 views upright FINDINGS: There is no sign of intestinal obstruction or pneumoperitoneum. Bowel gas pattern is normal . There is no sign of a mass. There are no pathologic calcifications. Lung bases are clear. Bony stru ctures appear intact. IMPRESSION: Nonacute abdomen. No change.
[2018-12-18] MEDS ORDERED: ACET/COD 300 MG/30 MG STARTER PACK 6 TAB BTL PO STA (02:53)
== END 2018-12-18 03:19 | disposition home or self-care (01) ==
LOC: EC 00:23
DX: K50.90 Crohn's disease, unspecified, without complications (principal); Z87.19 Personal history of other diseases of the digestive system; Z87.891 Personal history of nicotine dependence; Z88.8 Allergy status to other drugs, medicaments and biological substances
CPT/HCPCS: 36415; 80053; 82150; 83605; 83690; 85025; 74018; 99284; 96374; 96375; 96376; 96372; J0500; J2405; J1170

== ENCOUNTER 2018-12-20 02:49 | Emergency (ER) | payer OTHER ==
[2018-12-20 02:56] VITALS: BP 121/84; PULSE 79; RESP 18; TEMP 98.2
[2018-12-20] MEDS ORDERED: SODIUM CHLORIDE 0.9% 1,000 ML IV STA (03:01)
[2018-12-20 03:37] LABS: ALT 17 U/L (21-72); AST 20 U/L (17-59); African American GFR (CKD) >90 (>60 ml/min/1.73 sqM); Albumin 3.9 g/dL (3.5-5.0); Alkaline Phosphatase 65 U/L (38-126); Amylase 86 U/L (30-110); Anion Gap 9 mmol/L; Blood Urea Nitrogen 14 mg/dL (9-20); Calcium 9.8 mg/dL (8.4-10.2); Carbon Dioxide 26 mmol/L (22-30); Chloride 103 mmol/L (98-107); Glucose 89 mg/dL (74-99); Potassium 4.4 mmol/L (3.5-5.1); Sodium 138 mmol/L (137-145); Total Bilirubin 0.6 mg/dL (0.2-1.3); Total Protein 7.4 g/dL (6.3-8.2)
[2018-12-20 03:40] LABS: Basophils # (A) 0.1 k/uL (0-0.2); Basophils % (A) 1 %; Eosinophils # (A) 0.3 k/uL (0-0.7); Eosinophils % (A) 3 %; HCT 46.3 % (39.0-53.0); HGB 14.4 gm/dL (13.0-17.5); Hypochromasia Slight; Lymphocytes # (A) 2.4 k/uL (1.0-4.8); Lymphocytes % (A) 23 %; MCH 21.9 pg (25.0-35.0); MCHC 31.1 g/dL (31.0-37.0); MCV 70.4 fL (80.0-100.0); Mean Platelet Volume 5.6; Microcytosis Moderate; Monocytes # (A) 0.8 k/uL (0-1.0); Monocytes % (A) 8 %; Neutrophils # (A) 6.3 k/uL (1.3-7.7); Neutrophils % (A) 62 %; Platelet Count 331 k/uL (150-450); RBC 6.57 m/uL (4.30-5.90); RDW 13.9 % (11.5-15.5); WBC 10.2 k/uL (3.8-10.6)
[2018-12-20] MEDS ORDERED: ONDANSETRON 4 MG/2 ML VIAL IVP STA (04:08)
[2018-12-20] MEDS ORDERED: DICYCLOMINE 20 MG TAB PO STA (04:08)
--- NOTE | 2018-12-20 04:09 | ED ---
Abdominal Pain HPI - General Chief Complaint: Abdominal Pain Stated Complaint: abd pain Time Seen by Provider: 12/20/18 02:59 Source: patient Mode of arrival: wheelchair Limitations: no limitations - History of Present Illness Initial Comments: Crow is a 28 yo M with medical history of Crohn's disease with a recent intra-abdominal abscess. Patient is currently on once monthly infusion therapy for his Crohn's disease which she reports she's been compliant with. Patient was previously on long-term steroids but states that he been weaned off of the steroids recently. Patient presents to the emergency department today complaining of crampy abdominal pain and nausea. Patient reports he's been experiencing this for over a week. He reports he just feels like his stomach is cramping, he was prescribed Vicodin by his primary care physician and now feels that he is constipated. He did have a small bowel movement prior to arrival. He has no history of bowel obstruction in the past. His that he has been feeling nauseated and has not been eating or drinking well therefore is concerned that he may has become dehydrated. - Related Data Previous Rx's Medication Instructions Recorded Dicyclomine [Bentyl] 20 mg PO QID #12 tablet 12/18/18 Dicyclomine [Bentyl] 10 mg PO QID #30 capsule 12/20/18 Ondansetron [Zofran ODT] 4 mg PO Q8HR #12 tab 12/20/18 Allergies Allergy/AdvReac Type Severity Reaction Status Date / Time cyclobenzaprine AdvReac muscle Verified 12/20/18 02:56 [From Flexeril] spasms Review of Systems ROS Statement: Those systems with pertinent positive or pertinent negative responses have been documented in the HPI. ROS Other: All systems not noted in ROS Statement are negative. Past Medical History Past Medical History: No Reported History Additional Past Medical History / Comment(s): Crohns, abscess on intestine diagnosed 08/2018, pancreatitis, History of Any Multi-Drug Resistant Organisms: None Reported Past Surgical History: No Surgical Hx Reported Additional Past Surgical History / Comment(s): EGD, colonoscopy, Past Anesthesia/Blood Transfusion Reactions: No Reported Reaction Past Psychological History: Anxiety, Depression Smoking Status: Former smoker Past Alcohol Use History: None Reported Past Drug Use History: Marijuana - Past Family History Father Family Medical History: No Reported History Additional Family Medical History / Comment(s): Father is healthy Mother Family Medical History: No Reported History Additional Family Medical History / Comment(s): Mother is healthy. General Exam - General Exam Comments Initial Comments: Physical Exam GENERAL: Patient is well-developed and well-nourished. Patient is nontoxic and well-hydrated and is in no distress. HENT: Normocephalic, Atraumatic. EYES: PERRL, EOMI PULMONARY: Unlabored respirations. No audible rales rhonchi or wheezing was noted. CARDIOVASCULAR: There is a regular rate and rhythm without any murmurs gallops or rubs. ABDOMEN: Soft and nontender with normal bowel sounds. SKIN: Skin is clear with no lesions or rashes and otherwise unremarkable. : Deferred NEUROLOGIC: Patient is alert and oriented x3. Moving all extremities spontaneously MUSCULOSKELETAL: Normal extremities with adequate strength and full range of motion. No lower extremity swelling or edema. No calf tenderness. PSYCHIATRIC: Normal psychiatric evaluation. Limitations: no limitations Course Vital Signs 12/20/18 02:53 Temperature 98.2 F Pulse Rate 79 Respiratory 18 Rate Blood Pressure 121/84 O2 Sat by Pulse 99 Oximetry Medical Decision Making - Medical Decision Making The patient was seen and evaluated, history was obtained from patient, review of medical record and girlfriend at bedside. Labs and imaging were ordered however patient declined any x-ray or CT imaging due to concern for radiation exposure. Patient states that his gastroenterolo gist was ordered outpatient MRI however it hasn't gotten insurance approval therefore he would like the MRI while he is in the hospital. Labs resulted with no significant abnormalities. There is no leukocytosis, transaminases and lipase are within normal limits. At this time there does not appear to be any acute emergent condition, without imaging cannot absolutely rule out certain pathology including bowel obstruction, perforation however patient is refusing imaging. Physical exam reveals a non-peritoneal abdomen. At this time patient is upset that he hasn't received any IV analgesia. I discussed with the patient that crampy abdominal pain is usually treated with Bentyl. At this time patient states he is willing to receive the x-ray if that will help him be admitted to the hospital for pain management. I advised him that x-rays are usually observing for any free air or obstruction or constipation, we will obtain an x-ray for evaluation however I do not believe that we'll change his management as he is quite well-appearing with normal labs and normal vital signs. X-ray was obtained and did reveal constipation. There are no other acute findings on the x-ray. These results were discussed with the patient, I advised the patient that he needs to be taking a stool softener while taking Vicodin, he needs to drink plenty of fluids, patient states that he is actually been drinking magnesium citrate because of the constipation and he feels this is worsening his cramping abdominal pain. I recommended he try Dulcolax suppository for constipation and patient is willing to try it. 2:00 suppository was ordered here in the emergency department. I did discuss with the patient that narcotic pain medication causes slowing of the bowel and can cause constipation therefore he should try to decrease his narcotic drug use and follow with GI for further recommendations and management of his Crohn's disease. - Lab Data Result diagrams: 12/20/18 03:08 12/20/18 03:08 Lab Results 12/20/18 12/20/18 Range/Units 03:08 03:08 WBC 10.2 (3.8-10.6) k/uL RBC 6.57 H (4.30-5.90) m/uL Hgb 14.4 (13.0-17.5) gm/dL Hct 46.3 (39.0-53.0) % MCV 70.4 L (80.0-100.0) fL MCH 21.9 L (25.0-35.0) pg MCHC 31.1 (31.0-37.0) g/dL RDW 13.9 (11.5-15.5) % Plt Count 331 (150-450) k/uL Neutrophils % 62 % Lymphocytes % 23 % Monocytes % 8 % Eosinophils % 3 % Basophils % 1 % Neutrophils # 6.3 (1.3-7.7) k/uL Lymphocytes # 2.4 (1.0-4.8) k/uL Monocytes # 0.8 (0-1.0) k/uL Eosinophils # 0.3 (0-0.7) k/uL Basophils # 0.1 (0-0.2) k/uL Hypochromasia Slight Microcytosis Moderate Sodium 138 (137-145) mmol/L Potassium 4.4 (3.5-5.1) mmol/L Chloride 103 (98-107) mmol/L Carbon Dioxide 26 (22-30) mmol/L Anion Gap 9 mmol/L BUN 14 (9-20) mg/dL Creatinine 1.00 (0.66-1.25) mg/dL Est GFR (CKD-EPI)AfAm >90 (>60 ml/min/1.73 sqM) Est GFR (CKD-EPI)NonAf >90 (>60 ml/min/1.73 sqM) Glucose 89 (74-99) mg/dL Calcium 9.8 (8.4-10.2) mg/dL Total Bilirubin 0.6 (0.2-1.3) mg/dL AST 20 (17-59) U/L ALT 17 L (21-72) U/L Alkaline Phosphatase 65 (38-126) U/L Total Protein 7.4 (6.3-8.2) g/dL Albumin 3.9 (3.5-5.0) g/dL Amylase 86 (30-110) U/L Lipase 89 (23-300) U/L Disposition Clinical Impression: Abdominal pain Disposition: HOME SELF-CARE Condition: Stable Instructions (If sedation given, give patient instructions): Abdominal Pain (ED) Additional Instructions: Call Dr Morgan today for follow up and ask if you need stress dose steroids for flare up. Prescriptions: Dicyclomine [Bentyl] 10 mg PO QID #30 capsule Ondansetron [Zofran ODT] 4 mg PO Q8HR #12 tab Is patient prescribed a controlled substance at d/c from ED?: No Referrals: Mark Clemente MD [Primary Care Provider] - 1-2 days
--- NOTE | 2018-12-20 05:17 | XR ---
EXAM: XR Abdomen, 2 Views CLINICAL HISTORY: ITS.REASON XR Reason: abdominal cramping TECHNIQUE: Frontal view of the abdomen/pelvis with upright view of the abdomen. COMPARISON: CT abdomen 10/05/18 FINDINGS: Intraperitoneal space: No free air. Gastrointestinal tract: Copious stool. No dilation. Bones/joints: No acute fracture. No dislocation. IMPRESSION: No acute findings. Correlate with constipation.
[2018-12-20] MEDS ORDERED: BISACODYL 10 MG SUPP RECTAL STA (05:30)
== END 2018-12-20 05:39 | disposition home or self-care (01) ==
LOC: EC 02:49
DX: K59.00 Constipation, unspecified (principal); K50.90 Crohn's disease, unspecified, without complications; R11.0 Nausea; Z88.8 Allergy status to other drugs, medicaments and biological substances; Z87.891 Personal history of nicotine dependence; Z87.19 Personal history of other diseases of the digestive system; Z98.890 Other specified postprocedural states
CPT/HCPCS: 36415; 80053; 82150; 83690; 85025; 74018; 96374; 96361; 99284; J2405

== ENCOUNTER → 2018-12-24 | Outpatient (CLI) | payer OTHER | LOC: LABWHC1 12:37 | PROVIDERS: ATTEND Nurse Practitioner | DX: K50.80 Crohn's disease of both small and large intestine without complications (principal) | CPT/HCPCS: 36415 ==

== ENCOUNTER → 2019-01-09 | Outpatient (CLI) | payer OTHER ==
--- NOTE | 2019-01-20 15:56 | MR ---
EXAMINATION TYPE: MR pelvis wo/w con DATE OF EXAM: 01/20/2019. The initial examination was performed on 01/09/2019 with request for the pat ient to return for additional more cephalad images. COMPARISON: CT dated 08/29/2018 HISTORY: Crohn's disease, abn CT, R/O abscess/fistula CONTRAST: Standard multiplanar, multisequence MRI departmental protocol utilizing 9 mL intravenous Gadavist leonardo olinium contrast. FINDINGS: Within the pelvis at the level of S1 and S2 there is a centrally homogeneous enhancing spiculated are a such as on T1 axial fat-sat postcontrast image 8 measuring approximately 2.6 x 2.3 cm and also seen on coronal postcontrast image 33. Both of these acquisitions were obtained in 01/20/2019. Just infer ior to this on images acquired on 01/09/2019 and area of susceptibility artifact appears to represent air within bowel. Adjacent to this there is serpiginous enhancement midline into the left midline of what appears to be a loop of small bowel, actively inflamed. This is demonstrated on T2 axial nonfat sat image 1 of the acquisition on 01/20/2019 with bowel wall thickening up to 5 mm. At the peripheral aspects of the spiculated enhancement there are numerous peripherally enhancing rounded areas that a ppear to be tethered loops of bowel, all appearing as small bowel. There are also matted prominent ly mph nodes centrally within the mesentery measuring up to 8 mm in short axis. T2-weighted images demon strate only a scant amount of perienteric fat stranding. Central fluid and extensive fat stranding wo uld be expected if this represented abscess. There is concern for fistulous formation between these l oops of small bowel as there are a few internal punctate foci of air throughout the central phlegmono us change/fibrosis. Bowel loops in the right lower quadrant, presumed to be the terminal ileum have abnormal enhancement and bowel wall thickening indicative of terminal ileitis. T2-weighted images acquired on 01/20/2019 demonstrate extensive motion artifact and are severely limi shukri. Diastases recti is seen. Evaluation of the solid viscera is severely limited. The caudal images on 01/19/2019 demonstrate no perirectal fistula or abscess. IMPRESSION: 1. The previously questioned abscess appears as multiple loops of centralized tethered small bowel wi th central desmoplastic fibrosis, some loops with bowel wall thickening and enhancement corresponding to active inflammatory enteritis in this patient with Crohn's disease. These loops could be confirme d as bowel with use of oral contrast. There is a low suspicion for abscess as there is no significant surrounding phlegmonous change or avid rim enhancement to suggest abscess. 2. Few punctate foci of air raise suspicion for multiple fistulas throughout the central scar between the tethered loops of small bowel. 3. Additional active inflammatory change with bowel wall thickening and enhancement of a long segment loop of small bowel in the left low pelvis and what is presumed to be the terminal ileum.
== END | disposition home or self-care (01) ==
LOC: RADMRIMAIN 12:05
PROVIDERS: ATTEND Internal Medicine Gastroenterology
DX: K50.80 Crohn's disease of both small and large intestine without complications (principal); K63.89 Other specified diseases of intestine
CPT/HCPCS: 72197; A9585

== ENCOUNTER 2019-02-10 18:17 | Emergency (ER) | payer OTHER ==
[2019-02-10 18:28] VITALS: BP 121/62; PULSE 70; RESP 16; TEMP 98.3
[2019-02-10] MEDS ORDERED: KETOROLAC 30 MG/ML 1 ML VIAL IM STA (18:47)
--- NOTE | 2019-02-10 19:35 | US ---
EXAMINATION TYPE: US scrotum with doppler. Grayscale and color Doppler Duplex imaging performed of edin aponte scrotum. DATE OF EXAM: 02/10/2019 COMPARISON: NONE CLINICAL HISTORY: testicular pain . Left testicular pain x 5 hours. EXAM MEASUREMENTS: TESTICLES: Right Testicle: 4.3 x 2.8 x 2.8 cm Left Testicle: 4.0 x 2.7 x 2.8 cm EPIDIDYMIS HEAD: Right Epididymis: 1.3 x 1.4 x 0.9 cm Left Epididymis: 2.1 x 2.1 x 1.0 cm Doppler performed to assess for testicular vascularity. Evaluation to demonstrate venous waveform is limited due to increased patient movement and pain. Venous waveform evaluation limited for left testi demarcus. Left testicle appears heterogeneous. Epididymis appears heterogeneous bilaterally. There appears to be a heterogeneous area with increased vascularity lateral to the left testicle. Presence of hydroceles: Left measuring 3.9 x 1.9 x 2.1 cm. Presence of varicoceles: Vessels measure up to 2.7 mm in right side and 2.3 mm on left side. IMPRESSION: There is mild hyperemia on the left side with hydrocele. This could relate to left side epididymitis and orchitis. No testicular torsion or mass.
--- NOTE | 2019-02-10 19:49 | ED ---
Male Urogenital HPI - General Chief complaint: Urogenital Stated complaint: crohns flare up Source: patient Mode of arrival: ambulatory Limitations: no limitations - History of Present Illness Initial comments: Patient is a 28-year-old male with history of Crohn's disease presenting to the emergency department with a chief complaint of testicular pain. He reports the pain gradually began early this morning along the left testicle. He states the pain initially was in his lower abdomen and then [place] to his left testicle. He also reports a mass in the left testicle. He reports the pain is about a 6 at this time. He does report nausea vomiting but denies any fever or chills. Denies taking any medication to relieve his symptoms. No prior history of testicular disease. - Related Data Previous Rx's Medication Instructions Recorded Dicyclomine [Bentyl] 20 mg PO QID #12 tablet 12/18/18 Dicyclomine [Bentyl] 10 mg PO QID #30 capsule 12/20/18 Ondansetron [Zofran ODT] 4 mg PO Q8HR #12 tab 12/20/18 Doxycycline Monohydrate [Monodox] 100 mg PO Q12HR #20 cap 02/10/19 Allergies Allergy/AdvReac Type Severity Reaction Status Date / Time cyclobenzaprine AdvReac muscle Verified 02/10/19 18:27 [From Flexeril] spasms Review of Systems ROS Statement: Those systems with pertinent positive or pertinent negative responses have been documented in the HPI. ROS Other: All systems not noted in ROS Statement are negative. Past Medical History Past Medical History: No Reported History Additional Past Medical History / Comment(s): Crohns, abscess on intestine diagnosed 08/2018, pancreatitis, History of Any Multi-Drug Resistant Organisms: None Reported Past Surgical History: No Surgical Hx Reported Additional Past Surgical History / Comment(s): EGD, colonoscopy, Past Anesthesia/Blood Transfusion Reactions: No Reported Reaction Past Psychological History: Anxiety, Depression Smoking Status: Former smoker Past Alcohol Use History: None Reported Past Drug Use History: Marijuana - Past Family History Father Family Medical History: No Reported History Additional Family Medical History / Comment(s): Father is healthy Mother Family Medical History: No Reported History Additional Family Medical History / Comment(s): Mother is healthy. General Exam Limitations: no limitations General appearance: alert, in no apparent distress Head exam: Present: atraumatic, normocephalic, normal inspection Eye exam: Present: normal appearance Pupils: Present: normal accommodation ENT exam: Present: normal exam, mucous membranes moist Neck exam: Present: normal inspection, full ROM Respiratory exam: Present: normal lung sounds bilaterally Cardiovascular Exam: Present: regular rate, normal rhythm, normal heart sounds exam: Present: normal inspection, testicular tenderness (Left testicular tenderness.), circumcision, other (Positive prehn sign). Absent: urethral discharge, scrotal swelling, vertical testicular lie Extremities exam: Present: normal inspection, full ROM, normal capillary refill Back exam: Present: normal inspection, full ROM Neurological exam: Present: alert, oriented X3 Psychiatric exam: Present: normal affect, normal mood Skin exam: Present: warm, dry, intact, normal color Course Vital Signs 02/10/19 18:25 Temperature 98.3 F Pulse Rate 70 Respiratory 16 Rate Blood Pressure 121/62 O2 Sat by Pulse 94 L Oximetry Medical Decision Making - Medical Decision Making Patient is a 28-year-old male presenting to the emergency department with a chief complaint of testicular pain on exam patient does have mild left-sided testicular swelling with tenderness in the region. There is a small mass noted top of the testicle. No penile discharge. No testicular erythema. PositivePre hn sign. Ultrasound shows a hydrocele on the left testicle along with epididymoorchitis. Patient will be treated with Rocephin and doxycycline. Urine culture pending. Patient advised to follow-up with urologist. Strict return parameters were thoroughly discussed with patient was understanding and agreeable. Case discussed with physician. Disposition Clinical Impression: Epididymoorchitis, Left hydrocele Disposition: HOME SELF-CARE Condition: Stable Instructions (If sedation given, give patient instructions): Epididymo-Orchitis (ED) Additional Instructions: Please take prescribed medication as directed. Please return to emergency department if symptoms worsen. Please follow up with a urologist. Is patient prescribed a controlled substance at d/c from ED?: No Referrals: Mark Clemente MD [Primary Care Provider] - 1-2 days Israel Verde MD [STAFF PHYSICIAN] - 1-2 days Time of Disposition: 19:59
[2019-02-10] MEDS ORDERED: cefTRIAXone 250 MG VIAL IM STA (19:58)
[2019-02-10 20:34] LABS: Appearance,Urine Clear (Clear); Bilirubin,Urine Negative (Negative); Blood,Urine Negative (Negative); Color,Urine Yellow; Glucose,Urine (UA) Negative (Negative); Ketones,Urine Negative (Negative); Leukocyte Esterase,Urine Negative (Negative); Nitrite,Urine Negative (Negative); Protein,Urine Trace (Negative); Specific Gravity,Urine 1.028 (1.001-1.035); Urobilinogen,Urine <2.0 mg/dL (<2.0)
== END 2019-02-10 20:27 | disposition home or self-care (01) ==
LOC: EC 18:17
DX: N45.3 Epididymo-orchitis (principal); N43.3 Hydrocele, unspecified; Z88.8 Allergy status to other drugs, medicaments and biological substances; Z87.891 Personal history of nicotine dependence
CPT/HCPCS: 81003; 93975; 76870; 99284; 96372 ×2; J0696; J1885

== ENCOUNTER 2019-04-08 16:02 | Emergency (ER) | payer OTHER ==
[2019-04-08] MEDS ORDERED: MORPHINE SULFATE 4 MG/ML SYRINGE IV STA (16:39)
[2019-04-08] MEDS ORDERED: SODIUM CHLORIDE 0.9% 1,000 ML IV STA (16:39)
[2019-04-08] MEDS ORDERED: ONDANSETRON 4 MG/2 ML VIAL IVP STA (16:40)
[2019-04-08] MEDS ORDERED: methylPREDNISolone SOD SUCCI 125 MG/2 ML VIAL IV STA (16:40)
--- NOTE | 2019-04-08 17:14 | XR ---
EXAMINATION TYPE: XR KUB DATE OF EXAM: 04/08/2019 COMPARISON: 08/19/2018 HISTORY: Abdominal pain TECHNIQUE: 2 views upright FINDINGS: There is no sign of intestinal obstruction or pneumoperitoneum. Fecal pattern is normal. Elvira ng bases are clear. There are no pathologic calcifications. IMPRESSION: Nonacute abdomen. No change.
[2019-04-08 17:27] LABS: Basophils # (A) 0.1 k/uL (0-0.2); Basophils % (A) 0 %; Eosinophils # (A) 0.3 k/uL (0-0.7); Eosinophils % (A) 2 %; HCT 47.7 % (39.0-53.0); HGB 14.3 gm/dL (13.0-17.5); Hypochromasia Slight; Lymphocytes # (A) 1.8 k/uL (1.0-4.8); Lymphocytes % (A) 11 %; MCH 20.9 pg (25.0-35.0); MCHC 30.1 g/dL (31.0-37.0); MCV 69.6 fL (80.0-100.0); Microcytosis Moderate; Monocytes # (A) 0.7 k/uL (0-1.0); Monocytes % (A) 4 %; Neutrophils # (A) 12.7 k/uL (1.3-7.7); Neutrophils % (A) 80 %; Platelet Count 282 k/uL (150-450); RBC 6.84 m/uL (4.30-5.90); RDW 14.3 % (11.5-15.5); WBC 15.9 k/uL (3.8-10.6)
[2019-04-08 17:42] LABS: ALT 12 U/L (4-49); AST 30 U/L (17-59); African American GFR (CKD) >90 (>60 ml/min/1.73 sqM); Albumin 4.2 g/dL (3.5-5.0); Alkaline Phosphatase 92 U/L (38-126); Amylase 100 U/L (30-110); Anion Gap 9 mmol/L; Blood Urea Nitrogen 14 mg/dL (9-20); Calcium 9.3 mg/dL (8.4-10.2); Carbon Dioxide 25 mmol/L (22-30); Chloride 102 mmol/L (98-107); Glucose 79 mg/dL (74-99); Non-African American GFR(CKD) >90 (>60 ml/min/1.73 sqM); Potassium 4.6 mmol/L (3.5-5.1); Sodium 136 mmol/L (137-145); Total Bilirubin 0.7 mg/dL (0.2-1.3); Total Protein 7.8 g/dL (6.3-8.2)
--- NOTE | 2019-04-08 18:06 | ED ---
General Adult HPI - General Chief complaint: Abdominal Pain Stated complaint: Abdominal Pain Time Seen by Provider: 04/08/19 16:16 Source: patient, RN notes reviewed Mode of arrival: ambulatory Limitations: no limitations - History of Present Illness Initial comments: 28-year-old male presents to the emergency department for a chief complaint of abdominal pain. Patient has a history of Crohn's. Patient states that this abdominal pain started about a week ago but then worsened today while he was working. States he had nausea for about an hour which has since resolved. No associated vomiting. Patient has not had any diarrhea. Last bowel movement was yesterday and was normal. No melena, hematochezia, or mucus in the stool. Patient denies fevers or chills. Patient does receive Inflectra with last dose being 2 months ago. Patient is scheduled to see his GI physician tomorrow.Patient has no other complaints at this time including shortness of breath, chest pain, abdominal pain, nausea or vomiting, headache, or visual changes. - Related Data Previous Rx's Medication Instructions Recorded Dicyclomine [Bentyl] 20 mg PO QID #12 tablet 12/18/18 Dicyclomine [Bentyl] 10 mg PO QID #30 capsule 12/20/18 Ondansetron [Zofran ODT] 4 mg PO Q8HR #12 tab 12/20/18 Doxycycline Monohydrate [Monodox] 100 mg PO Q12HR #20 cap 02/10/19 Allergies Allergy/AdvReac Type Severity Reaction Status Date / Time cyclobenzaprine AdvReac muscle Verified 04/08/19 16:03 [From Flexeril] spasms Review of Systems ROS Statement: Those systems with pertinent positive or pertinent negative responses have been documented in the HPI. ROS Other: All systems not noted in ROS Statement are negative. Past Medical History Past Medical History: No Reported History Additional Past Medical History / Comment(s): Crohns, abscess on intestine guerrero gnosed 08/2018, pancreatitis, History of Any Multi-Drug Resistant Organisms: None Reported Past Surgical History: No Surgical Hx Reported Additional Past Surgical History / Comment(s): EGD, colonoscopy, Past Anesthesia/Blood Transfusion Reactions: No Reported Reaction Past Psychological History: Anxiety, Depression Smoking Status: Current some day smoker Past Alcohol Use History: None Reported Past Drug Use History: Marijuana - Past Family History Father Family Medical History: No Reported History Additional Family Medical History / Comment(s): Father is healthy Mother Family Medical History: No Reported History Additional Family Medical History / Comment(s): Mother is healthy. General Exam Limitations: no limitations General appearance: alert, in no apparent distress Head exam: Present: atraumatic, normocephalic, normal inspection Eye exam: Present: normal appearance, PERRL, EOMI. Absent: scleral icterus, conjunctival injection, periorbital swelling ENT exam: Present: normal exam, mucous membranes moist Neck exam: Present: normal inspection, full ROM. Absent: tenderness, meningis mus, lymphadenopathy Respiratory exam: Present: normal lung sounds bilaterally. Absent: respiratory distress, wheezes, rales, rhonchi, stridor Cardiovascular Exam: Present: regular rate, normal rhythm, normal heart sounds. Absent: systolic murmur, diastolic murmur, rubs, gallop, clicks GI/Abdominal exam: Present: soft, tenderness (Tenderness noted to the left lower quadrant with), normal bowel sounds. Absent: distended, guarding, rebound, rigid Course Vital Signs 04/08/19 16:04 Temperature 97.6 F Pulse Rate 61 Respiratory 16 Rate Blood Pressure 148/95 O2 Sat by Pulse 100 Oximetry Medical Decision Making - Medical Decision Making Vitals are stable. Patient is afebrile. His exam reveals left lower quadrant tenderness. CBC does show leukocytosis of 15.9. CMP unremarkable. I initially performed an x-ray which did not demonstrate pneumoperitoneum. However given patient's leukocytosis with left lower quadrant tenderness I did fill is necessary to order a CT of the abdomen. This did read as a dilated ileum with distal significant wall thickening of the long segment of terminal ileum co nsistent with severe inflammatory bowel disease. This has progressed compared to the old exam from 10/05/2018. There is mild free fluid in the paracolic gutter consistent with inflammatory disease that is new. However fistula is not identified. Therefore patient was given IV steroids as well as IV analgesics. On reevaluation of the patient he is feeling considerably improved. Patient has a appointment with his GI specialist tomorrow. At this time he is feeling well enough to go home and follow up tomorrow. She will return for any worsening symptoms. - Lab Data Result diagrams: 04/08/19 17:12 04/08/19 17:12 Lab Results 04/08/19 04/08/19 Range/Units 17:12 17:12 WBC 15.9 H (3.8-10.6) k/uL RBC 6.84 H (4.30-5.90) m/uL Hgb 14.3 (13.0-17.5) gm/dL Hct 47.7 (39.0-53.0) % MCV 69.6 L (80.0-100.0) fL MCH 20.9 L (25.0-35.0) pg MCHC 30.1 L (31.0-37.0) g/dL RDW 14.3 (11.5-15.5) % Plt Count 282 (150-450) k/uL Neutrophils % 80 % Lymphocytes % 11 % Monocytes % 4 % Eosinophils % 2 % Basophils % 0 % Neutrophils # 12.7 H (1.3-7.7) k/uL Lymphocytes # 1.8 (1.0-4.8) k/uL Monocytes # 0.7 (0-1.0) k/uL Eosinophils # 0.3 (0-0.7) k/uL Basophils # 0.1 (0-0.2) k/uL Hypochromasia Slight Microcytosis Moderate Sodium 136 L (137-145) mmol/L Potassium 4.6 (3.5-5.1) mmol/L Chloride 102 (98-107) mmol/L Carbon Dioxide 25 (22-30) mmol/L Anion Gap 9 mmol/L BUN 14 (9-20) mg/dL Creatinine 0.85 (0.66-1.25) mg/dL Est GFR (CKD-EPI)AfAm >90 (>60 ml/min/1.73 sqM) Est GFR (CKD-EPI)NonAf >90 (>60 ml/min/1.73 sqM) Glucose 79 (74-99) mg/dL Calcium 9.3 (8.4-10.2) mg/dL Total Bilirubin 0.7 (0.2-1.3) mg/dL AST 30 (17-59) U/L ALT 12 (4-49) U/L Alkaline Phosphatase 92 (38-126) U/L Total Protein 7.8 (6.3-8.2) g/dL Albumin 4.2 (3.5-5.0) g/dL Amylase 100 (30-110) U/L Lipase 109 (23-300) U/L Disposition Clinical Impression: Abdominal pain, History of Crohn's disease Disposition: HOME SELF-CARE Condition: Good Instructions (If sedation given, give patient instructions): Abdominal Pain (ED) Additional Instructions: Please follow up with your GI specialist at your appointment tomorrow. However if he develop any worsening symptoms such as worsening abdominal pain, or fevers return to the emergency department immediately. Is patient prescribed a controlled substance at d/c from ED?: No Referrals: Mark Clemente MD [Primary Care Provider] - 1-2 days Griselda Morgan MD [STAFF PHYSICIAN] - 1-2 days Time of Disposition: 19:45
--- NOTE | 2019-04-08 18:55 | CT ---
EXAMINATION TYPE: CT abdomen pelvis w con DATE OF EXAM: 04/08/2019 COMPARISON: 10/05/2018 HISTORY: Abdominal pain, hx of crohns CT DLP: 956.4 mGycm Automated exposure control for dose reduction was used. CONTRAST: Performed with IV Contrast, patient injected with 100 mL of Isovue 300. Lung bases are clear of consolidation. There is no pleural effusion. Heart size is normal. Liver spleen pancreas gallbladder stomach appear normal. Bile ducts are not dilated. There is no adrenal mass. Kidneys show satisfactory contrast opacification. There is no hydronephrosi s. Ureters are not dilated. There is no retroperitoneal adenopathy. There is small amount of fluid in the right paracolic gutter. Bladder distends smoothly. There is no inguinal hernia. There is no free fluid in the pelvis. There is fat stranding and poorly defined bowel in the low mid abdomen. There i s Loop of distal small bowel that is dilated with wall thickening. Bowel measures 4.8 cm and there is distally and apparent segment of ileum with severe wall thickening up to 1.8 cm. This extends to the ileocecal valve. Appendix is not definitely seen. Lumbar vertebra have normal spacing and alignment. Posterior elements are intact. Bony pelvis appears intact. There is no sign of free air. IMPRESSION: Dilated ileum with distal significant wall thickening of the long segment of terminal ileum consisten t with severe inflammatory bowel disease. This has progressed compared to old exam. There is mild brittani e fluid in the paracolic gutter consistent with inflammatory disease that is new compared to old exam . Fistula not identified.
[2019-04-08 20:01] VITALS: BP 130/88; PULSE 70; RESP 18; TEMP 97.7
== END 2019-04-08 20:00 | disposition home or self-care (01) ==
LOC: EC 16:02
DX: R10.9 Unspecified abdominal pain (principal); D72.829 Elevated white blood cell count, unspecified; R93.3 Abnormal findings on diagnostic imaging of other parts of digestive tract; F17.200 Nicotine dependence, unspecified, uncomplicated; Z88.8 Allergy status to other drugs, medicaments and biological substances; Z87.19 Personal history of other diseases of the digestive system; Z98.890 Other specified postprocedural states
CPT/HCPCS: 36415; 80053; 82150; 83690; 85025; 74018; 74177; 99284; 96374; 96375 ×2; 96361; J2270; J2930; J2405; Q9967

== ENCOUNTER 2019-04-15 | Emergency (ER) | payer OTHER | END 2019-04-15 10:32 | disposition home or self-care (01) | CPT/HCPCS: 99284; 96374; 96375; 96361; 36415; 80053; 83690; 85025; 74018; J2270; J1100 ==

== ENCOUNTER 2019-04-16 11:43 | Inpatient (IN) | payer OTHER ==
[2019-04-16] MEDS ORDERED: MORPHINE SULFATE 4 MG/ML SYRINGE IV STA (12:08)
[2019-04-16] MEDS ORDERED: SODIUM CHLORIDE 0.9% 1,000 ML IV STA (12:08)
[2019-04-16] MEDS ORDERED: ONDANSETRON 4 MG/2 ML VIAL IVP STA (12:08)
--- NOTE | 2019-04-16 12:16 | ED ---
General Adult HPI - General Chief complaint: Abdominal Pain Stated complaint: Revisit Abd Pain Time Seen by Provider: 04/16/19 12:00 Source: patient Mode of arrival: ambulatory Limitations: no limitations - History of Present Illness Initial comments: Dictation was produced using Xen[employer] dictation software. please excuse any grammatical, word or spelling errors. Chief Complaint: 28-year-old male past medical history of Crohn's disease presents with abdominal pain. History of Present Illness: 28-year-old male presents with abdominal pain. This is patient's third visit in the last 1 week. Patient is a history of Crohn's disease. At patient's first visit computed tomography scan was obtained showing severe inflammation to the colon. 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 Patient states that he was feeling well today when he tried to eat a chicken sandwich. After eating he began experiencing significant suprapubic pain. Patient denies any fever, chills or night sweats. Denies any diarrhea. He does feel nauseated. The ROS documented in this emergency department record has been reviewed and confirmed by me. Those systems with pertinent positive or negative responses have been documented in the HPI. All other systems are other negative and/or noncontributory. PHYSICAL EXAM: General Impression: Alert and oriented x3, acute distress secondary to pain HEENT: Normocephalic atraumatic, extra-ocular movements intact, pupils equal and reactive to light bilaterally, mucous membranes moist. Cardiovascular: Heart regular rate and rhythm, S1&S2 audible, no murmurs, rubs or gallops Chest: Lungs clear to auscultation bilaterally, no rhonchi, no wheeze, no rales Abdomen: Suprapubic abdominal tenderness, hyperactive bowel sounds Musculoskeletal: Pulses present and equal in all extremities, no peripheral edema Motor: no focal deficits noted Neurological: CN II-XII grossly intact, no focal motor or sensory deficits noted Skin: Intact with no visualized rashes Psych: Normal affect and mood ED course: 28-year-old male past medical history of Crohn's and recent Crohn's inflammation presents with history visit to the ER for complaint of suprapubic abdominal pain. Vital signs upon arrival are within acceptable limits. Laboratory evaluation obtained. Leukocytosis of 18.5. Metabolic panel is unremarkable. Patient just had a CT 1 week ago. Do not feel the need to repeat the CT at this time. Patient however does have elevated leukocytosis. Patient started on Zosyn. Patient be admitted to Dr. Clemente service with consultation to GI. Vision is agreeable to admission however he states he doesn't mostly more than one night. So that he has a right to leave AGAINST MEDICAL ADVICE if he chooses to at a later time. - Related Data Home Medications Medication Instructions Recorded Confirmed ALPRAZolam [Xanax] 0.25 mg PO TID PRN 04/16/19 04/16/19 HYDROcodone/APAP 5-325MG [[place] 1 tab PO DAILY PRN 04/16/19 04/16/19 5-325] Ibuprofen [Motrin] 800 mg PO QID PRN 04/16/19 04/16/19 Allergies Allergy/AdvReac Type Severity Reaction Status Date / Time cyclobenzaprine AdvReac muscle Verified 04/16/19 12:27 [From Flexeril] spasms Review of Systems ROS Statement: Those systems with pertinent positive or pertinent negative responses have been documented in the HPI. ROS Other: All systems not noted in ROS Statement are negative. Past Medical History Past Medical History: No Reported History Additional Past Medical History / Comment(s): Crohns, abscess on intestine diagn osed 08/2018 History of Any Multi-Drug Resistant Organisms: None Reported Past Surgical History: No Surgical Hx Reported Additional Past Surgical History / Comment(s): EGD, colonoscopy, Past Anesthesia/Blood Transfusion Reactions: No Reported Reaction Past Psychological History: Anxiety, Depression Smoking Status: Current some day smoker Past Alcohol Use History: None Reported Past Drug Use History: Marijuana - Past Family History Father Family Medical History: No Reported History Additional Family Medical History / Comment(s): Father is healthy Mother Family Medical History: No Reported History Additional Family Medical History / Comment(s): Mother is healthy. General Exam Limitations: no limitations Course Vital Signs 04/16/19 11:54 Temperature 97.5 F L Pulse Rate 75 Respiratory 20 Rate Blood Pressure 139/82 O2 Sat by Pulse 100 Oximetry Medical Decision Making - Lab Data Result diagrams: 04/16/19 12:53 04/16/19 12:53 Lab Results 04/16/19 04/16/19 Range/Units 12:53 12:53 WBC 18.5 H (3.8-10.6) k/uL RBC 6.37 H (4.30-5.90) m/uL Hgb 13.4 (13.0-17.5) gm/dL Hct 43.5 (39.0-53.0) % MCV 68.3 L (80.0-100.0) fL MCH 21.1 L (25.0-35.0) pg MCHC 30.9 L (31.0-37.0) g/dL RDW 14.6 (11.5-15.5) % Plt Count 278 (150-450) k/uL Neutrophils % 76 % Lymphocytes % 16 % Monocytes % 6 % Eosinophils % 1 % Basophils % 0 % Neutrophils # 14.0 H (1.3-7.7) k/uL Lymphocytes # 3.0 (1.0-4.8) k/uL Monocytes # 1.0 (0-1.0) k/uL Eosinophils # 0.1 (0-0.7) k/uL Basophils # 0.0 (0-0.2) k/uL Hypochromasia Slight Microcytosis Marked Sodium 139 (137-145) mmol/L Potassium 3.9 (3.5-5.1) mmol/L Chloride 106 (98-107) mmol/L Carbon Dioxide 25 (22-30) mmol/L Anion Gap 8 mmol/L BUN 13 (9-20) mg/dL Creatinine 0.93 (0.66-1.25) mg/dL Est GFR (CKD-EPI)AfAm >90 (>60 ml/min/1.73 sqM) Est GFR (CKD-EPI)NonAf >90 (>60 ml/min/1.73 sqM) Glucose 87 (74-99) mg/dL Calcium 9.6 (8.4-10.2) mg/dL Total Bilirubin 0.4 (0.2-1.3) mg/dL AST 21 (17-59) U/L ALT 13 (4-49) U/L Alkaline Phosphatase 81 (38-126) U/L Total Protein 7.5 (6.3-8.2) g/dL Albumin 4.0 (3.5-5.0) g/dL Lipase 131 (23-300) U/L Disposition Clinical Impression: Abdominal pain Disposition: ADMITTED IP TO THIS HOSP Condition: Fair Decision Time: 14:12
--- NOTE | 2019-04-16 12:25 | XR ---
EXAMINATION TYPE: XR abdomen 1V DATE OF EXAM: 04/16/2019 COMPARISON: NONE HISTORY: Abdominal pain TECHNIQUE: One view abdominal series FINDINGS: The osseous structures are intact. The bowel gas pattern is nonspecific. Few prominent bowel loops a re seen in the right mid abdomen. Lung bases are clear. IMPRESSION: 1. Nonspecific abdomen. Correlate for an ileus or enteritis.
[2019-04-16 13:14] LABS: Basophils % (A) 0 %; Eosinophils # (A) 0.1 k/uL (0-0.7); Eosinophils % (A) 1 %; HCT 43.5 % (39.0-53.0); HGB 13.4 gm/dL (13.0-17.5); Hypochromasia Slight; Lymphocytes % (A) 16 %; MCH 21.1 pg (25.0-35.0); MCHC 30.9 g/dL (31.0-37.0); MCV 68.3 fL (80.0-100.0); Mean Platelet Volume 7.3; Microcytosis Marked; Monocytes % (A) 6 %; Neutrophils % (A) 76 %; Platelet Count 278 k/uL (150-450); RBC 6.37 m/uL (4.30-5.90); RDW 14.6 % (11.5-15.5); WBC 18.5 k/uL (3.8-10.6)
[2019-04-16] MEDS ORDERED: PIPERACILLIN-TAZOBACTAM 3.375 GM in SODIUM CHLORIDE 0.9% 100 ML IVPB STA (13:26)
[2019-04-16] MEDS ORDERED: ONDANSETRON 4 MG/2 ML VIAL IVP PRN (13:26)
[2019-04-16] MEDS ORDERED: ACETAMINOPHEN TAB 325 MG TAB PO PRN (13:26)
[2019-04-16] MEDS ORDERED: NALOXONE 0.4 MG/ML 1 ML VIAL IV PRN (13:26)
[2019-04-16 13:56] LABS: ALT 13 U/L (4-49); AST 21 U/L (17-59); African American GFR (CKD) >90 (>60 ml/min/1.73 sqM); Alkaline Phosphatase 81 U/L (38-126); Anion Gap 8 mmol/L; Blood Urea Nitrogen 13 mg/dL (9-20); Calcium 9.6 mg/dL (8.4-10.2); Carbon Dioxide 25 mmol/L (22-30); Chloride 106 mmol/L (98-107); Glucose 87 mg/dL (74-99); Non-African American GFR(CKD) >90 (>60 ml/min/1.73 sqM); Potassium 3.9 mmol/L (3.5-5.1); Sodium 139 mmol/L (137-145); Total Bilirubin 0.4 mg/dL (0.2-1.3); Total Protein 7.5 g/dL (6.3-8.2)
[2019-04-16] MEDS: SODIUM CHLORIDE 0.9% 1,000 ML IV SCH ×2 (14:41→21:16)
[2019-04-16] MEDS: MORPHINE SULFATE 4 MG/ML SYRINGE IV PRN ×3 (14:43→22:20)
[2019-04-17] MEDS: MORPHINE SULFATE 4 MG/ML SYRINGE IV PRN ×5 (02:07→23:18)
[2019-04-17] MEDS: SODIUM CHLORIDE 0.9% 1,000 ML IV SCH ×3 (02:11→19:18)
[2019-04-17] MEDS ORDERED: HYDROcodone/APAP 5-325MG 1 EACH TAB PO PRN (11:48)
[2019-04-17] MEDS ORDERED: ALPRAZolam 0.25 MG TAB PO PRN (11:48)
[2019-04-17] MEDS: methylPREDNISolone SOD SUCCI 40 MG/ML 1 ML VIAL IV SCH ×2 (16:41→23:18)
--- NOTE | 2019-04-17 18:49 | HP ---
HISTORY AND PHYSICAL CHIEF COMPLAINT: Abdominal pain. HISTORY OF PRESENT ILLNESS: This is another admission for this 28-year-old -[place] who has Crohn's disease. For a day or two, he developed increasing lower abdominal pain and was without any melena or hematochezia, diarrhea, constipation, etc. He came to the emergency room and was identified as having a flare up of his Crohn's and he was admitted. REVIEW OF SYSTEMS: He has had no headaches, neurologic problems, chest pain, shortness of breath, hypertension, heart disease, myalgia, fever, jaundice, hepatitis, strokes, renal failure, dysuria, frequency, urgency, etc. Past medical history, family history, and personal and social histories reveal that he is NOT ALLERGIC TO ANY MEDICATION. He takes Xanax 0.25 q.i.d. p.r.n., ibuprofen 800 mg q.i.d. p.r.n., Vicodin 5/325 one q.6 p.r.n. Surgically, he has only had a colonoscopy. He used to smoke but he has quit. He does not consume alcohol. PHYSICAL EXAMINATION: Blood pressure 126/82 with a pulse of 92, respirations are 32 and he is afebrile. In general, he appeared to be well-developed and well-nourished, in no acute distress. Skin was dry and lymph nodes are not enlarged. Head, ears, eyes, nose, mouth, and throat were normal. Neck veins are not distended. Thyroid is not enlarged. Chest is clear to auscultation and percussion. Cardiac exam demonstrates sinus tachycardia with no murmurs or extra sounds. Abdomen is slightly distended and is somewhat firm. There is a doughy consistency to the abdomen and no definite areas of significant point tenderness. He is a little bit more tender in both lower quadrants. There is no visceromegaly. Bowel sounds are present. Extremities are normal. Neurologically, he is intact. He is admitted to the hospital with: DIAGNOSIS: Acute exacerbation of Crohn's disease. PLAN: 1. Bed rest. 2. IV fluids. 3. Consult with Gastroenterology. MMODL / IJN: [id number] /
--- NOTE | 2019-04-17 18:55 | PN ---
PROGRESS NOTE DATE OF SERVICE: 04/17/2019 CHIEF COMPLAINT: Abdominal pain and Crohn's disease. HISTORY OF PRESENT ILLNESS: This gentleman is feeling slightly better. The pain is alleviated somewhat. PHYSICAL EXAMINATION: He is afebrile. Chest is clear. Cardiac exam is normal. The abdomen is firm and slightly tender in both lower quadrants. Bowel sounds are present. IMPRESSION: Exacerbation of Crohn's disease. PLAN: 1. Continue with intravenous fluids. 2. Await GI recommendations. MMODL / IJN: [id number] /
[2019-04-18] MEDS: MORPHINE SULFATE 4 MG/ML SYRINGE IV PRN ×2 (03:22→08:22)
[2019-04-18] MEDS: SODIUM CHLORIDE 0.9% 1,000 ML IV SCH (03:23)
--- NOTE | 2019-04-18 07:09 | CONS ---
CONSULTATION DATE OF DICTATION: 04/17/2019 REASON FOR CONSULTATION: Abdominal pain, exacerbation of Crohn's disease. The patient is a 28-year-old white male who was diagnosed with Crohn's disease in January of 2018 somewhere in [place], [place]. The patient had multiple hospitalizations over the last one year since the diagnosis with intraabdominal abscess, but was in the past treated with antibiotics, prolonged courses of antibiotics. He was subsequently started on Inflectra about 3 months ago and since then has been doing much better. His last does of Inflectra was 3 weeks ago. For the last one week, he has been having lower abdominal discomfort and came into the emergency room on April [address] of the abdomen and pelvis done which showed inflammation of the terminal ileum and patient was clinically doing well and he was discharged home. He came back to the emergency room 2 days ago with the same symptoms, was given pain medications and discharged home. He comes back yesterday again with the same symptoms and then admitted to the hospital for further evaluation. The patient says that he has severe suprapubic pain. He denies having any diarrhea. In fact, he has had some constipation for the last 2 days duration. He denies any nausea, vomiting. No fever, chills, or night sweats. PAST MEDICAL HISTORY: Significant for Crohn's disease diagnosed in January of 2018. PAST SURGICAL HISTORY: None other than EGD and colonoscopy in January of 2018. SOCIAL HISTORY: Chronic smoker. FAMILY HISTORY: Father healthy. Mother healthy. MEDICATIONS: Medications at home include Inflectra that was started 3 months ago, Motrin as needed, Xanax p.r.n., and [place] p.r.n. ALLERGIES: Flexeril. REVIEW OF SYSTEMS: CARDIOPULMONARY: No chest pain or shortness of breath. GENITOURINARY: No dysuria or hematuria. MUSCULOSKELETAL: Unremarkable. SKIN: Unremarkable. ENDOCRINE: Unremarkable. PSYCHIATRIC: Unremarkable. NEUROLOGY: Unremarkable. ENT/VISION: Unremarkable. CONSTITUTIONAL: No recent weight loss. No fevers, chills or night sweats. PHYSICAL EXAMINATION: On physical examination, blood pressure is 100/58, pulse rate is 56, temperature 98.4. HEENT: Examination unremarkable. Conjunctivae pink. Sclerae anicteric. Oral cavity, no lesions. NECK: No JVD or lymph node enlargement. CHEST: Clear to auscultation. HEART: Regular rate and rhythm. ABDOMINAL EXAMINATION: There was tenderness in the suprapubic area, mild tenderness in the right lower quadrant area and the left upper quadrant. The rest of the abdomen was benign. Bowel sounds are positive. No organomegaly. EXTREMITIES: No pedal edema. SKIN: No rashes. NEUROLOGIC: Alert and oriented x3. No focal deficits. LABS: Labs from yesterday, WBC 18.5, hemoglobin 13.4, platelets normal. Basic metabolic panel is within normal limits. C-reactive protein 34.3. CT of the abdomen done on 04/07 revealed thickening of the distal small bowel and there was fat stranding and poorly defined bowel in the lower abdomen. There is a loop of distal small bowel that appeared dilated with wall thickening suspicious for active Crohn's disease. Also there was small amount of fluid noted in the right paracolic gutter. Abdominal x-ray done from yesterday were nonspecific. IMPRESSION: This a patient with longstanding history of Crohn's disease who is presently maintained on Inflectra for the last 3 months duration comes into the hospital with lower abdominal pain for the last 1 week duration. He has no diarrhea, but has some constipation. CAT scan done a week ago did show thickening of the distal small bowel loops with some dilated loop of small bowel, all suspicious for active Crohn's disease. CRP also elevated. RECOMMENDATION: 1. Start him on IV Solu-Medrol 20 mg q.8 hours. 2. Continue with Inflectra every 6 weeks. 3. Will start on clear liquid diet today. 4. Repeat labs in the morning. 5. We will follow with you closely. Thank you for this consultation. MMODL / IJN: [id number] /
[2019-04-18] MEDS: methylPREDNISolone SOD SUCCI 40 MG/ML 1 ML VIAL IV SCH (08:22)
--- NOTE | 2019-04-18 08:34 | XR ---
KUB HISTORY: Constipation Frontal KUB submitted on 2 images and correlated prior KUB 04/15/2019 No interval change is evident. There is retained fecal debris throughout the distribution of the colo n. Lung bases are clear. No pneumoperitoneum or bowel obstruction. Bone mineralization is normal. No pathologic calcification. IMPRESSION: Correlate for fecal stasis.
[2019-04-18 09:00] VITALS: BP 119/72; PULSE 52; RESP 16; TEMP 97.9
[2019-04-18 10:02] LABS: Basophils % (A) 0 %; Eosinophils % (A) 0 %; HCT 43.8 % (39.0-53.0); HGB 13.6 gm/dL (13.0-17.5); Lymphocytes # (A) 1.3 k/uL (1.0-4.8); Lymphocytes % (A) 9 %; MCH 21.3 pg (25.0-35.0); MCV 68.8 fL (80.0-100.0); Mean Platelet Volume 7.1; Microcytosis Marked; Monocytes # (A) 0.8 k/uL (0-1.0); Monocytes % (A) 5 %; Neutrophils # (A) 12.4 k/uL (1.3-7.7); Neutrophils % (A) 84 %; Platelet Count 266 k/uL (150-450); RBC 6.36 m/uL (4.30-5.90); RDW 14.7 % (11.5-15.5); WBC 14.7 k/uL (3.8-10.6)
[2019-04-18] MEDS ORDERED: POLYETHYLENE GLYCOL 3350 17 GM POWD.PACK PO SCH (11:15)
[2019-04-19] MEDS ORDERED: methylPREDNISolone 4 MG TAB TAPER PO SCH (09:00)
--- NOTE | 2019-04-19 09:41 | DS ---
DISCHARGE SUMMARY CHIEF COMPLAINT: Abdominal pain. HISTORY OF PRESENT ILLNESS/PHYSICAL EXAMINATION: Details of this man's history and physical can be found in the initial workup. LABORATORY STUDIES: While he was in the hospital, he had laboratory studies, details of which can be found laboratory section of chart. COURSE IN HOSPITAL: After admission, he was placed on bedrest on intravenous fluids and seen by Gastroenterology, placed him on steroids. His pain was greatly improved. He was doing much better on the and it was felt he could go home. He will be sent home on his usual activity and diet and medication along with Medrol Dosepak and to be seen in the office in several days. FINAL DIAGNOSIS: Exacerbation of Crohn disease. OPERATIONS: None. CONSULTATIONS: Gastroenterology. He is improved. DEANGELO / CHERI: [id number] /
== END 2019-04-18 15:04 | disposition home or self-care (01) | DRG 387 ==
LOC: EC 11:43 → 6NMEDSUR 13:26 → 4SSUR 16:37
PROVIDERS: ADMIT Family Medicine; ATTEND Family Medicine
DX: K50.90 Crohn's disease, unspecified, without complications (principal); F17.200 Nicotine dependence, unspecified, uncomplicated; K59.00 Constipation, unspecified; F32.9 Major depressive disorder, single episode, unspecified; F41.9 Anxiety disorder, unspecified; Z98.890 Other specified postprocedural states
CPT/HCPCS: 36415; 74018; 80053; 83690; 85025; 85652; 86140; 87040; 96361; 96365; 96366; 96375; 96376; 99284

== ENCOUNTER → 2019-12-09 | Outpatient (CLI) | payer OTHER ==
[2019-12-09 14:44] LABS: Appearance,Urine Clear (Clear); Bilirubin,Urine Negative (Negative); Blood,Urine Negative (Negative); Color,Urine Light Yellow; Glucose,Urine (UA) Negative (Negative); Ketones,Urine Negative (Negative); Leukocyte Esterase,Urine Negative (Negative); Nitrite,Urine Negative (Negative); Protein,Urine Negative (Negative); Specific Gravity,Urine 1.015 (1.001-1.035); Urobilinogen,Urine <2.0 mg/dL (<2.0)
[2019-12-09 14:45] LABS: African American GFR (CKD) >90 (>60 ml/min/1.73 sqM); Anion Gap 6 mmol/L; Blood Urea Nitrogen 16 mg/dL (9-20); Calcium 9.6 mg/dL (8.4-10.2); Carbon Dioxide 25 mmol/L (22-30); Chloride 104 mmol/L (98-107); Glucose 75 mg/dL (74-99); Non-African American GFR(CKD) 89 (>60 ml/min/1.73 sqM); Potassium 5.3 mmol/L (3.5-5.1); Sodium 135 mmol/L (137-145)
[2019-12-09 15:52] LABS: Basophils # (A) 0.1 k/uL (0-0.2); Basophils % (A) 1 %; Eosinophils # (A) 0.4 k/uL (0-0.7); Eosinophils % (A) 4 %; HCT 47.8 % (39.0-53.0); HGB 14.7 gm/dL (13.0-17.5); Hypochromasia Slight; Lymphocytes # (A) 2.5 k/uL (1.0-4.8); Lymphocytes % (A) 21 %; MCH 21.9 pg (25.0-35.0); MCHC 30.8 g/dL (31.0-37.0); MCV 71.2 fL (80.0-100.0); Mean Platelet Volume 8.1; Microcytosis Moderate; Monocytes # (A) 0.7 k/uL (0-1.0); Monocytes % (A) 6 %; Neutrophils # (A) 8.1 k/uL (1.3-7.7); Neutrophils % (A) 68 %; Platelet Count 306 k/uL (150-450); RBC 6.72 m/uL (4.30-5.90); RDW 15.6 % (11.5-15.5); WBC 11.9 k/uL (3.8-10.6)
== END | disposition home or self-care (01) ==
LOC: LABPAT 12:18
PROVIDERS: ATTEND Urology
DX: Z01.818 Encounter for other preprocedural examination (principal); R31.29 Other microscopic hematuria; N36.8 Other specified disorders of urethra; Z79.899 Other long term (current) drug therapy
CPT/HCPCS: 36415; 80048; 81003; 85025; 87086

== ENCOUNTER 2019-12-15 08:12 | Day surgery (SDC) | payer OTHER ==
[2019-12-12 11:56] VITALS: BMI 27.8
--- NOTE | 2019-12-12 17:53 | P.HPIHPCON ---
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 Discussed with him the option of observation versus a biopsy. He agreed to proceed with a biopsy. Discussed with him the risk which includes but not limited to bleeding, infection, urethral strictures. I also discussed with him we'll perform a cystoscopy to rule out any additional lesions along the urethra, and was evaluated the bladder. Discussed with him if there is any other lesions will perform a biopsy of those. Consent for Procedure: I have explained the operation/procedure to the patient, including the risks, benefits, side effects, alternative therapies (including not receiving the proposed treatment or service), the likelihood of the patient achieving his/her goals, and potential recuperation problems for the procedure/sedation/analgesia, as well as any blood products, if indicated. I also explained to the patient the risks, benefits and side effects of the alternatives, as well as the risks related to not receiving the proposed procedure, care, treatment, or services. - Constitutional Constitutional: Denies chills, Denies fever - Cardiovascular Cardiovascular: Denies chest pain, Denies dyspnea on exertion - Respiratory Respiratory: Denies cough, Denies 7 - Gastrointestinal Gastrointestinal: Denies abdominal pain, Denies diarrhea, Denies nausea, Denies vomiting - Genitourinary (Male) Genitourinary: Reports as per HPI - Neurological Neurological: Denies numbness, Denies weakness Past Medical History Past Medical History: No Reported History Additional Past Medical History / Comment(s): Crohns, abscess on intestine diagnosed 08/2018 tx with ABX, pancreatitis. 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 Medications and Allergies Home Medications Medication Instructions Recorded Confirmed Type HYDROcodone/APAP 5-325MG [[place] 1 tab PO DAILY PRN 04/16/19 12/12/19 History 5-325] valACYclovir [Valtrex] 500 mg PO DAILY 12/12/19 12/12/19 History Allergies Allergy/AdvReac Type Severity Reaction Status Date / Time cyclobenzaprine AdvReac muscle Verified 12/12/19 11:49 [From Flexeril] spasms Surgical - Exam - General well developed, well nourished, no distress, no pain - Eyes PERRL, normal ocular movement - Respiratory normal expansion, normal respiratory effort - Abdomen Abdomen: soft, non tender - Psychiatric oriented to time, oriented to person, oriented to place, speech is normal Assessment and Plan Assessment: 29 yo male with hx of urethral mass -OR for cystoscopy and urethral mass biopsy
[~2019-12-15 08:12] MED LIST: DEXAMETHASONE SOD PHOSPHATE 4 MG/ML 1 ML VIAL IV ONE; HYDROmorphone 0.5 MG/0.5 ML SYRINGE IVP PRN; LACTATED RINGERS 1,000 ML IV SCH; MIDAZOLAM 2 MG/2 ML VIAL IV PRN; ONDANSETRON 4 MG/2 ML VIAL IVP ONE; SCOPOLAMINE 1.5MG/72HR PATCH TRANSDERM ONE
[2019-12-15] MEDS ORDERED: LIDOCAINE 1% (10MG/ML) FOR IV START INTRADERMA ONE (08:40)
[2019-12-15] MEDS ORDERED: GLYCOPYRROLATE 0.2 MG/ML 2 ML VIAL ONE (10:21)
[2019-12-15] MEDS ORDERED: NEOSTIGMINE 1 MG/ML 10 ML VIAL ONE (10:21)
[2019-12-15] MEDS ORDERED: LIDOCAINE 1% INJ 10MG/ML (20 ML MDV) ONE (10:21)
[2019-12-15] MEDS ORDERED: PROPOFOL 10 MG/ML 20 ML VIAL IV ONE (10:21)
[2019-12-15] MEDS ORDERED: SUCCINYLCHOLINE CHLORIDE 100 MG/5 ML SYR IV ONE (10:21)
[2019-12-15] MEDS ORDERED: MIDAZOLAM 2 MG/2 ML VIAL ONE (10:21)
[2019-12-15] MEDS ORDERED: ROCURONIUM 10 MG/ML (10 ML VIAL) IV ONE (10:21)
[2019-12-15] MEDS ORDERED: fentaNYL (PF) 50 MCG/ML 2 ML AMP ONE (10:21)
--- NOTE | 2019-12-15 11:09 | P.OP ---
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 Discussed with him the option of observation versus a biopsy. He agreed to proceed with a biopsy. Discussed with him the risk which includes but not limited to bleeding, infection, urethral strictures. I also discussed with him we'll perform a cystoscopy to rule out any additional lesions along the urethra, and was evaluated the bladder. Discussed with him if there is any other lesions will perform a biopsy of those Operative Findings: 1 cm mass right of the urethral meatus, normal cystoscopy Description of Procedure: Patient was brought to the operating room, general anesthesia was induced. He was prepped and draped in sterile fashion a placement dorsal lithotomy position. Cystoscopy fitted with a 17[place] sheath was inserted per urethra, cystoscopy was performed which showed no abnormality within the bladder, uretheroscopy was also performed showed no abnormality within the urethra, except the mass along the right side of the urethral meatus. At this time the cystoscope was withdrawn, and attention was carried to the uretheral mass. The urethral mass measured approximately 1 cm, was to the right of the urethral meatus. Using [place]'s pickup the mass was grasped and using the Metzenbaums it was excised. The the biopsy area was reapproximated using 5-0 Monocryl, after the stitch placement there was no evidence of bleeding. The patient was awakened from anesthesia and taken recovery in the end of surgery
[2019-12-15 11:26] VITALS: TEMP 97
[2019-12-15] MEDS ORDERED: LACTATED RINGERS 1,000 ML IV ONE (11:48)
[2019-12-15 11:55] VITALS: RESP 16
[2019-12-15 12:19] VITALS: BP 107/59; PULSE 54
== END 2019-12-15 12:32 ==
LOC: OR 08:12
PROVIDERS: ATTEND Urology
DX: N36.8 Other specified disorders of urethra (principal); K50.90 Crohn's disease, unspecified, without complications; A63.0 Anogenital (venereal) warts; Z87.19 Personal history of other diseases of the digestive system; Z87.891 Personal history of nicotine dependence; Z79.899 Other long term (current) drug therapy; Z88.8 Allergy status to other drugs, medicaments and biological substances
CPT/HCPCS: 53200; 88305; 84132; J2250; J1100; J2710; J0690; J2405; J2001; J3010; J0330; J2704

== ENCOUNTER 2020-01-04 20:11 | Emergency (ER) | payer OTHER ==
[2020-01-04] MEDS ORDERED: ONDANSETRON 4 MG/2 ML VIAL IVP STA (20:57)
[2020-01-04] MEDS ORDERED: SODIUM CHLORIDE 0.9% 1,000 ML IV STA (20:57)
[2020-01-04] MEDS ORDERED: MORPHINE SULFATE 4 MG/ML SYRINGE IV STA (20:57)
[2020-01-04 21:35] LABS: Basophils # (A) 0.3 k/uL (0-0.2); Basophils % (A) 3 %; Eosinophils # (A) 0.5 k/uL (0-0.7); Eosinophils % (A) 5 %; HCT 44.5 % (39.0-53.0); Lymphocytes # (A) 2.4 k/uL (1.0-4.8); Lymphocytes % (A) 23 %; MCH 21.8 pg (25.0-35.0); MCHC 31.5 g/dL (31.0-37.0); Mean Platelet Volume 7.4; Microcytosis Marked; Monocytes # (A) 0.5 k/uL (0-1.0); Monocytes % (A) 5 %; Neutrophils # (A) 6.5 k/uL (1.3-7.7); Neutrophils % (A) 64 %; Platelet Count 290 k/uL (150-450); RBC 6.45 m/uL (4.30-5.90); RDW 14.9 % (11.5-15.5); WBC 10.2 k/uL (3.8-10.6)
[2020-01-04 21:47] LABS: ALT 17 U/L (4-49); AST 25 U/L (17-59); African American GFR (CKD) >90 (>60 ml/min/1.73 sqM); Albumin 3.8 g/dL (3.5-5.0); Alkaline Phosphatase 59 U/L (38-126); Anion Gap 6 mmol/L; Appearance,Urine Clear (Clear); Bilirubin,Urine Negative (Negative); Blood Urea Nitrogen 17 mg/dL (9-20); Blood,Urine Negative (Negative); Calcium 9.4 mg/dL (8.4-10.2); Carbon Dioxide 27 mmol/L (22-30); Chloride 104 mmol/L (98-107); Color,Urine Yellow; Glucose 75 mg/dL (74-99); Glucose,Urine (UA) Negative (Negative); Ketones,Urine Negative (Negative); Leukocyte Esterase,Urine Negative (Negative); Lipase 84 U/L (23-300); Nitrite,Urine Negative (Negative); Non-African American GFR(CKD) 78 (>60 ml/min/1.73 sqM); PH, Urine 6.5 (5.0-8.0); Potassium 4.4 mmol/L (3.5-5.1); Protein,Urine Trace (Negative); Sodium 137 mmol/L (137-145); Specific Gravity,Urine 1.028 (1.001-1.035); Total Bilirubin 0.4 mg/dL (0.2-1.3); Total Protein 7.4 g/dL (6.3-8.2); Urobilinogen,Urine <2.0 mg/dL (<2.0)
--- NOTE | 2020-01-04 21:50 | XR ---
EXAMINATION TYPE: XR KUB DATE OF EXAM: 01/04/2020 COMPARISON: 04/18/2019 HISTORY: Constipation TECHNIQUE: FINDINGS: 2 views upright show no sign of intestinal obstruction or pneumoperitoneum. Fecal pattern i s normal. Lung bases are clear. There are no pathologic calcifications. IMPRESSION: Nonacute abdomen. No change.
--- NOTE | 2020-01-04 22:22 | ED ---
General Adult HPI - General Chief complaint: Abdominal Pain Stated complaint: Crohn's Flare up Time Seen by Provider: 01/04/20 20:47 Source: patient, RN notes reviewed, old records reviewed Mode of arrival: ambulatory Limitations: no limitations - History of Present Illness Initial comments: 29-year-old male patient history of Crohn's disease to ED for abdominal discomfort the last 3 days. Reports some waxing and waning cramping in the left lower quadrant region. Patient states that he has been having some nonbloody diarrhea, nausea without emesis. Denies any other acute complaints. Systemic: Pt denies fatigue, fever/chills, rash. Pt denies weakness, night sweats, weight loss. Neuro: Pt denies headache, visual disturbances, syncope or pre-syncope. HEENT: Pt denies ocular discharge or irritation, otalgia, rhinorrhea, pharyngitis or notable lymphadenopathy. Cardiopulmonary: Pt denies chest pain, SOB, heart palpitations, dyspnea on exertion. Abdominal/GI: Pt denies abdominal pain, n/v/d. : Pt denies dysuria, burning w/ urination, frequency/urgency. Denies new onset urinary or bowel incontinence. MSK: Pt denies myalgia, loss of strength or function in extremities. Neuro: Pt denies new onset weakness, paresthesias. - Related Data Home Medications Medication Instructions Recorded Confirmed HYDROcodone/APAP 5-325MG [[place] 1 tab PO DAILY PRN 04/16/19 12/12/19 5-325] valACYclovir [Valtrex] 500 mg PO DAILY 12/12/19 12/12/19 Previous Rx's Medication Instructions Recorded Ketorolac [Toradol] 10 mg PO Q6HR #15 tab 12/15/19 Phenazopyridine HCl [Pyridium] 100 mg PO TID 2 Days #6 tab 12/15/19 Allergies Allergy/AdvReac Type Severity Reaction Status Date / Time cyclobenzaprine AdvReac muscle Verified 01/04/20 20:43 [From Flexeril] spasms Review of Systems ROS Statement: Those systems with pertinent positive or pertinent negative responses have been documented in the HPI. ROS Other: All systems not noted in ROS Statement are negative. Past Medical History Past Medical History: No Reported History Additional Past Medical History / Comment(s): Crohns, abscess on intestine diagnosed 08/2018 tx with ABX, pancreatitis. 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 History of Any Multi-Drug Resistant Organisms: None Reported Past Surgical History: No Surgical Hx Reported Additional Past Surgical History / Comment(s): EGD, colonoscopy, Past Anesthesia/Blood Transfusion Reactions: No Reported Reaction Past Psychological History: Anxiety, Depression Smoking Status: Current every day smoker Past Alcohol Use History: Occasional Past Drug Use History: Marijuana - Past Family History Father Family Medical History: No Reported History Additional Family Medical History / Comment(s): Father is healthy Mother Family Medical History: No Reported History Additional Family Medical History / Comment(s): Mother is healthy. General Exam - General Exam Comments Initial Comments: Constitutional: NAD, AOX3, Pt has pleasant affect. HEENT: NC/AT, trachea midline, neck supple, no lymphadenopathy. Posterior pharynx non erythematous, without exudates. External ears appear normal, without discharge. Mucous membranes moist. Eyes PERRLA, EOM intact. There is no scleral icterus. No pallor noted. Cardiopulmonary: RRR, no murmurs, rubs or gallops, no JVD noted. Lungs CTAB in anterior and posterior tan. No peripheral edema. Abdominal exam: Abdomen soft and non-distended. Abdomen non-tender to palpation in all 4 quadrants. Bowel sounds active in LLQ. No hepatosplenomegaly. No ecchymosis Neuro: CN II-XII grossly intact. No nuchal rigidity. No raccon eyes, no jeffries sign, no hemotympanum. No cervical spinal tenderness. MSK: Full active ROM in upper and lower extremities, 5/5 stregnth. Limitations: no limitations Course Vital Signs 01/04/20 01/04/20 20:38 21:55 Temperature 98.6 F 98.8 F Pulse Rate 62 62 Respiratory 18 18 Rate Blood Pressure 121/78 115/58 O2 Sat by Pulse 99 98 Oximetry Medical Decision Making - Medical Decision Making 29-year-old male patient to ED with abdominal discomfort diarrhea and nausea last 3 days. Patient vital signs are stable, afebrile. Abdomen is nontender. Patient's symptoms are well controlled. Laboratory investigations are unremarkable. KUB negative for acute pathology. Patient discharged outpatient GI follow-up and return precautions. Case discussed with Dr. Fox. - Lab Data Result diagrams: 01/04/20 21:10 01/04/20 21:10 Lab Results 01/04/20 01/04/20 01/04/20 Range/Units 21:10 21:10 21:10 WBC 10.2 (3.8-10.6) k/uL RBC 6.45 H (4.30-5.90) m/uL Hgb 14.0 (13.0-17.5) gm/dL Hct 44.5 (39.0-53.0) % MCV 69.0 L (80.0-100.0) fL MCH 21.8 L (25.0-35.0) pg MCHC 31.5 (31.0-37.0) g/dL RDW 14.9 (11.5-15.5) % Plt Count 290 (150-450) k/uL MPV 7.4 Neutrophils % 64 % Lymphocytes % 23 % Monocytes % 5 % Eosinophils % 5 % Basophils % 3 % Neutrophils # 6.5 (1.3-7.7) k/uL Lymphocytes # 2.4 (1.0-4.8) k/uL Monocytes # 0.5 (0-1.0) k/uL Eosinophils # 0.5 (0-0.7) k/uL Basophils # 0.3 H (0-0.2) k/uL Microcytosis Marked Sodium 137 (137-145) mmol/L Potassium 4.4 (3.5-5.1) mmol/L Chloride 104 (98-107) mmol/L Carbon Dioxide 27 (22-30) mmol/L Anion Gap 6 mmol/L BUN 17 (9-20) mg/dL Creatinine 1.24 (0.66-1.25) mg/dL Est GFR (CKD-EPI)AfAm >90 (>60 ml/min/1.73 sqM) Est GFR (CKD-EPI)NonAf 78 (>60 ml/min/1.73 sqM) Glucose 75 (74-99) mg/dL Plasma Lactic Acid Nic (0.7-2.0) mmol/L Calcium 9.4 (8.4-10.2) mg/dL Total Bilirubin 0.4 (0.2-1.3) mg/dL AST 25 (17-59) U/L ALT 17 (4-49) U/L Alkaline Phosphatase 59 (38-126) U/L Total Protein 7.4 (6.3-8.2) g/dL Albumin 3.8 (3.5-5.0) g/dL Lipase 84 (23-300) U/L Urine Color Yellow Urine Appearance Clear (Clear) Urine pH 6.5 (5.0-8.0) Ur Specific [place] 1.028 (1.001-1.035) Urine Protein Trace H (Negative) Urine Glucose (UA) Negative (Negative) Urine Ketones Negative (Negative) Urine Blood Negative (Negative) Urine Nitrite Negative (Negative) Urine Bilirubin Negative (Negative) Urine Urobilinogen <2.0 (<2.0) mg/dL Ur Leukocyte Esterase Negative (Negative) 01/04/20 Range/Units 21:10 WBC (3.8-10.6) k/uL RBC (4.30-5.90) m/uL Hgb (13.0-17.5) gm/dL Hct (39.0-53.0) % MCV (80.0-100.0) fL MCH (25.0-35.0) pg MCHC (31.0-37.0) g/dL RDW (11.5-15.5) % Plt Count (150-450) k/uL MPV Neutrophils % % Lymphocytes % % Monocytes % % Eosinophils % % Basophils % % Neutrophils # (1.3-7.7) k/uL Lymphocytes # (1.0-4.8) k/uL Monocytes # (0-1.0) k/uL Eosinophils # (0-0.7) k/uL Basophils # (0-0.2) k/uL Microcytosis Sodium (137-145) mmol/L Potassium (3.5-5.1) mmol/L Chloride (98-107) mmol/L Carbon Dioxide (22-30) mmol/L Anion Gap mmol/L BUN (9-20) mg/dL Creatinine (0.66-1.25) mg/dL Est GFR (CKD-EPI)AfAm (>60 ml/min/1.73 sqM) Est GFR (CKD-EPI)NonAf (>60 ml/min/1.73 sqM) Glucose (74-99) mg/dL Plasma Lactic Acid Nic 0.7 (0.7-2.0) mmol/L Calcium (8.4-10.2) mg/dL Total Bilirubin (0.2-1.3) mg/dL AST (17-59) U/L ALT (4-49) U/L Alkaline Phosphatase (38-126) U/L Total Protein (6.3-8.2) g/dL Albumin (3.5-5.0) g/dL Lipase (23-300) U/L Urine Color Urine Appearance (Clear) Urine pH (5.0-8.0) Ur Specific [place] (1.001-1.035) Urine Protein (Negative) Urine Glucose (UA) (Negative) Urine Ketones (Negative) Urine Blood (Negative) Urine Nitrite (Negative) Urine Bilirubin (Negative) Urine Urobilinogen (<2.0) mg/dL Ur Leukocyte Esterase (Negative) Disposition Clinical Impression: Abdominal pain Disposition: ADMITTED IP TO THIS HOSP Condition: Stable Instructions (If sedation given, give patient instructions): Abdominal Pain (ED) Additional Instructions: Follow up with GI and PCP tomorrow. Return to ED with any worsening symptoms. Is patient prescribed a controlled substance at d/c from ED?: No Referrals: Mark Clemente MD [Primary Care Provider] - 1-2 days
[2020-01-04 23:07] VITALS: BP 125/68; PULSE 70; RESP 16; TEMP 98
== END 2020-01-04 23:00 | disposition other institution (70) ==
LOC: EC 20:11
DX: R10.9 Unspecified abdominal pain (principal); R19.7 Diarrhea, unspecified; R11.0 Nausea; F17.200 Nicotine dependence, unspecified, uncomplicated; Z88.8 Allergy status to other drugs, medicaments and biological substances
CPT/HCPCS: 36415; 80053; 83605; 83690; 85025; 81003; 74018; 99285; 96374; 96375; 96361; J2270; J2405

== ENCOUNTER 2020-04-23 13:39 | Emergency (ER) | payer OTHER ==
[2020-04-23 13:44] VITALS: RESP 18; TEMP 98
[2020-04-23] MEDS ORDERED: methylPREDNISolone SOD SUCCI 125 MG/2 ML VIAL IV STA (14:13)
[2020-04-23] MEDS ORDERED: PANTOPRAZOLE 40 MG/10 ML VIAL IVP STA (14:13)
[2020-04-23] MEDS ORDERED: SODIUM CHLORIDE 0.9% 1,000 ML IV STA (14:13)
[2020-04-23] MEDS ORDERED: MORPHINE SULFATE 4 MG/ML SYRINGE IVP STA (14:13)
[2020-04-23] MEDS ORDERED: ONDANSETRON 4 MG/2 ML VIAL IVP STA (14:13)
[2020-04-23 14:37] LABS: Basophils # (A) 0.1 k/uL (0-0.2); Basophils % (A) 0 %; Eosinophils # (A) 0.3 k/uL (0-0.7); Eosinophils % (A) 2 %; HCT 44.8 % (39.0-53.0); HGB 14.7 gm/dL (13.0-17.5); Lymphocytes # (A) 2.8 k/uL (1.0-4.8); Lymphocytes % (A) 22 %; MCH 22.4 pg (25.0-35.0); MCHC 32.9 g/dL (31.0-37.0); MCV 68.1 fL (80.0-100.0); Mean Platelet Volume 6.7; Microcytosis Marked; Monocytes # (A) 0.6 k/uL (0-1.0); Monocytes % (A) 5 %; Neutrophils # (A) 8.9 k/uL (1.3-7.7); Neutrophils % (A) 70 %; Platelet Count 256 k/uL (150-450); RBC 6.57 m/uL (4.30-5.90); RDW 14.9 % (11.5-15.5); WBC 12.8 k/uL (3.8-10.6)
--- NOTE | 2020-04-23 14:37 | ED ---
Abdominal Pain HPI - General Chief Complaint: Abdominal Pain Stated Complaint: Crohn's Flareup,Loss of appetite Time Seen by Provider: 04/23/20 13:57 Source: patient Mode of arrival: ambulatory Limitations: no limitations - History of Present Illness Initial Comments: Patient is a 29-year-old male presenting to the emergency Department with complaints of a possible flareup of his Crohn's. Patient follows with Dr. Morgan, has not seen her in a few years. He does get infusions every 6 weeks. He feels like he is getting close to another one. He states he's been having abdominal bloating, nausea and vomiting and has not been able to eat very much. He is complaining of generalized abdominal discomfort and pain. He denies any diarrhea, no fevers or chills. Denies any chest pain or shortness of breath. He denies any abdominal surgeries. He states he only drinks occasionally, no other drug use. He has no further complaints at this time. Upon arrival to the ER, his vitals are stable. - Related Data Home Medications Medication Instructions Recorded Confirmed Acetaminophen Tab [Tylenol] 325 mg PO ONCE PRN 04/23/20 04/23/20 Dicyclomine HCl 20 mg PO QID PRN 04/23/20 04/23/20 Allergies Allergy/AdvReac Type Severity Reaction Status Date / Time cyclobenzaprine AdvReac muscle Verified 04/23/20 16:57 [From Flexeril] spasms Review of Systems ROS Statement: Those systems with pertinent positive or pertinent negative responses have been documented in the HPI. ROS Other: All systems not noted in ROS Statement are negative. Past Medical History Past Medical History: No Reported History Additional Past Medical History / Comment(s): Crohns, abscess on intestine diagnosed 08/2018 tx with ABX, pancreatitis. 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 History of Any Multi-Drug Resistant Organisms: None Reported Past Surgical History: No Surgical Hx Reported Additional Past Surgical History / Comment(s): EGD, colonoscopy, Past Anesthesia/Blood Transfusion Reactions: No Reported Reaction Past Psychological History: Anxiety, Depression Smoking Status: Current every day smoker Past Alcohol Use History: Occasional Past Drug Use History: Marijuana - Past Family History Father Family Medical History: No Reported History Additional Family Medical History / Comment(s): Father is healthy Mother Family Medical History: No Reported History Additional Family Medical History / Comment(s): Mother is healthy. General Exam - General Exam Comments Initial Comments: GENERAL: Patient is well-developed and well-nourished. Patient is nontoxic and in no acute distress. HEAD: Atraumatic, normocephalic. EYES: Pupils equal round and reactive to light, extraocular movements intact, sclera anicteric, conjunctiva are normal. Eyelids were unremarkable. ENT: TMs normal, nares patent, oropharynx clear without exudates. Moist mucous membranes. NECK: Normal range of motion, supple without lymphadenopathy or JVD. LUNGS: Unlabored respirations. Breath sounds clear to auscultation bilaterally and equal. No wheezes rales or rhonchi. HEART: Regular rate and rhythm without murmurs, rubs or gallops. ABDOMEN: Soft, generalized abdominal tenderness, no specific area pain, normoactive bowel sounds. No guarding, no rebound. No masses appreciated. : Deferred MUSCULOSKELETAL: Normal extremities with adequate strength and normal range of motion, no pitting or edema. No clubbing or cyanosis. NEUROLOGICAL: Patient is alert and oriented x 3. Motor and sensory are also intact. Cranial nerves II through XII grossly intact. Symmetrical smile. Normal speech, normal gait. PSYCH: Normal mood, normal affect. SKIN: Warm, Dry, normal turgor, no rashes or lesions noted. Limitations: no limitations Course Vital Signs 04/23/20 04/23/20 13:41 17:11 Temperature 98.0 F Pulse Rate 75 68 Respiratory 18 18 Rate Blood Pressure 125/84 121/71 O2 Sat by Pulse 98 97 Oximetry Medical Decision Making - Medical Decision Making She is a 29-year-old male with history of Crohn's, presenting for generalized abdominal tenderness, bloating and some nausea. Symptoms getting worse over the past week. He does follow with Dr. Morgan. Vital signs are completely normal upon arrival. Labs show a very slight white count at 12.8, lactic acid is normal at 0.9, liver enzymes are elevated from his baseline, AST is 232, ALT is 87. Bilirubin is normal. I did order an ultrasound of the liver, no acute changes noted. Patient was given fluids, pain control and Zofran, reports improvement in his symptoms. I discussed with patient that he should follow-up with Dr. Morgan, have liver enzymes rechecked. Patient is in agreement with this plan of care. He is stable for discharge. Return parameters were discussed with him and he verbalized understanding. Case discussed with Dr. Rdz. - Lab Data Result diagrams: 04/23/20 14:20 04/23/20 14:20 Lab Results 04/23/20 04/23/20 04/23/20 Range/Units 14:20 14:20 14:20 WBC 12.8 H (3.8-10.6) k/uL RBC 6.57 H (4.30-5.90) m/uL Hgb 14.7 (13.0-17.5) gm/dL Hct 44.8 (39.0-53.0) % MCV 68.1 L (80.0-100.0) fL MCH 22.4 L (25.0-35.0) pg MCHC 32.9 (31.0-37.0) g/dL RDW 14.9 (11.5-15.5) % Plt Count 256 (150-450) k/uL MPV 6.7 Neutrophils % 70 % Lymphocytes % 22 % Monocytes % 5 % Eosinophils % 2 % Basophils % 0 % Neutrophils # 8.9 H (1.3-7.7) k/uL Lymphocytes # 2.8 (1.0-4.8) k/uL Monocytes # 0.6 (0-1.0) k/uL Eosinophils # 0.3 (0-0.7) k/uL Basophils # 0.1 (0-0.2) k/uL Microcytosis Marked Sodium 140 (137-145) mmol/L Potassium 4.5 (3.5-5.1) mmol/L Chloride 103 (98-107) mmol/L Carbon Dioxide 30 (22-30) mmol/L Anion Gap 7 mmol/L BUN 14 (9-20) mg/dL Creatinine 1.09 (0.66-1.25) mg/dL Est GFR (CKD-EPI)AfAm >90 (>60 ml/min/1.73 sqM) Est GFR (CKD-EPI)NonAf >90 (>60 ml/min/1.73 sqM) Glucose 86 (74-99) mg/dL Plasma Lactic Acid Nic 0.9 (0.7-2.0) mmol/L Calcium 9.8 (8.4-10.2) mg/dL Total Bilirubin 0.7 (0.2-1.3) mg/dL AST 232 H (17-59) U/L ALT 87 H (4-49) U/L Alkaline Phosphatase 80 (38-126) U/L Total Protein 8.0 (6.3-8.2) g/dL Albumin 4.3 (3.5-5.0) g/dL Lipase 72 (23-300) U/L Disposition Clinical Impression: Crohn's disease, Abdominal pain Disposition: HOME SELF-CARE Condition: Stable Instructions (If sedation given, give patient instructions): Crohn Disease (ED) Additional Instructions: Please return to the Emergency Department if symptoms worsen or any other concerns. Follow-up with your GI doctor as discussed. May use Zofran for an additional nausea. Is patient prescribed a controlled substance at d/c from ED?: No Referrals: Mark Clemente MD [Primary Care Provider] - 1-2 days Griselda Morgan MD [STAFF PHYSICIAN] - 1-2 days
[2020-04-23 14:47] LABS: ALT 87 U/L (4-49); AST 232 U/L (17-59); African American GFR (CKD) >90 (>60 ml/min/1.73 sqM); Albumin 4.3 g/dL (3.5-5.0); Alkaline Phosphatase 80 U/L (38-126); Anion Gap 7 mmol/L; Blood Urea Nitrogen 14 mg/dL (9-20); Calcium 9.8 mg/dL (8.4-10.2); Carbon Dioxide 30 mmol/L (22-30); Chloride 103 mmol/L (98-107); Glucose 86 mg/dL (74-99); Lipase 72 U/L (23-300); Non-African American GFR(CKD) >90 (>60 ml/min/1.73 sqM); Potassium 4.5 mmol/L (3.5-5.1); Sodium 140 mmol/L (137-145); Total Bilirubin 0.7 mg/dL (0.2-1.3)
--- NOTE | 2020-04-23 16:26 | US ---
EXAMINATION TYPE: US liver DATE OF EXAM: 04/23/2020 COMPARISON: CT CLINICAL HISTORY: abd pain, history of Crohn's, elevated AST. Takes infusion therapy for Crohn's Dise ase EXAM MEASUREMENTS: Liver Length: 14.2 cm Gallbladder Wall: 0.2 cm CBD: 0.4 cm Right Kidney: 10.1 x 4.9 x 3.8 cm Pancreas: Obscured by bowel gas Liver: wnl Gallbladder: wnl Evidence for sonographic Henderson's sign: no CBD: wnl Right Kidney: No hydronephrosis or masses seen IMPRESSION: 1. No suspicious acute changes by ultrasound. 2. Some limitation due to bowel gas.
[2020-04-23] MEDS ORDERED: MORPHINE SULFATE 2 MG/ML SYRINGE IVP ONE (16:27)
[2020-04-23] MEDS ORDERED: ACET/COD 300 MG/30 MG STARTER PACK 6 TAB BTL PO STA (16:55)
[2020-04-23] MEDS ORDERED: ONDANSETRON ODT 4 MG TAB PO STA (16:56)
[2020-04-23 17:12] VITALS: BP 121/71; PULSE 68
== END 2020-04-23 17:11 | disposition home or self-care (01) ==
LOC: EC 13:39
DX: K50.90 Crohn's disease, unspecified, without complications (principal); F17.200 Nicotine dependence, unspecified, uncomplicated; Z88.8 Allergy status to other drugs, medicaments and biological substances; Z87.19 Personal history of other diseases of the digestive system; Z79.899 Other long term (current) drug therapy; Z98.890 Other specified postprocedural states
CPT/HCPCS: 80053; 83605; 83690; 85025; 76705; 99284; 96374; 96375 ×3; 96376; 96361; J2270 ×2; J2930; J2405; C9113

== ENCOUNTER 2020-05-15 18:27 | Inpatient (IN) | payer OTHER ==
[2020-05-15 18:31] VITALS: RESP 18; TEMP 98.1
[2020-05-15] MEDS ORDERED: HYDROmorphone 1 MG/ML 1 ML SYRINGE IVP STA ×2 (19:10→22:41)
[2020-05-15] MEDS ORDERED: SODIUM CHLORIDE 0.9% 1,000 ML IV STA (19:10)
[2020-05-15] MEDS ORDERED: ONDANSETRON 4 MG/2 ML VIAL IVP STA (19:10)
[2020-05-15] MEDS ORDERED: MORPHINE SULFATE 4 MG/ML SYRINGE IVP STA ×2 (19:19→20:19)
--- NOTE | 2020-05-15 19:23 | ED ---
General Adult HPI - General Chief complaint: Abdominal Pain Stated complaint: Crohn's flare Time Seen by Provider: 05/15/20 19:00 Source: patient Mode of arrival: ambulatory Limitations: no limitations - History of Present Illness Initial comments: 29-year-old male patient presents to the emergency department today for evaluation of abdominal pain, bloating, decreased appetite. Has a history of Crohn's disease and generally receives infusion of Inflectra every 6 weeks. He has to have an appointment with his GI specialist before they will re order the medication so he is three days past due. States that his pain is worsening. Describes it as a tightening in his abdomen that waxes and wanes. Denies any diarrhea, hematochezia, or melena. Denies any vomiting. Not having fevers. Using no other medications. He does have an appointment with Dr. Morgan on 05/21/20. Patient denies any recent rash, cough, shortness of breath, chest pain, back pain, numbness, tingling, dizziness, weakness, hematuria, dysuria, urinary urgency, urinary frequency, headache, visual changes, or any other complaints. - Related Data Home Medications Medication Instructions Recorded Confirmed Acetaminophen Tab [Tylenol] 325 mg PO ONCE PRN 04/23/20 04/23/20 Dicyclomine HCl 20 mg PO QID PRN 04/23/20 04/23/20 Allergies Allergy/AdvReac Type Severity Reaction Status Date / Time cyclobenzaprine AdvReac muscle Verified 05/15/20 18:31 [From Flexeril] spasms Review of Systems ROS Statement: Those systems with pertinent positive or pertinent negative responses have been documented in the HPI. ROS Other: All systems not noted in ROS Statement are negative. Past Medical History Past Medical History: No Reported History Additional Past Medical History / Comment(s): Crohns, abscess on intestine diagnosed 08/2018 tx with ABX, pancreatitis. 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 History of Any Multi-Drug Resistant Organisms: None Reported Past Surgical History: No Surgical Hx Reported Additional Past Surgical History / Comment(s): EGD, colonoscopy, Past Anesthesia/Blood Transfusion Reactions: No Reported Reaction Past Psychological History: Anxiety, Depression Smoking Status: Current every day smoker Past Alcohol Use History: Occasional Past Drug Use History: Marijuana - Past Family History Father Family Medical History: No Reported History Additional Family Medical History / Comment(s): Father is healthy Mother Family Medical History: No Reported History Additional Family Medical History / Comment(s): Mother is healthy. General Exam Limitations: no limitations General appearance: alert, in no apparent distress, other (Physical well- developed, well-nourished adult male patient in no acute distress. Vital signs upon presentation are temperature 98.1F, pulse 68, respirations 18, blood pressure 135/86, pulse ox 98% on room air.) Eye exam: Present: normal appearance, PERRL, EOMI. Absent: scleral icterus, conjunctival injection, periorbital swelling ENT exam: Present: normal exam, normal oropharynx, mucous membranes moist Respiratory exam: Present: normal lung sounds bilaterally. Absent: respiratory distress, wheezes, rales, rhonchi, stridor Cardiovascular Exam: Present: regular rate, normal rhythm, normal heart sounds. Absent: systolic murmur, diastolic murmur, rubs, gallop, clicks GI/Abdominal exam: Present: soft, tenderness (Generalized), normal bowel sounds. Absent: distended, guarding, rebound, rigid Neurological exam: Present: alert, oriented X3, CN II-XII intact Psychiatric exam: Present: normal affect, normal mood Skin exam: Present: warm, dry, intact, normal color. Absent: rash Course Vital Signs 05/15/20 05/15/20 18:29 19:31 Temperature 98.1 F Pulse Rate 68 84 Respiratory 18 18 Rate Blood Pressure 135/86 122/79 O2 Sat by Pulse 98 97 Oximetry Medical Decision Making - Medical Decision Making 37-year-old male patient presents to the emergency department today for evaluation of increased abdominal pain with history of Crohn's disease. Physical examination did reveal generalized abdominal tenderness. Labs reviewed and did reveal elevated white blood cell count is 17,000. CT abdomen and pelvis was obtained and did show inflammatory changes involving the terminal ileum with several small 1 cm fluid collections concerning for abscess versus fistula. These do not appear to be drainable at this time. Patient will be admitted with IV antibiotics and consult GI specialist. Pain management will be provided. He is agreeable with this plan. Dr. Clemente was called. Case discussed with my attending Dr Rdz. - Lab Data Result diagrams: 05/15/20 19:19 05/15/20 19:19 Lab Results 05/15/20 05/15/20 05/15/20 Range/Units 19:19 19:19 19:19 WBC 17.0 H (3.8-10.6) k/uL RBC 6.64 H (4.30-5.90) m/uL Hgb 14.4 (13.0-17.5) gm/dL Hct 44.4 (39.0-53.0) % MCV 66.9 L (80.0-100.0) fL MCH 21.7 L (25.0-35.0) pg MCHC 32.4 (31.0-37.0) g/dL RDW 15.0 (11.5-15.5) % Plt Count 291 (150-450) k/uL MPV 7.5 Neutrophils % 79 % Lymphocytes % 12 % Monocytes % 5 % Eosinophils % 1 % Basophils % 0 % Neutrophils # 13.5 H (1.3-7.7) k/uL Lymphocytes # 2.1 (1.0-4.8) k/uL Monocytes # 0.8 (0-1.0) k/uL Eosinophils # 0.2 (0-0.7) k/uL Basophils # 0.1 (0-0.2) k/uL Microcytosis Marked ESR QNS Sodium 137 (137-145) mmol/L Potassium 3.9 (3.5-5.1) mmol/L Chloride 102 (98-107) mmol/L Carbon Dioxide 28 (22-30) mmol/L Anion Gap 7 mmol/L BUN 15 (9-20) mg/dL Creatinine 1.00 (0.66-1.25) mg/dL Est GFR (CKD-EPI)AfAm >90 (>60 ml/min/1.73 sqM) Est GFR (CKD-EPI)NonAf >90 (>60 ml/min/1.73 sqM) Glucose 91 (74-99) mg/dL Calcium 9.6 (8.4-10.2) mg/dL Total Bilirubin 0.7 (0.2-1.3) mg/dL AST 23 (17-59) U/L ALT 18 (4-49) U/L Alkaline Phosphatase 86 (38-126) U/L C-Reactive Protein 22.9 H (<10.0) mg/L Total Protein 7.7 (6.3-8.2) g/dL Albumin 4.2 (3.5-5.0) g/dL Amylase 87 (30-110) U/L Lipase 84 (23-300) U/L Urine Color Yellow Urine Appearance Clear (Clear) Urine pH 7.0 (5.0-8.0) Ur Specific [place] 1.031 (1.001-1.035) Urine Protein 1+ H (Negative) Urine Glucose (UA) Negative (Negative) Urine Ketones 1+ H (Negative) Urine Blood Negative (Negative) Urine Nitrite Negative (Negative) Urine Bilirubin Negative (Negative) Urine Urobilinogen 2.0 (<2.0) mg/dL Ur Leukocyte Esterase Negative (Negative) Urine RBC 5 (0-5) /hpf Urine WBC <1 (0-5) /hpf Ur Squamous Epith Cells <1 (0-4) /hpf Urine Mucus Few H (None) /hpf 05/15/20 Range/Units 19:36 WBC (3.8-10.6) k/uL RBC (4.30-5.90) m/uL Hgb (13.0-17.5) gm/dL Hct (39.0-53.0) % MCV (80.0-100.0) fL MCH (25.0-35.0) pg MCHC (31.0-37.0) g/dL RDW (11.5-15.5) % Plt Count (150-450) k/uL MPV Neutrophils % % Lymphocytes % % Monocytes % % Eosinophils % % Basophils % % Neutrophils # (1.3-7.7) k/uL Lymphocytes # (1.0-4.8) k/uL Monocytes # (0-1.0) k/uL Eosinophils # (0-0.7) k/uL Basophils # (0-0.2) k/uL Microcytosis ESR 9 Sodium (137-145) mmol/L Potassium (3.5-5.1) mmol/L Chloride (98-107) mmol/L Carbon Dioxide (22-30) mmol/L Anion Gap mmol/L BUN (9-20) mg/dL Creatinine (0.66-1.25) mg/dL Est GFR (CKD-EPI)AfAm (>60 ml/min/1.73 sqM) Est GFR (CKD-EPI)NonAf (>60 ml/min/1.73 sqM) Glucose (74-99) mg/dL Calcium (8.4-10.2) mg/dL Total Bilirubin (0.2-1.3) mg/dL AST (17-59) U/L ALT (4-49) U/L Alkaline Phosphatase (38-126) U/L C-Reactive Protein (<10.0) mg/L Total Protein (6.3-8.2) g/dL Albumin (3.5-5.0) g/dL Amylase (30-110) U/L Lipase (23-300) U/L Urine Color Urine Appearance (Clear) Urine pH (5.0-8.0) Ur Specific [place] (1.001-1.035) Urine Protein (Negative) Urine Glucose (UA) (Negative) Urine Ketones (Negative) Urine Blood (Negative) Urine Nitrite (Negative) Urine Bilirubin (Negative) Urine Urobilinogen (<2.0) mg/dL Ur Leukocyte Esterase (Negative) Urine RBC (0-5) /hpf Urine WBC (0-5) /hpf Ur Squamous Epith Cells (0-4) /hpf Urine Mucus (None) /hpf - Radiology Data Radiology results: report reviewed, image reviewed CT abdomen and pelvis with contrast was obtained. Report was reviewed in its entirety. Impression by Dr. Street shows redemonstrated inflammatory changes involving the terminal ileum, consistent with acute exacerbation of Crohn's disease. Several small 1 cm complex fluid along the terminal ileum concerning for small abscess. However no significant drainable fluid at this time. Fistula cannot be excluded. Disposition Clinical Impression: Exacerbation of Crohn's disease, Intra-abdominal abscess Disposition: ADMITTED IP TO THIS [facility] Condition: Serious Referrals: Mark Clemente MD [Primary Care Provider] - 1-2 days Decision to Admit Reason: Admit from EC Decision Date: 05/15/20 Decision Time: 22:46
[2020-05-15 19:28] LABS: Basophils # (A) 0.1 k/uL (0-0.2); Basophils % (A) 0 %; Eosinophils # (A) 0.2 k/uL (0-0.7); Eosinophils % (A) 1 %; HCT 44.4 % (39.0-53.0); HGB 14.4 gm/dL (13.0-17.5); Lymphocytes # (A) 2.1 k/uL (1.0-4.8); Lymphocytes % (A) 12 %; MCH 21.7 pg (25.0-35.0); MCHC 32.4 g/dL (31.0-37.0); MCV 66.9 fL (80.0-100.0); Mean Platelet Volume 7.5; Microcytosis Marked; Monocytes # (A) 0.8 k/uL (0-1.0); Monocytes % (A) 5 %; Neutrophils # (A) 13.5 k/uL (1.3-7.7); Neutrophils % (A) 79 %; Platelet Count 291 k/uL (150-450); RBC 6.64 m/uL (4.30-5.90)
[2020-05-15 19:30] LABS: Appearance,Urine Clear (Clear); Bilirubin,Urine Negative (Negative); Blood,Urine Negative (Negative); Color,Urine Yellow; Glucose,Urine (UA) Negative (Negative); Ketones,Urine 1+ (Negative); Leukocyte Esterase,Urine Negative (Negative); Mucus,Urine Few /hpf; Nitrite,Urine Negative (Negative); Protein,Urine 1+ (Negative); RBC,Urine 5 /hpf (0-5); Specific Gravity,Urine 1.031 (1.001-1.035); Squamous Epithelial Cell,Urine <1 /hpf (0-4); WBC,Urine <1 /hpf (0-5)
[2020-05-15 19:33] LABS: Erythrocyte Sedimentation Rate QNS mm/hr (0-15)
[2020-05-15 19:39] LABS: ALT 18 U/L (4-49); AST 23 U/L (17-59); African American GFR (CKD) >90 (>60 ml/min/1.73 sqM); Albumin 4.2 g/dL (3.5-5.0); Alkaline Phosphatase 86 U/L (38-126); Amylase 87 U/L (30-110); Anion Gap 7 mmol/L; Blood Urea Nitrogen 15 mg/dL (9-20); C Reactive Protein 22.9 mg/L (<10.0); Calcium 9.6 mg/dL (8.4-10.2); Carbon Dioxide 28 mmol/L (22-30); Chloride 102 mmol/L (98-107); Glucose 91 mg/dL (74-99); Lipase 84 U/L (23-300); Non-African American GFR(CKD) >90 (>60 ml/min/1.73 sqM); Potassium 3.9 mmol/L (3.5-5.1); Sodium 137 mmol/L (137-145); Total Bilirubin 0.7 mg/dL (0.2-1.3); Total Protein 7.7 g/dL (6.3-8.2)
--- NOTE | 2020-05-15 21:57 | CT ---
EXAMINATION TYPE: CT abdomen pelvis w con DATE OF EXAM: 05/15/2020 COMPARISON: 04/08/2019. HISTORY: Abdominal pain, leukocytosis, crohn's disease. CT DLP: 1042.2 mGycm Automated exposure control for dose reduction was used. TECHNIQUE: Helical acquisition of images was performed from the lung bases through the pelvis. CONTRAST: Performed without Oral Contrast and with IV Contrast, patient injected with 100 mL of Isovue 300. FINDINGS: LUNG BASES: No significant abnormality is appreciated. LIVER/GB: No significant abnormality is appreciated. PANCREAS: No significant abnormality is seen. SPLEEN: No significant abnormality is seen. ADRENALS: No significant abnormality is seen. KIDNEYS: No significant abnormality is seen. FREE AIR: No free air is visualized. RETROPERITONEAL ADENOPATHY: None visualized REPRODUCTIVE ORGANS: No significant abnormality is seen URINARY BLADDER: No significant abnormality is seen. PELVIC ADENOPATHY: None visualized. OSSEOUS STRUCTURES: No significant abnormality is seen. BOWEL: Redemonstrated diffuse wall thickening of the terminal ileum with surrounding fat stranding. There is small 1 cm air-fluid collection along the terminal ileum bowel wall. Adjacent few mildly dil ated small bowel loops are seen. There is also small free fluid in the paracolic gutter. OTHER: None IMPRESSION: REDEMONSTRATED INFLAMMATORY CHANGES INVOLVING THE TERMINAL ILEUM, CONSISTENT WITH ACUTE EXACERBATION OF CROHN'S DISEASE. SEVERAL SMALL 1 CM COMPLEX FLUID ALONG THE TERMINAL ILEUM CONCERNING FOR SMALL ABSCESS. HOWEVER NO SI GNIFICANT DRAINABLE FLUID AT THIS TIME. FISTULA CANNOT BE EXCLUDED. Recommend close clinical and imag ing follow-up.
[2020-05-15] MEDS ORDERED: NALOXONE 0.4 MG/ML 1 ML VIAL IV PRN (22:41)
[2020-05-15] MEDS ORDERED: HYDROmorphone 1 MG/ML 1 ML SYRINGE IVP PRN (22:41)
[2020-05-15] MEDS ORDERED: PIPERACILLIN-TAZOBACTAM 3.375 GM in SODIUM CHLORIDE 0.9% 100 ML IVPB STA (22:41)
[2020-05-15] MEDS ORDERED: ONDANSETRON 4 MG/2 ML VIAL IVP PRN (22:41)
[2020-05-15] MEDS ORDERED: SODIUM CHLORIDE 0.9% 1,000 ML IV SCH (22:45)
[2020-05-16] MEDS ORDERED: PIPERACILLIN-TAZOBACTAM 3.375 GM in SODIUM CHLORIDE 0.9% 100 ML IVPB SCH ×2
[2020-05-16] MEDS ORDERED: PIPERACILLIN-TAZOBACTAM 3.375 GM in SODIUM CHLORIDE 0.9% 100 ML IVPB STA (00:26)
[2020-05-16 00:47] VITALS: BP 116/85; PULSE 78
== END 2020-05-16 00:52 | disposition left against medical advice (07) | DRG 387 ==
LOC: EC 18:27 → 5NMEDONC 23:33 → 4SSUR 23:45
PROVIDERS: ADMIT Family Medicine; ATTEND Family Medicine
DX: K50.914 Crohn's disease, unspecified, with abscess (principal); F17.200 Nicotine dependence, unspecified, uncomplicated; Z53.29 Procedure and treatment not carried out because of patient's decision for other reasons; Z88.8 Allergy status to other drugs, medicaments and biological substances
CPT/HCPCS: 36415; 74177; 80053; 81001; 82150; 83690; 85025; 85652; 86140; 87040; 96361; 96374; 96375; 96376; 99285

== ENCOUNTER 2020-09-10 21:17 | Emergency (ER) | payer OTHER ==
[2020-09-10 21:25] VITALS: RESP 18
[2020-09-10] MEDS ORDERED: SODIUM CHLORIDE 0.9% 1,000 ML IV STA (21:51)
[2020-09-10] MEDS ORDERED: HYDROmorphone 1 MG/ML 1 ML SYRINGE IVP STA (21:51)
[2020-09-10] MEDS ORDERED: ONDANSETRON 4 MG/2 ML VIAL IVP STA (21:51)
[2020-09-10] MEDS ORDERED: MORPHINE SULFATE 4 MG/ML SYRINGE IVP STA (22:02)
[2020-09-10 22:24] LABS: Basophils # (A) 0.1 k/uL (0-0.2); Basophils % (A) 1 %; Eosinophils # (A) 0.6 k/uL (0-0.7); Eosinophils % (A) 5 %; HCT 42.5 % (39.0-53.0); HGB 13.6 gm/dL (13.0-17.5); Lymphocytes # (A) 3.7 k/uL (1.0-4.8); Lymphocytes % (A) 33 %; MCH 22.3 pg (25.0-35.0); MCHC 31.9 g/dL (31.0-37.0); Mean Platelet Volume 7.3; Microcytosis Moderate; Monocytes # (A) 0.7 k/uL (0-1.0); Monocytes % (A) 6 %; Neutrophils % (A) 53 %; Platelet Count 246 k/uL (150-450); RBC 6.08 m/uL (4.30-5.90); WBC 11.4 k/uL (3.8-10.6)
[2020-09-10 22:29] LABS: Appearance,Urine Clear (Clear); Bilirubin,Urine Negative (Negative); Blood,Urine Negative (Negative); Color,Urine Yellow; Glucose,Urine (UA) Negative (Negative); Ketones,Urine Negative (Negative); Leukocyte Esterase,Urine Negative (Negative); Nitrite,Urine Negative (Negative); Protein,Urine Trace (Negative); Specific Gravity,Urine 1.031 (1.001-1.035); Urobilinogen,Urine <2.0 mg/dL (<2.0)
[2020-09-10 22:35] LABS: ALT 24 U/L (4-49); AST 23 U/L (17-59); African American GFR (CKD) >90 (>60 ml/min/1.73 sqM); Albumin 3.7 g/dL (3.5-5.0); Alkaline Phosphatase 78 U/L (38-126); Anion Gap 8 mmol/L; Blood Urea Nitrogen 16 mg/dL (9-20); Calcium 9.5 mg/dL (8.4-10.2); Carbon Dioxide 24 mmol/L (22-30); Chloride 105 mmol/L (98-107); Glucose 93 mg/dL (74-99); Lipase 210 U/L (23-300); Non-African American GFR(CKD) >90 (>60 ml/min/1.73 sqM); Potassium 4.2 mmol/L (3.5-5.1); Sodium 137 mmol/L (137-145); Total Bilirubin 0.2 mg/dL (0.2-1.3); Total Protein 6.9 g/dL (6.3-8.2)
--- NOTE | 2020-09-10 23:20 | ED ---
Abdominal Pain HPI - General Chief Complaint: Abdominal Pain Stated Complaint: Crohns flare up Time Seen by Provider: 09/10/20 21:43 Source: patient Mode of arrival: ambulatory - History of Present Illness Initial Comments: 30-year-old male patient with past medical history significant for Crohn's disease presents to the emergency department today for evaluation of increased abdominal pain. Patient states his been having pain constantly for the last couple of months. Denies any fever or chills. Reports cramping. States he's had minimal stool output. Denies nausea or vomiting. States he is receiving Inflectra infusions for his Crohn's. Has not been able to follow-up with GI specialty due to long wait for appointment. Patient denies any recent rash, cough, shortness of breath, chest pain, back pain, numbness, tingling, dizziness, weakness, hematuria, dysuria, urinary urgency, urinary frequency, headache, visual changes, or any other complaints. - Related Data Home Medications Medication Instructions Recorded Confirmed Dicyclomine HCl 20 mg PO QID PRN 04/23/20 09/10/20 ALPRAZolam [Xanax] 0.5 mg PO TID PRN 05/15/20 09/10/20 HYDROcodone/APAP 5-325MG [[place] 1 tab PO DAILY PRN 05/15/20 09/10/20 5-325] Ergocalciferol (Vitamin D2) 1,250 mcg PO WEEKLY 09/10/20 09/10/20 [Drisdol (50,000 Iu)] Allergies Allergy/AdvReac Type Severity Reaction Status Date / Time cyclobenzaprine AdvReac muscle Verified 09/10/20 22:56 [From Flexeril] spasms Review of Systems ROS Statement: Those systems with pertinent positive or pertinent negative responses have been documented in the HPI. ROS Other: All systems not noted in ROS Statement are negative. Past Medical History Past Medical History: No Reported History Additional Past Medical History / Comment(s): Crohns, abscess on intestine diagnosed 08/2018 tx with ABX, pancreatitis. 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 History of Any Multi-Drug Resistant Organisms: None Reported Past Surgical History: No Surgical Hx Reported Additional Past Surgical History / Comment(s): EGD, colonoscopy, Past Anesthesia/Blood Transfusion Reactions: No Reported Reaction Past Psychological History: Anxiety, Depression Smoking Status: Current every day smoker Past Alcohol Use History: Occasional Past Drug Use History: Marijuana - Past Family History Father Family Medical History: No Reported History Additional Family Medical History / Comment(s): Father is healthy Mother Family Medical History: No Reported History Additional Family Medical History / Comment(s): Mother is healthy. General Exam General appearance: alert, in no apparent distress, other (Physical well- developed, well-nourished adult male patient in no acute distress. Vital signs upon presentation are temperature 98.0F, pulse 79, respirations 18, blood pressure 127/80, pulse ox 97% on room air.) Eye exam: Present: normal appearance, PERRL, EOMI. Absent: scleral icterus, conjunctival injection, periorbital swelling ENT exam: Present: normal exam, normal oropharynx, mucous membranes moist Respiratory exam: Present: normal lung sounds bilaterally. Absent: respiratory distress, wheezes, rales, rhonchi, stridor Cardiovascular Exam: Present: regular rate, normal rhythm, normal heart sounds. Absent: systolic murmur, diastolic murmur, rubs, gallop, clicks GI/Abdominal exam: Present: soft, tenderness (Generalized), normal bowel sounds. Absent: distended, guarding, rebound, rigid Neurological exam: Present: alert, oriented X3, CN II-XII intact Psychiatric exam: Present: normal affect, normal mood Skin exam: Present: warm, dry, intact, normal color. Absent: rash Course Vital Signs 09/10/20 09/10/20 09/11/20 21:22 23:43 01:16 Temperature 98 F 97.7 F Pulse Rate 79 60 64 Respiratory 18 18 18 Rate Blood Pressure 127/80 126/73 118/79 O2 Sat by Pulse 97 100 100 Oximetry Medical Decision Making - Medical Decision Making 30-year-old male patient with past medical history significant for Crohn's disease presents to the emergency department today for evaluation of increased lower abdominal pain. Patient states he has had decreased bowel movements. Reports nausea. Physical examination did reveal lower abdominal tenderness. He is afebrile normal vital signs. Labs reviewed and did reveal elevated white blood cell count at 11.6. CT abdomen and pelvis was obtained and did show evidence for increased inflammatory changes around the terminal ileum with increased spiculation consistent with adhesions. This is worse than his previous CT scan from May 2020. He is currently receiving Inflectra infusions every 6 weeks, due on 09/24. States that he has had constant pain for the last few months, worse today. I did discuss the case with on-call general surgeon Dr. oGnzalez who feels evaluation and treatment by gastroenterology would be more appropriate. Unfortunately we do not have GI coverage at this time. I did discuss with with patient, he is agreeable to transfer to [facility]. We gave dose of IV steroids, Flagyl, and IV fluids. He is given Morphine. Case discussed with Dr. Vernon at [facility] who accepts transfer. Case discussed with my attending Dr. Calloway. - Lab Data Result diagrams: 09/10/20 22:10 09/10/20 22:10 Lab Results 09/10/20 09/10/20 09/10/20 Range/Units 22:10 22:10 22:10 WBC 11.4 H (3.8-10.6) k/uL RBC 6.08 H (4.30-5.90) m/uL Hgb 13.6 (13.0-17.5) gm/dL Hct 42.5 (39.0-53.0) % MCV 70.0 L (80.0-100.0) fL MCH 22.3 L (25.0-35.0) pg MCHC 31.9 (31.0-37.0) g/dL RDW 15.0 (11.5-15.5) % Plt Count 246 (150-450) k/uL MPV 7.3 Neutrophils % 53 % Lymphocytes % 33 % Monocytes % 6 % Eosinophils % 5 % Basophils % 1 % Neutrophils # 6.0 (1.3-7.7) k/uL Lymphocytes # 3.7 (1.0-4.8) k/uL Monocytes # 0.7 (0-1.0) k/uL Eosinophils # 0.6 (0-0.7) k/uL Basophils # 0.1 (0-0.2) k/uL Microcytosis Moderate Sodium 137 (137-145) mmol/L Potassium 4.2 (3.5-5.1) mmol/L Chloride 105 (98-107) mmol/L Carbon Dioxide 24 (22-30) mmol/L Anion Gap 8 mmol/L BUN 16 (9-20) mg/dL Creatinine 0.99 (0.66-1.25) mg/dL Est GFR (CKD-EPI)AfAm >90 (>60 ml/min/1.73 sqM) Est GFR (CKD-EPI)NonAf >90 (>60 ml/min/1.73 sqM) Glucose 93 (74-99) mg/dL Plasma Lactic Acid Nic (0.7-2.0) mmol/L Calcium 9.5 (8.4-10.2) mg/dL Total Bilirubin 0.2 (0.2-1.3) mg/dL AST 23 (17-59) U/L ALT 24 (4-49) U/L Alkaline Phosphatase 78 (38-126) U/L Total Protein 6.9 (6.3-8.2) g/dL Albumin 3.7 (3.5-5.0) g/dL Lipase 210 (23-300) U/L Urine Color Yellow Urine Appearance Clear (Clear) Urine pH 6.0 (5.0-8.0) Ur Specific [place] 1.031 (1.001-1.035) Urine Protein Trace H (Negative) Urine Glucose (UA) Negative (Negative) Urine Ketones Negative (Negative) Urine Blood Negative (Negative) Urine Nitrite Negative (Negative) Urine Bilirubin Negative (Negative) Urine Urobilinogen <2.0 (<2.0) mg/dL Ur Leukocyte Esterase Negative (Negative) 09/10/20 Range/Units 22:10 WBC (3.8-10.6) k/uL RBC (4.30-5.90) m/uL Hgb (13.0-17.5) gm/dL Hct (39.0-53.0) % MCV (80.0-100.0) fL MCH (25.0-35.0) pg MCHC (31.0-37.0) g/dL RDW (11.5-15.5) % Plt Count (150-450) k/uL MPV Neutrophils % % Lymphocytes % % Monocytes % % Eosinophils % % Basophils % % Neutrophils # (1.3-7.7) k/uL Lymphocytes # (1.0-4.8) k/uL Monocytes # (0-1.0) k/uL Eosinophils # (0-0.7) k/uL Basophils # (0-0.2) k/uL Microcytosis Sodium (137-145) mmol/L Potassium (3.5-5.1) mmol/L Chloride (98-107) mmol/L Carbon Dioxide (22-30) mmol/L Anion Gap mmol/L BUN (9-20) mg/dL Creatinine (0.66-1.25) mg/dL Est GFR (CKD-EPI)AfAm (>60 ml/min/1.73 sqM) Est GFR (CKD-EPI)NonAf (>60 ml/min/1.73 sqM) Glucose (74-99) mg/dL Plasma Lactic Acid Nic 1.3 (0.7-2.0) mmol/L Calcium (8.4-10.2) mg/dL Total Bilirubin (0.2-1.3) mg/dL AST (17-59) U/L ALT (4-49) U/L Alkaline Phosphatase (38-126) U/L Total Protein (6.3-8.2) g/dL Albumin (3.5-5.0) g/dL Lipase (23-300) U/L Urine Color Urine Appearance (Clear) Urine pH (5.0-8.0) Ur Specific [place] (1.001-1.035) Urine Protein (Negative) Urine Glucose (UA) (Negative) Urine Ketones (Negative) Urine Blood (Negative) Urine Nitrite (Negative) Urine Bilirubin (Negative) Urine Urobilinogen (<2.0) mg/dL Ur Leukocyte Esterase (Negative) - Radiology Data Radiology results: report reviewed, image reviewed CT abdomen and pelvis with contrast is obtained. Report reviewed in its entirety. Impression by Dr. Blank shows inflammatory changes lower abdomen involving the terminal ileum of spiculation stranding and minimal free fluid that is consistent with Crohn's disease. This has progressed compared to old exam. There is increased circulation. Dilated distal small bowel somewhat old exam. Disposition Clinical Impression: Exacerbation of Crohn's disease Disposition: OTHER INSTITUTION NOT DEFINED Condition: Serious Referrals: Mark Clemente MD [Primary Care Provider] - 1-2 days - Out of Hospital Transfer - Req. Specs Out of Hospital Transfer - Requested Specifics: Other Emergency Center ([facility])
--- NOTE | 2020-09-10 23:40 | CT ---
EXAMINATION TYPE: CT abdomen pelvis w con DATE OF EXAM: 09/10/2020 COMPARISON: 1020 HISTORY: Abd pain, Hx of crohns CT DLP: 1117.7 mGycm Automated exposure control for dose reduction was used. CONTRAST: Performed with IV Contrast, patient injected with 100 mL of Isovue 300. Lung bases are clear. There is no pleural effusion. Heart size is normal. There is no pericardial eff usion. Liver spleen stomach pancreas gallbladder appear normal. The bile ducts are not dilated. There is no adrenal mass. Kidneys show satisfactory contrast opacification. There is no hydronephrosis. De layed images show normal renal excretion. There is no retroperitoneal adenopathy. The bladder distends smoothly. There is no inguinal hernia. There is no free fluid in the pelvis. Bhumika endix is not seen. There is some fat stranding around the cecum and in the lower mid abdomen consiste nt with some inflammatory changes. There is small amount of fluid in the right paracolic gutter. I se e no evidence of free air. There is a loop of ileum close to the terminal ileum that measures 5 cm i n diameter with fecal material. There appears to be significant wall thickening of the terminal ileum that measures 4 cm in diameter. There is some mild spiculation consistent with adhesions at the term inal ileum best seen on the coronal image 39. The lumbar spine is intact. Bony pelvis appears intact. IMPRESSION: Inflammatory changes in the lower abdomen involving the terminal ileum with spiculation and stranding and minimal free fluid that is consistent with Crohn's disease. This has progressed compared to old exam. There is increased spiculation. Dilated distal small bowel similar to old exam.
[2020-09-10 23:46] VITALS: TEMP 97.7
[2020-09-11] MEDS ORDERED: methylPREDNISolone SOD SUCCI 125 MG/2 ML VIAL IV STA (00:51)
[2020-09-11] MEDS ORDERED: metroNIDAZOLE-NS PMX 500 MG in SALINE 1 100ML.BAG IVPB STA (00:51)
[2020-09-11] MEDS ORDERED: MORPHINE SULFATE 4 MG/ML SYRINGE IVP STA (00:57)
[2020-09-11] MEDS ORDERED: SODIUM CHLORIDE 0.9% 1,000 ML IV SCH (01:00)
[2020-09-11 01:18] VITALS: BP 118/79; PULSE 64
== END 2020-09-11 02:15 | disposition other institution (70) ==
LOC: EC 21:17
DX: K50.90 Crohn's disease, unspecified, without complications (principal); F17.200 Nicotine dependence, unspecified, uncomplicated; Z88.8 Allergy status to other drugs, medicaments and biological substances
CPT/HCPCS: 36415; 80053; 83605; 83690; 85025; 81003; 74177; 99284; 96365; 96376; 96375; 96361; J2270 ×2; J2930; J2405; Q9967

== ENCOUNTER → 2021-08-11 | Day surgery (SDC) | payer OTHER ==
[~2021-08-11] MED LIST changes: -DEXAMETHASONE SOD PHOSPHATE 4 MG/ML 1 ML VIAL IV ONE; +GLUCAGON 1 MG/ML VIAL IM STA; -HYDROmorphone 0.5 MG/0.5 ML SYRINGE IVP PRN; -LACTATED RINGERS 1,000 ML IV SCH; -MIDAZOLAM 2 MG/2 ML VIAL IV PRN; -ONDANSETRON 4 MG/2 ML VIAL IVP ONE; -SCOPOLAMINE 1.5MG/72HR PATCH TRANSDERM ONE
[2021-08-11 09:14] VITALS: BP 126/87; PULSE 65; RESP 16; TEMP 98.1
--- NOTE | 2021-08-12 06:55 | MR ---
EXAMINATION TYPE: MR Enterography DATE OF EXAM: 08/11/2021 COMPARISON: CT abdomen and pelvis September 10, [address] older [address]s. HISTORY: No prior, ileal stricture, pre surgical, 1125ml PO contrast drank by patient. 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 CONTRAST: Standard multiplanar, multisequence imaging of the abdomen is performed without and with IV contrast, patient is injected with 9ml mL intravenous Gadavist gadolinium contrast. Oral Volumen was given as per enterography protocol. FINDINGS: The exam is suboptimal as patient unable to hold still. Patient has little intra-abdominal fat also making evaluation suboptimal. Evaluation also suboptimal due to field of view centered on ab domen with pathology centered in the upper pelvis. Bowel: Stomach shows some fluid distention without suspicious eccentric wall thickening or asymmetric enhancement. There is fairly satisfactory fluid filling of the small bowel loops. Colon is predomina ntly air-filled. The area of concern terminal ileum is low-lying in the pelvis making evaluation subo ptimal as is on the edge of the field of view. There is abnormal wall thickening redemonstrated measu ring up to 1.9 cm in thickness eccentrically over a length of at least 5 to 6 cm. There is poor separ ation of bowel loops at this level with adjacent area of wall thickening and abnormal enhancement and indistinct fat plane, fistulous tracts must be considered at this level. Fecal prominent distal smal l bowel loop on recent CT is less well seen on this study. Other: Lung bases are grossly clear, liver, gallbladder, spleen, pancreas, both adrenal glands appe ar within normal limits. No concerning renal mass or hydronephrosis. No intra-abdominal ascites. Visu alized osseous structures are intact. IMPRESSION: Markedly suboptimal study. Acute on chronic inflammatory change involving the terminal il eum is redemonstrated. Some inflammatory change to adjacent small bowel loops in the upper pelvis is redemonstrated. Degree of stricturing or stenosis is less well seen on MRI versus recent CT.
== END ==
LOC: RADMRIMAIN 08:34
PROVIDERS: ATTEND Internal Medicine Gastroenterology
DX: Q41.2 Congenital absence, atresia and stenosis of ileum (principal)
CPT/HCPCS: 72197; 74183; J1610; A9585

== ENCOUNTER 2023-09-29 20:05 | Emergency (ER) | payer OTHER ==
[2023-09-30 07:13] LABS: Appearance,Urine Clear (Clear); Bilirubin,Urine Negative (Negative); Blood,Urine Negative (Negative); Color,Urine Yellow; Glucose,Urine (UA) Negative (Negative); Ketones,Urine Negative (Negative); Leukocyte Esterase,Urine Negative (Negative); Nitrite,Urine Negative (Negative); Protein,Urine Negative (Negative); Specific Gravity,Urine 1.023 (1.001-1.035)
[2023-09-30 07:32] LABS: ALT 32 U/L (4-49); AST 30 U/L (17-59); African American GFR (CKD) >90 (>60 ml/min/1.73 sqM); Albumin 3.9 g/dL (3.5-5.0); Alcohol <10 mg/dL; Alkaline Phosphatase 59 U/L (38-126); Anion Gap 4 mmol/L; Basophils # (A) 0.1 k/uL (0-0.2); Basophils % (A) 1 %; Blood Urea Nitrogen 15 mg/dL (9-20); Calcium 9.4 mg/dL (8.4-10.2); Carbon Dioxide 28 mmol/L (22-30); Chloride 108 mmol/L (98-107); Eosinophils # (A) 0.4 k/uL (0-0.7); Eosinophils % (A) 4 %; Glucose 88 mg/dL (74-99); HCT 43.3 % (39.0-53.0); HGB 13.4 gm/dL (13.0-17.5); Lymphocytes # (A) 4.6 k/uL (1.0-4.8); Lymphocytes % (A) 47 %; MCH 21.9 pg (25.0-35.0); MCV 70.6 fL (80.0-100.0); Microcytosis Moderate; Monocytes # (A) 0.5 k/uL (0-1.0); Monocytes % (A) 5 %; Neutrophils # (A) 4.1 k/uL (1.3-7.7); Neutrophils % (A) 42 %; Non-African American GFR(CKD) >90 (>60 ml/min/1.73 sqM); Platelet Count 236 k/uL (150-450); RBC 6.13 m/uL (4.30-5.90); RDW 15.9 % (11.5-15.5); Sodium 140 mmol/L (137-145); Total Bilirubin 0.5 mg/dL (0.2-1.3); Total Protein 7.2 g/dL (6.3-8.2); WBC 9.8 k/uL (3.8-10.6)
[2023-09-30 08:38] VITALS: TEMP 98.4
[2023-09-30] MEDS: LORazepam 1 MG TAB PO STA (22:49)
[2023-10-01 08:00] VITALS: BP 117/67; PULSE 69; RESP 16
== END 2023-10-01 15:10 ==
LOC: EC 20:05
CPT/HCPCS: 36415; 80053; 80320; 81003; 85025; 87636; 99284

== ENCOUNTER → 2024-05-30 | Outpatient (CLI) | payer OTHER ==
--- NOTE | 2024-05-30 13:51 | CT ---
EXAMINATION TYPE: CT chest wo con CT DLP: 559 mGycm, Automated exposure control for dose reduction was used. DATE OF EXAM: 05/30/2024 12:52 PM COMPARISON: CT abdomen and pelvis 09/10/2020 CLINICAL INDICATION:Male, 33 years old with history of R91.8 OTHER NONSPECIFIC ABNORMAL FINDING OF MOUNIKA NG F; PHH, SOB. TECHNIQUE: Multiple axial images were obtained through the chest without IV contrast. Lack of IV or o ral contrast limits evaluation of solid and hollow organ viscera. . Coronal and sagittal reformats re viewed. FINDINGS: LUNGS/ PLEURA: No pleural effusion, pneumothorax, focal consolidation. Minimal linear atelectasis wit hin the lingula. Tree-in-bud nodular opacities within the right upper lobe. AIRWAY: Patent and unremarkable.. HEART: Size within normal limits. No pericardial effusion. No significant coronary artery calcificati ons. MEDIASTINUM: No gross evidence of adenopathy. Residual thymus. VASCULATURE: No aortic aneurysm. MUSCULOSKELETAL: No acute osseous abnormalities SOFT TISSUES/LYMPH NODES: Bilateral gynecomastia. Subcentimeter bilateral axillary lymph nodes. LOWER NECK: No significant findings. UPPER ABDOMEN: No significant findings. IMPRESSION: Tree-in-bud nodular opacities within the right upper lobe suggesting an infectious/inflammatory bronc hiolitis. [facility] Naina Ortiz, , 05/30/2024 1:48 PM
== END | disposition home or self-care (01) ==
LOC: RADCTMAIN 12:25
PROVIDERS: ATTEND Family Medicine
DX: R91.8 Other nonspecific abnormal finding of lung field (principal); R93.89 Abnormal findings on diagnostic imaging of other specified body structures
CPT/HCPCS: 71250